=== PATIENT | female | born 1965 | race Hispanic/Latino ===

== ENCOUNTER 2019-12-26 19:57 | Emergency (ER) | payer OTHER ==
--- OUTSIDE RECORDS SUMMARY | 2019-12-26 20:12 | XMS REPORT | Continuity of Care Document ---
:[address] [facility] t Address [address] [place] [address] Care Team Providers Name Role Phone Unavailable Unavailable Unavailable Payers Payer Name Policy Type Policy Number Effective Date Expiration Date S ource Problems This patient has no known problems. Allergies, Adverse Reactions, Alerts Allergy Allergy Status Severity Reaction(s) Onset Inactive Treating Comm ents Source Name Type Date Date Clinician glipizid DA Active [place] 2019-[facility]: [address] metformi DA Active [place] 2019-[facility] 00:00: [address] glipizid DA Active [place] 2018-0 [facility] 00:00: [address] metformi DA Active SV 2018-0 [facility] 00:00: [address] glipizid DA Active [place] 2018-0 [facility] 00:00: [address] metformi DA Active SV 2018-0 [facility] 08[facility]07 Corpus 00:00: [address] glipizid DA Active [place] 2019-0 [facility] 05[facility]16 Corp[facility] 00:00: [address] metformi DA Active SV 2018-0 [facility]16 Corp[facility] 00:00: [address] metformi DA Active SV 2017-0 [facility] 03-22 Corpus 00:00: [address] Medications This patient has no known medications. Procedures This patient has no known procedures. Results Test Description Test Time Test Comments Results Result [facility] e Comments - CT ABD PELVIS 2019-10-28 Patient Name: W/O CONT 13:37:00 ABHIJIT PEDROZA Unit No: [id number] EXAMS: CPT CODE: [id number] CT ABD PELVIS W/O CONT 12780 Reason: abdl pain ruq, hematuria Indication: Abdominal pain, hematuria Technique: 5 mm images through the abdomen and pelvis without the use of contrast FINDINGS: On the cephalad most images there is a 1 cm nodule in the periphery of the left lower lobe The liver is nodular and cirrhotic in appearance. The spleen is enlarged measuring over 20 cm craniocaudad dimension. There are scattered varices in the upper abdomen. The gallbladder is been removed. Contour of the pancreas, adrenals and kidneys are unremarkable. Abdominal aorta is normal in caliber. There is no free intraperitoneal air or free fluid. No abnormally dilated or thickened loops of bowel are identified graph pelvic contents are unremarkable. Bone windows show degenerative changes in the lower lumbar spine. IMPRESSION: 1. Cirrhosis, variceal formation and splenomegaly similar to prior studies 2. 1 cm noncalcified nodule in the right lung base which is new from prior chest CT of May 21, 2018, inflammatory versus neoplastic at 1337 Reported and signed by: Samm Ortez MD CC: Dru Milton MD Technologist: Mckenzie Bliss CT Trscrpt Dt/ ([id number])[email or web address] Orig Print D/T: S: 10/28/2019 (1340) CTDI: DLP: [facility] NAME: ABHIJIT PEDROZA [address] [facility] PHYS: [place]. [place] [address] : 1965 AGE: 53 SEX: F LOC: KATHRIN PHONE #: [phone] EXAM DATE: 10/28/2019 STATUS: REG ER FAX #: RAD NO: DC Dt: PAGE 1 Signed Report GLUBED 2019-10-28 11:31:00 Test Item Value Reference Range Interpretation Comme nts GLUBED (test code = GLUBED) 380 MG/DL 65-99 H Performed by certified potable water treatment operator at [facility] CBC W/AUTO [id number] 10:25:00 Test Item Value Reference Range Interpretation Comments WHITE BLOOD CELL (test code = 5.63 x10 3/uL 4.80-10.80 N WBC) RED BLOOD CELL (test code = 4.72 x10 6/uL 4.2-5.4 N RBC) HEMOGLOBIN (test code = HGB) 13.0 G/DL 12.0-16.0 N HEMATOCRIT (test code = HCT) 38.2 % 37-47 N MEAN CELL VOLUME (test code = 80.9 FL 81-99 L MCV) MEAN CELL HGB (test code = MCH) 27.5 PG 27-31 N MEAN CELL HGB CONCENTRATION 34.0 G/DL 33-37 N (test code = MCHC) RED CELL DISTRIBUTION WIDTH 18.5 % 11.5-14.5 H (test code = RDW) PLATELET COUNT (test code = 58 x10 3/uL 150-450 L PLT) MEAN PLATELET VOLUME (test code 9.5 FL 7.4-10.4 N = MPV) NEUTROPHIL % (test code = NT%) 73.7 % 42-86 N LYMPHOCYTE % (test code = LY%) 12.4 % 24-44 L MONOCYTE % (test code = MO%) 8.3 % 0.0-4.0 H EOSINOPHIL % (test code = EO%) 5.2 % 0.0-2.7 H BASOPHIL % (test code = BA%) 0.4 % 0.0-0.5 N NEUTROPHIL # (test code = NT#) 4.15 x10 3/uL 1.8-7.7 N LYMPHOCYTE # (test code = LY#) 0.70 x10 3/uL 1.0-4.8 L MONOCYTE # (test code = MO#) 0.47 x10 3/uL 0.0-0.8 N EOSINOPHIL # (test code = EO#) 0.29 x10 3/uL 0.0-0.5 N BASOPHIL # (test code = BA#) 0.02 x10 3/uL 0.0-0.2 N MANUAL DIFF REQUIRED (test code SCAN PLT_RBC TECH REVIEW = MDIFF) RBC [id number] 10:25:00 Test Item Value Reference Range Interpretation Comments RBC MORPHOLOGY COMMENT (test code = Normal RBCM) PLATELET [id number] 10:25:00 Test Item Value Reference Range Interpretation Comments PLATELET ESTIMATE (test code Dec ADEQ A OIL IMMERSION 51656 = PLTEST) PLATELET [id number] 10:25:00 Test Item Value Reference Range Interpretation Comments PLATELET MORPHOLOGY (test code = Normal Normal PLTMORPH) CBC W/AUTO [id number] 10:24:00 Test Item Value Reference Range Interpretation Comments WHITE BLOOD CELL (test code = 5.63 x10 3/uL 4.80-10.80 N WBC) RED BLOOD CELL (test code = 4.72 x10 6/uL 4.2-5.4 N RBC) HEMOGLOBIN (test code = HGB) 13.0 G/DL 12.0-16.0 N HEMATOCRIT (test code = HCT) 38.2 % 37-47 N MEAN CELL VOLUME (test code = 80.9 FL 81-99 L MCV) MEAN CELL HGB (test code = MCH) 27.5 PG 27-31 N MEAN CELL HGB CONCENTRATION 34.0 G/DL 33-37 N (test code = MCHC) RED CELL DISTRIBUTION WIDTH 18.5 % 11.5-14.5 H (test code = RDW) PLATELET COUNT (test code = 58 x10 3/uL 150-450 L PLT) MEAN PLATELET VOLUME (test code 9.5 FL 7.4-10.4 N = MPV) NEUTROPHIL % (test code = NT%) 73.7 % 42-86 N LYMPHOCYTE % (test code = LY%) 12.4 % 24-44 L MONOCYTE % (test code = MO%) 8.3 % 0.0-4.0 H EOSINOPHIL % (test code = EO%) 5.2 % 0.0-2.7 H BASOPHIL % (test code = BA%) 0.4 % 0.0-0.5 N NEUTROPHIL # (test code = NT#) 4.15 x10 3/uL 1.8-7.7 N LYMPHOCYTE # (test code = LY#) 0.70 x10 3/uL 1.0-4.8 L MONOCYTE # (test code = MO#) 0.47 x10 3/uL 0.0-0.8 N EOSINOPHIL # (test code = EO#) 0.29 x10 3/uL 0.0-0.5 N BASOPHIL # (test code = BA#) 0.02 x10 3/uL 0.0-0.2 N MANUAL DIFF REQUIRED (test code SCAN PLT_RBC TECH REVIEW = PETER) RBC [id number] 10:24:00 Test Item Value Reference Range Interpretation Comments RBC MORPHOLOGY COMMENT (test code = RBCM) PLATELET [id number] 10:24:00 Test Item Value Reference Range Interpretation Comments PLATELET ESTIMATE (test code = PLTEST) ADEQ CBC W/AUTO [id number] 10:24:00 Test Item Value Reference Range Interpretation Comments WHITE BLOOD CELL (test code = 5.63 x10 3/uL 4.80-10.80 N WBC) RED BLOOD CELL (test code = 4.72 x10 6/uL 4.2-5.4 N RBC) HEMOGLOBIN (test code = HGB) 13.0 G/DL 12.0-16.0 N HEMATOCRIT (test code = HCT) 38.2 % 37-47 N MEAN CELL VOLUME (test code = 80.9 FL 81-99 L MCV) MEAN CELL HGB (test code = MCH) 27.5 PG 27-31 N MEAN CELL HGB CONCENTRATION 34.0 G/DL 33-37 N (test code = MCHC) RED CELL DISTRIBUTION WIDTH 18.5 % 11.5-14.5 H (test code = RDW) PLATELET COUNT (test code = 58 x10 3/uL 150-450 L PLT) MEAN PLATELET VOLUME (test code 9.5 FL 7.4-10.4 N = MPV) NEUTROPHIL % (test code = NT%) 73.7 % 42-86 N LYMPHOCYTE % (test code = LY%) 12.4 % 24-44 L MONOCYTE % (test code = MO%) 8.3 % 0.0-4.0 H EOSINOPHIL % (test code = EO%) 5.2 % 0.0-2.7 H BASOPHIL % (test code = BA%) 0.4 % 0.0-0.5 N NEUTROPHIL # (test code = NT#) 4.15 x10 3/uL 1.8-7.7 N LYMPHOCYTE # (test code = LY#) 0.70 x10 3/uL 1.0-4.8 L MONOCYTE # (test code = MO#) 0.47 x10 3/uL 0.0-0.8 N EOSINOPHIL # (test code = EO#) 0.29 x10 3/uL 0.0-0.5 N BASOPHIL # (test code = BA#) 0.02 x10 3/uL 0.0-0.2 N MANUAL DIFF REQUIRED (test code SCAN PLT_RBC TECH REVIEW = MDIFF) RBC [id number] 10:24:00 Test Item Value Reference Range Interpretation Comments RBC MORPHOLOGY COMMENT (test code = RBCM) PLATELET [id number] 10:24:00 Test Item Value Reference Range Interpretation Comments PLATELET ESTIMATE (test code = PLTEST) ADEQ CBC W/AUTO [id number] 10:20:00 Test Item Value Reference Range Interpretation Comments WHITE BLOOD CELL (test code = 5.63 x10 3/uL 4.80-10.80 N WBC) RED BLOOD CELL (test code = 4.72 x10 6/uL 4.2-5.4 N RBC) HEMOGLOBIN (test code = HGB) 13.0 G/DL 12.0-16.0 N HEMATOCRIT (test code = HCT) 38.2 % 37-47 N MEAN CELL VOLUME (test code = 80.9 FL 81-99 L MCV) MEAN CELL HGB (test code = MCH) 27.5 PG 27-31 N MEAN CELL HGB CONCENTRATION 34.0 G/DL 33-37 N (test code = MCHC) RED CELL DISTRIBUTION WIDTH 18.5 % 11.5-14.5 H (test code = RDW) PLATELET COUNT (test code = 58 x10 3/uL 150-450 L PLT) MEAN PLATELET VOLUME (test code 9.5 FL 7.4-10.4 N = MPV) NEUTROPHIL % (test code = NT%) 73.7 % 42-86 N LYMPHOCYTE % (test code = LY%) 12.4 % 24-44 L MONOCYTE % (test code = MO%) 8.3 % 0.0-4.0 H EOSINOPHIL % (test code = EO%) 5.2 % 0.0-2.7 H BASOPHIL % (test code = BA%) 0.4 % 0.0-0.5 N NEUTROPHIL # (test code = NT#) 4.15 x10 3/uL 1.8-7.7 N LYMPHOCYTE # (test code = LY#) 0.70 x10 3/uL 1.0-4.8 L MONOCYTE # (test code = MO#) 0.47 x10 3/uL 0.0-0.8 N EOSINOPHIL # (test code = EO#) 0.29 x10 3/uL 0.0-0.5 N BASOPHIL # (test code = BA#) 0.02 x10 3/uL 0.0-0.2 N UA RFLX [id number] 10:18:00 Test Item Value Reference Range Interpretation Comments UA COLOR (test code = COLU) YELLOW YELLOW UA APPEARANCE (test code = HAZY CLEAR APPU) UA GLUCOSE DIPSTICK (test 1000 mg/dL NEGATIVE A code = DGLUU) UA BILIRUBIN DIPSTICK (test NEGATIVE NEGATIVE code = BILU) UA KETONE DIPSTICK (test code 150 mg/dL NEGATIVE A = KETU) UA SPECIFIC GRAVITY (test 1.010 1.001-1.035 N code = SGU) UA BLOOD DIPSTICK (test code 4+ NEGATIVE A = RAKESH) UA PH DIPSTICK (test code = 6.0 5.5-7.0 N YESI) UA PROTEIN DIPSTICK (test 75 mg/dL NEGATIVE A code = PROU) UA UROBILINOGEN DIPSTICK NORMAL mg/dL NORMAL (test code = URO) UA NITRITE DIPSTICK (test POSITIVE NEGATIVE A code = CAROL) UA LEUKOCYTE ESTERASE 1+ NEGATIVE A DIPSTICK (test code = LEUU) UA COMMENT (test code = COMU) VOLUME 10-12 ML URINE SPECIMEN DESCRIPTION Clean Catch (test code = UASPEC) UA [id number] 10:18:00 Test Item Value Reference Range Interpretation Comments UA WBC (test code = WBCU) 10 - 20 #/hpf <10 A UA RBC (test code = RBCU) 20-30 #/hpf NONE SEEN A UA BACTERIA (test code = FEW #/hpf NONE SEEN A BACU) UA SQUAMOUS CELLS (test code > 100 #/lpf <100 A = SQU) UA CULTURE NEEDED? (test Criteria not met code = UACULT) COMPREHENSIVE METABOLIC [id number] 10:12:00 Test Item Value Reference Range Interpretation Comments SODIUM (test code = 131 MMOL/L 133-145 L NA) POTASSIUM (test code = 3.7 MMOL/L 3.6-5.2 N K) CHLORIDE (test code = 94 MMOL/L 100-108 L CL) CARBON DIOXIDE (test 22 MMOL/L 22-32 N code = CO2) GLUCOSE (test code = 411 MG/DL 65-99 HH VERIFIE D BY REPEAT GLU) ANALYSIS ON DARINEL E SPECIMEN.Result s of this assay meth od may be falsely depressed orele vated if patient is t aking sulfasalazine. BLOOD UREA NITROGEN 7 MG/DL 6-20 N (test code = BUN) GLOMERULAR FILTRATION 92 51-120 N Report ing units: RATE (test code = GFR) mL/mi n/1.73m\S\2 (Modified MDRD Formula) CREATININE (test code 0.67 MG/DL 0.60-1.00 N = CREAT) TOTAL PROTEIN (test 7.7 G/DL 6.4-8.2 N code = PROT) ALBUMIN (test code = 3.3 G/DL 3.4-5.0 L ALB) GLOBULIN (test code = 4.4 G/DL 1.5-3.8 H GLOB) ALBUMIN/GLOBULIN RATIO 0.8 1.1-2.2 L (test code = A/G) CALCIUM (test code = 8.7 MG/DL 8.7-10.5 N CA) BILIRUBIN TOTAL (test 2.8 MG/DL 0.0-1.0 H code = BILT) SGOT/AST (test code = 33 Units/L 15-37 N Result s of this AST) assay method ma y be falsely depress ed orelevated if patient is taki ng sulfasalazine. SGPT/ALT (test code = 45 Units/L 30-65 N Result s of this ALT) assay method ma y be falsely depress ed orelevated if patient is taki ng sulfasalazine. ALKALINE PHOSPHATASE 137 Units/L 50-136 H TOTAL (test code = ALKP) [id number] 10:12:00 Test Item Value Reference Range Interpretation Comments LIPASE (test code = LIP) 111 Units/L 73-393 N CV CALL [id number] 10:12:00 Test Item Value Reference Range Interpretation Comments CV CALL CHEM (test code = CVC) COMPREHENSIVE METABOLIC [id number] 10:12:00 Test Item Value Reference Range Interpretation Comments SODIUM (test code = 131 MMOL/L 133-145 L NA) POTASSIUM (test code = 3.7 MMOL/L 3.6-5.2 N K) CHLORIDE (test code = 94 MMOL/L 100-108 L CL) CARBON DIOXIDE (test 22 MMOL/L 22-32 N code = CO2) GLUCOSE (test code = 411 MG/DL 65-99 HH VERIFIE D BY REPEAT GLU) ANALYSIS ON DARINEL E SPECIMEN.Result s of this assay meth od may be falsely depressed orele vated if patient is t aking sulfasalazine. BLOOD UREA NITROGEN 7 MG/DL 6-20 N (test code = BUN) GLOMERULAR FILTRATION 92 51-120 N Report ing units: RATE (test code = GFR) mL/mi n/1.73m\S\2 (Modified MDRD Formula) CREATININE (test code 0.67 MG/DL 0.60-1.00 N = CREAT) TOTAL PROTEIN (test 7.7 G/DL 6.4-8.2 N code = PROT) ALBUMIN (test code = 3.3 G/DL 3.4-5.0 L ALB) GLOBULIN (test code = 4.4 G/DL 1.5-3.8 H GLOB) ALBUMIN/GLOBULIN RATIO 0.8 1.1-2.2 L (test code = A/G) CALCIUM (test code = 8.7 MG/DL 8.7-10.5 N CA) BILIRUBIN TOTAL (test 2.8 MG/DL 0.0-1.0 H code = BILT) SGOT/AST (test code = 33 Units/L 15-37 N Result s of this AST) assay method ma y be falsely depress ed orelevated if patient is taki ng sulfasalazine. SGPT/ALT (test code = 45 Units/L 30-65 N Result s of this ALT) assay method ma y be falsely depress ed orelevated if patient is taki ng sulfasalazine. ALKALINE PHOSPHATASE 137 Units/L 50-136 H TOTAL (test code = ALKP) [id number] 10:12:00 Test Item Value Reference Range Interpretation Comments LIPASE (test code = LIP) 111 Units/L 73-393 N CV CALL [id number] 10:12:00 Test Item Value Reference Range Interpretation Comments CV CALL CHEM (test Called Results c alled to and code = CVC) read back by GILBERTO BRYANT RN NWED;.for darren te(s): GLU .at 1012 - 09/0 03/17; by D.[email or web address].[email or web address]. DRUG OF ABUSE SCREEN [id number] 10:11:00 Test Item Value Reference Interpretation Comments Range UR COCAINE (test NEGATIVE NEGATIVE code = COCAU) UR MDMA (test code = NEGATIVE NEGATIVE MDMAQLU) UR CANNABINOIDS POSITIVE NEGATIVE A If confirmat ory testing (test code = CANU) required, contact laboratory. UR AMPHETAMINE (test NEGATIVE NEGATIVE code = AMPHU) UR BARBITURATE QUAL NEGATIVE NEGATIVE (test code = BARBQLU) UR BENZODIAZEPINE NEGATIVE NEGATIVE (test code = BENZU) UR OPIATES QUAL NEGATIVE NEGATIVE (test code = OPIAQLU) UR PHENCYCLIDINE NEGATIVE NEGATIVE Urine Drug Abuse Screen (PCP) (test code = provides preliminary PHENCU) results thatmay be confirmed by tre quezada methods (i.e., GC/MS) at [facility]. Results of scre en may not be usedin crimi nal justice, job performance or professionalcre dential review, or infa nt custody issues. Negativ e [place] Level ng/ml ------- ----- Cocaine 300 Methamp hetamine (Ecstacy) 500 Cannabinoids (THC) 50 Amphetamine 1000 Barbiturate s 200 Benzodia zepines 200 Opiat es 300 Ph encyclidine (PCP) 25 UA RFLX [id number] 09:54:00 Test Item Value Reference Range Interpretation Comments UA COLOR (test code = COLU) YELLOW YELLOW UA APPEARANCE (test code = HAZY CLEAR APPU) UA GLUCOSE DIPSTICK (test 1000 mg/dL NEGATIVE A code = DGLUU) UA BILIRUBIN DIPSTICK (test NEGATIVE NEGATIVE code = BILU) UA KETONE DIPSTICK (test code 150 mg/dL NEGATIVE A = KETU) UA SPECIFIC GRAVITY (test 1.010 1.001-1.035 N code = SGU) UA BLOOD DIPSTICK (test code 4+ NEGATIVE A = RAKESH) UA PH DIPSTICK (test code = 6.0 5.5-7.0 N YESI) UA PROTEIN DIPSTICK (test 75 mg/dL NEGATIVE A code = PROU) UA UROBILINOGEN DIPSTICK NORMAL mg/dL NORMAL (test code = URO) UA NITRITE DIPSTICK (test POSITIVE NEGATIVE A code = CAROL) UA LEUKOCYTE ESTERASE 1+ NEGATIVE A DIPSTICK (test code = LEUU) UA COMMENT (test code = COMU) VOLUME 10-12 ML URINE SPECIMEN DESCRIPTION Clean Catch (test code = UASPEC) UA [id number] 09:54:00 Test Item Value Reference Range Interpretation Comments UA WBC (test code = WBCU) #/hpf <10 UA RBC (test code = RBCU) #/hpf NONE SEEN UA SQUAMOUS CELLS (test code = SQU) #/lpf <100 UA CULTURE NEEDED? (test code = UACULT) UA RFLX [id number] 09:54:00 Test Item Value Reference Range Interpretation Comments UA COLOR (test code = COLU) YELLOW YELLOW UA APPEARANCE (test code = HAZY CLEAR APPU) UA GLUCOSE DIPSTICK (test 1000 mg/dL NEGATIVE A code = DGLUU) UA BILIRUBIN DIPSTICK (test NEGATIVE NEGATIVE code = BILU) UA KETONE DIPSTICK (test code 150 mg/dL NEGATIVE A = KETU) UA SPECIFIC GRAVITY (test 1.010 1.001-1.035 N code = SGU) UA BLOOD DIPSTICK (test code 4+ NEGATIVE A = RAKESH) UA PH DIPSTICK (test code = 6.0 5.5-7.0 N YESI) UA PROTEIN DIPSTICK (test 75 mg/dL NEGATIVE A code = PROU) UA UROBILINOGEN DIPSTICK NORMAL mg/dL NORMAL (test code = URO) UA NITRITE DIPSTICK (test POSITIVE NEGATIVE A code = CAROL) UA LEUKOCYTE ESTERASE 1+ NEGATIVE A DIPSTICK (test code = LEUU) UA COMMENT (test code = COMU) VOLUME 10-12 ML URINE SPECIMEN DESCRIPTION Clean Catch (test code = UASPEC) UA [id number] 09:54:00 Test Item Value Reference Range Interpretation Comments UA WBC (test code = WBCU) #/hpf <10 UA RBC (test code = RBCU) #/hpf NONE SEEN UA SQUAMOUS CELLS (test code = SQU) #/lpf <100 UA CULTURE NEEDED? (test code = UACULT) [id number] 06:01:00 Test Item Value Reference Range Interpretation Comments GLUBED (test code = 287 MG/DL 65-99 H Performe d by certified GLUBED) potable water treatment operator at [facility] [id number] 03:04:00 Test Item Value Reference Range Interpretation Comments GLUBED (test code = 352 MG/DL 65-99 H Performe d by certified GLUBED) potable water treatment operator at [facility] [id number] 03:04:00 Test Item Value Reference Range Interpretation Comments GLUBED (test code = 548 MG/DL 65-99 HH Performe d by certified GLUBED) potable water treatment operator at [facility] - XR ANKLE 3+V [id number] 02:54:00 Patient Name: ABHIJIT PEDROZA Unit No: [id number] EXAMS: CPT CODE: [id number] XR ANKLE 3+V RT [id number] Reason: RIGHT ANKLE PAIN PROCEDURE INFORMATION: Exam: XR Right Ankle, 4 views. Exam date and time: 09/16/2019 2:10 AM Age: 53 years old Clinical indication: Pain; Ankle; Right; Prior surgery; Additional info: Right ankle pain TECHNIQUE: Imaging protocol: XR Right ankle. Views: 4views. COMPARISON: CR XR ANKLE 2 VIEWS RT 09/08/2019 4:11 PM FINDINGS: Bones/joints: No acute fracture or dislocation is seen involving the right ankle. The rightankle mortise appears symmetric. Mild tibiotalar degenerative joint disease with small periarticular osteophyte formation arising from the distal tibia is noted. Multiple lucent screw tracks from previous hardware removal are seen in the distal right tibia and fibula, whichappear similar compared with the prior exam. Old healed fracture of the distal right fibula is seen, and appears similar compared with the prior exam. Small bone spur/enthesophyte is seen arising from the medial malleolus, similar compared with the prior exam. Approximately 1 cm plantar calcaneal bone spur is seen, similar compared with the prior exam.Soft tissues: There is questionable nonspecific soft tissue swelling in the medial and lateral right ankle, which appears less prominent compared with the prior exam. No abnormal foci soft tissue air/gas are seen in the right ankle. IMPRESSION: 1. No acute fracture or dislocation is seen involving the right ankle. Old postsurgic al/posttraumatic changes are seen in the right ankle, which appear similar compared with the prior exam as described above. 2. There is questionable nonspecific softtissue swelling in the medial and lateral right ankle, which appears less prominent compared with the prior exam. 3. Approximately 1 cm plantar calcaneal bone spur is seen, similar compared with the prior exam. Other findings as above. Follow up as clinically warranted for persistent symptoms. [facility] NAME: ABHIJIT PEDROZA [id number] [facility] PHYS: [place] [address] : 1965 AGE: 53 SEX: F LOC: DCastroNER PHONE #: [phone] EXAM DATE: 09/16/2019 STATUS: REG ER FAX #: RAD NO: DC Dt: PAGE 1 Signed Report (CONTINUED) Patient Name: ABHIJIT PEDROZA Unit No: [id number] EXAMS: CPT CODE: [id number] XR ANKLE 3+V RT [id number] <Continued> Reason: RIGHT ANKLE PAIN at 0254 Reported and signed by: TONYA MAIN CC: Tien Bear DO Technologist: Aura PATTON Trscrpt Dt/ ([email or web address] Orig Print D/T: S: 09/16/2019 (253) [facility] NAME: ABHIJIT PEDROZA [address] [facility] PHYS: [place] [address] : 1965 AGE: 53 SEX: F LOC: Mary KayNER PHONE #: [phone] EXAM DATE: 09/16/2019 STATUS: REG ER FAX #: RAD NO: DCDt: PAGE 2 Signed ReportC REACTIVE [id number] 00:41:00 Test Item Value Reference Range Interpretation Comments C REACTIVE PROTEIN (test < 0.2 MG/DL < 0.9 RPT ED;CONFIRMED code = CRP) COMPREHENSIVE METABOLIC [id number] 00:25:00 Test Item Value Reference Range Interpretation Comments SODIUM (test code = 127 MMOL/L 133-145 L NA) POTASSIUM (test code = 3.9 MMOL/L 3.6-5.2 N K) CHLORIDE (test code = 94 MMOL/L 100-108 L CL) CARBON DIOXIDE (test 26 MMOL/L 22-32 N code = CO2) GLUCOSE (test code = 699 MG/DL 65-99 HH Results of this GLU) assay method zaria valadez be falsely depress ed orelevated if patient is taki ng sulfasalazine. BLOOD UREA NITROGEN 9 MG/DL 6-20 N (test code = BUN) GLOMERULAR FILTRATION 56 51-120 N Report ing units: RATE (test code = GFR) mL/mi n/1.73m\S\2 (Modified MDRD Formula) CREATININE (test code 1.03 MG/DL 0.60-1.00 H = CREAT) TOTAL PROTEIN (test 7.5 G/DL 6.4-8.2 N code = PROT) ALBUMIN (test code = 3.3 G/DL 3.4-5.0 L ALB) GLOBULIN (test code = 4.2 G/DL 1.5-3.8 H GLOB) ALBUMIN/GLOBULIN RATIO 0.8 1.1-2.2 L (test code = A/G) CALCIUM (test code = 8.2 MG/DL 8.7-10.5 L CA) BILIRUBIN TOTAL (test 2.3 MG/DL 0.0-1.0 H code = BILT) SGOT/AST (test code = 34 Units/L 15-37 N Result s of this AST) assay method zaria valadez be falsely depress ed orelevated if patient is taki ng sulfasalazine. SGPT/ALT (test code = 46 Units/L 30-65 N Result s of this ALT) assay method zaria valadez be falsely depress ed orelevated if patient is taki ng sulfasalazine. ALKALINE PHOSPHATASE 174 Units/L 50-136 H TOTAL (test code = ALKP) CV CALL [id number] 00:25:00 Test Item Value Reference Range Interpretation Comments CV CALL CHEM (test Called Results c alled to and code = CVC) read back by MARK ROSS RN;.for an alyte(s): [place] .[place] 00209/16/19; by [email or web address]. COMPREHENSIVE METABOLIC [id number] 00:24:00 Test Item Value Reference Range Interpretation Comments SODIUM (test code = 127 MMOL/L 133-145 L NA) POTASSIUM (test code = 3.9 MMOL/L 3.6-5.2 N K) CHLORIDE (test code = 94 MMOL/L 100-108 L CL) CARBON DIOXIDE (test 26 MMOL/L 22-32 N code = CO2) GLUCOSE (test code = 699 MG/DL 65-99 HH Results of this GLU) assay method zaria y be falsely depress ed orelevated if patient is taki ng sulfasalazine. BLOOD UREA NITROGEN 9 MG/DL 6-20 N (test code = BUN) GLOMERULAR FILTRATION 56 51-120 N Report ing units: RATE (test code = GFR) mL/mi n/1.73m\S\2 (Modified MDRD Formula) CREATININE (test code 1.03 MG/DL 0.60-1.00 H = CREAT) TOTAL PROTEIN (test 7.5 G/DL 6.4-8.2 N code = PROT) ALBUMIN (test code = 3.3 G/DL 3.4-5.0 L ALB) GLOBULIN (test code = 4.2 G/DL 1.5-3.8 H GLOB) ALBUMIN/GLOBULIN RATIO 0.8 1.1-2.2 L (test code = A/G) CALCIUM (test code = 8.2 MG/DL 8.7-10.5 L CA) BILIRUBIN TOTAL (test 2.3 MG/DL 0.0-1.0 H code = BILT) SGOT/AST (test code = 34 Units/L 15-37 N Result s of this AST) assay method zaria valadez be falsely depress ed orelevated if patient is taki ng sulfasalazine. SGPT/ALT (test code = 46 Units/L 30-65 N Result s of this ALT) assay method zaria valadez be falsely depress ed orelevated if patient is taki ng sulfasalazine. ALKALINE PHOSPHATASE 174 Units/L 50-136 H TOTAL (test code = ALKP) CV CALL [id number] 00:24:00 Test Item Value Reference Range Interpretation Comments CV CALL CHEM (test code = CVC) CBC W/AUTO [id number] 00:21:00 Test Item Value Reference Range Interpretation Comments WHITE BLOOD CELL (test 4.16 x10 3/uL 4.80-10.80 L code = WBC) RED BLOOD CELL (test 4.38 x10 6/uL 4.2-5.4 N code = RBC) HEMOGLOBIN (test code = 11.9 G/DL 12.0-16.0 L HGB) HEMATOCRIT (test code = 34.9 % 37-47 L HCT) MEAN CELL VOLUME (test 79.7 FL 81-99 L code = MCV) MEAN CELL HGB (test 27.2 PG 27-31 N code = MCH) MEAN CELL HGB 34.1 G/DL 33-37 N CONCENTRATION (test code = MCHC) RED CELL DISTRIBUTION 17.6 % 11.5-14.5 H WIDTH (test code = RDW) PLATELET COUNT (test 56 x10 3/uL 150-450 L RPTED;C ONFIRMED;N code = PLT) O CLOTS NOTED MEAN PLATELET VOLUME 9.8 FL 7.4-10.4 N (test code = MPV) NEUTROPHIL % (test code 62.7 % 42-86 N = NT%) LYMPHOCYTE % (test code 19.0 % 24-44 L = LY%) MONOCYTE % (test code = 10.1 % 0.0-4.0 H MO%) EOSINOPHIL % (test code 7.5 % 0.0-2.7 H = EO%) BASOPHIL % (test code = 0.7 % 0.0-0.5 H BA%) NEUTROPHIL # (test code 2.61 x10 3/uL 1.8-7.7 N = NT#) LYMPHOCYTE # (test code 0.79 x10 3/uL 1.0-4.8 L = LY#) MONOCYTE # (test code = 0.42 x10 3/uL 0.0-0.8 N MO#) EOSINOPHIL # (test code 0.31 x10 3/uL 0.0-0.5 N = EO#) BASOPHIL # (test code = 0.03 x10 3/uL 0.0-0.2 N BA#) MANUAL DIFF REQUIRED SCAN PLT_RBC TECH REVIEW (test code = MDIFF) RBC [id number] 00:21:00 Test Item Value Reference Range Interpretation Comments RBC MORPHOLOGY COMMENT (test code See Comment = RBCM) HYPOCHROMIA (test code = HYPO) 1+ POIKILOCYTOSIS (test code = POIK) 1+ ANISOCYTOSIS (test code = ANISO) 2+ MICROCYTOSIS (test code = MICR) 1+ MACROCYTOSIS (test code = MACR) 1+ PLATELET [id number] 00:21:00 Test Item Value Reference Range Interpretation Comments PLATELET ESTIMATE (test code = PLTEST) Dec ADEQ A PLATELET [id number] 00:21:00 Test Item Value Reference Range Interpretation Comments PLATELET MORPHOLOGY (test Variable Plt Size Normal A code = PLTMORPH) CBC W/AUTO [id number] 00:01:00 Test Item Value Reference Range Interpretation Comments WHITE BLOOD CELL (test 4.16 x10 3/uL 4.80-10.80 L code = WBC) RED BLOOD CELL (test 4.38 x10 6/uL 4.2-5.4 N code = RBC) HEMOGLOBIN (test code = 11.9 G/DL 12.0-16.0 L HGB) HEMATOCRIT (test code = 34.9 % 37-47 L HCT) MEAN CELL VOLUME (test 79.7 FL 81-99 L code = MCV) MEAN CELL HGB (test 27.2 PG 27-31 N code = MCH) MEAN CELL HGB 34.1 G/DL 33-37 N CONCENTRATION (test code = MCHC) RED CELL DISTRIBUTION 17.6 % 11.5-14.5 H WIDTH (test code = RDW) PLATELET COUNT (test 56 x10 3/uL 150-450 L RPTED;C ONFIRMED;N code = PLT) O CLOTS NOTED MEAN PLATELET VOLUME 9.8 FL 7.4-10.4 N (test code = MPV) NEUTROPHIL % (test code 62.7 % 42-86 N = NT%) LYMPHOCYTE % (test code 19.0 % 24-44 L = LY%) MONOCYTE % (test code = 10.1 % 0.0-4.0 H MO%) EOSINOPHIL % (test code 7.5 % 0.0-2.7 H = EO%) BASOPHIL % (test code = 0.7 % 0.0-0.5 H BA%) NEUTROPHIL # (test code 2.61 x10 3/uL 1.8-7.7 N = NT#) LYMPHOCYTE # (test code 0.79 x10 3/uL 1.0-4.8 L = LY#) MONOCYTE # (test code = 0.42 x10 3/uL 0.0-0.8 N MO#) EOSINOPHIL # (test code 0.31 x10 3/uL 0.0-0.5 N = EO#) BASOPHIL # (test code = 0.03 x10 3/uL 0.0-0.2 N BA#) MANUAL DIFF REQUIRED SCAN PLT_RBC TECH REVIEW (test code = MDIFF) RBC [id number] 00:01:00 Test Item Value Reference Range Interpretation Comments RBC MORPHOLOGY COMMENT (test code = RBCM) PLATELET [id number] 00:01:00 Test Item Value Reference Range Interpretation Comments PLATELET ESTIMATE (test code = PLTEST) ADEQ CBC W/AUTO [id number] 00:01:00 Test Item Value Reference Range Interpretation Comments WHITE BLOOD CELL (test 4.16 x10 3/uL 4.80-10.80 L code = WBC) RED BLOOD CELL (test 4.38 x10 6/uL 4.2-5.4 N code = RBC) HEMOGLOBIN (test code = 11.9 G/DL 12.0-16.0 L HGB) HEMATOCRIT (test code = 34.9 % 37-47 L HCT) MEAN CELL VOLUME (test 79.7 FL 81-99 L code = MCV) MEAN CELL HGB (test 27.2 PG 27-31 N code = MCH) MEAN CELL HGB 34.1 G/DL 33-37 N CONCENTRATION (test code = MCHC) RED CELL DISTRIBUTION 17.6 % 11.5-14.5 H WIDTH (test code = RDW) PLATELET COUNT (test 56 x10 3/uL 150-450 L RPTED;C ONFIRMED;N code = PLT) O CLOTS NOTED MEAN PLATELET VOLUME 9.8 FL 7.4-10.4 N (test code = MPV) NEUTROPHIL % (test code 62.7 % 42-86 N = NT%) LYMPHOCYTE % (test code 19.0 % 24-44 L = LY%) MONOCYTE % (test code = 10.1 % 0.0-4.0 H MO%) EOSINOPHIL % (test code 7.5 % 0.0-2.7 H = EO%) BASOPHIL % (test code = 0.7 % 0.0-0.5 H BA%) NEUTROPHIL # (test code 2.61 x10 3/uL 1.8-7.7 N = NT#) LYMPHOCYTE # (test code 0.79 x10 3/uL 1.0-4.8 L = LY#) MONOCYTE # (test code = 0.42 x10 3/uL 0.0-0.8 N MO#) EOSINOPHIL # (test code 0.31 x10 3/uL 0.0-0.5 N = EO#) BASOPHIL # (test code = 0.03 x10 3/uL 0.0-0.2 N BA#) MANUAL DIFF REQUIRED SCAN PLT_RBC TECH REVIEW (test code = MDIFF) RBC [id number] 00:01:00 Test Item Value Reference Range Interpretation Comments RBC MORPHOLOGY COMMENT (test code = RBCM) PLATELET [id number] 00:01:00 Test Item Value Reference Range Interpretation Comments PLATELET ESTIMATE (test code = PLTEST) ADEQ LACTIC [id number] 21:20:00 Test Item Value Reference Range Interpretation Comments LACTIC ACID (test code = LACT) 1.7 MMOL/L 0.5-2.2 N [id number] 21:05:00 Test Item Value Reference Range Interpretation Comments GLUBED (test code = 296 MG/DL 65-99 H Performe d by certified GLUBED) potable water treatment operator at [facility] Coronavirus 2019 nCoV [id number] 20:41:00 Test Item Value Reference Range Interpretation Comments Coronavirus 2019 nCoV Negative Negative ID NOW COVID-19 assay Bedside (test code = perform ed on the ID NOW [id number]) Instrument travon rapid molecular in vi tro diagnostic test utilizing aniso thermal nucleic acid amplification t echnology intendedfor the qualitative det ection of nucleic acid fr om [id number] v iral RNA in direct nasal , nasopharyngeal orthroat swabs and nasal , nasopharyngeal or throat swabseluted in viral transport media from individuals who aresuspected of COVID-19 by their health care provider. Resu lts are for the identif ication of SARS-CoV-2 R NA.For Use Under an Em ergency Use Authorizati on (EUA) Only Negative r esults do not preclude SA RS-CoV-2 infection andsh ould not be used as the sole basis for patie nt managementdecis ions. Negative result s must be combined with clinicalobserva tions, patient history , and epidemiological informati on. 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 IV contrast: 100 mL Isovue 300. PO contrast: None. Comparison: CT abdomen and CT pelvis studies dated 05/17/2018. CT a bdomen: Lung bases: 1.1 cm nodule is identified the left lower lung. There is also 1 cm nodule identified the right lower lung. Hepatobiliary system: There is evidence of a liver cirrhosis. The patient is status post cholecystectomy. Stomach: Gastroesophageal varices are present. Pancreas: No focal masses. No pancreatic ductal dilatation no significant peripancreatic inflammatory changes. Spleen: The spleen is enlarged. Adrenal glands: No focal mass. Kidneys and collecting systems: No hydronephrosis or nephrolithiasis. No discrete masses. Retrocrural para-aortic lymphadenopathy: None. Appendix and GI tract: The bowel loops are normal in caliber without wall thickening or dilatation. There is no adjacent fat stranding. There is no CT evidence of appendicitis. Vasculatures: There are vascular calcifications. The inferior vena cava, abdominal aorta, and the proximal mesentery arteries are otherwise unremarkable. Pelvis: Enlarged collateral veins are present in the lower pelvis.Visualized osseous structures: No lytic or blastic lesions. No acute fracture or subluxation. Degenerative discs changes: No significant degenerative disc changes. Anterior bridging osteophytes present in the lower thoracic spine. Abdominal wall: The abdominal wall is intact. Impression: 1. Nodules identified in both lower lung. Consider nonemergent CT [place] NAME: ABHIJIT PEDROZA [address] [place] [address] PHYS: PEPDA. Dru Milton MD [address] : 1965 AGE: 53 SEX: F [place], [place] [address] LOC: D.PER PHONE #: [phone] EXAM DATE: 09/08/2019 STATUS: REG ER FAX #: RAD NO: DC Dt: PAGE 1 Signed Report (CONTINUED) Patient Name: ABHIJIT PEDROZA Unit No: [id number] EXAMS: CPT CODE: [id number] ABD PELVIS W/CONT [id number] <Continued> Reason: abd pain chest evaluation. 2. 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 3. Splenomegaly. at 1744 Reported and signed by: Prabhjot Foley MD CC: Gauri Lanier MD.; Ju Neville; Dru Milton MD Technologist: Yue PATTON Trscrpt Dt/ (174)t.SDR.[email or web address] Orig Print D/T: S: 09/08/2019 (174) CTDI: DLP: [place] NAME: ABHIJIT PEDROZA [address] [place] [address] PHYS: PEPDA. Dru Milton MD [address] : 1965 AGE: 53 SEX: F [place], [place] [address] LOC: D.PER PHONE #: [phone] EXAM DATE: 09/08/2019 STATUS: REG ER FAX #: RAD NO: DC Dt: PAGE 2 Signed ReportBETA [id number] 17:41:00 Test Item Value Reference Range Interpretation Comments BETA HYDROXYBUTYRATE (test code = 0.89 mmol/L 0.02-0.27 H BETHYD) UA RFLX [id number] 17:11:00 Test Item Value Reference Range Interpretation Comments UA COLOR (test code = COLU) YELLOW YELLOW UA APPEARANCE (test code = CLEAR CLEAR APPU) UA GLUCOSE DIPSTICK (test 1000 mg/dL NEGATIVE A code = DGLUU) UA BILIRUBIN DIPSTICK (test NEGATIVE NEGATIVE code = BILU) UA KETONE DIPSTICK (test code NEGATIVE mg/dL NEGATIVE = KETU) UA SPECIFIC GRAVITY (test 1.005 1.001-1.035 N code = SGU) UA BLOOD DIPSTICK (test code 1+ NEGATIVE A = RAKESH) UA PH DIPSTICK (test code = 7.0 5.5-7.0 N YESI) UA PROTEIN DIPSTICK (test NEGATIVE mg/dL NEGATIVE code = PROU) UA UROBILINOGEN DIPSTICK 1.0 mg/dL NORMAL (test code = URO) UA NITRITE DIPSTICK (test NEGATIVE NEGATIVE code = CAROL) UA LEUKOCYTE ESTERASE NEGATIVE NEGATIVE DIPSTICK (test code = LEUU) UA COMMENT (test code = COMU) VOLUME 10-12 ML URINE SPECIMEN DESCRIPTION Clean Catch (test code = UASPEC) UA [id number] 17:11:00 Test Item Value Reference Range Interpretation Comments UA WBC (test code = WBCU) < 10 #/hpf <10 UA RBC (test code = RBCU) 5-10 #/hpf NONE SEEN A UA BACTERIA (test code = 1+ #/hpf NONE SEEN BACU) UA SQUAMOUS CELLS (test code 20 - 40 #/lpf <100 = SQU) UA CULTURE NEEDED? (test Criteria not met code = UACULT) UA RFLX [id number] 17:09:00 Test Item Value Reference Range Interpretation Comments UA COLOR (test code = COLU) YELLOW YELLOW UA APPEARANCE (test code = CLEAR CLEAR APPU) UA GLUCOSE DIPSTICK (test 1000 mg/dL NEGATIVE A code = DGLUU) UA BILIRUBIN DIPSTICK (test NEGATIVE NEGATIVE code = BILU) UA KETONE DIPSTICK (test code NEGATIVE mg/dL NEGATIVE = KETU) UA SPECIFIC GRAVITY (test 1.005 1.001-1.035 N code = SGU) UA BLOOD DIPSTICK (test code 1+ NEGATIVE A = RAKESH) UA PH DIPSTICK (test code = 7.0 5.5-7.0 N YESI) UA PROTEIN DIPSTICK (test NEGATIVE mg/dL NEGATIVE code = PROU) UA UROBILINOGEN DIPSTICK 1.0 mg/dL NORMAL (test code = URO) UA NITRITE DIPSTICK (test NEGATIVE NEGATIVE code = CAROL) UA LEUKOCYTE ESTERASE NEGATIVE NEGATIVE DIPSTICK (test code = LEUU) UA COMMENT (test code = COMU) VOLUME 10-12 ML URINE SPECIMEN DESCRIPTION Clean Catch (test code = UASPEC) UA [id number] 17:09:00 Test Item Value Reference Range Interpretation Comments UA WBC (test code = WBCU) #/hpf <10 UA RBC (test code = RBCU) #/hpf NONE SEEN UA SQUAMOUS CELLS (test code = SQU) #/lpf <100 UA CULTURE NEEDED? (test code = UACULT) UA RFLX [id number] 17:09:00 Test Item Value Reference Range Interpretation Comments UA COLOR (test code = COLU) YELLOW YELLOW UA APPEARANCE (test code = CLEAR CLEAR APPU) UA GLUCOSE DIPSTICK (test 1000 mg/dL NEGATIVE A code = DGLUU) UA BILIRUBIN DIPSTICK (test NEGATIVE NEGATIVE code = BILU) UA KETONE DIPSTICK (test code NEGATIVE mg/dL NEGATIVE = KETU) UA SPECIFIC GRAVITY (test 1.005 1.001-1.035 N code = SGU) UA BLOOD DIPSTICK (test code 1+ NEGATIVE A = RAKESH) UA PH DIPSTICK (test code = 7.0 5.5-7.0 N YESI) UA PROTEIN DIPSTICK (test NEGATIVE mg/dL NEGATIVE code = PROU) UA UROBILINOGEN DIPSTICK 1.0 mg/dL NORMAL (test code = URO) UA NITRITE DIPSTICK (test NEGATIVE NEGATIVE code = CAROL) UA LEUKOCYTE ESTERASE NEGATIVE NEGATIVE DIPSTICK (test code = LEUU) UA COMMENT (test code = COMU) VOLUME 10-12 ML URINE SPECIMEN DESCRIPTION Clean Catch (test code = UASPEC) UA [id number] 17:09:00 Test Item Value Reference Range Interpretation Comments UA WBC (test code = WBCU) #/hpf <10 UA RBC (test code = RBCU) #/hpf NONE SEEN UA SQUAMOUS CELLS (test code = SQU) #/lpf <100 UA CULTURE NEEDED? (test code = UACULT) COMPREHENSIVE METABOLIC [id number] 16:55:00 Test Item Value Reference Range Interpretation Comments SODIUM (test code = 131 MMOL/L 133-145 L NA) POTASSIUM (test code = 4.1 MMOL/L 3.6-5.2 N K) CHLORIDE (test code = 98 MMOL/L 100-108 L CL) CARBON DIOXIDE (test 28 MMOL/L 22-32 N code = CO2) GLUCOSE (test code = 578 MG/DL 65-99 HH Results of this GLU) assay method zaria valadez be falsely depress ed orelevated if patient is taki ng sulfasalazine. BLOOD UREA NITROGEN 6 MG/DL 6-20 N (test code = BUN) GLOMERULAR FILTRATION 61 51-120 N Report ing units: RATE (test code = GFR) mL/mi n/1.73m\S\2 (Modified MDRD Formula) CREATININE (test code 0.95 MG/DL 0.60-1.00 N = CREAT) TOTAL PROTEIN (test 6.6 G/DL 6.4-8.2 N code = PROT) ALBUMIN (test code = 3.0 G/DL 3.4-5.0 L ALB) GLOBULIN (test code = 3.6 G/DL 1.5-3.8 N GLOB) ALBUMIN/GLOBULIN RATIO 0.8 1.1-2.2 L (test code = A/G) CALCIUM (test code = 8.0 MG/DL 8.7-10.5 L CA) BILIRUBIN TOTAL (test 2.1 MG/DL 0.0-1.0 H code = BILT) SGOT/AST (test code = 43 Units/L 15-37 H Result s of this AST) assay method zaria valadez be falsely depress ed orelevated if patient is taki ng sulfasalazine. SGPT/ALT (test code = 55 Units/L 30-65 N Result s of this ALT) assay method zaria valadez be falsely depress ed orelevated if patient is taki ng sulfasalazine. ALKALINE PHOSPHATASE 159 Units/L 50-136 H TOTAL (test code = ALKP) [id number] 16:55:00 Test Item Value Reference Range Interpretation Comments LIPASE (test code = LIP) 185 Units/L 73-393 N [id number] 16:55:00 Test Item Value Reference Range Interpretation Comments TROPONIN-I (test < 0.04 NG/ML 0.00-0.06 N - The use of serial code = TROPI) sampling and t esting protocol is a recommended pra ctice.- An elevated tro ponin level alone is often not sufficient fo r diagnosis of my ocardial infarction.Resu lts of this assay meth od may be falsely depress ed orelevated if p atient is taking high dos es of Biotin. CV CALL [id number] 16:55:00 Test Item Value Reference Range Interpretation Comments CV CALL CHEM (test Called Results c alled to and code = CVC) read back by MCKENZIE PATRICK RN;.for analyte (s): GLU .at 1655 - 08/26 05/15; by D.LAB.MCM. COMPREHENSIVE METABOLIC [id number] 16:54:00 Test Item Value Reference Range Interpretation Comments SODIUM (test code = 131 MMOL/L 133-145 L NA) POTASSIUM (test code = 4.1 MMOL/L 3.6-5.2 N K) CHLORIDE (test code = 98 MMOL/L 100-108 L CL) CARBON DIOXIDE (test 28 MMOL/L 22-32 N code = CO2) GLUCOSE (test code = 578 MG/DL 65-99 HH Results of this GLU) assay method zaria y be falsely depress ed orelevated if patient is taki ng sulfasalazine. BLOOD UREA NITROGEN 6 MG/DL 6-20 N (test code = BUN) GLOMERULAR FILTRATION 61 51-120 N Report ing units: RATE (test code = GFR) mL/mi n/1.73m\S\2 (Modified MDRD Formula) CREATININE (test code 0.95 MG/DL 0.60-1.00 N = CREAT) TOTAL PROTEIN (test 6.6 G/DL 6.4-8.2 N code = PROT) ALBUMIN (test code = 3.0 G/DL 3.4-5.0 L ALB) GLOBULIN (test code = 3.6 G/DL 1.5-3.8 N GLOB) ALBUMIN/GLOBULIN RATIO 0.8 1.1-2.2 L (test code = A/G) CALCIUM (test code = 8.0 MG/DL 8.7-10.5 L CA) BILIRUBIN TOTAL (test 2.1 MG/DL 0.0-1.0 H code = BILT) SGOT/AST (test code = 43 Units/L 15-37 H Result s of this AST) assay method ma y be falsely depress ed orelevated if patient is taki ng sulfasalazine. SGPT/ALT (test code = 55 Units/L 30-65 N Result s of this ALT) assay method ma y be falsely depress ed orelevated if patient is taki ng sulfasalazine. ALKALINE PHOSPHATASE 159 Units/L 50-136 H TOTAL (test code = ALKP) [id number] 16:54:00 Test Item Value Reference Range Interpretation Comments LIPASE (test code = LIP) 185 Units/L 73-393 N [id number] 16:54:00 Test Item Value Reference Range Interpretation Comments TROPONIN-I (test < 0.04 NG/ML 0.00-0.06 N - The use of serial code = TROPI) sampling and t esting protocol is a recommended pra ctice.- An elevated tro ponin level alone is often not sufficient fo r diagnosis of my ocardial infarction.Resu lts of this assay meth od may be falsely depress ed orelevated if p atient is taking high dos es of Biotin. CV CALL [id number] 16:54:00 Test Item Value Reference Range Interpretation Comments CV CALL CHEM (test code = CVC) - XR ANKLE 2 VIEWS [id number] 16:53:00 Patient Name: ABHIJIT PEDROZA Unit No: [id number] EXAMS: CPT CODE: [id number] X[place] ANKLE [address] [place] [id number] Reason: ankle pain, swelling History: ankle pain, swel ling. Technique: 2 views right ankle. Comparison: None. Findings: There is evidence soft tissue swelling. Metallic screw tracks are present in the distal fibula. There is a small calcaneal bony spur. Impression: 1. Soft tissue swelling. 2. Small calcaneal bony spur. at 1653 Reported and signed by: Prabhjot Foley MD CC: Gauri Lanier MD.; Ju Neville; Dru Milton MD Technologist: Yue PATTON Trscrpt Dt/ (1652)Brooke.[email or web address] Orig Print D/T: S: 09/08/2019 (1656) [place] NAME: ABHIJIT PEDROZA [facility] [address] PHYS: PEPDA. - Dru Milton MD [address] : 1965 AGE: 53 SEX: F [place], [place] [address] LOC: D.PER PHONE #: [phone] EXAM DATE: 09/08/2019 STATUS: REG ER FAX #: RAD NO: DC Dt: PAGE 1 Signed ReportCBC W/AUTO [id number] 16:15:00 Test Item Value Reference Range Interpretation Comments WHITE BLOOD CELL (test code = 2.99 x10 3/uL 4.80-10.80 L WBC) RED BLOOD CELL (test code = 4.15 x10 6/uL 4.2-5.4 L RBC) HEMOGLOBIN (test code = HGB) 11.4 G/DL 12.0-16.0 L HEMATOCRIT (test code = HCT) 33.3 % 37-47 L MEAN CELL VOLUME (test code = 80.2 FL 81-99 L MCV) MEAN CELL HGB (test code = MCH) 27.5 PG 27-31 N MEAN CELL HGB CONCENTRATION 34.2 G/DL 33-37 N (test code = MCHC) RED CELL DISTRIBUTION WIDTH 17.3 % 11.5-14.5 H (test code = RDW) PLATELET COUNT (test code = 52 x10 3/uL 150-450 L PLT) MEAN PLATELET VOLUME (test code 10.4 FL 7.4-10.4 N = MPV) NEUTROPHIL % (test code = NT%) 64.8 % 42-86 N LYMPHOCYTE % (test code = LY%) 21.4 % 24-44 L MONOCYTE % (test code = MO%) 7.7 % 0.0-4.0 H EOSINOPHIL % (test code = EO%) 5.4 % 0.0-2.7 H BASOPHIL % (test code = BA%) 0.7 % 0.0-0.5 H NEUTROPHIL # (test code = NT#) 1.94 x10 3/uL 1.8-7.7 N LYMPHOCYTE # (test code = LY#) 0.64 x10 3/uL 1.0-4.8 L MONOCYTE # (test code = MO#) 0.23 x10 3/uL 0.0-0.8 N EOSINOPHIL # (test code = EO#) 0.16 x10 3/uL 0.0-0.5 N BASOPHIL # (test code = BA#) 0.02 x10 3/uL 0.0-0.2 N COMPREHENSIVE METABOLIC [id number] 20:46:00 Test Item Value Reference Range Interpretation Comments SODIUM (test code = 137 MMOL/L 133-145 N NA) POTASSIUM (test code = 4.0 MMOL/L 3.6-5.2 N K) CHLORIDE (test code = 103 MMOL/L 100-108 N CL) CARBON DIOXIDE (test 24 MMOL/L 22-32 N code = CO2) GLUCOSE (test code = 129 MG/DL 65-99 H Results of this GLU) assay method zaria y be falsely depress ed orelevated if patient is taki ng sulfasalazine. BLOOD UREA NITROGEN 11 MG/DL 6-20 N (test code = BUN) GLOMERULAR FILTRATION 109 51-120 N Report ing units: RATE (test code = GFR) mL/mi n/1.73m\S\2 (Modified MDRD Formula) CREATININE (test code 0.58 MG/DL 0.60-1.00 L = CREAT) TOTAL PROTEIN (test 7.9 G/DL 6.4-8.2 N code = PROT) ALBUMIN (test code = 3.4 G/DL 3.4-5.0 N ALB) GLOBULIN (test code = 4.5 G/DL 1.5-3.8 H GLOB) ALBUMIN/GLOBULIN RATIO 0.8 1.1-2.2 L (test code = A/G) CALCIUM (test code = 8.6 MG/DL 8.7-10.5 L CA) BILIRUBIN TOTAL (test 2.4 MG/DL 0.0-1.0 H code = BILT) SGOT/AST (test code = 60 Units/L 15-37 H Result s of this AST) assay method zaria y be falsely depress ed orelevated if patient is taki ng sulfasalazine. SGPT/ALT (test code = 55 Units/L 30-65 N Result s of this ALT) assay method zaria y be falsely depress ed orelevated if patient is taki ng sulfasalazine. ALKALINE PHOSPHATASE 106 Units/L 50-136 N TOTAL (test code = ALKP) [id number] 20:46:00 Test Item Value Reference Range Interpretation Comments LIPASE (test code = LIP) 83 Units/L 73-393 N PROTHROMBIN [id number] 20:45:00 Test Item Value Reference Range Interpretation Comments PROTHROMBIN TIME 11.8 SECONDS 9.3-12.4 N Referen ce Range PATIENT (test code = revised from 9.3-12.4 PTP) as of 01/30/18. INTERNATIONAL NORMAL 1.17 Recomme nded INR range RATIO (test code = (warfarin therapy): INR) 2.0 - 3.0I NR (International Normalized Rati o) should beused w hen interpreting or al anticoaglulant therapy. For at rial fibrillation an d treatment orprevention of deep vein thrombosis . Patients with Palmaz-Juan José s tent *: 2 .0 - 3.0 Patients wi th mechanical hear t valve *: 2.5 - 3.5 Patients with flex-stent *: 3.0 - 4.0(*) = engineer of system development's suggested range Is patient on anticoagulants? No AnticoagulantsTHROMBOPLASTIN TIME PARTIAL 2018-11-13 20:45:00 Test Item Value Reference Range Interpretation Comments THROMBOPLASTIN TIME 25.9 SECONDS 21.8-35.9 N *Therap eutic level PARTIAL (test code = for hep natalia: 1.5 - PTT) 2.5 times the average patient value of 30.0 seconds. The a PTT should not be u sed to evaluate LMW heparin anticoagulant therapy. Reference Range revised from 21.8-35.9 as of 01/30/2018 Is patient on anticoagulants? No AnticoagulantsCBC W/AUTO [id number] 20:44:00 Test Item Value Reference Range Interpretation Comments WHITE BLOOD CELL (test code = 7.83 x10 3/uL 4.80-10.80 N WBC) RED BLOOD CELL (test code = 4.36 x10 6/uL 4.2-5.4 N RBC) HEMOGLOBIN (test code = HGB) 13.8 G/DL 12.0-16.0 N HEMATOCRIT (test code = HCT) 39.0 % 37-47 N MEAN CELL VOLUME (test code = 89.4 FL 81-99 N MCV) MEAN CELL HGB (test code = MCH) 31.7 PG 27-31 H MEAN CELL HGB CONCENTRATION 35.4 G/DL 33-37 N (test code = MCHC) RED CELL DISTRIBUTION WIDTH 16.6 % 11.5-14.5 H (test code = RDW) PLATELET COUNT (test code = 53 x10 3/uL 150-450 L PLT) MEAN PLATELET VOLUME (test code 9.7 FL 7.4-10.4 N = MPV) NEUTROPHIL % (test code = NT%) 77.9 % 42-86 N LYMPHOCYTE % (test code = LY%) 11.2 % 24-44 L MONOCYTE % (test code = MO%) 8.8 % 0.0-4.0 H EOSINOPHIL % (test code = EO%) 1.8 % 0.0-2.7 N BASOPHIL % (test code = BA%) 0.3 % 0.0-0.5 N NEUTROPHIL # (test code = NT#) 6.10 x10 3/uL 1.8-7.7 N LYMPHOCYTE # (test code = LY#) 0.88 x10 3/uL 1.0-4.8 L MONOCYTE # (test code = MO#) 0.69 x10 3/uL 0.0-0.8 N EOSINOPHIL # (test code = EO#) 0.14 x10 3/uL 0.0-0.5 N BASOPHIL # (test code = BA#) 0.02 x10 3/uL 0.0-0.2 N MANUAL DIFF REQUIRED (test code SCAN PLT_RBC TECH REVIEW = MDIFF) RBC [id number] 20:44:00 Test Item Value Reference Range Interpretation Comments RBC MORPHOLOGY COMMENT (test code = Normal RBCM) PLATELET [id number] 20:44:00 Test Item Value Reference Range Interpretation Comments PLATELET ESTIMATE (test Dec ADEQ A PLAT ELET ESTIMATE: code = PLTEST) 75,000/ MM Cu bed. CBC W/AUTO [id number] 20:44:00 Test Item Value Reference Range Interpretation Comments WHITE BLOOD CELL (test code = 7.83 x10 3/uL 4.80-10.80 N WBC) RED BLOOD CELL (test code = 4.36 x10 6/uL 4.2-5.4 N RBC) HEMOGLOBIN (test code = HGB) 13.8 G/DL 12.0-16.0 N HEMATOCRIT (test code = HCT) 39.0 % 37-47 N MEAN CELL VOLUME (test code = 89.4 FL 81-99 N MCV) MEAN CELL HGB (test code = MCH) 31.7 PG 27-31 H MEAN CELL HGB CONCENTRATION 35.4 G/DL 33-37 N (test code = MCHC) RED CELL DISTRIBUTION WIDTH 16.6 % 11.5-14.5 H (test code = RDW) PLATELET COUNT (test code = 53 x10 3/uL 150-450 L PLT) MEAN PLATELET VOLUME (test code 9.7 FL 7.4-10.4 N = MPV) NEUTROPHIL % (test code = NT%) 77.9 % 42-86 N LYMPHOCYTE % (test code = LY%) 11.2 % 24-44 L MONOCYTE % (test code = MO%) 8.8 % 0.0-4.0 H EOSINOPHIL % (test code = EO%) 1.8 % 0.0-2.7 N BASOPHIL % (test code = BA%) 0.3 % 0.0-0.5 N NEUTROPHIL # (test code = NT#) 6.10 x10 3/uL 1.8-7.7 N LYMPHOCYTE # (test code = LY#) 0.88 x10 3/uL 1.0-4.8 L MONOCYTE # (test code = MO#) 0.69 x10 3/uL 0.0-0.8 N EOSINOPHIL # (test code = EO#) 0.14 x10 3/uL 0.0-0.5 N BASOPHIL # (test code = BA#) 0.02 x10 3/uL 0.0-0.2 N MANUAL DIFF REQUIRED (test code SCAN PLT_RBC TECH REVIEW = MDIFF) RBC [id number] 20:44:00 Test Item Value Reference Range Interpretation Comments RBC MORPHOLOGY COMMENT (test code = Normal RBCM) PLATELET [id number] 20:44:00 Test Item Value Reference Range Interpretation Comments PLATELET ESTIMATE (test Dec ADEQ A PLAT ELET ESTIMATE: code = PLTEST) 75,000/ MM Cu bed. PLATELET [id number] 20:44:00 Test Item Value Reference Range Interpretation Comments PLATELET MORPHOLOGY (test code = Normal Normal PLTMORPH) COMPREHENSIVE METABOLIC [id number] 20:44:00 Test Item Value Reference Range Interpretation Comments SODIUM (test code = 137 MMOL/L 133-145 N NA) POTASSIUM (test code = 4.0 MMOL/L 3.6-5.2 N K) CHLORIDE (test code = 103 MMOL/L 100-108 N CL) CARBON DIOXIDE (test 24 MMOL/L 22-32 N code = CO2) GLUCOSE (test code = 129 MG/DL 65-99 H Results of this assay GLU) method may be f alsely depressed orele vated if patient is t aking sulfasalazine. BLOOD UREA NITROGEN 11 MG/DL 6-20 N (test code = BUN) GLOMERULAR FILTRATION 109 51-120 N Report ing units: RATE (test code = GFR) mL/mi n/1.73m\S\2 (Modified MDRD Formula) CREATININE (test code 0.58 MG/DL 0.60-1.00 L = CREAT) TOTAL PROTEIN (test G/DL 6.4-8.2 code = PROT) ALBUMIN (test code = G/DL 3.4-5.0 ALB) GLOBULIN (test code = G/DL 1.5-3.8 GLOB) ALBUMIN/GLOBULIN RATIO 1.1-2.2 (test code = A/G) CALCIUM (test code = 8.6 MG/DL 8.7-10.5 L CA) BILIRUBIN TOTAL (test MG/DL 0.0-1.0 code = BILT) SGOT/AST (test code = Units/L 15-37 AST) SGPT/ALT (test code = Units/L 30-65 ALT) ALKALINE PHOSPHATASE Units/L 50-136 TOTAL (test code = ALKP) [id number] 20:44:00 Test Item Value Reference Range Interpretation Comments LIPASE (test code = LIP) Units/L 73-393 CBC W/AUTO [id number] 20:43:00 Test Item Value Reference Range Interpretation Comments WHITE BLOOD CELL (test code = 7.83 x10 3/uL 4.80-10.80 N WBC) RED BLOOD CELL (test code = 4.36 x10 6/uL 4.2-5.4 N RBC) HEMOGLOBIN (test code = HGB) 13.8 G/DL 12.0-16.0 N HEMATOCRIT (test code = HCT) 39.0 % 37-47 N MEAN CELL VOLUME (test code = 89.4 FL 81-99 N MCV) MEAN CELL HGB (test code = MCH) 31.7 PG 27-31 H MEAN CELL HGB CONCENTRATION 35.4 G/DL 33-37 N (test code = MCHC) RED CELL DISTRIBUTION WIDTH 16.6 % 11.5-14.5 H (test code = RDW) PLATELET COUNT (test code = 53 x10 3/uL 150-450 L PLT) MEAN PLATELET VOLUME (test code 9.7 FL 7.4-10.4 N = MPV) NEUTROPHIL % (test code = NT%) 77.9 % 42-86 N LYMPHOCYTE % (test code = LY%) 11.2 % 24-44 L MONOCYTE % (test code = MO%) 8.8 % 0.0-4.0 H EOSINOPHIL % (test code = EO%) 1.8 % 0.0-2.7 N BASOPHIL % (test code = BA%) 0.3 % 0.0-0.5 N NEUTROPHIL # (test code = NT#) 6.10 x10 3/uL 1.8-7.7 N LYMPHOCYTE # (test code = LY#) 0.88 x10 3/uL 1.0-4.8 L MONOCYTE # (test code = MO#) 0.69 x10 3/uL 0.0-0.8 N EOSINOPHIL # (test code = EO#) 0.14 x10 3/uL 0.0-0.5 N BASOPHIL # (test code = BA#) 0.02 x10 3/uL 0.0-0.2 N MANUAL DIFF REQUIRED (test code SCAN PLT_RBC TECH REVIEW = MDIFF) RBC [id number] 20:43:00 Test Item Value Reference Range Interpretation Comments RBC MORPHOLOGY COMMENT (test code = RBCM) PLATELET [id number] 20:43:00 Test Item Value Reference Range Interpretation Comments PLATELET ESTIMATE (test code = PLTEST) ADEQ CBC W/AUTO [id number] 20:43:00 Test Item Value Reference Range Interpretation Comments WHITE BLOOD CELL (test code = 7.83 x10 3/uL 4.80-10.80 N WBC) RED BLOOD CELL (test code = 4.36 x10 6/uL 4.2-5.4 N RBC) HEMOGLOBIN (test code = HGB) 13.8 G/DL 12.0-16.0 N HEMATOCRIT (test code = HCT) 39.0 % 37-47 N MEAN CELL VOLUME (test code = 89.4 FL 81-99 N MCV) MEAN CELL HGB (test code = MCH) 31.7 PG 27-31 H MEAN CELL HGB CONCENTRATION 35.4 G/DL 33-37 N (test code = MCHC) RED CELL DISTRIBUTION WIDTH 16.6 % 11.5-14.5 H (test code = RDW) PLATELET COUNT (test code = 53 x10 3/uL 150-450 L PLT) MEAN PLATELET VOLUME (test code 9.7 FL 7.4-10.4 N = MPV) NEUTROPHIL % (test code = NT%) 77.9 % 42-86 N LYMPHOCYTE % (test code = LY%) 11.2 % 24-44 L MONOCYTE % (test code = MO%) 8.8 % 0.0-4.0 H EOSINOPHIL % (test code = EO%) 1.8 % 0.0-2.7 N BASOPHIL % (test code = BA%) 0.3 % 0.0-0.5 N NEUTROPHIL # (test code = NT#) 6.10 x10 3/uL 1.8-7.7 N LYMPHOCYTE # (test code = LY#) 0.88 x10 3/uL 1.0-4.8 L MONOCYTE # (test code = MO#) 0.69 x10 3/uL 0.0-0.8 N EOSINOPHIL # (test code = EO#) 0.14 x10 3/uL 0.0-0.5 N BASOPHIL # (test code = BA#) 0.02 x10 3/uL 0.0-0.2 N MANUAL DIFF REQUIRED (test code SCAN PLT_RBC TECH REVIEW = MDIFF) RBC [id number] 20:43:00 Test Item Value Reference Range Interpretation Comments RBC MORPHOLOGY COMMENT (test code = RBCM) PLATELET [id number] 20:43:00 Test Item Value Reference Range Interpretation Comments PLATELET ESTIMATE (test code = PLTEST) ADEQ CBC W/AUTO [id number] 20:35:00 Test Item Value Reference Range Interpretation Comments WHITE BLOOD CELL (test code = 7.83 x10 3/uL 4.80-10.80 N WBC) RED BLOOD CELL (test code = 4.36 x10 6/uL 4.2-5.4 N RBC) HEMOGLOBIN (test code = HGB) 13.8 G/DL 12.0-16.0 N HEMATOCRIT (test code = HCT) 39.0 % 37-47 N MEAN CELL VOLUME (test code = 89.4 FL 81-99 N MCV) MEAN CELL HGB (test code = MCH) 31.7 PG 27-31 H MEAN CELL HGB CONCENTRATION 35.4 G/DL 33-37 N (test code = MCHC) RED CELL DISTRIBUTION WIDTH 16.6 % 11.5-14.5 H (test code = RDW) PLATELET COUNT (test code = 53 x10 3/uL 150-450 L PLT) MEAN PLATELET VOLUME (test code 9.7 FL 7.4-10.4 N = MPV) NEUTROPHIL % (test code = NT%) 77.9 % 42-86 N LYMPHOCYTE % (test code = LY%) 11.2 % 24-44 L MONOCYTE % (test code = MO%) 8.8 % 0.0-4.0 H EOSINOPHIL % (test code = EO%) 1.8 % 0.0-2.7 N BASOPHIL % (test code = BA%) 0.3 % 0.0-0.5 N NEUTROPHIL # (test code = NT#) 6.10 x10 3/uL 1.8-7.7 N LYMPHOCYTE # (test code = LY#) 0.88 x10 3/uL 1.0-4.8 L MONOCYTE # (test code = MO#) 0.69 x10 3/uL 0.0-0.8 N EOSINOPHIL # (test code = EO#) 0.14 x10 3/uL 0.0-0.5 N BASOPHIL # (test code = BA#) 0.02 x10 3/uL 0.0-0.2 N CBC W/AUTO [id number] 19:18:00 Test Item Value Reference Range Interpretation Comments WHITE BLOOD CELL (test code = 3.70 x10 3/uL 4.80-10.80 L WBC) RED BLOOD CELL (test code = 4.08 x10 6/uL 4.2-5.4 L RBC) HEMOGLOBIN (test code = HGB) 12.1 G/DL 12.0-16.0 N HEMATOCRIT (test code = HCT) 35.8 % 37-47 L MEAN CELL VOLUME (test code = 87.7 FL 81-99 N MCV) MEAN CELL HGB (test code = MCH) 29.7 PG 27-31 N MEAN CELL HGB CONCENTRATION 33.8 G/DL 33-37 N (test code = MCHC) RED CELL DISTRIBUTION WIDTH 16.4 % 11.5-14.5 H (test code = RDW) PLATELET COUNT (test code = 48 x10 3/uL 150-450 LL PLT) MEAN PLATELET VOLUME (test code 9.7 FL 7.4-10.4 N = MPV) NEUTROPHIL % (test code = NT%) 66.4 % 42-86 N LYMPHOCYTE % (test code = LY%) 18.4 % 24-44 L MONOCYTE % (test code = MO%) 10.3 % 0.0-4.0 H EOSINOPHIL % (test code = EO%) 4.6 % 0.0-2.7 H BASOPHIL % (test code = BA%) 0.3 % 0.0-0.5 N NEUTROPHIL # (test code = NT#) 2.46 x10 3/uL 1.8-7.7 N LYMPHOCYTE # (test code = LY#) 0.68 x10 3/uL 1.0-4.8 L MONOCYTE # (test code = MO#) 0.38 x10 3/uL 0.0-0.8 N EOSINOPHIL # (test code = EO#) 0.17 x10 3/uL 0.0-0.5 N BASOPHIL # (test code = BA#) 0.01 x10 3/uL 0.0-0.2 N MANUAL DIFF REQUIRED (test code SCAN PLT_RBC TECH REVIEW = MDIFF) RBC [id number] 19:18:00 Test Item Value Reference Range Interpretation Comments RBC MORPHOLOGY COMMENT (test code = Normal RBCM) PLATELET [id number] 19:18:00 Test Item Value Reference Range Interpretation Comments PLATELET ESTIMATE (test Dec ADEQ A PLAT ELET ESTIMATE: code = PLTEST) 60,000 PLATELET [id number] 19:18:00 Test Item Value Reference Range Interpretation Comments PLATELET MORPHOLOGY (test code = Normal Normal PLTMORPH) CV CALL [id number] 19:18:00 Test Item Value Reference Range Interpretation Comments CV CALL HEM (test code Called Resul ts called to and = CVCH) read back by SANTHOSH MOSQUEDA RN;.for analyte(s): PLT .at 1906 - 08/21/18; by [facility].MCM. CBC W/AUTO [id number] 19:07:00 Test Item Value Reference Range Interpretation Comments WHITE BLOOD CELL (test code = 3.70 x10 3/uL 4.80-10.80 L WBC) RED BLOOD CELL (test code = 4.08 x10 6/uL 4.2-5.4 L RBC) HEMOGLOBIN (test code = HGB) 12.1 G/DL 12.0-16.0 N HEMATOCRIT (test code = HCT) 35.8 % 37-47 L MEAN CELL VOLUME (test code = 87.7 FL 81-99 N MCV) MEAN CELL HGB (test code = MCH) 29.7 PG 27-31 N MEAN CELL HGB CONCENTRATION 33.8 G/DL 33-37 N (test code = MCHC) RED CELL DISTRIBUTION WIDTH 16.4 % 11.5-14.5 H (test code = RDW) PLATELET COUNT (test code = 48 x10 3/uL 150-450 LL PLT) MEAN PLATELET VOLUME (test code 9.7 FL 7.4-10.4 N = MPV) NEUTROPHIL % (test code = NT%) 66.4 % 42-86 N LYMPHOCYTE % (test code = LY%) 18.4 % 24-44 L MONOCYTE % (test code = MO%) 10.3 % 0.0-4.0 H EOSINOPHIL % (test code = EO%) 4.6 % 0.0-2.7 H BASOPHIL % (test code = BA%) 0.3 % 0.0-0.5 N NEUTROPHIL # (test code = NT#) 2.46 x10 3/uL 1.8-7.7 N LYMPHOCYTE # (test code = LY#) 0.68 x10 3/uL 1.0-4.8 L MONOCYTE # (test code = MO#) 0.38 x10 3/uL 0.0-0.8 N EOSINOPHIL # (test code = EO#) 0.17 x10 3/uL 0.0-0.5 N BASOPHIL # (test code = BA#) 0.01 x10 3/uL 0.0-0.2 N MANUAL DIFF REQUIRED (test code SCAN PLT_RBC TECH REVIEW = MDIFF) RBC [id number] 19:07:00 Test Item Value Reference Range Interpretation Comments RBC MORPHOLOGY COMMENT (test code = RBCM) PLATELET [id number] 19:07:00 Test Item Value Reference Range Interpretation Comments PLATELET ESTIMATE (test code = PLTEST) ADEQ CV CALL [id number] 19:07:00 Test Item Value Reference Range Interpretation Comments CV CALL HEM (test code Called Resul ts called to and = CVCH) read back by SANTHOSH MOSQUEDA RN;.for analyte(s): PLT .at 1906 - 08/21/18; by D. LAB.MCM. BASIC METABOLIC [id number] 19:07:00 Test Item Value Reference Range Interpretation Comments SODIUM (test code = 142 MMOL/L 133-145 N NA) POTASSIUM (test code = 3.3 MMOL/L 3.6-5.2 L K) CHLORIDE (test code = 108 MMOL/L 100-108 N CL) CARBON DIOXIDE (test 26 MMOL/L 22-32 N code = CO2) GLUCOSE (test code = 126 MG/DL 65-99 H Results of this assay GLU) method may be f alsely depressed orele vated if patient is t aking sulfasalazine. BLOOD UREA NITROGEN 9 MG/DL 6-20 N (test code = BUN) GLOMERULAR FILTRATION 89 51-120 N Report ing units: RATE (test code = GFR) mL/mi n/1.73m\S\2 (Modified MDRD Formula) CREATININE (test code 0.69 MG/DL 0.60-1.00 N = CREAT) CALCIUM (test code = 8.1 MG/DL 8.7-10.5 L CA) [id number] 19:07:00 Test Item Value Reference Range Interpretation Comments MAGNESIUM (test code = MAG) 1.6 MG/DL 1.8-2.4 L CBC W/AUTO [id number] 19:05:00 Test Item Value Reference Range Interpretation Comments WHITE BLOOD CELL (test code = 3.70 x10 3/uL 4.80-10.80 L WBC) RED BLOOD CELL (test code = 4.08 x10 6/uL 4.2-5.4 L RBC) HEMOGLOBIN (test code = HGB) 12.1 G/DL 12.0-16.0 N HEMATOCRIT (test code = HCT) 35.8 % 37-47 L MEAN CELL VOLUME (test code = 87.7 FL 81-99 N MCV) MEAN CELL HGB (test code = MCH) 29.7 PG 27-31 N MEAN CELL HGB CONCENTRATION 33.8 G/DL 33-37 N (test code = MCHC) RED CELL DISTRIBUTION WIDTH 16.4 % 11.5-14.5 H (test code = RDW) PLATELET COUNT (test code = 48 x10 3/uL 150-450 LL PLT) MEAN PLATELET VOLUME (test code 9.7 FL 7.4-10.4 N = MPV) NEUTROPHIL % (test code = NT%) % 42-86 N LYMPHOCYTE % (test code = LY%) % 24-44 L MONOCYTE % (test code = MO%) % 0.0-4.0 H EOSINOPHIL % (test code = EO%) % 0.0-2.7 H BASOPHIL % (test code = BA%) % 0.0-0.5 N NEUTROPHIL # (test code = NT#) x10 3/uL 1.8-7.7 N LYMPHOCYTE # (test code = LY#) x10 3/uL 1.0-4.8 L MONOCYTE # (test code = MO#) x10 3/uL 0.0-0.8 N EOSINOPHIL # (test code = EO#) x10 3/uL 0.0-0.5 N BASOPHIL # (test code = BA#) x10 3/uL 0.0-0.2 N MANUAL DIFF REQUIRED (test code SCAN PLT_RBC TECH REVIEW = MDIFF) RBC [id number] 19:05:00 Test Item Value Reference Range Interpretation Comments RBC MORPHOLOGY COMMENT (test code = RBCM) PLATELET [id number] 19:05:00 Test Item Value Reference Range Interpretation Comments PLATELET ESTIMATE (test code = PLTEST) ADEQ CV CALL [id number] 19:05:00 Test Item Value Reference Range Interpretation Comments CV CALL HEM (test code = CVCH) CBC W/AUTO [id number] 19:05:00 Test Item Value Reference Range Interpretation Comments WHITE BLOOD CELL (test code = 3.70 x10 3/uL 4.80-10.80 L WBC) RED BLOOD CELL (test code = 4.08 x10 6/uL 4.2-5.4 L RBC) HEMOGLOBIN (test code = HGB) 12.1 G/DL 12.0-16.0 N HEMATOCRIT (test code = HCT) 35.8 % 37-47 L MEAN CELL VOLUME (test code = 87.7 FL 81-99 N MCV) MEAN CELL HGB (test code = MCH) 29.7 PG 27-31 N MEAN CELL HGB CONCENTRATION 33.8 G/DL 33-37 N (test code = MCHC) RED CELL DISTRIBUTION WIDTH 16.4 % 11.5-14.5 H (test code = RDW) PLATELET COUNT (test code = 48 x10 3/uL 150-450 LL PLT) MEAN PLATELET VOLUME (test code 9.7 FL 7.4-10.4 N = MPV) NEUTROPHIL % (test code = NT%) % 42-86 N LYMPHOCYTE % (test code = LY%) % 24-44 L MONOCYTE % (test code = MO%) % 0.0-4.0 H EOSINOPHIL % (test code = EO%) % 0.0-2.7 H BASOPHIL % (test code = BA%) % 0.0-0.5 N NEUTROPHIL # (test code = NT#) x10 3/uL 1.8-7.7 N LYMPHOCYTE # (test code = LY#) x10 3/uL 1.0-4.8 L MONOCYTE # (test code = MO#) x10 3/uL 0.0-0.8 N EOSINOPHIL # (test code = EO#) x10 3/uL 0.0-0.5 N BASOPHIL # (test code = BA#) x10 3/uL 0.0-0.2 N MANUAL DIFF REQUIRED (test code SCAN PLT_RBC TECH REVIEW = MDIFF) RBC [id number] 19:05:00 Test Item Value Reference Range Interpretation Comments RBC MORPHOLOGY COMMENT (test code = RBCM) PLATELET [id number] 19:05:00 Test Item Value Reference Range Interpretation Comments PLATELET ESTIMATE (test code = PLTEST) ADEQ CV CALL [id number] 19:05:00 Test Item Value Reference Range Interpretation Comments CV CALL HEM (test code = CVCH) CBC W/AUTO [id number] 19:19:00 Test Item Value Reference Range Interpretation Comments WHITE BLOOD CELL (test code = 4.87 x10 3/uL 4.80-10.80 N WBC) RED BLOOD CELL (test code = 4.26 x10 6/uL 4.2-5.4 N RBC) HEMOGLOBIN (test code = HGB) 12.6 G/DL 12.0-16.0 N HEMATOCRIT (test code = HCT) 35.8 % 37-47 L MEAN CELL VOLUME (test code = 84.0 FL 81-99 N MCV) MEAN CELL HGB (test code = MCH) 29.6 PG 27-31 N MEAN CELL HGB CONCENTRATION 35.2 G/DL 33-37 N (test code = MCHC) RED CELL DISTRIBUTION WIDTH 15.9 % 11.5-14.5 H (test code = RDW) PLATELET COUNT (test code = 49 x10 3/uL 150-450 LL PLT) MEAN PLATELET VOLUME (test code 9.7 FL 7.4-10.4 N = MPV) NEUTROPHIL % (test code = NT%) 74.4 % 42-86 N LYMPHOCYTE % (test code = LY%) 15.2 % 24-44 L MONOCYTE % (test code = MO%) 8.4 % 0.0-4.0 H EOSINOPHIL % (test code = EO%) 1.8 % 0.0-2.7 N BASOPHIL % (test code = BA%) 0.2 % 0.0-0.5 N NEUTROPHIL # (test code = NT#) 3.62 x10 3/uL 1.8-7.7 N LYMPHOCYTE # (test code = LY#) 0.74 x10 3/uL 1.0-4.8 L MONOCYTE # (test code = MO#) 0.41 x10 3/uL 0.0-0.8 N EOSINOPHIL # (test code = EO#) 0.09 x10 3/uL 0.0-0.5 N BASOPHIL # (test code = BA#) 0.01 x10 3/uL 0.0-0.2 N MANUAL DIFF REQUIRED (test code SCAN PLT_RBC TECH REVIEW = MDIFF) RBC [id number] 19:19:00 Test Item Value Reference Range Interpretation Comments RBC MORPHOLOGY COMMENT (test code = Normal RBCM) PLATELET [id number] 19:19:00 Test Item Value Reference Range Interpretation Comments PLATELET ESTIMATE (test Dec ADEQ A PLAT ELET ESTIMATE: code = PLTEST) 75,000/ mm CU BED. PLATELET [id number] 19:19:00 Test Item Value Reference Range Interpretation Comments PLATELET MORPHOLOGY (test code = Normal Normal PLTMORPH) CV CALL [id number] 19:19:00 Test Item Value Reference Range Interpretation Comments CV CALL HEM (test code Called Resul ts called to and = CVCH) read back by DR Castro ROBERTSON;.for a nalyte(s): PLT.at 1918 - 0 08/07/18; by TERRELL. UA RFLX MICROSCOPIC [id number] 19:01:00 Test Item Value Reference Range Interpretation Comments UA COLOR (test code = COLU) YELLOW YELLOW UA APPEARANCE (test code = HAZY CLEAR APPU) UA GLUCOSE DIPSTICK (test 250 mg/dL NEGATIVE code = DGLUU) UA BILIRUBIN DIPSTICK (test NEGATIVE NEGATIVE code = BILU) UA KETONE DIPSTICK (test NEGATIVE mg/dL NEGATIVE code = KETU) UA SPECIFIC GRAVITY (test 1.015 1.001-1.035 N code = SGU) UA BLOOD DIPSTICK (test code NEGATIVE NEGATIVE = RAKESH) UA PH DIPSTICK (test code = 5.0 5.5-7.0 L YESI) UA PROTEIN DIPSTICK (test NEGATIVE mg/dL NEGATIVE code = PROU) UA UROBILINOGEN DIPSTICK NORMAL mg/dL NORMAL (test code = URO) UA NITRITE DIPSTICK (test NEGATIVE NEGATIVE code = CAROL) UA LEUKOCYTE ESTERASE NEGATIVE NEGATIVE DIPSTICK (test code = LEUU) UA COMMENT (test code = VOLUME 10-12 ML COMU) URINE SPECIMEN DESCRIPTION Clean Catch (test code = UASPEC) UA WBC (test code = WBCU) < 10 #/hpf <10 UA SQUAMOUS CELLS (test code 20 - 40 #/lpf <100 = SQU) UA CULTURE NEEDED? (test Criteria not met code = UACULT) UA [id number] 19:01:00 Test Item Value Reference Range Interpretation Comments UA RBC (test code = RBCU) 0-2 #/hpf NONE SEEN A UA BACTERIA (test code = BACU) RARE #/hpf NONE SEEN BASIC METABOLIC [id number] 18:54:00 Test Item Value Reference Range Interpretation Comments SODIUM (test code = 141 MMOL/L 133-145 N NA) POTASSIUM (test code = 3.2 MMOL/L 3.6-5.2 L K) CHLORIDE (test code = 106 MMOL/L 100-108 N CL) CARBON DIOXIDE (test 24 MMOL/L 22-32 N code = CO2) GLUCOSE (test code = 195 MG/DL 65-99 H Results of this assay GLU) method may be f alsely depressed orele vated if patient is t aking sulfasalazine. BLOOD UREA NITROGEN 10 MG/DL 6-20 N (test code = BUN) GLOMERULAR FILTRATION 80 51-120 N Report ing units: RATE (test code = GFR) mL/mi n/1.73m\S\2 (Modified MDRD Formula) CREATININE (test code 0.76 MG/DL 0.60-1.00 N = CREAT) CALCIUM (test code = 8.2 MG/DL 8.7-10.5 L CA) HEPATIC FUNCTION [id number] 18:54:00 Test Item Value Reference Range Interpretation Comments TOTAL PROTEIN (test 7.4 G/DL 6.4-8.2 N code = PROT) ALBUMIN (test code = 3.0 G/DL 3.4-5.0 L ALB) GLOBULIN (test code = 4.4 G/DL 1.5-3.8 H GLOB) ALBUMIN/GLOBULIN RATIO 0.7 1.1-2.2 L (test code = A/G) BILIRUBIN TOTAL (test 1.8 MG/DL 0.0-1.0 H code = BILT) BILIRUBIN DIRECT (test 0.5 MG/DL 0.0-0.3 H code = BILD) BILIRUBIN INDIRECT 1.3 MG/DL 0.0-0.7 H (test code = BILIND) SGOT/AST (test code = 129 Units/L 15-37 H Result s of this AST) assay method ma y be falsely depress ed orelevated if patient is taki ng sulfasalazine. SGPT/ALT (test code = 148 Units/L 30-65 H Result s of this ALT) assay method ma y be falsely depress ed orelevated if patient is taki ng sulfasalazine. ALKALINE PHOSPHATASE 132 Units/L 50-136 N TOTAL (test code = ALKP) [id number] 18:54:00 Test Item Value Reference Range Interpretation Comments LIPASE (test code = LIP) 216 Units/L 73-393 N [id number] 18:54:00 Test Item Value Reference Range Interpretation Comments MAGNESIUM (test code = MAG) 1.5 MG/DL 1.8-2.4 L NT PRO-BRAIN NATRIURETIC [id number] 18:54:00 Test Item Value Reference Range Interpretation Comments NT PRO-BRAIN 24 PG/ML 0-125 N Results of this assay NATRIURETIC PEPTI (test meth od may be falsely code = PROBNP) depressed ore levated if patient is t aking high doses of B iotin. CPK-MB [id number] 18:54:00 Test Item Value Reference Range Interpretation Comments CK (test code = 65 Units/L 26-192 N CKT) CKMB (test code = 0.6 NG/ML 0.0-3.6 N CKMB sugge stive of CKMBT) non-AMI; MB Ind ex is not reported. CBC W/AUTO [id number] 18:50:00 Test Item Value Reference Range Interpretation Comments WHITE BLOOD CELL (test code = 4.87 x10 3/uL 4.80-10.80 N WBC) RED BLOOD CELL (test code = 4.26 x10 6/uL 4.2-5.4 N RBC) HEMOGLOBIN (test code = HGB) 12.6 G/DL 12.0-16.0 N HEMATOCRIT (test code = HCT) 35.8 % 37-47 L MEAN CELL VOLUME (test code = 84.0 FL 81-99 N MCV) MEAN CELL HGB (test code = MCH) 29.6 PG 27-31 N MEAN CELL HGB CONCENTRATION 35.2 G/DL 33-37 N (test code = MCHC) RED CELL DISTRIBUTION WIDTH 15.9 % 11.5-14.5 H (test code = RDW) PLATELET COUNT (test code = 49 x10 3/uL 150-450 LL PLT) MEAN PLATELET VOLUME (test code 9.7 FL 7.4-10.4 N = MPV) NEUTROPHIL % (test code = NT%) % 42-86 N LYMPHOCYTE % (test code = LY%) % 24-44 L MONOCYTE % (test code = MO%) % 0.0-4.0 H EOSINOPHIL % (test code = EO%) % 0.0-2.7 N BASOPHIL % (test code = BA%) % 0.0-0.5 N NEUTROPHIL # (test code = NT#) x10 3/uL 1.8-7.7 N LYMPHOCYTE # (test code = LY#) x10 3/uL 1.0-4.8 L MONOCYTE # (test code = MO#) x10 3/uL 0.0-0.8 N EOSINOPHIL # (test code = EO#) x10 3/uL 0.0-0.5 N BASOPHIL # (test code = BA#) x10 3/uL 0.0-0.2 N MANUAL DIFF REQUIRED (test code SCAN PLT_RBC TECH REVIEW = MDIFF) RBC [id number] 18:50:00 Test Item Value Reference Range Interpretation Comments RBC MORPHOLOGY COMMENT (test code = Normal RBCM) PLATELET [id number] 18:50:00 Test Item Value Reference Range Interpretation Comments PLATELET ESTIMATE (test Dec ADEQ A PLAT ELET ESTIMATE: code = PLTEST) 75,000/ mm CU BED. CV CALL [id number] 18:50:00 Test Item Value Reference Range Interpretation Comments CV CALL HEM (test code = CVCH) CBC W/AUTO [id number] 18:50:00 Test Item Value Reference Range Interpretation Comments WHITE BLOOD CELL (test code = 4.87 x10 3/uL 4.80-10.80 N WBC) RED BLOOD CELL (test code = 4.26 x10 6/uL 4.2-5.4 N RBC) HEMOGLOBIN (test code = HGB) 12.6 G/DL 12.0-16.0 N HEMATOCRIT (test code = HCT) 35.8 % 37-47 L MEAN CELL VOLUME (test code = 84.0 FL 81-99 N MCV) MEAN CELL HGB (test code = MCH) 29.6 PG 27-31 N MEAN CELL HGB CONCENTRATION 35.2 G/DL 33-37 N (test code = MCHC) RED CELL DISTRIBUTION WIDTH 15.9 % 11.5-14.5 H (test code = RDW) PLATELET COUNT (test code = 49 x10 3/uL 150-450 LL PLT) MEAN PLATELET VOLUME (test code 9.7 FL 7.4-10.4 N = MPV) NEUTROPHIL % (test code = NT%) % 42-86 N LYMPHOCYTE % (test code = LY%) % 24-44 L MONOCYTE % (test code = MO%) % 0.0-4.0 H EOSINOPHIL % (test code = EO%) % 0.0-2.7 N BASOPHIL % (test code = BA%) % 0.0-0.5 N NEUTROPHIL # (test code = NT#) x10 3/uL 1.8-7.7 N LYMPHOCYTE # (test code = LY#) x10 3/uL 1.0-4.8 L MONOCYTE # (test code = MO#) x10 3/uL 0.0-0.8 N EOSINOPHIL # (test code = EO#) x10 3/uL 0.0-0.5 N BASOPHIL # (test code = BA#) x10 3/uL 0.0-0.2 N MANUAL DIFF REQUIRED (test code SCAN PLT_RBC TECH REVIEW = MDIFF) RBC [id number] 18:50:00 Test Item Value Reference Range Interpretation Comments RBC MORPHOLOGY COMMENT (test code = Normal RBCM) PLATELET [id number] 18:50:00 Test Item Value Reference Range Interpretation Comments PLATELET ESTIMATE (test Dec ADEQ A PLAT ELET ESTIMATE: code = PLTEST) 75,000/ mm CU BED. PLATELET [id number] 18:50:00 Test Item Value Reference Range Interpretation Comments PLATELET MORPHOLOGY (test code = Normal Normal PLTMORPH) CV CALL [id number] 18:50:00 Test Item Value Reference Range Interpretation Comments CV CALL HEM (test code = CVCH) PROTHROMBIN [id number] 18:48:00 Test Item Value Reference Range Interpretation Comments PROTHROMBIN TIME 12.4 SECONDS 9.3-12.4 N Referen ce Range PATIENT (test code = revised from 9.3-12.4 PTP) as of 01/30/18. INTERNATIONAL NORMAL 1.23 Recomme nded INR range RATIO (test code = (warfarin therapy): INR) 2.0 - 3.0I NR (International Normalized Rati o) should beused w hen interpreting or al anticoaglulant therapy. For at rial fibrillation an d treatment orprevention of deep vein thrombosis . Patients with Palmaz-Juan José s tent *: 2 .0 - 3.0 Patients wi th mechanical hear t valve *: 2.5 - 3.5 Patients with flex-stent *: 3.0 - 4.0(*) = engineer of system development's suggested range Is patient on anticoagulants? UnknownTHROMBOPLASTIN TIME [id number] 18:48:00 Test Item Value Reference Range Interpretation Comments THROMBOPLASTIN TIME 25.5 SECONDS 21.8-35.9 N *Therap eutic level PARTIAL (test code = for hep nat[place]: 1.5 - PTT) 2.5 times the average patient value of 30.0 seconds. The a PTT should not be u sed to evaluate LMW heparin anticoagulant therapy. Reference Range revised from 21.8-35.9 as of 01/30/2018 Is patient on anticoagulants? UnknownUA RFLX MICROSCOPIC [id number] 18:46:00 Test Item Value Reference Range Interpretation Comments UA COLOR (test code = COLU) YELLOW YELLOW UA APPEARANCE (test code = HAZY CLEAR APPU) UA GLUCOSE DIPSTICK (test 250 mg/dL NEGATIVE code = DGLUU) UA BILIRUBIN DIPSTICK (test NEGATIVE NEGATIVE code = BILU) UA KETONE DIPSTICK (test code NEGATIVE mg/dL NEGATIVE = KETU) UA SPECIFIC GRAVITY (test 1.015 1.001-1.035 N code = SGU) UA BLOOD DIPSTICK (test code NEGATIVE NEGATIVE = RAKESH) UA PH DIPSTICK (test code = 5.0 5.5-7.0 L YESI) UA PROTEIN DIPSTICK (test NEGATIVE mg/dL NEGATIVE code = PROU) UA UROBILINOGEN DIPSTICK NORMAL mg/dL NORMAL (test code = URO) UA NITRITE DIPSTICK (test NEGATIVE NEGATIVE code = CAROL) UA LEUKOCYTE ESTERASE NEGATIVE NEGATIVE DIPSTICK (test code = LEUU) UA COMMENT (test code = COMU) VOLUME 10-12 ML URINE SPECIMEN DESCRIPTION Clean Catch (test code = UASPEC) UA WBC (test code = WBCU) #/hpf <10 UA SQUAMOUS CELLS (test code #/lpf <100 = SQU) UA CULTURE NEEDED? (test code = UACULT) UA [id number] 18:46:00 Test Item Value Reference Range Interpretation Comments UA RBC (test code = RBCU) #/hpf NONE SEEN UA RFLX MICROSCOPIC [id number] 18:46:00 Test Item Value Reference Range Interpretation Comments UA COLOR (test code = COLU) YELLOW YELLOW UA APPEARANCE (test code = HAZY CLEAR APPU) UA GLUCOSE DIPSTICK (test 250 mg/dL NEGATIVE code = DGLUU) UA BILIRUBIN DIPSTICK (test NEGATIVE NEGATIVE code = BILU) UA KETONE DIPSTICK (test code NEGATIVE mg/dL NEGATIVE = KETU) UA SPECIFIC GRAVITY (test 1.015 1.001-1.035 N code = SGU) UA BLOOD DIPSTICK (test code NEGATIVE NEGATIVE = RAKESH) UA PH DIPSTICK (test code = 5.0 5.5-7.0 L YESI) UA PROTEIN DIPSTICK (test NEGATIVE mg/dL NEGATIVE code = PROU) UA UROBILINOGEN DIPSTICK NORMAL mg/dL NORMAL (test code = URO) UA NITRITE DIPSTICK (test NEGATIVE NEGATIVE code = CAROL) UA LEUKOCYTE ESTERASE NEGATIVE NEGATIVE DIPSTICK (test code = LEUU) UA COMMENT (test code = COMU) VOLUME 10-12 ML URINE SPECIMEN DESCRIPTION Clean Catch (test code = UASPEC) UA WBC (test code = WBCU) #/hpf <10 UA SQUAMOUS CELLS (test code #/lpf <100 = SQU) UA CULTURE NEEDED? (test code = UACULT) UA [id number] 18:46:00 Test Item Value Reference Range Interpretation Comments UA RBC (test code = RBCU) #/hpf NONE SEEN CBC W/AUTO [id number] 18:20:00 Test Item Value Reference Range Interpretation Comments WHITE BLOOD CELL (test code = 4.87 x10 3/uL 4.80-10.80 N WBC) RED BLOOD CELL (test code = 4.26 x10 6/uL 4.2-5.4 N RBC) HEMOGLOBIN (test code = HGB) 12.6 G/DL 12.0-16.0 N HEMATOCRIT (test code = HCT) 35.8 % 37-47 L MEAN CELL VOLUME (test code = 84.0 FL 81-99 N MCV) MEAN CELL HGB (test code = MCH) 29.6 PG 27-31 N MEAN CELL HGB CONCENTRATION 35.2 G/DL 33-37 N (test code = MCHC) RED CELL DISTRIBUTION WIDTH 15.9 % 11.5-14.5 H (test code = RDW) PLATELET COUNT (test code = 49 x10 3/uL 150-450 LL PLT) MEAN PLATELET VOLUME (test code 9.7 FL 7.4-10.4 N = MPV) NEUTROPHIL % (test code = NT%) % 42-86 N LYMPHOCYTE % (test code = LY%) % 24-44 L MONOCYTE % (test code = MO%) % 0.0-4.0 H EOSINOPHIL % (test code = EO%) % 0.0-2.7 N BASOPHIL % (test code = BA%) % 0.0-0.5 N NEUTROPHIL # (test code = NT#) x10 3/uL 1.8-7.7 N LYMPHOCYTE # (test code = LY#) x10 3/uL 1.0-4.8 L MONOCYTE # (test code = MO#) x10 3/uL 0.0-0.8 N EOSINOPHIL # (test code = EO#) x10 3/uL 0.0-0.5 N BASOPHIL # (test code = BA#) x10 3/uL 0.0-0.2 N MANUAL DIFF REQUIRED (test code SCAN PLT_RBC TECH REVIEW = MDIFF) RBC [id number] 18:20:00 Test Item Value Reference Range Interpretation Comments RBC MORPHOLOGY COMMENT (test code = RBCM) PLATELET [id number] 18:20:00 Test Item Value Reference Range Interpretation Comments PLATELET ESTIMATE (test code = PLTEST) ADEQ CV CALL [id number] 18:20:00 Test Item Value Reference Range Interpretation Comments CV CALL HEM (test code = CVCH) CBC W/AUTO [id number] 18:19:00 Test Item Value Reference Range Interpretation Comments WHITE BLOOD CELL (test code = 4.87 x10 3/uL 4.80-10.80 N WBC) RED BLOOD CELL (test code = 4.26 x10 6/uL 4.2-5.4 N RBC) HEMOGLOBIN (test code = HGB) 12.6 G/DL 12.0-16.0 N HEMATOCRIT (test code = HCT) 35.8 % 37-47 L MEAN CELL VOLUME (test code = 84.0 FL 81-99 N MCV) MEAN CELL HGB (test code = MCH) 29.6 PG 27-31 N MEAN CELL HGB CONCENTRATION 35.2 G/DL 33-37 N (test code = MCHC) RED CELL DISTRIBUTION WIDTH 15.9 % 11.5-14.5 H (test code = RDW) PLATELET COUNT (test code = 49 x10 3/uL 150-450 LL PLT) MEAN PLATELET VOLUME (test code 9.7 FL 7.4-10.4 N = MPV) NEUTROPHIL % (test code = NT%) % 42-86 N LYMPHOCYTE % (test code = LY%) % 24-44 L MONOCYTE % (test code = MO%) % 0.0-4.0 H EOSINOPHIL % (test code = EO%) % 0.0-2.7 N BASOPHIL % (test code = BA%) % 0.0-0.5 N NEUTROPHIL # (test code = NT#) x10 3/uL 1.8-7.7 N LYMPHOCYTE # (test code = LY#) x10 3/uL 1.0-4.8 L MONOCYTE # (test code = MO#) x10 3/uL 0.0-0.8 N EOSINOPHIL # (test code = EO#) x10 3/uL 0.0-0.5 N BASOPHIL # (test code = BA#) x10 3/uL 0.0-0.2 N MANUAL DIFF REQUIRED (test code SCAN PLT_RBC TECH REVIEW = MDIFF) RBC [id number] 18:19:00 Test Item Value Reference Range Interpretation Comments RBC MORPHOLOGY COMMENT (test code = RBCM) PLATELET [id number] 18:19:00 Test Item Value Reference Range Interpretation Comments PLATELET ESTIMATE (test code = PLTEST) ADEQ CV CALL [id number] 18:19:00 Test Item Value Reference Range Interpretation Comments CV CALL HEM (test code = CVCH) - XR CHEST 1 [id number] 18:06:00 Patient Name: ABHIJIT PEDROZA Unit No: [id number] EXAMS: CPT CODE: [id number] XR CHEST 1 V [id number] Reason: Abdominal pain - XR CHEST 1 V 08/07/2018 5:29 PM Exam: - XR CHEST 1 V Comparison: 06/12/2018 Reason for exam: Abdominal pain FINDINGS: The heart size is normal. Vascularity is normal. The lungs are clear. There is no fluid or adenopathy. IMPRESSION: Negative chest at 1806 Reported and signed by: Renato Sutherland MD CC: Latoya Robertson DO; Gauri Lanier MD.; Samm Alcantara NP Technologist: Yue PATTON Trscrpt Dt/ (180)[id number] Orig Print D/T: S: 08/07/2018 (255) [place] NAME: ABHIJIT PEDROZA [address] [place] [address] PHYS: Latoya Puri DO [address] : 1965 AGE: 52 SEX: F [place], [place] [address] : D.PER PHONE #: [phone] EXAM DATE: 08/07/2018 STATUS: REG ER FAX #: RAD NO: DC Dt: PAGE 1 Signed ReportTROPONIN I [id number] 18:00:00 Test Item Value Reference Range Interpretation Comments TROPONIN I RAPID 0.00 NG/ML 0.00-0.08 N Performed b y 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 [id number] 16:21:00 Test Item Value Reference Range Interpretation Comments GLUBED (test code = 83 MG/DL 65-99 N Performe d by certified GLUBED) potable water treatment operator at [facility] UA RFLX MICROSCOPIC [id number] 15:25:00 Test Item Value Reference Range Interpretation Comments UA COLOR (test code = COLU) YELLOW YELLOW UA APPEARANCE (test code = HAZY CLEAR APPU) UA GLUCOSE DIPSTICK (test 250 mg/dL NEGATIVE code = DGLUU) UA BILIRUBIN DIPSTICK (test NEGATIVE NEGATIVE code = BILU) UA KETONE DIPSTICK (test NEGATIVE mg/dL NEGATIVE code = KETU) UA SPECIFIC GRAVITY (test 1.005 1.001-1.035 N code = SGU) UA BLOOD DIPSTICK (test code NEGATIVE NEGATIVE = RAKESH) UA PH DIPSTICK (test code = 6.0 5.5-7.0 N YESI) UA PROTEIN DIPSTICK (test NEGATIVE mg/dL NEGATIVE code = PROU) UA UROBILINOGEN DIPSTICK NORMAL mg/dL NORMAL (test code = URO) UA NITRITE DIPSTICK (test NEGATIVE NEGATIVE code = CAROL) UA LEUKOCYTE ESTERASE NEGATIVE NEGATIVE DIPSTICK (test code = LEUU) UA COMMENT (test code = VOLUME 10-12 ML COMU) URINE SPECIMEN DESCRIPTION Clean Catch (test code = UASPEC) UA WBC (test code = WBCU) < 10 #/hpf <10 UA SQUAMOUS CELLS (test code 0 - 20 #/lpf <100 = SQU) UA CULTURE NEEDED? (test Criteria not met code = UACULT) UA [id number] 15:25:00 Test Item Value Reference Range Interpretation Comments UA RBC (test code = RBCU) 0-2 #/hpf NONE SEEN A UA BACTERIA (test code = BACU) FEW #/hpf NONE SEEN A UA RFLX MICROSCOPIC [id number] 15:19:00 Test Item Value Reference Range Interpretation Comments UA COLOR (test code = COLU) YELLOW YELLOW UA APPEARANCE (test code = HAZY CLEAR APPU) UA GLUCOSE DIPSTICK (test 250 mg/dL NEGATIVE code = DGLUU) UA BILIRUBIN DIPSTICK (test NEGATIVE NEGATIVE code = BILU) UA KETONE DIPSTICK (test code NEGATIVE mg/dL NEGATIVE = KETU) UA SPECIFIC GRAVITY (test 1.005 1.001-1.035 N code = SGU) UA BLOOD DIPSTICK (test code NEGATIVE NEGATIVE = RAKESH) UA PH DIPSTICK (test code = 6.0 5.5-7.0 N YESI) UA PROTEIN DIPSTICK (test NEGATIVE mg/dL NEGATIVE code = PROU) UA UROBILINOGEN DIPSTICK NORMAL mg/dL NORMAL (test code = URO) UA NITRITE DIPSTICK (test NEGATIVE NEGATIVE code = CAROL) UA LEUKOCYTE ESTERASE NEGATIVE NEGATIVE DIPSTICK (test code = LEUU) UA COMMENT (test code = COMU) VOLUME 10-12 ML URINE SPECIMEN DESCRIPTION Clean Catch (test code = UASPEC) UA WBC (test code = WBCU) #/hpf <10 UA SQUAMOUS CELLS (test code #/lpf <100 = SQU) UA CULTURE NEEDED? (test code = UACULT) UA [id number] 15:19:00 Test Item Value Reference Range Interpretation Comments UA RBC (test code = RBCU) #/hpf NONE SEEN UA RFLX MICROSCOPIC [id number] 15:19:00 Test Item Value Reference Range Interpretation Comments UA COLOR (test code = COLU) YELLOW YELLOW UA APPEARANCE (test code = HAZY CLEAR APPU) UA GLUCOSE DIPSTICK (test 250 mg/dL NEGATIVE code = DGLUU) UA BILIRUBIN DIPSTICK (test NEGATIVE NEGATIVE code = BILU) UA KETONE DIPSTICK (test code NEGATIVE mg/dL NEGATIVE = KETU) UA SPECIFIC GRAVITY (test 1.005 1.001-1.035 N code = SGU) UA BLOOD DIPSTICK (test code NEGATIVE NEGATIVE = RAKESH) UA PH DIPSTICK (test code = 6.0 5.5-7.0 N YESI) UA PROTEIN DIPSTICK (test NEGATIVE mg/dL NEGATIVE code = PROU) UA UROBILINOGEN DIPSTICK NORMAL mg/dL NORMAL (test code = URO) UA NITRITE DIPSTICK (test NEGATIVE NEGATIVE code = CAROL) UA LEUKOCYTE ESTERASE NEGATIVE NEGATIVE DIPSTICK (test code = LEUU) UA COMMENT (test code = COMU) VOLUME 10-12 ML URINE SPECIMEN DESCRIPTION Clean Catch (test code = UASPEC) UA WBC (test code = WBCU) #/hpf <10 UA SQUAMOUS CELLS (test code #/lpf <100 = SQU) UA CULTURE NEEDED? (test code = UACULT) UA [id number] 15:19:00 Test Item Value Reference Range Interpretation Comments UA RBC (test code = RBCU) #/hpf NONE SEEN [id number] 15:17:00 Test Item Value Reference Range Interpretation Comments GLUBED (test code = 232 MG/DL 65-99 H Performe d by certified GLUBED) potable water treatment operator at [facility] CBC W/AUTO [id number] 15:16:00 Test Item Value Reference Range Interpretation Comments WHITE BLOOD CELL (test code = 7.36 x10 3/uL 4.80-10.80 N WBC) RED BLOOD CELL (test code = 4.20 x10 6/uL 4.2-5.4 N RBC) HEMOGLOBIN (test code = HGB) 12.5 G/DL 12.0-16.0 N HEMATOCRIT (test code = HCT) 35.8 % 37-47 L MEAN CELL VOLUME (test code = 85.2 FL 81-99 N MCV) MEAN CELL HGB (test code = MCH) 29.8 PG 27-31 N MEAN CELL HGB CONCENTRATION 34.9 G/DL 33-37 N (test code = MCHC) RED CELL DISTRIBUTION WIDTH 16.4 % 11.5-14.5 H (test code = RDW) PLATELET COUNT (test code = 45 x10 3/uL 150-450 LL PLT) MEAN PLATELET VOLUME (test code 9.9 FL 7.4-10.4 N = MPV) NEUTROPHIL % (test code = NT%) 71.8 % 42-86 N IMMATURE GRANULOCYTE % (test 1.5 % 0.0-2.0 N code = IG%) LYMPHOCYTE % (test code = LY%) 14.7 % 24-44 L MONOCYTE % (test code = MO%) 9.9 % 0.0-4.0 H EOSINOPHIL % (test code = EO%) 1.8 % 0.0-2.7 N BASOPHIL % (test code = BA%) 0.3 % 0.0-0.5 N NUCLEATED RBC % (test code = 0.0 % 0.0-0.0 N NRBC%) NEUTROPHIL # (test code = NT#) 5.29 x10 3/uL 1.8-7.7 N IMMATURE GRANULOCYTE # (test 0.11 x10 3/uL 0.00-0.03 H code = IG#) LYMPHOCYTE # (test code = LY#) 1.08 x10 3/uL 1.0-4.8 N MONOCYTE # (test code = MO#) 0.73 x10 3/uL 0.0-0.8 N EOSINOPHIL # (test code = EO#) 0.13 x10 3/uL 0.0-0.5 N BASOPHIL # (test code = BA#) 0.02 x10 3/uL 0.0-0.2 N NUCLEATED RBC # (test code = 0.0 X10 3/uL 0.0-0.2 N NRBC#) MANUAL DIFF REQUIRED (test code SCAN PLT_RBC TECH REVIEW = MDIFF) RBC [id number] 15:16:00 Test Item Value Reference Range Interpretation Comments RBC MORPHOLOGY COMMENT (test code = RBCM) ANISOCYTOSIS (test code = ANISO) 1+ PLATELET [id number] 15:16:00 Test Item Value Reference Range Interpretation Comments PLATELET ESTIMATE (test Dec ADEQ A MANU AL PLT ESTIMATE code = PLTEST) [id number] CV CALL [id number] 15:16:00 Test Item Value Reference Range Interpretation Comments CV CALL HEM (test Called Results ca lled to and read code = CVCH) back by JEANETTE SANCHEZ RN;.for analyte (s): PLT.at 1430 - 06/12/18 ; by D.LAB.RAPHAEL. CBC W/AUTO [id number] 15:16:00 Test Item Value Reference Range Interpretation Comments WHITE BLOOD CELL (test code = 7.36 x10 3/uL 4.80-10.80 N WBC) RED BLOOD CELL (test code = 4.20 x10 6/uL 4.2-5.4 N RBC) HEMOGLOBIN (test code = HGB) 12.5 G/DL 12.0-16.0 N HEMATOCRIT (test code = HCT) 35.8 % 37-47 L MEAN CELL VOLUME (test code = 85.2 FL 81-99 N MCV) MEAN CELL HGB (test code = MCH) 29.8 PG 27-31 N MEAN CELL HGB CONCENTRATION 34.9 G/DL 33-37 N (test code = MCHC) RED CELL DISTRIBUTION WIDTH 16.4 % 11.5-14.5 H (test code = RDW) PLATELET COUNT (test code = 45 x10 3/uL 150-450 LL PLT) MEAN PLATELET VOLUME (test code 9.9 FL 7.4-10.4 N = MPV) NEUTROPHIL % (test code = NT%) 71.8 % 42-86 N IMMATURE GRANULOCYTE % (test 1.5 % 0.0-2.0 N code = IG%) LYMPHOCYTE % (test code = LY%) 14.7 % 24-44 L MONOCYTE % (test code = MO%) 9.9 % 0.0-4.0 H EOSINOPHIL % (test code = EO%) 1.8 % 0.0-2.7 N BASOPHIL % (test code = BA%) 0.3 % 0.0-0.5 N NUCLEATED RBC % (test code = 0.0 % 0.0-0.0 N NRBC%) NEUTROPHIL # (test code = NT#) 5.29 x10 3/uL 1.8-7.7 N IMMATURE GRANULOCYTE # (test 0.11 x10 3/uL 0.00-0.03 H code = IG#) LYMPHOCYTE # (test code = LY#) 1.08 x10 3/uL 1.0-4.8 N MONOCYTE # (test code = MO#) 0.73 x10 3/uL 0.0-0.8 N EOSINOPHIL # (test code = EO#) 0.13 x10 3/uL 0.0-0.5 N BASOPHIL # (test code = BA#) 0.02 x10 3/uL 0.0-0.2 N NUCLEATED RBC # (test code = 0.0 X10 3/uL 0.0-0.2 N NRBC#) MANUAL DIFF REQUIRED (test code SCAN PLT_RBC TECH REVIEW = MDIFF) RBC [id number] 15:16:00 Test Item Value Reference Range Interpretation Comments ANISOCYTOSIS (test code = ANISO) 1+ PLATELET [id number] 15:16:00 Test Item Value Reference Range Interpretation Comments PLATELET ESTIMATE (test Dec ADEQ A MANU AL PLT ESTIMATE code = PLTEST) [id number] CV CALL [id number] 15:16:00 Test Item Value Reference Range Interpretation Comments CV CALL HEM (test Called Results ca lled to and read code = CVCH) back by JEANETTE SANCHEZ RN;.for analyte (s): PLT.at 1430 - 06/12/18 ; by D.LAB.RAPHAEL. BASIC METABOLIC [id number] 15:06:00 Test Item Value Reference Range Interpretation Comments SODIUM (test code = 130 MMOL/L 133-145 L NA) POTASSIUM (test code = 4.0 MMOL/L 3.6-5.2 N K) CHLORIDE (test code = 96 MMOL/L 100-108 L CL) CARBON DIOXIDE (test 29 MMOL/L 22-32 N code = CO2) GLUCOSE (test code = 510 MG/DL 65-99 HH Results of this assay GLU) method may be f alsely depressed orele vated if patient is t aking sulfasalazine. BLOOD UREA NITROGEN 14 MG/DL 6-20 N (test code = BUN) GLOMERULAR FILTRATION 71 51-120 N Report ing units: RATE (test code = GFR) mL/mi n/1.73m\S\2 (Modified MDRD Formula) CREATININE (test code 0.84 MG/DL 0.60-1.00 N = CREAT) CALCIUM (test code = 9.4 MG/DL 8.7-10.5 N CA) HEPATIC FUNCTION [id number] 15:06:00 Test Item Value Reference Range Interpretation Comments TOTAL PROTEIN (test 6.9 G/DL 6.4-8.2 N code = PROT) ALBUMIN (test code = 3.1 G/DL 3.4-5.0 L ALB) GLOBULIN (test code = 3.8 G/DL 1.5-3.8 N GLOB) ALBUMIN/GLOBULIN RATIO 0.8 1.1-2.2 L (test code = A/G) BILIRUBIN TOTAL (test 1.7 MG/DL 0.0-1.0 H code = BILT) BILIRUBIN DIRECT (test 0.5 MG/DL 0.0-0.3 H code = BILD) BILIRUBIN INDIRECT 1.2 MG/DL 0.0-0.7 H (test code = BILIND) SGOT/AST (test code = 14 Units/L 15-37 L Result s of this AST) assay method ma y be falsely depress ed orelevated if patient is taki ng sulfasalazine. SGPT/ALT (test code = 31 Units/L 30-65 N Result s of this ALT) assay method ma y be falsely depress ed orelevated if patient is taki ng sulfasalazine. ALKALINE PHOSPHATASE 175 Units/L 50-136 H TOTAL (test code = ALKP) [id number] 15:06:00 Test Item Value Reference Range Interpretation Comments LIPASE (test code = LIP) 208 Units/L 73-393 N BETA [id number] 15:06:00 Test Item Value Reference Range Interpretation Comments BETA HYDROXYBUTYRATE (test code = 0.17 0.02-0.27 N BETHYD) CV CALL [id number] 15:06:00 Test Item Value Reference Range Interpretation Comments CV CALL CHEM (test Called Results c alled to and code = CVC) read back by PHILLIP POOLE RN;.fo r analyte(s): GLU COSE .at 1456 - 06/12/18 ; by D.LAB.BM1. BASIC METABOLIC [id number] 14:56:00 Test Item Value Reference Range Interpretation Comments SODIUM (test code = 130 MMOL/L 133-145 L NA) POTASSIUM (test code = 4.0 MMOL/L 3.6-5.2 N K) CHLORIDE (test code = 96 MMOL/L 100-108 L CL) CARBON DIOXIDE (test 29 MMOL/L 22-32 N code = CO2) GLUCOSE (test code = 510 MG/DL 65-99 HH Results of this assay GLU) method may be f alsely depressed orele vated if patient is t aking sulfasalazine. BLOOD UREA NITROGEN 14 MG/DL 6-20 N (test code = BUN) GLOMERULAR FILTRATION 71 51-120 N Report ing units: RATE (test code = GFR) mL/mi n/1.73m\S\2 (Modified MDRD Formula) CREATININE (test code 0.84 MG/DL 0.60-1.00 N = CREAT) CALCIUM (test code = 9.4 MG/DL 8.7-10.5 N CA) HEPATIC FUNCTION [id number] 14:56:00 Test Item Value Reference Range Interpretation Comments TOTAL PROTEIN (test 6.9 G/DL 6.4-8.2 N code = PROT) ALBUMIN (test code = 3.1 G/DL 3.4-5.0 L ALB) GLOBULIN (test code = 3.8 G/DL 1.5-3.8 N GLOB) ALBUMIN/GLOBULIN RATIO 0.8 1.1-2.2 L (test code = A/G) BILIRUBIN TOTAL (test 1.7 MG/DL 0.0-1.0 H code = BILT) BILIRUBIN DIRECT (test 0.5 MG/DL 0.0-0.3 H code = BILD) BILIRUBIN INDIRECT 1.2 MG/DL 0.0-0.7 H (test code = BILIND) SGOT/AST (test code = 14 Units/L 15-37 L Result s of this AST) assay method zaria y be falsely depress ed orelevated if patient is taki ng sulfasalazine. SGPT/ALT (test code = 31 Units/L 30-65 N Result s of this ALT) assay method zaria y be falsely depress ed orelevated if patient is taki ng sulfasalazine. ALKALINE PHOSPHATASE 175 Units/L 50-136 H TOTAL (test code = ALKP) [id number] 14:56:00 Test Item Value Reference Range Interpretation Comments LIPASE (test code = LIP) 208 Units/L 73-393 N BETA [id number] 14:56:00 Test Item Value Reference Range Interpretation Comments BETA HYDROXYBUTYRATE (test code = 0.02-0.27 BETHYD) CV CALL [id number] 14:56:00 Test Item Value Reference Range Interpretation Comments CV CALL CHEM (test Called Results c alled to and code = CVC) read back by PHILLIP POOLE RN;.fo r analyte(s): GLU COSE .at 1456 - 06/12/18 ; by [email or web address]. BASIC METABOLIC [id number] 14:54:00 Test Item Value Reference Range Interpretation Comments SODIUM (test code = 130 MMOL/L 133-145 L NA) POTASSIUM (test code = 4.0 MMOL/L 3.6-5.2 N K) CHLORIDE (test code = 96 MMOL/L 100-108 L CL) CARBON DIOXIDE (test 29 MMOL/L 22-32 N code = CO2) GLUCOSE (test code = 510 MG/DL 65-99 HH Results of this assay GLU) method may be f alsely depressed orele vated if patient is t aking sulfasalazine. BLOOD UREA NITROGEN 14 MG/DL 6-20 N (test code = BUN) GLOMERULAR FILTRATION 71 51-120 N Report ing units: RATE (test code = GFR) mL/mi n/1.73m\S\2 (Modified MDRD Formula) CREATININE (test code 0.84 MG/DL 0.60-1.00 N = CREAT) CALCIUM (test code = 9.4 MG/DL 8.7-10.5 N CA) HEPATIC FUNCTION [id number] 14:54:00 Test Item Value Reference Range Interpretation Comments TOTAL PROTEIN (test 6.9 G/DL 6.4-8.2 N code = PROT) ALBUMIN (test code = 3.1 G/DL 3.4-5.0 L ALB) GLOBULIN (test code = 3.8 G/DL 1.5-3.8 N GLOB) ALBUMIN/GLOBULIN RATIO 0.8 1.1-2.2 L (test code = A/G) BILIRUBIN TOTAL (test 1.7 MG/DL 0.0-1.0 H code = BILT) BILIRUBIN DIRECT (test 0.5 MG/DL 0.0-0.3 H code = BILD) BILIRUBIN INDIRECT 1.2 MG/DL 0.0-0.7 H (test code = BILIND) SGOT/AST (test code = 14 Units/L 15-37 L Result s of this AST) assay method ma y be falsely depress ed orelevated if patient is taki ng sulfasalazine. SGPT/ALT (test code = 31 Units/L 30-65 N Result s of this ALT) assay method ma y be falsely depress ed orelevated if patient is taki ng sulfasalazine. ALKALINE PHOSPHATASE 175 Units/L 50-136 H TOTAL (test code = ALKP) [id number] 14:54:00 Test Item Value Reference Range Interpretation Comments LIPASE (test code = LIP) 208 Units/L 73-393 N BETA [id number] 14:54:00 Test Item Value Reference Range Interpretation Comments BETA HYDROXYBUTYRATE (test code = 0.02-0.27 BETHYD) CV CALL [id number] 14:54:00 Test Item Value Reference Range Interpretation Comments CV CALL CHEM (test code = CVC) - XR CHEST 1 [id number] 14:50:00 Patient Name: ABHIJIT PEDROZA Unit No: [id number] EXAMS: CPT CODE: [id number] XR CHEST 1 V [id number] Reason: altered mental status - XR CHEST 1 V 06/12/2018 2:23 PM Indication: Altered mental status FINDINGS: Comparison is made to the films of 05/17/2018. There has been no significant radiographicchange. The heart, lung cuellar and pleura show no change since the prior examination. IMPRESSION: Stable chest. at 1450 Reported and signed by: Michael Marroquin MD CC: Gauri Lanier MD.; Ashley Osborn; Brice Linn MD Technologist: Joey Fish RT; Jimmy Tran Students; Mary Lloyd RT Trscrpt Dt/ ([id number])[id number] Orig Print D/T: S: 06/12/2018 (2452) [facility] NAME: ABHIJIT PEDROZA [address] [facility] PHYS: ELEAZARCH. - Brice Linn MD [facility] [place] [address] : 1965 AGE: 52 SEX: F LOC: GauriCastroMIC PHONE #: [phone] EXAM DATE: 06/12/2018 STATUS: REG ER FAX #: RAD NO: DC Dt: PAGE 1 Signed Report [id number] 14:31:00 Test Item Value Reference Range Interpretation Comments GLUBED (test code = 437 MG/DL 65-99 HH Performe d by certified GLUBED) potable water treatment operator at [facility] CBC W/AUTO [id number] 14:30:00 Test Item Value Reference Range Interpretation Comments WHITE BLOOD CELL (test code = 7.36 x10 3/uL 4.80-10.80 N WBC) RED BLOOD CELL (test code = 4.20 x10 6/uL 4.2-5.4 N RBC) HEMOGLOBIN (test code = HGB) 12.5 G/DL 12.0-16.0 N HEMATOCRIT (test code = HCT) 35.8 % 37-47 L MEAN CELL VOLUME (test code = 85.2 FL 81-99 N MCV) MEAN CELL HGB (test code = MCH) 29.8 PG 27-31 N MEAN CELL HGB CONCENTRATION 34.9 G/DL 33-37 N (test code = MCHC) RED CELL DISTRIBUTION WIDTH 16.4 % 11.5-14.5 H (test code = RDW) PLATELET COUNT (test code = 45 x10 3/uL 150-450 LL PLT) MEAN PLATELET VOLUME (test code 9.9 FL 7.4-10.4 N = MPV) NEUTROPHIL % (test code = NT%) 71.8 % 42-86 N IMMATURE GRANULOCYTE % (test 1.5 % 0.0-2.0 N code = IG%) LYMPHOCYTE % (test code = LY%) 14.7 % 24-44 L MONOCYTE % (test code = MO%) 9.9 % 0.0-4.0 H EOSINOPHIL % (test code = EO%) 1.8 % 0.0-2.7 N BASOPHIL % (test code = BA%) 0.3 % 0.0-0.5 N NUCLEATED RBC % (test code = 0.0 % 0.0-0.0 N NRBC%) NEUTROPHIL # (test code = NT#) 5.29 x10 3/uL 1.8-7.7 N IMMATURE GRANULOCYTE # (test 0.11 x10 3/uL 0.00-0.03 H code = IG#) LYMPHOCYTE # (test code = LY#) 1.08 x10 3/uL 1.0-4.8 N MONOCYTE # (test code = MO#) 0.73 x10 3/uL 0.0-0.8 N EOSINOPHIL # (test code = EO#) 0.13 x10 3/uL 0.0-0.5 N BASOPHIL # (test code = BA#) 0.02 x10 3/uL 0.0-0.2 N NUCLEATED RBC # (test code = 0.0 X10 3/uL 0.0-0.2 N NRBC#) MANUAL DIFF REQUIRED (test code SCAN PLT_RBC TECH REVIEW = MDIFF) RBC [id number] 14:30:00 Test Item Value Reference Range Interpretation Comments RBC MORPHOLOGY COMMENT (test code = RBCM) PLATELET [id number] 14:30:00 Test Item Value Reference Range Interpretation Comments PLATELET ESTIMATE (test code = PLTEST) ADEQ CV CALL [id number] 14:30:00 Test Item Value Reference Range Interpretation Comments CV CALL HEM (test code = CVCH) CBC W/AUTO [id number] 14:30:00 Test Item Value Reference Range Interpretation Comments WHITE BLOOD CELL (test code = 7.36 x10 3/uL 4.80-10.80 N WBC) RED BLOOD CELL (test code = 4.20 x10 6/uL 4.2-5.4 N RBC) HEMOGLOBIN (test code = HGB) 12.5 G/DL 12.0-16.0 N HEMATOCRIT (test code = HCT) 35.8 % 37-47 L MEAN CELL VOLUME (test code = 85.2 FL 81-99 N MCV) MEAN CELL HGB (test code = MCH) 29.8 PG 27-31 N MEAN CELL HGB CONCENTRATION 34.9 G/DL 33-37 N (test code = MCHC) RED CELL DISTRIBUTION WIDTH 16.4 % 11.5-14.5 H (test code = RDW) PLATELET COUNT (test code = 45 x10 3/uL 150-450 LL PLT) MEAN PLATELET VOLUME (test code 9.9 FL 7.4-10.4 N = MPV) NEUTROPHIL % (test code = NT%) 71.8 % 42-86 N IMMATURE GRANULOCYTE % (test 1.5 % 0.0-2.0 N code = IG%) LYMPHOCYTE % (test code = LY%) 14.7 % 24-44 L MONOCYTE % (test code = MO%) 9.9 % 0.0-4.0 H EOSINOPHIL % (test code = EO%) 1.8 % 0.0-2.7 N BASOPHIL % (test code = BA%) 0.3 % 0.0-0.5 N NUCLEATED RBC % (test code = 0.0 % 0.0-0.0 N NRBC%) NEUTROPHIL # (test code = NT#) 5.29 x10 3/uL 1.8-7.7 N IMMATURE GRANULOCYTE # (test 0.11 x10 3/uL 0.00-0.03 H code = IG#) LYMPHOCYTE # (test code = LY#) 1.08 x10 3/uL 1.0-4.8 N MONOCYTE # (test code = MO#) 0.73 x10 3/uL 0.0-0.8 N EOSINOPHIL # (test code = EO#) 0.13 x10 3/uL 0.0-0.5 N BASOPHIL # (test code = BA#) 0.02 x10 3/uL 0.0-0.2 N NUCLEATED RBC # (test code = 0.0 X10 3/uL 0.0-0.2 N NRBC#) MANUAL DIFF REQUIRED (test code SCAN PLT_RBC TECH REVIEW = MDIFF) RBC [id number] 14:30:00 Test Item Value Reference Range Interpretation Comments RBC MORPHOLOGY COMMENT (test code = RBCM) PLATELET [id number] 14:30:00 Test Item Value Reference Range Interpretation Comments PLATELET ESTIMATE (test code = PLTEST) ADEQ CV CALL [id number] 14:30:00 Test Item Value Reference Range Interpretation Comments CV CALL HEM (test Called Results ca lled to and read code = CVCH) back by JEANETTE SANCHEZ RN;.for analyte (s): PLT.at 1430 - 06/12/18 ; by D.LAB.RAPHAEL. CBC W/AUTO [id number] 14:30:00 Test Item Value Reference Range Interpretation Comments WHITE BLOOD CELL (test code = 7.36 x10 3/uL 4.80-10.80 N WBC) RED BLOOD CELL (test code = 4.20 x10 6/uL 4.2-5.4 N RBC) HEMOGLOBIN (test code = HGB) 12.5 G/DL 12.0-16.0 N HEMATOCRIT (test code = HCT) 35.8 % 37-47 L MEAN CELL VOLUME (test code = 85.2 FL 81-99 N MCV) MEAN CELL HGB (test code = MCH) 29.8 PG 27-31 N MEAN CELL HGB CONCENTRATION 34.9 G/DL 33-37 N (test code = MCHC) RED CELL DISTRIBUTION WIDTH 16.4 % 11.5-14.5 H (test code = RDW) PLATELET COUNT (test code = 45 x10 3/uL 150-450 LL PLT) MEAN PLATELET VOLUME (test code 9.9 FL 7.4-10.4 N = MPV) NEUTROPHIL % (test code = NT%) 71.8 % 42-86 N IMMATURE GRANULOCYTE % (test 1.5 % 0.0-2.0 N code = IG%) LYMPHOCYTE % (test code = LY%) 14.7 % 24-44 L MONOCYTE % (test code = MO%) 9.9 % 0.0-4.0 H EOSINOPHIL % (test code = EO%) 1.8 % 0.0-2.7 N BASOPHIL % (test code = BA%) 0.3 % 0.0-0.5 N NUCLEATED RBC % (test code = 0.0 % 0.0-0.0 N NRBC%) NEUTROPHIL # (test code = NT#) 5.29 x10 3/uL 1.8-7.7 N IMMATURE GRANULOCYTE # (test 0.11 x10 3/uL 0.00-0.03 H code = IG#) LYMPHOCYTE # (test code = LY#) 1.08 x10 3/uL 1.0-4.8 N MONOCYTE # (test code = MO#) 0.73 x10 3/uL 0.0-0.8 N EOSINOPHIL # (test code = EO#) 0.13 x10 3/uL 0.0-0.5 N BASOPHIL # (test code = BA#) 0.02 x10 3/uL 0.0-0.2 N NUCLEATED RBC # (test code = 0.0 X10 3/uL 0.0-0.2 N NRBC#) MANUAL DIFF REQUIRED (test code SCAN PLT_RBC TECH REVIEW = MDIFF) RBC [id number] 14:30:00 Test Item Value Reference Range Interpretation Comments RBC MORPHOLOGY COMMENT (test code = RBCM) PLATELET [id number] 14:30:00 Test Item Value Reference Range Interpretation Comments PLATELET ESTIMATE (test code = PLTEST) ADEQ CV CALL [id number] 14:30:00 Test Item Value Reference Range Interpretation Comments CV CALL HEM (test code = CVCH) IMMUNOGLOBULIN [id number] 12:07:00 Test Item Value Reference Range Interpretation Comments IMMUNOGLOBULIN E (test 20 IU/mL 6-495 code = IGE) Please note reference inter uma changePerform ed At: [facility], [place] [id number] ra Abad MENDOZA Ph:[phone] [id number] 11:19:00 Test Item Value Reference Range Interpretation Comments GLUBED (test code = 199 MG/DL 65-99 H Performe d by certified GLUBED) potable water treatment operator at [facility] CBC W/AUTO [id number] 08:31:00 Test Item Value Reference Range Interpretation Comments WHITE BLOOD CELL (test code = 6.29 x10 3/uL 4.80-10.80 N WBC) RED BLOOD CELL (test code = 4.21 x10 6/uL 4.2-5.4 N RBC) HEMOGLOBIN (test code = HGB) 12.3 G/DL 12.0-16.0 N HEMATOCRIT (test code = HCT) 37.3 % 37-47 N MEAN CELL VOLUME (test code = 88.6 FL 81-99 N MCV) MEAN CELL HGB (test code = MCH) 29.2 PG 27-31 N MEAN CELL HGB CONCENTRATION 33.0 G/DL 33-37 N (test code = MCHC) RED CELL DISTRIBUTION WIDTH 17.2 % 11.5-14.5 H (test code = RDW) PLATELET COUNT (test code = 45 x10 3/uL 150-450 LL PLT) MEAN PLATELET VOLUME (test code 9.1 FL 7.4-10.4 N = MPV) NEUTROPHIL % (test code = NT%) 67.5 % 42-86 N IMMATURE GRANULOCYTE % (test 0.5 % 0.0-2.0 N code = IG%) LYMPHOCYTE % (test code = LY%) 18.6 % 24-44 L MONOCYTE % (test code = MO%) 8.6 % 0.0-4.0 H EOSINOPHIL % (test code = EO%) 4.6 % 0.0-2.7 H BASOPHIL % (test code = BA%) 0.2 % 0.0-0.5 N NUCLEATED RBC % (test code = 0.0 % 0.0-0.0 N NRBC%) NEUTROPHIL # (test code = NT#) 4.25 x10 3/uL 1.8-7.7 N IMMATURE GRANULOCYTE # (test 0.03 x10 3/uL 0.00-0.03 N code = IG#) LYMPHOCYTE # (test code = LY#) 1.17 x10 3/uL 1.0-4.8 N MONOCYTE # (test code = MO#) 0.54 x10 3/uL 0.0-0.8 N EOSINOPHIL # (test code = EO#) 0.29 x10 3/uL 0.0-0.5 N BASOPHIL # (test code = BA#) 0.01 x10 3/uL 0.0-0.2 N NUCLEATED RBC # (test code = 0.0 X10 3/uL 0.0-0.2 N NRBC#) MANUAL DIFF REQUIRED (test code SCAN PLT_RBC TECH REVIEW = MDIFF) PLATELET [id number] 08:31:00 Test Item Value Reference Range Interpretation Comments PLATELET ESTIMATE (test Dec ADEQ A MANU AL PLATELET code = PLTEST) ESTIMATE: 45, 000 CV CALL [id number] 08:31:00 Test Item Value Reference Range Interpretation Comments CV CALL HEM Not Called This is not the first (test code = occurrence of t his result CVCH) flaggedcritical for this analyte. Crite daily to call not met.79905/23/18; by Mary KayLAB.DAY. CBC W/AUTO [id number] 08:30:00 Test Item Value Reference Range Interpretation Comments WHITE BLOOD CELL (test code = 6.29 x10 3/uL 4.80-10.80 N WBC) RED BLOOD CELL (test code = 4.21 x10 6/uL 4.2-5.4 N RBC) HEMOGLOBIN (test code = HGB) 12.3 G/DL 12.0-16.0 N HEMATOCRIT (test code = HCT) 37.3 % 37-47 N MEAN CELL VOLUME (test code = 88.6 FL 81-99 N MCV) MEAN CELL HGB (test code = MCH) 29.2 PG 27-31 N MEAN CELL HGB CONCENTRATION 33.0 G/DL 33-37 N (test code = MCHC) RED CELL DISTRIBUTION WIDTH 17.2 % 11.5-14.5 H (test code = RDW) PLATELET COUNT (test code = 45 x10 3/uL 150-450 LL PLT) MEAN PLATELET VOLUME (test code 9.1 FL 7.4-10.4 N = MPV) NEUTROPHIL % (test code = NT%) % 42-86 N IMMATURE GRANULOCYTE % (test % 0.0-2.0 N code = IG%) LYMPHOCYTE % (test code = LY%) % 24-44 L MONOCYTE % (test code = MO%) % 0.0-4.0 H EOSINOPHIL % (test code = EO%) % 0.0-2.7 H BASOPHIL % (test code = BA%) % 0.0-0.5 N NUCLEATED RBC % (test code = % 0.0-0.0 N NRBC%) NEUTROPHIL # (test code = NT#) x10 3/uL 1.8-7.7 N IMMATURE GRANULOCYTE # (test x10 3/uL 0.00-0.03 N code = IG#) LYMPHOCYTE # (test code = LY#) x10 3/uL 1.0-4.8 N MONOCYTE # (test code = MO#) x10 3/uL 0.0-0.8 N EOSINOPHIL # (test code = EO#) x10 3/uL 0.0-0.5 N BASOPHIL # (test code = BA#) x10 3/uL 0.0-0.2 N NUCLEATED RBC # (test code = X10 3/uL 0.0-0.2 N NRBC#) MANUAL DIFF REQUIRED (test code SCAN PLT_RBC TECH REVIEW = MDIFF) RBC [id number] 08:30:00 Test Item Value Reference Range Interpretation Comments RBC MORPHOLOGY COMMENT (test code = RBCM) PLATELET [id number] 08:30:00 Test Item Value Reference Range Interpretation Comments PLATELET ESTIMATE (test code = PLTEST) ADEQ CV CALL [id number] 08:30:00 Test Item Value Reference Range Interpretation Comments CV CALL HEM Not Called This is not the first (test code = occurrence of t his result CVCH) flaggedcritical for this analyte. Crite daily to call not met.799 - 05/23/18; by ELENIDAY. CBC W/AUTO [id number] 08:30:00 Test Item Value Reference Range Interpretation Comments WHITE BLOOD CELL (test code = 6.29 x10 3/uL 4.80-10.80 N WBC) RED BLOOD CELL (test code = 4.21 x10 6/uL 4.2-5.4 N RBC) HEMOGLOBIN (test code = HGB) 12.3 G/DL 12.0-16.0 N HEMATOCRIT (test code = HCT) 37.3 % 37-47 N MEAN CELL VOLUME (test code = 88.6 FL 81-99 N MCV) MEAN CELL HGB (test code = MCH) 29.2 PG 27-31 N MEAN CELL HGB CONCENTRATION 33.0 G/DL 33-37 N (test code = MCHC) RED CELL DISTRIBUTION WIDTH 17.2 % 11.5-14.5 H (test code = RDW) PLATELET COUNT (test code = 45 x10 3/uL 150-450 LL PLT) MEAN PLATELET VOLUME (test code 9.1 FL 7.4-10.4 N = MPV) NEUTROPHIL % (test code = NT%) % 42-86 N IMMATURE GRANULOCYTE % (test % 0.0-2.0 N code = IG%) LYMPHOCYTE % (test code = LY%) % 24-44 L MONOCYTE % (test code = MO%) % 0.0-4.0 H EOSINOPHIL % (test code = EO%) % 0.0-2.7 H BASOPHIL % (test code = BA%) % 0.0-0.5 N NUCLEATED RBC % (test code = % 0.0-0.0 N NRBC%) NEUTROPHIL # (test code = NT#) x10 3/uL 1.8-7.7 N IMMATURE GRANULOCYTE # (test x10 3/uL 0.00-0.03 N code = IG#) LYMPHOCYTE # (test code = LY#) x10 3/uL 1.0-4.8 N MONOCYTE # (test code = MO#) x10 3/uL 0.0-0.8 N EOSINOPHIL # (test code = EO#) x10 3/uL 0.0-0.5 N BASOPHIL # (test code = BA#) x10 3/uL 0.0-0.2 N NUCLEATED RBC # (test code = X10 3/uL 0.0-0.2 N NRBC#) MANUAL DIFF REQUIRED (test code SCAN PLT_RBC TECH REVIEW = MDIFF) RBC [id number] 08:30:00 Test Item Value Reference Range Interpretation Comments RBC MORPHOLOGY COMMENT (test code = RBCM) PLATELET [id number] 08:30:00 Test Item Value Reference Range Interpretation Comments PLATELET ESTIMATE (test code = PLTEST) ADEQ CV CALL [id number] 08:30:00 Test Item Value Reference Range Interpretation Comments CV CALL HEM Not Called This is not the first (test code = occurrence of t his result CVCH) flaggedcritical for this analyte. Crite daily to call not met.79905/23/18; by ELENIDAY. COMPREHENSIVE METABOLIC [id number] 08:18:00 Test Item Value Reference Range Interpretation Comments SODIUM (test code = 138 MMOL/L 133-145 N NA) POTASSIUM (test code = 3.9 MMOL/L 3.6-5.2 N K) CHLORIDE (test code = 107 MMOL/L 100-108 N CL) CARBON DIOXIDE (test 28 MMOL/L 22-32 N code = CO2) GLUCOSE (test code = 126 MG/DL 65-99 H Results of this GLU) assay method ma y be falsely depress ed orelevated if patient is taki ng sulfasalazine. BLOOD UREA NITROGEN 27 MG/DL 6-20 H (test code = BUN) GLOMERULAR FILTRATION 83 51-120 N Report ing units: RATE (test code = GFR) mL/mi n/1.73m\S\2 (Modified MDRD Formula) CREATININE (test code 0.73 MG/DL 0.60-1.00 N = CREAT) TOTAL PROTEIN (test 6.5 G/DL 6.4-8.2 N code = PROT) ALBUMIN (test code = 2.8 G/DL 3.4-5.0 L ALB) GLOBULIN (test code = 3.7 G/DL 1.5-3.8 N GLOB) ALBUMIN/GLOBULIN RATIO 0.8 1.1-2.2 L (test code = A/G) CALCIUM (test code = 8.7 MG/DL 8.7-10.5 N CA) BILIRUBIN TOTAL (test 1.3 MG/DL 0.0-1.0 H code = BILT) SGOT/AST (test code = 22 Units/L 15-37 N Result s of this AST) assay method ma y be falsely depress ed orelevated if patient is taki ng sulfasalazine. SGPT/ALT (test code = 39 Units/L 30-65 N Result s of this ALT) assay method ma y be falsely depress ed orelevated if patient is taki ng sulfasalazine. ALKALINE PHOSPHATASE 100 Units/L 50-136 N TOTAL (test code = ALKP) [id number] 08:18:00 Test Item Value Reference Range Interpretation Comments MAGNESIUM (test code = MAG) 2.0 MG/DL 1.8-2.4 N CBC W/AUTO [id number] 08:00:00 Test Item Value Reference Range Interpretation Comments WHITE BLOOD CELL (test code = 6.29 x10 3/uL 4.80-10.80 N WBC) RED BLOOD CELL (test code = 4.21 x10 6/uL 4.2-5.4 N RBC) HEMOGLOBIN (test code = HGB) 12.3 G/DL 12.0-16.0 N HEMATOCRIT (test code = HCT) 37.3 % 37-47 N MEAN CELL VOLUME (test code = 88.6 FL 81-99 N MCV) MEAN CELL HGB (test code = MCH) 29.2 PG 27-31 N MEAN CELL HGB CONCENTRATION 33.0 G/DL 33-37 N (test code = MCHC) RED CELL DISTRIBUTION WIDTH 17.2 % 11.5-14.5 H (test code = RDW) PLATELET COUNT (test code = 45 x10 3/uL 150-450 LL PLT) MEAN PLATELET VOLUME (test code 9.1 FL 7.4-10.4 N = MPV) NEUTROPHIL % (test code = NT%) % 42-86 N IMMATURE GRANULOCYTE % (test % 0.0-2.0 N code = IG%) LYMPHOCYTE % (test code = LY%) % 24-44 L MONOCYTE % (test code = MO%) % 0.0-4.0 H EOSINOPHIL % (test code = EO%) % 0.0-2.7 H BASOPHIL % (test code = BA%) % 0.0-0.5 N NUCLEATED RBC % (test code = % 0.0-0.0 N NRBC%) NEUTROPHIL # (test code = NT#) x10 3/uL 1.8-7.7 N IMMATURE GRANULOCYTE # (test x10 3/uL 0.00-0.03 N code = IG#) LYMPHOCYTE # (test code = LY#) x10 3/uL 1.0-4.8 N MONOCYTE # (test code = MO#) x10 3/uL 0.0-0.8 N EOSINOPHIL # (test code = EO#) x10 3/uL 0.0-0.5 N BASOPHIL # (test code = BA#) x10 3/uL 0.0-0.2 N NUCLEATED RBC # (test code = X10 3/uL 0.0-0.2 N NRBC#) CV CALL [id number] 08:00:00 Test Item Value Reference Range Interpretation Comments CV CALL HEM (test code = CVCH) CBC W/AUTO [id number] 08:00:00 Test Item Value Reference Range Interpretation Comments WHITE BLOOD CELL (test code = 6.29 x10 3/uL 4.80-10.80 N WBC) RED BLOOD CELL (test code = 4.21 x10 6/uL 4.2-5.4 N RBC) HEMOGLOBIN (test code = HGB) 12.3 G/DL 12.0-16.0 N HEMATOCRIT (test code = HCT) 37.3 % 37-47 N MEAN CELL VOLUME (test code = 88.6 FL 81-99 N MCV) MEAN CELL HGB (test code = MCH) 29.2 PG 27-31 N MEAN CELL HGB CONCENTRATION 33.0 G/DL 33-37 N (test code = MCHC) RED CELL DISTRIBUTION WIDTH 17.2 % 11.5-14.5 H (test code = RDW) PLATELET COUNT (test code = 45 x10 3/uL 150-450 LL PLT) MEAN PLATELET VOLUME (test code 9.1 FL 7.4-10.4 N = MPV) NEUTROPHIL % (test code = NT%) % 42-86 N IMMATURE GRANULOCYTE % (test % 0.0-2.0 N code = IG%) LYMPHOCYTE % (test code = LY%) % 24-44 L MONOCYTE % (test code = MO%) % 0.0-4.0 H EOSINOPHIL % (test code = EO%) % 0.0-2.7 H BASOPHIL % (test code = BA%) % 0.0-0.5 N NUCLEATED RBC % (test code = % 0.0-0.0 N NRBC%) NEUTROPHIL # (test code = NT#) x10 3/uL 1.8-7.7 N IMMATURE GRANULOCYTE # (test x10 3/uL 0.00-0.03 N code = IG#) LYMPHOCYTE # (test code = LY#) x10 3/uL 1.0-4.8 N MONOCYTE # (test code = MO#) x10 3/uL 0.0-0.8 N EOSINOPHIL # (test code = EO#) x10 3/uL 0.0-0.5 N BASOPHIL # (test code = BA#) x10 3/uL 0.0-0.2 N NUCLEATED RBC # (test code = X10 3/uL 0.0-0.2 N NRBC#) CV CALL [id number] 08:00:00 Test Item Value Reference Range Interpretation Comments CV CALL HEM Not Called This is not the first (test code = occurrence of t his result CVCH) flaggedcritical for this analyte. Crite daily to call not met.79905/23/18; by Mary KayLABCastroDAY. [id number] 06:35:00 Test Item Value Reference Range Interpretation Comments GLUBED (test code = 128 MG/DL 65-99 H Performe d by certified GLUBED) potable water treatment operator at [facility] [id number] 20:50:00 Test Item Value Reference Range Interpretation Comments GLUBED (test code = 130 MG/DL 65-99 H Performe d by certified GLUBED) potable water treatment operator at [facility] [id number] 16:48:00 Test Item Value Reference Range Interpretation Comments GLUBED (test code = 205 MG/DL 65-99 H Performe d by certified GLUBED) potable water treatment operator at [facility] [id number] 11:33:00 Test Item Value Reference Range Interpretation Comments GLUBED (test code = 218 MG/DL 65-99 H Performe d by certified GLUBED) potable water treatment operator at [facility] [id number] 06:34:00 Test Item Value Reference Range Interpretation Comments GLUBED (test code = 106 MG/DL 65-99 H Performe d by certified GLUBED) potable water treatment operator at [facility] CBC W/AUTO [id number] 05:39:00 Test Item Value Reference Range Interpretation Comments WHITE BLOOD CELL (test code = 5.11 x10 3/uL 4.80-10.80 N WBC) RED BLOOD CELL (test code = 4.17 x10 6/uL 4.2-5.4 L RBC) HEMOGLOBIN (test code = HGB) 12.3 G/DL 12.0-16.0 N HEMATOCRIT (test code = HCT) 36.7 % 37-47 L MEAN CELL VOLUME (test code = 88.0 FL 81-99 N MCV) MEAN CELL HGB (test code = MCH) 29.5 PG 27-31 N MEAN CELL HGB CONCENTRATION 33.5 G/DL 33-37 N (test code = MCHC) RED CELL DISTRIBUTION WIDTH 17.1 % 11.5-14.5 H (test code = RDW) PLATELET COUNT (test code = 46 x10 3/uL 150-450 LL PLT) MEAN PLATELET VOLUME (test code 9.1 FL 7.4-10.4 N = MPV) NEUTROPHIL % (test code = NT%) 64.6 % 42-86 N IMMATURE GRANULOCYTE % (test 0.6 % 0.0-2.0 N code = IG%) LYMPHOCYTE % (test code = LY%) 21.5 % 24-44 L MONOCYTE % (test code = MO%) 9.2 % 0.0-4.0 H EOSINOPHIL % (test code = EO%) 3.7 % 0.0-2.7 H BASOPHIL % (test code = BA%) 0.4 % 0.0-0.5 N NUCLEATED RBC % (test code = 0.0 % 0.0-0.0 N NRBC%) NEUTROPHIL # (test code = NT#) 3.30 x10 3/uL 1.8-7.7 N IMMATURE GRANULOCYTE # (test 0.03 x10 3/uL 0.00-0.03 N code = IG#) LYMPHOCYTE # (test code = LY#) 1.10 x10 3/uL 1.0-4.8 N MONOCYTE # (test code = MO#) 0.47 x10 3/uL 0.0-0.8 N EOSINOPHIL # (test code = EO#) 0.19 x10 3/uL 0.0-0.5 N BASOPHIL # (test code = BA#) 0.02 x10 3/uL 0.0-0.2 N NUCLEATED RBC # (test code = 0.0 X10 3/uL 0.0-0.2 N NRBC#) MANUAL DIFF REQUIRED (test code SCAN PLT_RBC TECH REVIEW = MDIFF) RBC [id number] 05:39:00 Test Item Value Reference Range Interpretation Comments RBC MORPHOLOGY COMMENT (test code = Normal RBCM) PLATELET [id number] 05:39:00 Test Item Value Reference Range Interpretation Comments PLATELET ESTIMATE (test Dec ADEQ A MANU AL PLATELET code = PLTEST) ESTIMATE: 45 PLATELET [id number] 05:39:00 Test Item Value Reference Range Interpretation Comments PLATELET MORPHOLOGY (test code = Normal Normal PLTMORPH) CV CALL [id number] 05:39:00 Test Item Value Reference Range Interpretation Comments CV CALL HEM Not Called This is not the first (test code = occurrence of t his result CVCH) flaggedcritical for this analyte. Crite daily to call not met.0504 - 05/22/18; by [email or web address]. CBC W/AUTO [id number] 05:04:00 Test Item Value Reference Range Interpretation Comments WHITE BLOOD CELL (test code = 5.11 x10 3/uL 4.80-10.80 N WBC) RED BLOOD CELL (test code = 4.17 x10 6/uL 4.2-5.4 L RBC) HEMOGLOBIN (test code = HGB) 12.3 G/DL 12.0-16.0 N HEMATOCRIT (test code = HCT) 36.7 % 37-47 L MEAN CELL VOLUME (test code = 88.0 FL 81-99 N MCV) MEAN CELL HGB (test code = MCH) 29.5 PG 27-31 N MEAN CELL HGB CONCENTRATION 33.5 G/DL 33-37 N (test code = MCHC) RED CELL DISTRIBUTION WIDTH 17.1 % 11.5-14.5 H (test code = RDW) PLATELET COUNT (test code = 46 x10 3/uL 150-450 LL PLT) MEAN PLATELET VOLUME (test code 9.1 FL 7.4-10.4 N = MPV) NEUTROPHIL % (test code = NT%) 64.6 % 42-86 N IMMATURE GRANULOCYTE % (test 0.6 % 0.0-2.0 N code = IG%) LYMPHOCYTE % (test code = LY%) 21.5 % 24-44 L MONOCYTE % (test code = MO%) 9.2 % 0.0-4.0 H EOSINOPHIL % (test code = EO%) 3.7 % 0.0-2.7 H BASOPHIL % (test code = BA%) 0.4 % 0.0-0.5 N NUCLEATED RBC % (test code = 0.0 % 0.0-0.0 N NRBC%) NEUTROPHIL # (test code = NT#) 3.30 x10 3/uL 1.8-7.7 N IMMATURE GRANULOCYTE # (test 0.03 x10 3/uL 0.00-0.03 N code = IG#) LYMPHOCYTE # (test code = LY#) 1.10 x10 3/uL 1.0-4.8 N MONOCYTE # (test code = MO#) 0.47 x10 3/uL 0.0-0.8 N EOSINOPHIL # (test code = EO#) 0.19 x10 3/uL 0.0-0.5 N BASOPHIL # (test code = BA#) 0.02 x10 3/uL 0.0-0.2 N NUCLEATED RBC # (test code = 0.0 X10 3/uL 0.0-0.2 N NRBC#) MANUAL DIFF REQUIRED (test code SCAN PLT_RBC TECH REVIEW = MDIFF) RBC [id number] 05:04:00 Test Item Value Reference Range Interpretation Comments RBC MORPHOLOGY COMMENT (test code = RBCM) PLATELET [id number] 05:04:00 Test Item Value Reference Range Interpretation Comments PLATELET ESTIMATE (test code = PLTEST) ADEQ CV CALL [id number] 05:04:00 Test Item Value Reference Range Interpretation Comments CV CALL HEM (test code = CVCH) CBC W/AUTO [id number] 05:04:00 Test Item Value Reference Range Interpretation Comments WHITE BLOOD CELL (test code = 5.11 x10 3/uL 4.80-10.80 N WBC) RED BLOOD CELL (test code = 4.17 x10 6/uL 4.2-5.4 L RBC) HEMOGLOBIN (test code = HGB) 12.3 G/DL 12.0-16.0 N HEMATOCRIT (test code = HCT) 36.7 % 37-47 L MEAN CELL VOLUME (test code = 88.0 FL 81-99 N MCV) MEAN CELL HGB (test code = MCH) 29.5 PG 27-31 N MEAN CELL HGB CONCENTRATION 33.5 G/DL 33-37 N (test code = MCHC) RED CELL DISTRIBUTION WIDTH 17.1 % 11.5-14.5 H (test code = RDW) PLATELET COUNT (test code = 46 x10 3/uL 150-450 LL PLT) MEAN PLATELET VOLUME (test code 9.1 FL 7.4-10.4 N = MPV) NEUTROPHIL % (test code = NT%) 64.6 % 42-86 N IMMATURE GRANULOCYTE % (test 0.6 % 0.0-2.0 N code = IG%) LYMPHOCYTE % (test code = LY%) 21.5 % 24-44 L MONOCYTE % (test code = MO%) 9.2 % 0.0-4.0 H EOSINOPHIL % (test code = EO%) 3.7 % 0.0-2.7 H BASOPHIL % (test code = BA%) 0.4 % 0.0-0.5 N NUCLEATED RBC % (test code = 0.0 % 0.0-0.0 N NRBC%) NEUTROPHIL # (test code = NT#) 3.30 x10 3/uL 1.8-7.7 N IMMATURE GRANULOCYTE # (test 0.03 x10 3/uL 0.00-0.03 N code = IG#) LYMPHOCYTE # (test code = LY#) 1.10 x10 3/uL 1.0-4.8 N MONOCYTE # (test code = MO#) 0.47 x10 3/uL 0.0-0.8 N EOSINOPHIL # (test code = EO#) 0.19 x10 3/uL 0.0-0.5 N BASOPHIL # (test code = BA#) 0.02 x10 3/uL 0.0-0.2 N NUCLEATED RBC # (test code = 0.0 X10 3/uL 0.0-0.2 N NRBC#) MANUAL DIFF REQUIRED (test code SCAN PLT_RBC TECH REVIEW = MDIFF) RBC [id number] 05:04:00 Test Item Value Reference Range Interpretation Comments RBC MORPHOLOGY COMMENT (test code = RBCM) PLATELET [id number] 05:04:00 Test Item Value Reference Range Interpretation Comments PLATELET ESTIMATE (test code = PLTEST) ADEQ CV CALL [id number] 05:04:00 Test Item Value Reference Range Interpretation Comments CV CALL HEM Not Called This is not the first (test code = occurrence of t his result CVCH) flaggedcritical for this analyte. Crite daily to call not met.[id number]/18; by [email or web address]. CBC W/AUTO [id number] 05:04:00 Test Item Value Reference Range Interpretation Comments WHITE BLOOD CELL (test code = 5.11 x10 3/uL 4.80-10.80 N WBC) RED BLOOD CELL (test code = 4.17 x10 6/uL 4.2-5.4 L RBC) HEMOGLOBIN (test code = HGB) 12.3 G/DL 12.0-16.0 N HEMATOCRIT (test code = HCT) 36.7 % 37-47 L MEAN CELL VOLUME (test code = 88.0 FL 81-99 N MCV) MEAN CELL HGB (test code = MCH) 29.5 PG 27-31 N MEAN CELL HGB CONCENTRATION 33.5 G/DL 33-37 N (test code = MCHC) RED CELL DISTRIBUTION WIDTH 17.1 % 11.5-14.5 H (test code = RDW) PLATELET COUNT (test code = 46 x10 3/uL 150-450 LL PLT) MEAN PLATELET VOLUME (test code 9.1 FL 7.4-10.4 N = MPV) NEUTROPHIL % (test code = NT%) 64.6 % 42-86 N IMMATURE GRANULOCYTE % (test 0.6 % 0.0-2.0 N code = IG%) LYMPHOCYTE % (test code = LY%) 21.5 % 24-44 L MONOCYTE % (test code = MO%) 9.2 % 0.0-4.0 H EOSINOPHIL % (test code = EO%) 3.7 % 0.0-2.7 H BASOPHIL % (test code = BA%) 0.4 % 0.0-0.5 N NUCLEATED RBC % (test code = 0.0 % 0.0-0.0 N NRBC%) NEUTROPHIL # (test code = NT#) 3.30 x10 3/uL 1.8-7.7 N IMMATURE GRANULOCYTE # (test 0.03 x10 3/uL 0.00-0.03 N code = IG#) LYMPHOCYTE # (test code = LY#) 1.10 x10 3/uL 1.0-4.8 N MONOCYTE # (test code = MO#) 0.47 x10 3/uL 0.0-0.8 N EOSINOPHIL # (test code = EO#) 0.19 x10 3/uL 0.0-0.5 N BASOPHIL # (test code = BA#) 0.02 x10 3/uL 0.0-0.2 N NUCLEATED RBC # (test code = 0.0 X10 3/uL 0.0-0.2 N NRBC#) MANUAL DIFF REQUIRED (test code SCAN PLT_RBC TECH REVIEW = MDIFF) RBC [id number] 05:04:00 Test Item Value Reference Range Interpretation Comments RBC MORPHOLOGY COMMENT (test code = RBCM) PLATELET [id number] 05:04:00 Test Item Value Reference Range Interpretation Comments PLATELET ESTIMATE (test code = PLTEST) ADEQ CV CALL [id number] 05:04:00 Test Item Value Reference Range Interpretation Comments CV CALL HEM (test code = CVCH) BASIC METABOLIC [id number] 04:48:00 Test Item Value Reference Range Interpretation Comments SODIUM (test code = 139 MMOL/L 133-145 N NA) POTASSIUM (test code = 3.7 MMOL/L 3.6-5.2 N K) CHLORIDE (test code = 105 MMOL/L 100-108 N CL) CARBON DIOXIDE (test 28 MMOL/L 22-32 N code = CO2) GLUCOSE (test code = 98 MG/DL 65-99 N Results of this assay GLU) method may be f alsely depressed orele vated if patient is t aking sulfasalazine. BLOOD UREA NITROGEN 24 MG/DL 6-20 H (test code = BUN) GLOMERULAR FILTRATION 75 51-120 N Report ing units: RATE (test code = GFR) mL/mi n/1.73m\S\2 (Modified MDRD Formula) CREATININE (test code 0.80 MG/DL 0.60-1.00 N = CREAT) CALCIUM (test code = 8.7 MG/DL 8.7-10.5 N CA) [id number] 04:48:00 Test Item Value Reference Range Interpretation Comments MAGNESIUM (test code = MAG) 2.0 MG/DL 1.8-2.4 N [id number] 20:17:00 Test Item Value Reference Range Interpretation Comments GLUBED (test code = 135 MG/DL 65-99 H Performe d by certified GLUBED) potable water treatment operator at [facility] [id number] 17:32:00 Test Item Value Reference Range Interpretation Comments GLUBED (test code = 176 MG/DL 65-99 H Performe d by certified GLUBED) potable water treatment operator at [facility] - CT CHEST W/O [id number] 16:04:00 Patient Name: ABHIJIT PEDROZA Unit No: [id number] EXAMS: CPT CODE: [id number] CT CHEST W/O CONTRAST 54552 Reason: SOB, wheezing - CT CHEST W/O CONTRAST 05/21/2018 10:27 AM Indication: SOB wheezing epistaxis or graft comparison: No prior chest CT. CT abdomen done only 4 days ago. TECHNIQUE: Noncontrast scanning of chest FINDINGS: Small fibrotic strand inferior lingular segment. Trace right apical completely nonspecific groundglass opacities which could be anything from microatelectasis to fibrotic to reactive airwaydisease to acute pneumonitis. No effusions. Bone windows unremarkable. Cirrhotic liver withsplenomegaly. Cholecystectomy. Impression: Tiny right apical groundglass opacity otherwise no acute disease. Cirrhosis and portal hypertension. at 1604 Reported and signed by: Michael Marroquin MD CC: Susan Perera DO; Gauri Lanier MD.; Daryl Juan Technologist: Liliam Arenas CT Trscrpt Dt/ ([id number])Charu Orig Print D/T: S: 05/21/2018 (3307) CTDI: DLP: [facility] NAME: ABHIJIT PEDROZA [address] [facility] PHYS: [id number] - [place] [id number] : 1965 AGE: 52 SEX: F LOC: [id number] 1 PHONE #: [phone] EXAM DATE: 05/21/2018 STATUS: ADM IN FAX #: RAD NO: DC Dt: PAGE 1 Signed [id number] 11:50:00 Test Item Value Reference Range Interpretation Comments GLUBED (test code = 141 MG/DL 65-99 H Performe d by certified GLUBED) potable water treatment operator at [facility] [id number] 06:52:00 Test Item Value Reference Range Interpretation Comments GLUBED (test code = 147 MG/DL 65-99 H Performe d by certified GLUBED) potable water treatment operator at [facility] BASIC METABOLIC [id number] 06:27:00 Test Item Value Reference Range Interpretation Comments SODIUM (test code = 137 MMOL/L 133-145 N NA) POTASSIUM (test code = 4.3 MMOL/L 3.6-5.2 N K) CHLORIDE (test code = 104 MMOL/L 100-108 N CL) CARBON DIOXIDE (test 26 MMOL/L 22-32 N code = CO2) GLUCOSE (test code = 166 MG/DL 65-99 H Results of this assay GLU) method may be f alsely depressed orele vated if patient is t aking sulfasalazine. BLOOD UREA NITROGEN 24 MG/DL 6-20 H (test code = BUN) GLOMERULAR FILTRATION 92 51-120 N Report ing units: RATE (test code = GFR) mL/mi n/1.73m\S\2 (Modified MDRD Formula) CREATININE (test code 0.67 MG/DL 0.60-1.00 N = CREAT) CALCIUM (test code = 9.1 MG/DL 8.7-10.5 N CA) [id number] 06:27:00 Test Item Value Reference Range Interpretation Comments MAGNESIUM (test code = MAG) 2.2 MG/DL 1.8-2.4 N CBC W/AUTO [id number] 06:27:00 Test Item Value Reference Range Interpretation Comments WHITE BLOOD CELL (test code = 5.01 x10 3/uL 4.80-10.80 N WBC) RED BLOOD CELL (test code = 4.21 x10 6/uL 4.2-5.4 N RBC) HEMOGLOBIN (test code = HGB) 12.5 G/DL 12.0-16.0 N HEMATOCRIT (test code = HCT) 36.5 % 37-47 L MEAN CELL VOLUME (test code = 86.7 FL 81-99 N MCV) MEAN CELL HGB (test code = MCH) 29.7 PG 27-31 N MEAN CELL HGB CONCENTRATION 34.2 G/DL 33-37 N (test code = MCHC) RED CELL DISTRIBUTION WIDTH 17.2 % 11.5-14.5 H (test code = RDW) PLATELET COUNT (test code = 44 x10 3/uL 150-450 LL PLT) MEAN PLATELET VOLUME (test code 9.4 FL 7.4-10.4 N = MPV) NEUTROPHIL % (test code = NT%) 79.8 % 42-86 N IMMATURE GRANULOCYTE % (test 0.4 % 0.0-2.0 N code = IG%) LYMPHOCYTE % (test code = LY%) 13.2 % 24-44 L MONOCYTE % (test code = MO%) 5.6 % 0.0-4.0 H EOSINOPHIL % (test code = EO%) 0.8 % 0.0-2.7 N BASOPHIL % (test code = BA%) 0.2 % 0.0-0.5 N NUCLEATED RBC % (test code = 0.0 % 0.0-0.0 N NRBC%) NEUTROPHIL # (test code = NT#) 4.00 x10 3/uL 1.8-7.7 N IMMATURE GRANULOCYTE # (test 0.02 x10 3/uL 0.00-0.03 N code = IG#) LYMPHOCYTE # (test code = LY#) 0.66 x10 3/uL 1.0-4.8 L MONOCYTE # (test code = MO#) 0.28 x10 3/uL 0.0-0.8 N EOSINOPHIL # (test code = EO#) 0.04 x10 3/uL 0.0-0.5 N BASOPHIL # (test code = BA#) 0.01 x10 3/uL 0.0-0.2 N NUCLEATED RBC # (test code = 0.0 X10 3/uL 0.0-0.2 N NRBC#) MANUAL DIFF REQUIRED (test code SCAN PLT_RBC TECH REVIEW = MDIFF) RBC [id number] 06:27:00 Test Item Value Reference Range Interpretation Comments RBC MORPHOLOGY COMMENT (test code = Normal RBCM) PLATELET [id number] 06:27:00 Test Item Value Reference Range Interpretation Comments PLATELET ESTIMATE (test Dec TAL HUFFMAN AL PLATELET code = PLTEST) ESTIMATE: 45 PLATELET [id number] 06:27:00 Test Item Value Reference Range Interpretation Comments PLATELET MORPHOLOGY (test code = Normal Normal PLTMORPH) CV CALL [id number] 06:27:00 Test Item Value Reference Range Interpretation Comments CV CALL HEM (test code Called Resul ts called to and = CVCH) read back by MCKENZIE BOWLES;.for analyte(s): PLT .at 600 - 05/21/18; by DCastro LAB.JP1. CBC W/AUTO [id number] 06:01:00 Test Item Value Reference Range Interpretation Comments WHITE BLOOD CELL (test code = 5.01 x10 3/uL 4.80-10.80 N WBC) RED BLOOD CELL (test code = 4.21 x10 6/uL 4.2-5.4 N RBC) HEMOGLOBIN (test code = HGB) 12.5 G/DL 12.0-16.0 N HEMATOCRIT (test code = HCT) 36.5 % 37-47 L MEAN CELL VOLUME (test code = 86.7 FL 81-99 N MCV) MEAN CELL HGB (test code = MCH) 29.7 PG 27-31 N MEAN CELL HGB CONCENTRATION 34.2 G/DL 33-37 N (test code = MCHC) RED CELL DISTRIBUTION WIDTH 17.2 % 11.5-14.5 H (test code = RDW) PLATELET COUNT (test code = 44 x10 3/uL 150-450 LL PLT) MEAN PLATELET VOLUME (test code 9.4 FL 7.4-10.4 N = MPV) NEUTROPHIL % (test code = NT%) 79.8 % 42-86 N IMMATURE GRANULOCYTE % (test 0.4 % 0.0-2.0 N code = IG%) LYMPHOCYTE % (test code = LY%) 13.2 % 24-44 L MONOCYTE % (test code = MO%) 5.6 % 0.0-4.0 H EOSINOPHIL % (test code = EO%) 0.8 % 0.0-2.7 N BASOPHIL % (test code = BA%) 0.2 % 0.0-0.5 N NUCLEATED RBC % (test code = 0.0 % 0.0-0.0 N NRBC%) NEUTROPHIL # (test code = NT#) 4.00 x10 3/uL 1.8-7.7 N IMMATURE GRANULOCYTE # (test 0.02 x10 3/uL 0.00-0.03 N code = IG#) LYMPHOCYTE # (test code = LY#) 0.66 x10 3/uL 1.0-4.8 L MONOCYTE # (test code = MO#) 0.28 x10 3/uL 0.0-0.8 N EOSINOPHIL # (test code = EO#) 0.04 x10 3/uL 0.0-0.5 N BASOPHIL # (test code = BA#) 0.01 x10 3/uL 0.0-0.2 N NUCLEATED RBC # (test code = 0.0 X10 3/uL 0.0-0.2 N NRBC#) CV CALL [id number] 06:01:00 Test Item Value Reference Range Interpretation Comments CV CALL HEM (test code = CVCH) CBC W/AUTO [id number] 06:01:00 Test Item Value Reference Range Interpretation Comments WHITE BLOOD CELL (test code = 5.01 x10 3/uL 4.80-10.80 N WBC) RED BLOOD CELL (test code = 4.21 x10 6/uL 4.2-5.4 N RBC) HEMOGLOBIN (test code = HGB) 12.5 G/DL 12.0-16.0 N HEMATOCRIT (test code = HCT) 36.5 % 37-47 L MEAN CELL VOLUME (test code = 86.7 FL 81-99 N MCV) MEAN CELL HGB (test code = MCH) 29.7 PG 27-31 N MEAN CELL HGB CONCENTRATION 34.2 G/DL 33-37 N (test code = MCHC) RED CELL DISTRIBUTION WIDTH 17.2 % 11.5-14.5 H (test code = RDW) PLATELET COUNT (test code = 44 x10 3/uL 150-450 LL PLT) MEAN PLATELET VOLUME (test code 9.4 FL 7.4-10.4 N = MPV) NEUTROPHIL % (test code = NT%) 79.8 % 42-86 N IMMATURE GRANULOCYTE % (test 0.4 % 0.0-2.0 N code = IG%) LYMPHOCYTE % (test code = LY%) 13.2 % 24-44 L MONOCYTE % (test code = MO%) 5.6 % 0.0-4.0 H EOSINOPHIL % (test code = EO%) 0.8 % 0.0-2.7 N BASOPHIL % (test code = BA%) 0.2 % 0.0-0.5 N NUCLEATED RBC % (test code = 0.0 % 0.0-0.0 N NRBC%) NEUTROPHIL # (test code = NT#) 4.00 x10 3/uL 1.8-7.7 N IMMATURE GRANULOCYTE # (test 0.02 x10 3/uL 0.00-0.03 N code = IG#) LYMPHOCYTE # (test code = LY#) 0.66 x10 3/uL 1.0-4.8 L MONOCYTE # (test code = MO#) 0.28 x10 3/uL 0.0-0.8 N EOSINOPHIL # (test code = EO#) 0.04 x10 3/uL 0.0-0.5 N BASOPHIL # (test code = BA#) 0.01 x10 3/uL 0.0-0.2 N NUCLEATED RBC # (test code = 0.0 X10 3/uL 0.0-0.2 N NRBC#) MANUAL DIFF REQUIRED (test code SCAN PLT_RBC TECH REVIEW = MDIFF) RBC [id number] 06:01:00 Test Item Value Reference Range Interpretation Comments RBC MORPHOLOGY COMMENT (test code = RBCM) PLATELET [id number] 06:01:00 Test Item Value Reference Range Interpretation Comments PLATELET ESTIMATE (test code = PLTEST) ADEQ CV CALL [id number] 06:01:00 Test Item Value Reference Range Interpretation Comments CV CALL HEM (test code = CVCH) CBC W/AUTO [id number] 06:01:00 Test Item Value Reference Range Interpretation Comments WHITE BLOOD CELL (test code = 5.01 x10 3/uL 4.80-10.80 N WBC) RED BLOOD CELL (test code = 4.21 x10 6/uL 4.2-5.4 N RBC) HEMOGLOBIN (test code = HGB) 12.5 G/DL 12.0-16.0 N HEMATOCRIT (test code = HCT) 36.5 % 37-47 L MEAN CELL VOLUME (test code = 86.7 FL 81-99 N MCV) MEAN CELL HGB (test code = MCH) 29.7 PG 27-31 N MEAN CELL HGB CONCENTRATION 34.2 G/DL 33-37 N (test code = MCHC) RED CELL DISTRIBUTION WIDTH 17.2 % 11.5-14.5 H (test code = RDW) PLATELET COUNT (test code = 44 x10 3/uL 150-450 LL PLT) MEAN PLATELET VOLUME (test code 9.4 FL 7.4-10.4 N = MPV) NEUTROPHIL % (test code = NT%) 79.8 % 42-86 N IMMATURE GRANULOCYTE % (test 0.4 % 0.0-2.0 N code = IG%) LYMPHOCYTE % (test code = LY%) 13.2 % 24-44 L MONOCYTE % (test code = MO%) 5.6 % 0.0-4.0 H EOSINOPHIL % (test code = EO%) 0.8 % 0.0-2.7 N BASOPHIL % (test code = BA%) 0.2 % 0.0-0.5 N NUCLEATED RBC % (test code = 0.0 % 0.0-0.0 N NRBC%) NEUTROPHIL # (test code = NT#) 4.00 x10 3/uL 1.8-7.7 N IMMATURE GRANULOCYTE # (test 0.02 x10 3/uL 0.00-0.03 N code = IG#) LYMPHOCYTE # (test code = LY#) 0.66 x10 3/uL 1.0-4.8 L MONOCYTE # (test code = MO#) 0.28 x10 3/uL 0.0-0.8 N EOSINOPHIL # (test code = EO#) 0.04 x10 3/uL 0.0-0.5 N BASOPHIL # (test code = BA#) 0.01 x10 3/uL 0.0-0.2 N NUCLEATED RBC # (test code = 0.0 X10 3/uL 0.0-0.2 N NRBC#) MANUAL DIFF REQUIRED (test code SCAN PLT_RBC TECH REVIEW = MDIFF) RBC [id number] 06:01:00 Test Item Value Reference Range Interpretation Comments RBC MORPHOLOGY COMMENT (test code = RBCM) PLATELET [id number] 06:01:00 Test Item Value Reference Range Interpretation Comments PLATELET ESTIMATE (test code = PLTEST) ADEQ CV CALL [id number] 06:01:00 Test Item Value Reference Range Interpretation Comments CV CALL HEM (test code Called Resul ts called to and = CVCH) read back by MCKENZIE BOWLES;.for analyte(s): PLT .at 600 - 05/21/18; by Mary Kay DOWNING1. CBC W/AUTO [id number] 06:01:00 Test Item Value Reference Range Interpretation Comments WHITE BLOOD CELL (test code = 5.01 x10 3/uL 4.80-10.80 N WBC) RED BLOOD CELL (test code = 4.21 x10 6/uL 4.2-5.4 N RBC) HEMOGLOBIN (test code = HGB) 12.5 G/DL 12.0-16.0 N HEMATOCRIT (test code = HCT) 36.5 % 37-47 L MEAN CELL VOLUME (test code = 86.7 FL 81-99 N MCV) MEAN CELL HGB (test code = MCH) 29.7 PG 27-31 N MEAN CELL HGB CONCENTRATION 34.2 G/DL 33-37 N (test code = MCHC) RED CELL DISTRIBUTION WIDTH 17.2 % 11.5-14.5 H (test code = RDW) PLATELET COUNT (test code = 44 x10 3/uL 150-450 LL PLT) MEAN PLATELET VOLUME (test code 9.4 FL 7.4-10.4 N = MPV) NEUTROPHIL % (test code = NT%) 79.8 % 42-86 N IMMATURE GRANULOCYTE % (test 0.4 % 0.0-2.0 N code = IG%) LYMPHOCYTE % (test code = LY%) 13.2 % 24-44 L MONOCYTE % (test code = MO%) 5.6 % 0.0-4.0 H EOSINOPHIL % (test code = EO%) 0.8 % 0.0-2.7 N BASOPHIL % (test code = BA%) 0.2 % 0.0-0.5 N NUCLEATED RBC % (test code = 0.0 % 0.0-0.0 N NRBC%) NEUTROPHIL # (test code = NT#) 4.00 x10 3/uL 1.8-7.7 N IMMATURE GRANULOCYTE # (test 0.02 x10 3/uL 0.00-0.03 N code = IG#) LYMPHOCYTE # (test code = LY#) 0.66 x10 3/uL 1.0-4.8 L MONOCYTE # (test code = MO#) 0.28 x10 3/uL 0.0-0.8 N EOSINOPHIL # (test code = EO#) 0.04 x10 3/uL 0.0-0.5 N BASOPHIL # (test code = BA#) 0.01 x10 3/uL 0.0-0.2 N NUCLEATED RBC # (test code = 0.0 X10 3/uL 0.0-0.2 N NRBC#) MANUAL DIFF REQUIRED (test code SCAN PLT_RBC TECH REVIEW = IFF) RBC [id number] 06:01:00 Test Item Value Reference Range Interpretation Comments RBC MORPHOLOGY COMMENT (test code = RBCM) PLATELET [id number] 06:01:00 Test Item Value Reference Range Interpretation Comments PLATELET ESTIMATE (test code = PLTEST) ADEQ CV CALL [id number] 06:01:00 Test Item Value Reference Range Interpretation Comments CV CALL HEM (test code = CVCH) [id number] 20:43:00 Test Item Value Reference Range Interpretation Comments GLUBED (test code = 77 MG/DL 65-99 N Performe d by certified GLUBED) potable water treatment operator at [facility] [id number] 16:57:00 Test Item Value Reference Range Interpretation Comments GLUBED (test code = 169 MG/DL 65-99 H Performe d by certified GLUBED) potable water treatment operator at [facility] [id number] 12:44:00 Test Item Value Reference Range Interpretation Comments GLUBED (test code = 145 MG/DL 65-99 H Performe d by certified GLUBED) potable water treatment operator at [facility] [id number] 06:56:00 Test Item Value Reference Range Interpretation Comments GLUBED (test code = 93 MG/DL 65-99 N Performe d by certified GLUBED) potable water treatment operator at [facility] CBC W/AUTO [id number] 06:47:00 Test Item Value Reference Range Interpretation Comments WHITE BLOOD CELL (test code = 4.73 x10 3/uL 4.80-10.80 L WBC) RED BLOOD CELL (test code = 4.22 x10 6/uL 4.2-5.4 N RBC) HEMOGLOBIN (test code = HGB) 12.3 G/DL 12.0-16.0 N HEMATOCRIT (test code = HCT) 36.6 % 37-47 L MEAN CELL VOLUME (test code = 86.7 FL 81-99 N MCV) MEAN CELL HGB (test code = MCH) 29.1 PG 27-31 N MEAN CELL HGB CONCENTRATION 33.6 G/DL 33-37 N (test code = MCHC) RED CELL DISTRIBUTION WIDTH 17.7 % 11.5-14.5 H (test code = RDW) PLATELET COUNT (test code = 50 x10 3/uL 150-450 L PLT) MEAN PLATELET VOLUME (test code 9.0 FL 7.4-10.4 N = MPV) NEUTROPHIL % (test code = NT%) 67.8 % 42-86 N IMMATURE GRANULOCYTE % (test 0.4 % 0.0-2.0 N code = IG%) LYMPHOCYTE % (test code = LY%) 21.4 % 24-44 L MONOCYTE % (test code = MO%) 8.5 % 0.0-4.0 H EOSINOPHIL % (test code = EO%) 1.7 % 0.0-2.7 N BASOPHIL % (test code = BA%) 0.2 % 0.0-0.5 N NUCLEATED RBC % (test code = 0.0 % 0.0-0.0 N NRBC%) NEUTROPHIL # (test code = NT#) 3.21 x10 3/uL 1.8-7.7 N IMMATURE GRANULOCYTE # (test 0.02 x10 3/uL 0.00-0.03 N code = IG#) LYMPHOCYTE # (test code = LY#) 1.01 x10 3/uL 1.0-4.8 N MONOCYTE # (test code = MO#) 0.40 x10 3/uL 0.0-0.8 N EOSINOPHIL # (test code = EO#) 0.08 x10 3/uL 0.0-0.5 N BASOPHIL # (test code = BA#) 0.01 x10 3/uL 0.0-0.2 N NUCLEATED RBC # (test code = 0.0 X10 3/uL 0.0-0.2 N NRBC#) MANUAL DIFF REQUIRED (test code SCAN PLT_RBC TECH REVIEW = MDIFF) RBC [id number] 06:47:00 Test Item Value Reference Range Interpretation Comments RBC MORPHOLOGY COMMENT (test code = Normal RBCM) PLATELET [id number] 06:47:00 Test Item Value Reference Range Interpretation Comments PLATELET ESTIMATE (test Dec ADEQ A MANU AL PLATELET code = PLTEST) ESTIMATE: 50, 000 BASIC METABOLIC [id number] 05:42:00 Test Item Value Reference Range Interpretation Comments SODIUM (test code = 137 MMOL/L 133-145 N NA) POTASSIUM (test code = 3.7 MMOL/L 3.6-5.2 N K) CHLORIDE (test code = 104 MMOL/L 100-108 N CL) CARBON DIOXIDE (test 29 MMOL/L 22-32 N code = CO2) GLUCOSE (test code = 116 MG/DL 65-99 H Results of this assay GLU) method may be f alsely depressed orele vated if patient is t aking sulfasalazine. BLOOD UREA NITROGEN 21 MG/DL 6-20 H (test code = BUN) GLOMERULAR FILTRATION 81 51-120 N Report ing units: RATE (test code = GFR) mL/mi n/1.73m\S\2 (Modified MDRD Formula) CREATININE (test code 0.75 MG/DL 0.60-1.00 N = CREAT) CALCIUM (test code = 8.5 MG/DL 8.7-10.5 L CA) [id number] 05:42:00 Test Item Value Reference Range Interpretation Comments MAGNESIUM (test code = MAG) 2.1 MG/DL 1.8-2.4 N CBC W/AUTO [id number] 05:21:00 Test Item Value Reference Range Interpretation Comments WHITE BLOOD CELL (test code = 4.73 x10 3/uL 4.80-10.80 L WBC) RED BLOOD CELL (test code = 4.22 x10 6/uL 4.2-5.4 N RBC) HEMOGLOBIN (test code = HGB) 12.3 G/DL 12.0-16.0 N HEMATOCRIT (test code = HCT) 36.6 % 37-47 L MEAN CELL VOLUME (test code = 86.7 FL 81-99 N MCV) MEAN CELL HGB (test code = MCH) 29.1 PG 27-31 N MEAN CELL HGB CONCENTRATION 33.6 G/DL 33-37 N (test code = MCHC) RED CELL DISTRIBUTION WIDTH 17.7 % 11.5-14.5 H (test code = RDW) PLATELET COUNT (test code = 50 x10 3/uL 150-450 L PLT) MEAN PLATELET VOLUME (test code 9.0 FL 7.4-10.4 N = MPV) NEUTROPHIL % (test code = NT%) 67.8 % 42-86 N IMMATURE GRANULOCYTE % (test 0.4 % 0.0-2.0 N code = IG%) LYMPHOCYTE % (test code = LY%) 21.4 % 24-44 L MONOCYTE % (test code = MO%) 8.5 % 0.0-4.0 H EOSINOPHIL % (test code = EO%) 1.7 % 0.0-2.7 N BASOPHIL % (test code = BA%) 0.2 % 0.0-0.5 N NUCLEATED RBC % (test code = 0.0 % 0.0-0.0 N NRBC%) NEUTROPHIL # (test code = NT#) 3.21 x10 3/uL 1.8-7.7 N IMMATURE GRANULOCYTE # (test 0.02 x10 3/uL 0.00-0.03 N code = IG#) LYMPHOCYTE # (test code = LY#) 1.01 x10 3/uL 1.0-4.8 N MONOCYTE # (test code = MO#) 0.40 x10 3/uL 0.0-0.8 N EOSINOPHIL # (test code = EO#) 0.08 x10 3/uL 0.0-0.5 N BASOPHIL # (test code = BA#) 0.01 x10 3/uL 0.0-0.2 N NUCLEATED RBC # (test code = 0.0 X10 3/uL 0.0-0.2 N NRBC#) MANUAL DIFF REQUIRED (test code SCAN PLT_RBC TECH REVIEW = MDIFF) RBC [id number] 05:21:00 Test Item Value Reference Range Interpretation Comments RBC MORPHOLOGY COMMENT (test code = RBCM) PLATELET [id number] 05:21:00 Test Item Value Reference Range Interpretation Comments PLATELET ESTIMATE (test code = PLTEST) ADEQ CBC W/AUTO [id number] 05:21:00 Test Item Value Reference Range Interpretation Comments WHITE BLOOD CELL (test code = 4.73 x10 3/uL 4.80-10.80 L WBC) RED BLOOD CELL (test code = 4.22 x10 6/uL 4.2-5.4 N RBC) HEMOGLOBIN (test code = HGB) 12.3 G/DL 12.0-16.0 N HEMATOCRIT (test code = HCT) 36.6 % 37-47 L MEAN CELL VOLUME (test code = 86.7 FL 81-99 N MCV) MEAN CELL HGB (test code = MCH) 29.1 PG 27-31 N MEAN CELL HGB CONCENTRATION 33.6 G/DL 33-37 N (test code = MCHC) RED CELL DISTRIBUTION WIDTH 17.7 % 11.5-14.5 H (test code = RDW) PLATELET COUNT (test code = 50 x10 3/uL 150-450 L PLT) MEAN PLATELET VOLUME (test code 9.0 FL 7.4-10.4 N = MPV) NEUTROPHIL % (test code = NT%) 67.8 % 42-86 N IMMATURE GRANULOCYTE % (test 0.4 % 0.0-2.0 N code = IG%) LYMPHOCYTE % (test code = LY%) 21.4 % 24-44 L MONOCYTE % (test code = MO%) 8.5 % 0.0-4.0 H EOSINOPHIL % (test code = EO%) 1.7 % 0.0-2.7 N BASOPHIL % (test code = BA%) 0.2 % 0.0-0.5 N NUCLEATED RBC % (test code = 0.0 % 0.0-0.0 N NRBC%) NEUTROPHIL # (test code = NT#) 3.21 x10 3/uL 1.8-7.7 N IMMATURE GRANULOCYTE # (test 0.02 x10 3/uL 0.00-0.03 N code = IG#) LYMPHOCYTE # (test code = LY#) 1.01 x10 3/uL 1.0-4.8 N MONOCYTE # (test code = MO#) 0.40 x10 3/uL 0.0-0.8 N EOSINOPHIL # (test code = EO#) 0.08 x10 3/uL 0.0-0.5 N BASOPHIL # (test code = BA#) 0.01 x10 3/uL 0.0-0.2 N NUCLEATED RBC # (test code = 0.0 X10 3/uL 0.0-0.2 N NRBC#) MANUAL DIFF REQUIRED (test code SCAN PLT_RBC TECH REVIEW = PETER) RBC [id number] 05:21:00 Test Item Value Reference Range Interpretation Comments RBC MORPHOLOGY COMMENT (test code = RBCM) PLATELET [id number] 05:21:00 Test Item Value Reference Range Interpretation Comments PLATELET ESTIMATE (test code = PLTEST) ADEQ [id number] 20:11:00 Test Item Value Reference Range Interpretation Comments GLUBED (test code = 149 MG/DL 65-99 H Performe d by certified GLUBED) potable water treatment operator at [facility] [id number] 17:04:00 Test Item Value Reference Range Interpretation Comments GLUBED (test code = 106 MG/DL 65-99 H Performe d by certified GLUBED) potable water treatment operator at [facility] CBC W/AUTO [id number] 13:06:00 Test Item Value Reference Range Interpretation Comments WHITE BLOOD CELL (test code = 7.58 x10 3/uL 4.80-10.80 N WBC) RED BLOOD CELL (test code = 4.31 x10 6/uL 4.2-5.4 N RBC) HEMOGLOBIN (test code = HGB) 12.8 G/DL 12.0-16.0 N HEMATOCRIT (test code = HCT) 37.8 % 37-47 N MEAN CELL VOLUME (test code = 87.7 FL 81-99 N MCV) MEAN CELL HGB (test code = MCH) 29.7 PG 27-31 N MEAN CELL HGB CONCENTRATION 33.9 G/DL 33-37 N (test code = MCHC) RED CELL DISTRIBUTION WIDTH 18.3 % 11.5-14.5 H (test code = RDW) PLATELET COUNT (test code = 59 x10 3/uL 150-450 L PLT) MEAN PLATELET VOLUME (test code 9.3 FL 7.4-10.4 N = MPV) NEUTROPHIL % (test code = NT%) 69.3 % 42-86 N IMMATURE GRANULOCYTE % (test 0.4 % 0.0-2.0 N code = IG%) LYMPHOCYTE % (test code = LY%) 20.3 % 24-44 L MONOCYTE % (test code = MO%) 8.8 % 0.0-4.0 H EOSINOPHIL % (test code = EO%) 1.1 % 0.0-2.7 N BASOPHIL % (test code = BA%) 0.1 % 0.0-0.5 N NUCLEATED RBC % (test code = 0.0 % 0.0-0.0 N NRBC%) NEUTROPHIL # (test code = NT#) 5.25 x10 3/uL 1.8-7.7 N IMMATURE GRANULOCYTE # (test 0.03 x10 3/uL 0.00-0.03 N code = IG#) LYMPHOCYTE # (test code = LY#) 1.54 x10 3/uL 1.0-4.8 N MONOCYTE # (test code = MO#) 0.67 x10 3/uL 0.0-0.8 N EOSINOPHIL # (test code = EO#) 0.08 x10 3/uL 0.0-0.5 N BASOPHIL # (test code = BA#) 0.01 x10 3/uL 0.0-0.2 N NUCLEATED RBC # (test code = 0.0 X10 3/uL 0.0-0.2 N NRBC#) MANUAL DIFF REQUIRED (test code SCAN PLT_RBC TECH REVIEW = MDIFF) RBC [id number] 13:06:00 Test Item Value Reference Range Interpretation Comments RBC MORPHOLOGY COMMENT (test code = RBCM) PLATELET [id number] 13:06:00 Test Item Value Reference Range Interpretation Comments PLATELET ESTIMATE (test code = PLTEST) ADEQ CBC W/AUTO [id number] 13:06:00 Test Item Value Reference Range Interpretation Comments WHITE BLOOD CELL (test code = 7.58 x10 3/uL 4.80-10.80 N WBC) RED BLOOD CELL (test code = 4.31 x10 6/uL 4.2-5.4 N RBC) HEMOGLOBIN (test code = HGB) 12.8 G/DL 12.0-16.0 N HEMATOCRIT (test code = HCT) 37.8 % 37-47 N MEAN CELL VOLUME (test code = 87.7 FL 81-99 N MCV) MEAN CELL HGB (test code = MCH) 29.7 PG 27-31 N MEAN CELL HGB CONCENTRATION 33.9 G/DL 33-37 N (test code = MCHC) RED CELL DISTRIBUTION WIDTH 18.3 % 11.5-14.5 H (test code = RDW) PLATELET COUNT (test code = 59 x10 3/uL 150-450 L PLT) MEAN PLATELET VOLUME (test code 9.3 FL 7.4-10.4 N = MPV) NEUTROPHIL % (test code = NT%) 69.3 % 42-86 N IMMATURE GRANULOCYTE % (test 0.4 % 0.0-2.0 N code = IG%) LYMPHOCYTE % (test code = LY%) 20.3 % 24-44 L MONOCYTE % (test code = MO%) 8.8 % 0.0-4.0 H EOSINOPHIL % (test code = EO%) 1.1 % 0.0-2.7 N BASOPHIL % (test code = BA%) 0.1 % 0.0-0.5 N NUCLEATED RBC % (test code = 0.0 % 0.0-0.0 N NRBC%) NEUTROPHIL # (test code = NT#) 5.25 x10 3/uL 1.8-7.7 N IMMATURE GRANULOCYTE # (test 0.03 x10 3/uL 0.00-0.03 N code = IG#) LYMPHOCYTE # (test code = LY#) 1.54 x10 3/uL 1.0-4.8 N MONOCYTE # (test code = MO#) 0.67 x10 3/uL 0.0-0.8 N EOSINOPHIL # (test code = EO#) 0.08 x10 3/uL 0.0-0.5 N BASOPHIL # (test code = BA#) 0.01 x10 3/uL 0.0-0.2 N NUCLEATED RBC # (test code = 0.0 X10 3/uL 0.0-0.2 N NRBC#) MANUAL DIFF REQUIRED (test code SCAN PLT_RBC TECH REVIEW = MDIFF) RBC [id number] 13:06:00 Test Item Value Reference Range Interpretation Comments RBC MORPHOLOGY COMMENT (test code = Normal RBCM) PLATELET [id number] 13:06:00 Test Item Value Reference Range Interpretation Comments PLATELET ESTIMATE (test Dec ADEQ A MANU AL PLATELET code = PLTEST) ESTIMATE: 60, 000 PLATELET [id number] 13:06:00 Test Item Value Reference Range Interpretation Comments PLATELET MORPHOLOGY (test code = Normal Normal PLTMORPH) CBC W/AUTO [id number] 13:06:00 Test Item Value Reference Range Interpretation Comments WHITE BLOOD CELL (test code = 7.58 x10 3/uL 4.80-10.80 N WBC) RED BLOOD CELL (test code = 4.31 x10 6/uL 4.2-5.4 N RBC) HEMOGLOBIN (test code = HGB) 12.8 G/DL 12.0-16.0 N HEMATOCRIT (test code = HCT) 37.8 % 37-47 N MEAN CELL VOLUME (test code = 87.7 FL 81-99 N MCV) MEAN CELL HGB (test code = MCH) 29.7 PG 27-31 N MEAN CELL HGB CONCENTRATION 33.9 G/DL 33-37 N (test code = MCHC) RED CELL DISTRIBUTION WIDTH 18.3 % 11.5-14.5 H (test code = RDW) PLATELET COUNT (test code = 59 x10 3/uL 150-450 L PLT) MEAN PLATELET VOLUME (test code 9.3 FL 7.4-10.4 N = MPV) NEUTROPHIL % (test code = NT%) 69.3 % 42-86 N IMMATURE GRANULOCYTE % (test 0.4 % 0.0-2.0 N code = IG%) LYMPHOCYTE % (test code = LY%) 20.3 % 24-44 L MONOCYTE % (test code = MO%) 8.8 % 0.0-4.0 H EOSINOPHIL % (test code = EO%) 1.1 % 0.0-2.7 N BASOPHIL % (test code = BA%) 0.1 % 0.0-0.5 N NUCLEATED RBC % (test code = 0.0 % 0.0-0.0 N NRBC%) NEUTROPHIL # (test code = NT#) 5.25 x10 3/uL 1.8-7.7 N IMMATURE GRANULOCYTE # (test 0.03 x10 3/uL 0.00-0.03 N code = IG#) LYMPHOCYTE # (test code = LY#) 1.54 x10 3/uL 1.0-4.8 N MONOCYTE # (test code = MO#) 0.67 x10 3/uL 0.0-0.8 N EOSINOPHIL # (test code = EO#) 0.08 x10 3/uL 0.0-0.5 N BASOPHIL # (test code = BA#) 0.01 x10 3/uL 0.0-0.2 N NUCLEATED RBC # (test code = 0.0 X10 3/uL 0.0-0.2 N NRBC#) MANUAL DIFF REQUIRED (test code SCAN PLT_RBC TECH REVIEW = MDIFF) RBC [id number] 13:06:00 Test Item Value Reference Range Interpretation Comments RBC MORPHOLOGY COMMENT (test code = RBCM) PLATELET [id number] 13:06:00 Test Item Value Reference Range Interpretation Comments PLATELET ESTIMATE (test code = PLTEST) ADEQ [id number] 11:47:00 Test Item Value Reference Range Interpretation Comments GLUBED (test code = 168 MG/DL 65-99 H Performe d by certified GLUBED) potable water treatment operator at [facility] COMPREHENSIVE METABOLIC [id number] 08:28:00 Test Item Value Reference Range Interpretation Comments SODIUM (test code = 138 MMOL/L 133-145 N NA) POTASSIUM (test code = 3.7 MMOL/L 3.6-5.2 N K) CHLORIDE (test code = 105 MMOL/L 100-108 N CL) CARBON DIOXIDE (test 28 MMOL/L 22-32 N code = CO2) GLUCOSE (test code = 84 MG/DL 65-99 N Results of this assay GLU) method may be f alsely depressed orele vated if patient is t aking sulfasalazine. BLOOD UREA NITROGEN 17 MG/DL 6-20 N (test code = BUN) GLOMERULAR FILTRATION 109 51-120 N Report ing units: RATE (test code = GFR) mL/mi n/1.73m\S\2 (Modified MDRD Formula) CREATININE (test code 0.58 MG/DL 0.60-1.00 L = CREAT) TOTAL PROTEIN (test 7.5 G/DL 6.4-8.2 N code = PROT) ALBUMIN (test code = 3.2 G/DL 3.4-5.0 L ALB) GLOBULIN (test code = 4.3 G/DL 1.5-3.8 H GLOB) ALBUMIN/GLOBULIN RATIO 0.7 1.1-2.2 L (test code = A/G) CALCIUM (test code = 8.5 MG/DL 8.7-10.5 L CA) BILIRUBIN TOTAL (test 1.2 MG/DL 0.0-1.0 H code = BILT) SGOT/AST (test code = 31 Units/L 15-37 N Result s of this assay AST) method may be f alsely depressed orele vated if patient is t aking sulfasalazine. SGPT/ALT (test code = 61 Units/L 30-65 N Result s of this assay ALT) method may be f alsely depressed orele vated if patient is t aking sulfasalazine. ALKALINE PHOSPHATASE 95 Units/L 50-136 N TOTAL (test code = ALKP) [id number] 08:28:00 Test Item Value Reference Range Interpretation Comments MAGNESIUM (test code = MAG) 1.9 MG/DL 1.8-2.4 N CBC W/AUTO [id number] 08:14:00 Test Item Value Reference Range Interpretation Comments WHITE BLOOD CELL (test code = 7.58 x10 3/uL 4.80-10.80 N WBC) RED BLOOD CELL (test code = 4.31 x10 6/uL 4.2-5.4 N RBC) HEMOGLOBIN (test code = HGB) 12.8 G/DL 12.0-16.0 N HEMATOCRIT (test code = HCT) 37.8 % 37-47 N MEAN CELL VOLUME (test code = 87.7 FL 81-99 N MCV) MEAN CELL HGB (test code = MCH) 29.7 PG 27-31 N MEAN CELL HGB CONCENTRATION 33.9 G/DL 33-37 N (test code = MCHC) RED CELL DISTRIBUTION WIDTH 18.3 % 11.5-14.5 H (test code = RDW) PLATELET COUNT (test code = 59 x10 3/uL 150-450 L PLT) MEAN PLATELET VOLUME (test code 9.3 FL 7.4-10.4 N = MPV) NEUTROPHIL % (test code = NT%) 69.3 % 42-86 N IMMATURE GRANULOCYTE % (test 0.4 % 0.0-2.0 N code = IG%) LYMPHOCYTE % (test code = LY%) 20.3 % 24-44 L MONOCYTE % (test code = MO%) 8.8 % 0.0-4.0 H EOSINOPHIL % (test code = EO%) 1.1 % 0.0-2.7 N BASOPHIL % (test code = BA%) 0.1 % 0.0-0.5 N NUCLEATED RBC % (test code = 0.0 % 0.0-0.0 N NRBC%) NEUTROPHIL # (test code = NT#) 5.25 x10 3/uL 1.8-7.7 N IMMATURE GRANULOCYTE # (test 0.03 x10 3/uL 0.00-0.03 N code = IG#) LYMPHOCYTE # (test code = LY#) 1.54 x10 3/uL 1.0-4.8 N MONOCYTE # (test code = MO#) 0.67 x10 3/uL 0.0-0.8 N EOSINOPHIL # (test code = EO#) 0.08 x10 3/uL 0.0-0.5 N BASOPHIL # (test code = BA#) 0.01 x10 3/uL 0.0-0.2 N NUCLEATED RBC # (test code = 0.0 X10 3/uL 0.0-0.2 N NRBC#) [id number] 06:39:00 Test Item Value Reference Range Interpretation Comments GLUBED (test code = 87 MG/DL 65-99 N Performe d by certified GLUBED) potable water treatment operator at [facility] [id number] 20:18:00 Test Item Value Reference Range Interpretation Comments GLUBED (test code = 116 MG/DL 65-99 H Performe d by certified GLUBED) potable water treatment operator at [facility] [id number] 16:51:00 Test Item Value Reference Range Interpretation Comments GLUBED (test code = 206 MG/DL 65-99 H Performe d by certified GLUBED) potable water treatment operator at [facility] PROCALCITONIN (PCT)2018-05-18 14:20:00 Test Item Value Reference Range Interpretation Comments PROCALCITONIN (PCT) (test code = < 0.05 ng/mL 0.00-0.50 N PROCAL) [id number] 12:30:00 Test Item Value Reference Range Interpretation Comments GLUBED (test code = 178 MG/DL 65-99 H Performe d by certified GLUBED) potable water treatment operator at [facility] CBC W/AUTO [id number] 07:57:00 Test Item Value Reference Range Interpretation Comments WHITE BLOOD CELL (test code = 5.80 x10 3/uL 4.80-10.80 N WBC) RED BLOOD CELL (test code = 3.96 x10 6/uL 4.2-5.4 L RBC) HEMOGLOBIN (test code = HGB) 11.6 G/DL 12.0-16.0 L HEMATOCRIT (test code = HCT) 35.2 % 37-47 L MEAN CELL VOLUME (test code = 88.9 FL 81-99 N MCV) MEAN CELL HGB (test code = MCH) 29.3 PG 27-31 N MEAN CELL HGB CONCENTRATION 33.0 G/DL 33-37 N (test code = MCHC) RED CELL DISTRIBUTION WIDTH 18.3 % 11.5-14.5 H (test code = RDW) PLATELET COUNT (test code = 53 x10 3/uL 150-450 L PLT) MEAN PLATELET VOLUME (test code 9.6 FL 7.4-10.4 N = MPV) NEUTROPHIL % (test code = NT%) 86.6 % 42-86 H IMMATURE GRANULOCYTE % (test 0.5 % 0.0-2.0 N code = IG%) LYMPHOCYTE % (test code = LY%) 8.4 % 24-44 L MONOCYTE % (test code = MO%) 4.5 % 0.0-4.0 H EOSINOPHIL % (test code = EO%) 0.0 % 0.0-2.7 N BASOPHIL % (test code = BA%) 0.0 % 0.0-0.5 N NUCLEATED RBC % (test code = 0.0 % 0.0-0.0 N NRBC%) NEUTROPHIL # (test code = NT#) 5.02 x10 3/uL 1.8-7.7 N IMMATURE GRANULOCYTE # (test 0.03 x10 3/uL 0.00-0.03 N code = IG#) LYMPHOCYTE # (test code = LY#) 0.49 x10 3/uL 1.0-4.8 L MONOCYTE # (test code = MO#) 0.26 x10 3/uL 0.0-0.8 N EOSINOPHIL # (test code = EO#) 0.00 x10 3/uL 0.0-0.5 N BASOPHIL # (test code = BA#) 0.00 x10 3/uL 0.0-0.2 N NUCLEATED RBC # (test code = 0.0 X10 3/uL 0.0-0.2 N NRBC#) MANUAL DIFF REQUIRED (test code SCAN PLT_RBC TECH REVIEW = MDIFF) RBC [id number] 07:57:00 Test Item Value Reference Range Interpretation Comments ANISOCYTOSIS (test code = ANISO) Slt PLATELET [id number] 07:57:00 Test Item Value Reference Range Interpretation Comments PLATELET ESTIMATE (test Dec ADEQ A MANU AL PLATELET code = PLTEST) ESTIMATE: 60, 000 PLATELET [id number] 07:57:00 Test Item Value Reference Range Interpretation Comments PLATELET MORPHOLOGY Variable Plt Size Normal A (test code = PLTMORPH) PLATELET MORPHOLOGY No PLT Clumping Seen Normal (test code = [id number]) CBC W/AUTO [id number] 07:53:00 Test Item Value Reference Range Interpretation Comments WHITE BLOOD CELL (test code = 5.80 x10 3/uL 4.80-10.80 N WBC) RED BLOOD CELL (test code = 3.96 x10 6/uL 4.2-5.4 L RBC) HEMOGLOBIN (test code = HGB) 11.6 G/DL 12.0-16.0 L HEMATOCRIT (test code = HCT) 35.2 % 37-47 L MEAN CELL VOLUME (test code = 88.9 FL 81-99 N MCV) MEAN CELL HGB (test code = MCH) 29.3 PG 27-31 N MEAN CELL HGB CONCENTRATION 33.0 G/DL 33-37 N (test code = MCHC) RED CELL DISTRIBUTION WIDTH 18.3 % 11.5-14.5 H (test code = RDW) PLATELET COUNT (test code = 53 x10 3/uL 150-450 L PLT) MEAN PLATELET VOLUME (test code 9.6 FL 7.4-10.4 N = MPV) NEUTROPHIL % (test code = NT%) % 42-86 H IMMATURE GRANULOCYTE % (test % 0.0-2.0 N code = IG%) LYMPHOCYTE % (test code = LY%) % 24-44 L MONOCYTE % (test code = MO%) % 0.0-4.0 H EOSINOPHIL % (test code = EO%) % 0.0-2.7 N BASOPHIL % (test code = BA%) % 0.0-0.5 N NUCLEATED RBC % (test code = % 0.0-0.0 N NRBC%) NEUTROPHIL # (test code = NT#) x10 3/uL 1.8-7.7 N IMMATURE GRANULOCYTE # (test x10 3/uL 0.00-0.03 N code = IG#) LYMPHOCYTE # (test code = LY#) x10 3/uL 1.0-4.8 L MONOCYTE # (test code = MO#) x10 3/uL 0.0-0.8 N EOSINOPHIL # (test code = EO#) x10 3/uL 0.0-0.5 N BASOPHIL # (test code = BA#) x10 3/uL 0.0-0.2 N NUCLEATED RBC # (test code = X10 3/uL 0.0-0.2 N NRBC#) MANUAL DIFF REQUIRED (test code SCAN PLT_RBC TECH REVIEW = MDIFF) RBC [id number] 07:53:00 Test Item Value Reference Range Interpretation Comments RBC MORPHOLOGY COMMENT (test code = RBCM) PLATELET [id number] 07:53:00 Test Item Value Reference Range Interpretation Comments PLATELET ESTIMATE (test code = PLTEST) ADEQ CBC W/AUTO [id number] 07:53:00 Test Item Value Reference Range Interpretation Comments WHITE BLOOD CELL (test code = 5.80 x10 3/uL 4.80-10.80 N WBC) RED BLOOD CELL (test code = 3.96 x10 6/uL 4.2-5.4 L RBC) HEMOGLOBIN (test code = HGB) 11.6 G/DL 12.0-16.0 L HEMATOCRIT (test code = HCT) 35.2 % 37-47 L MEAN CELL VOLUME (test code = 88.9 FL 81-99 N MCV) MEAN CELL HGB (test code = MCH) 29.3 PG 27-31 N MEAN CELL HGB CONCENTRATION 33.0 G/DL 33-37 N (test code = MCHC) RED CELL DISTRIBUTION WIDTH 18.3 % 11.5-14.5 H (test code = RDW) PLATELET COUNT (test code = 53 x10 3/uL 150-450 L PLT) MEAN PLATELET VOLUME (test code 9.6 FL 7.4-10.4 N = MPV) NEUTROPHIL % (test code = NT%) 86.6 % 42-86 H IMMATURE GRANULOCYTE % (test 0.5 % 0.0-2.0 N code = IG%) LYMPHOCYTE % (test code = LY%) 8.4 % 24-44 L MONOCYTE % (test code = MO%) 4.5 % 0.0-4.0 H EOSINOPHIL % (test code = EO%) 0.0 % 0.0-2.7 N BASOPHIL % (test code = BA%) 0.0 % 0.0-0.5 N NUCLEATED RBC % (test code = 0.0 % 0.0-0.0 N NRBC%) NEUTROPHIL # (test code = NT#) 5.02 x10 3/uL 1.8-7.7 N IMMATURE GRANULOCYTE # (test 0.03 x10 3/uL 0.00-0.03 N code = IG#) LYMPHOCYTE # (test code = LY#) 0.49 x10 3/uL 1.0-4.8 L MONOCYTE # (test code = MO#) 0.26 x10 3/uL 0.0-0.8 N EOSINOPHIL # (test code = EO#) 0.00 x10 3/uL 0.0-0.5 N BASOPHIL # (test code = BA#) 0.00 x10 3/uL 0.0-0.2 N NUCLEATED RBC # (test code = 0.0 X10 3/uL 0.0-0.2 N NRBC#) MANUAL DIFF REQUIRED (test code SCAN PLT_RBC TECH REVIEW = MDIFF) RBC [id number] 07:53:00 Test Item Value Reference Range Interpretation Comments RBC MORPHOLOGY COMMENT (test code = RBCM) PLATELET [id number] 07:53:00 Test Item Value Reference Range Interpretation Comments PLATELET ESTIMATE (test code = PLTEST) ADEQ CBC W/AUTO [id number] 07:53:00 Test Item Value Reference Range Interpretation Comments WHITE BLOOD CELL (test code = 5.80 x10 3/uL 4.80-10.80 N WBC) RED BLOOD CELL (test code = 3.96 x10 6/uL 4.2-5.4 L RBC) HEMOGLOBIN (test code = HGB) 11.6 G/DL 12.0-16.0 L HEMATOCRIT (test code = HCT) 35.2 % 37-47 L MEAN CELL VOLUME (test code = 88.9 FL 81-99 N MCV) MEAN CELL HGB (test code = MCH) 29.3 PG 27-31 N MEAN CELL HGB CONCENTRATION 33.0 G/DL 33-37 N (test code = MCHC) RED CELL DISTRIBUTION WIDTH 18.3 % 11.5-14.5 H (test code = RDW) PLATELET COUNT (test code = 53 x10 3/uL 150-450 L PLT) MEAN PLATELET VOLUME (test code 9.6 FL 7.4-10.4 N = MPV) NEUTROPHIL % (test code = NT%) % 42-86 H IMMATURE GRANULOCYTE % (test % 0.0-2.0 N code = IG%) LYMPHOCYTE % (test code = LY%) % 24-44 L MONOCYTE % (test code = MO%) % 0.0-4.0 H EOSINOPHIL % (test code = EO%) % 0.0-2.7 N BASOPHIL % (test code = BA%) % 0.0-0.5 N NUCLEATED RBC % (test code = % 0.0-0.0 N NRBC%) NEUTROPHIL # (test code = NT#) x10 3/uL 1.8-7.7 N IMMATURE GRANULOCYTE # (test x10 3/uL 0.00-0.03 N code = IG#) LYMPHOCYTE # (test code = LY#) x10 3/uL 1.0-4.8 L MONOCYTE # (test code = MO#) x10 3/uL 0.0-0.8 N EOSINOPHIL # (test code = EO#) x10 3/uL 0.0-0.5 N BASOPHIL # (test code = BA#) x10 3/uL 0.0-0.2 N NUCLEATED RBC # (test code = X10 3/uL 0.0-0.2 N NRBC#) MANUAL DIFF REQUIRED (test code SCAN PLT_RBC TECH REVIEW = MDIFF) RBC [id number] 07:53:00 Test Item Value Reference Range Interpretation Comments RBC MORPHOLOGY COMMENT (test code = RBCM) PLATELET [id number] 07:53:00 Test Item Value Reference Range Interpretation Comments PLATELET ESTIMATE (test code = PLTEST) ADEQ [id number] 06:55:00 Test Item Value Reference Range Interpretation Comments GLUBED (test code = 253 MG/DL 65-99 H Performe d by certified GLUBED) potable water treatment operator at [facility] CBC W/AUTO [id number] 06:43:00 Test Item Value Reference Range Interpretation Comments WHITE BLOOD CELL (test code = 5.80 x10 3/uL 4.80-10.80 N WBC) RED BLOOD CELL (test code = 3.96 x10 6/uL 4.2-5.4 L RBC) HEMOGLOBIN (test code = HGB) 11.6 G/DL 12.0-16.0 L HEMATOCRIT (test code = HCT) 35.2 % 37-47 L MEAN CELL VOLUME (test code = 88.9 FL 81-99 N MCV) MEAN CELL HGB (test code = MCH) 29.3 PG 27-31 N MEAN CELL HGB CONCENTRATION 33.0 G/DL 33-37 N (test code = MCHC) RED CELL DISTRIBUTION WIDTH 18.3 % 11.5-14.5 H (test code = RDW) PLATELET COUNT (test code = 53 x10 3/uL 150-450 L PLT) MEAN PLATELET VOLUME (test code 9.6 FL 7.4-10.4 N = MPV) NEUTROPHIL % (test code = NT%) % 42-86 H IMMATURE GRANULOCYTE % (test % 0.0-2.0 N code = IG%) LYMPHOCYTE % (test code = LY%) % 24-44 L MONOCYTE % (test code = MO%) % 0.0-4.0 H EOSINOPHIL % (test code = EO%) % 0.0-2.7 N BASOPHIL % (test code = BA%) % 0.0-0.5 N NUCLEATED RBC % (test code = % 0.0-0.0 N NRBC%) NEUTROPHIL # (test code = NT#) x10 3/uL 1.8-7.7 N IMMATURE GRANULOCYTE # (test x10 3/uL 0.00-0.03 N code = IG#) LYMPHOCYTE # (test code = LY#) x10 3/uL 1.0-4.8 L MONOCYTE # (test code = MO#) x10 3/uL 0.0-0.8 N EOSINOPHIL # (test code = EO#) x10 3/uL 0.0-0.5 N BASOPHIL # (test code = BA#) x10 3/uL 0.0-0.2 N NUCLEATED RBC # (test code = X10 3/uL 0.0-0.2 N NRBC#) COMPREHENSIVE METABOLIC [id number] 06:20:00 Test Item Value Reference Range Interpretation Comments SODIUM (test code = 139 MMOL/L 133-145 N NA) POTASSIUM (test code = 4.7 MMOL/L 3.6-5.2 N K) CHLORIDE (test code = 106 MMOL/L 100-108 N CL) CARBON DIOXIDE (test 25 MMOL/L 22-32 N code = CO2) GLUCOSE (test code = 270 MG/DL 65-99 H Results of this GLU) assay method ma y be falsely depress ed orelevated if patient is taki ng sulfasalazine. BLOOD UREA NITROGEN 17 MG/DL 6-20 N (test code = BUN) GLOMERULAR FILTRATION 97 51-120 N Report ing units: RATE (test code = GFR) mL/mi n/1.73m\S\2 (Modified MDRD Formula) CREATININE (test code 0.64 MG/DL 0.60-1.00 N = CREAT) TOTAL PROTEIN (test 7.2 G/DL 6.4-8.2 N code = PROT) ALBUMIN (test code = 2.9 G/DL 3.4-5.0 L ALB) GLOBULIN (test code = 4.3 G/DL 1.5-3.8 H GLOB) ALBUMIN/GLOBULIN RATIO 0.7 1.1-2.2 L (test code = A/G) CALCIUM (test code = 8.1 MG/DL 8.7-10.5 L CA) BILIRUBIN TOTAL (test 1.0 MG/DL 0.0-1.0 N code = BILT) SGOT/AST (test code = 34 Units/L 15-37 N Result s of this AST) assay method zaria y be falsely depress ed orelevated if patient is taki ng sulfasalazine. SGPT/ALT (test code = 63 Units/L 30-65 N Result s of this ALT) assay method zaria y be falsely depress ed orelevated if patient is taki ng sulfasalazine. ALKALINE PHOSPHATASE 106 Units/L 50-136 N TOTAL (test code = ALKP) [id number] 06:20:00 Test Item Value Reference Range Interpretation Comments MAGNESIUM (test code = MAG) 2.2 MG/DL 1.8-2.4 N [id number] 20:46:00 Test Item Value Reference Range Interpretation Comments GLUBED (test code = 263 MG/DL 65-99 H Performe d by certified GLUBED) potable water treatment operator at [facility] DRUG OF ABUSE SCREEN [id number] 19:59:00 Test Item Value Reference Interpretation Comments Range UR COCAINE (test NEGATIVE NEGATIVE code = COCAU) UR MDMA (test code = NEGATIVE NEGATIVE MDMAQLU) UR CANNABINOIDS POSITIVE NEGATIVE A If confirmat ory testing (test code = CANU) required, contact laboratory. UR AMPHETAMINE (test NEGATIVE NEGATIVE code = AMPHU) UR BARBITURATE QUAL NEGATIVE NEGATIVE (test code = BARBQLU) UR BENZODIAZEPINE NEGATIVE NEGATIVE (test code = BENZU) UR OPIATES QUAL POSITIVE NEGATIVE A If confirmat ory testing (test code = required, conta ct OPIAQLU) laboratory. UR PHENCYCLIDINE NEGATIVE NEGATIVE Urine Drug Abuse Screen (PCP) (test code = provides preliminary PHENCU) results thatmay be confirmed by tre quezada methods (i.e., GC/MS) at [facility]. Results of scre en may not be usedin crimi nal justice, job performance or professionalcre dential review, or infa nt custody issues. Negativ e [place] Level ng/ml ------- ----- Cocaine 300 Methamp hetamine (Ecstacy) 500 Cannabinoids (THC) 50 Amphetamine 1000 Barbiturate s 200 Benzodia zepines 200 Opiat es 300 Ph encyclidine (PCP) 25 [id number] 17:03:00 Test Item Value Reference Range Interpretation Comments GLUBED (test code = 190 MG/DL 65-99 H Performe d by certified GLUBED) potable water treatment operator at [facility] [id number] 12:41:00 Test Item Value Reference Range Interpretation Comments GLUBED (test code = 152 MG/DL 65-99 H Performe d by certified GLUBED) potable water treatment operator at [facility] - CT ABD PELVIS [id number] 11:22:00 Patient Name: ABHIJIT PEDROZA Unit No: [id number] EXAMS: CPT CODE: [id number] CT ABD PELVIS W/CONT [id number] Reason: right upper quadrant tenderness COMPARISON: Previous CT of the abdomen and pelvis dated December 12, 2016 PROCEDURE: CT of the abdomen and pelvis with contrast May 17, 2018. Axial helical 5 mm slices were performed through the abdomen and pelvis after the intravenous administration of 80 mL of Isovue-300 and oral contrast. Coronal and sagittal reformatted images were performed. FINDINGS: The visualized lower chest shows mild cardiomegaly. There is a small hiatal hernia with distal esophageal varices. Abdominal aorta is of normal caliber with no dissection. No pulmonary nodular infiltrate is seen. No pleural or pericardial effusion is seen. There is a cirrhotic appearing liver with no evidence of focal lesion with prominent portal vein, splenic vein with multiple collaterals with homogeneously enlarged spleen. These findings are in keeping with portal hypertension. Prominent left ovarian vein with collaterals seen in the pelvis in the left the lower rectum. Collateral veins are seen draining into the inferior mesenteric and left renal vein. No evidence of ascites is seen. The gallbladder is surgically absent. No evidence of bowel obstruction. No free air or fluid is seen. The distal ureters, urinary bladder and uterus are normal. No adnexal mass or free fluid is seen in the cul-de-sac. IMPRESSION: 1. Cirrhosis of the liver with portal hypertension, homogeneous splenomegaly with esophageal varices and multiple collaterals draining into the inferior mesenteric vein, left ovarian vein and left the renal vein. 2. No evidence of ascites. 3. Previous cholecystectomy. at 1122 Reported and signed by: Dwight Marley MD CC: Susan Perera DO; Gauri Lanier MD. Technologist: Vignesh Zamora CT Trscrpt Dt/ ([id number])[email or web address] Orig Print D/T: S: 05/17/2018 (1126) CTDI: DLP: [facility] NAME: ABHIJIT PEDROZA[address] PHYS: [place] [address] : 1965 AGE: 52 SEX: F LOC: D.[id number] 1 PHONE #: [phone] DATE: 05/17/2018 STATUS: ADM IN FAX #: RAD NO: DC Dt: PAGE 1 Signed Report- XR CHEST 1 [id number] 08:09:00 Patient Name: ABHIJIT PEDROZA Unit No: [id number] EXAMS: CPT CODE: [id number] XR CHEST 1 V [id number] Reason: COPD COMPARISON: Previous chest May 26, 2018 PROCEDURE: Chest one view 05/17/2018; 7:57 AM FINDINGS: The heart is enlarged. Bilateral basal airspace disease is seen. Lungs otherwise clear. No pleural effusion, pulmonary congestion, mediastinal mass or bone lesion is seen. IMPRESSION: Mild left basal airspace disease. at 0809 R eported and signed by: Dwight Marley MD CC: Susan Perera DO; Sachin Morejon MD; Gauri Lanier MD. Technologist: Annita Resendiz RT; Shannon Willett RT Trscrpt Dt/ ([email or web address] Orig Print D/T: S: 05/17/2018 (811) [facility] NAME: ABHIJIT PEDROZA [address] [facility] PHYS: [place] [address] : 1965 AGE: 52 SEX: F LOC: [id number] PHONE #: [phone] EXAM DATE: 05/17/2018 STATUS: ADM IN FAX #: RAD NO: DC Dt: PAGE 1 Signed [id number] 08:08:00 Test Item Value Reference Range Interpretation Comments GLUBED (test code = 194 MG/DL 65-99 H Performe d by certified GLUBED) potable water treatment operator at [facility] CBC W/AUTO [id number] 07:53:00 Test Item Value Reference Range Interpretation Comments WHITE BLOOD CELL (test code = 5.04 x10 3/uL 4.80-10.80 N WBC) RED BLOOD CELL (test code = 3.92 x10 6/uL 4.2-5.4 L RBC) HEMOGLOBIN (test code = HGB) 11.6 G/DL 12.0-16.0 L HEMATOCRIT (test code = HCT) 34.8 % 37-47 L MEAN CELL VOLUME (test code = 88.8 FL 81-99 N MCV) MEAN CELL HGB (test code = MCH) 29.6 PG 27-31 N MEAN CELL HGB CONCENTRATION 33.3 G/DL 33-37 N (test code = MCHC) RED CELL DISTRIBUTION WIDTH 18.4 % 11.5-14.5 H (test code = RDW) PLATELET COUNT (test code = 43 x10 3/uL 150-450 LL PLT) MEAN PLATELET VOLUME (test code 9.9 FL 7.4-10.4 N = MPV) NEUTROPHIL % (test code = NT%) 87.1 % 42-86 H IMMATURE GRANULOCYTE % (test 0.4 % 0.0-2.0 N code = IG%) LYMPHOCYTE % (test code = LY%) 7.7 % 24-44 L MONOCYTE % (test code = MO%) 4.4 % 0.0-4.0 H EOSINOPHIL % (test code = EO%) 0.2 % 0.0-2.7 N BASOPHIL % (test code = BA%) 0.2 % 0.0-0.5 N NUCLEATED RBC % (test code = 0.0 % 0.0-0.0 N NRBC%) NEUTROPHIL # (test code = NT#) 4.39 x10 3/uL 1.8-7.7 N IMMATURE GRANULOCYTE # (test 0.02 x10 3/uL 0.00-0.03 N code = IG#) LYMPHOCYTE # (test code = LY#) 0.39 x10 3/uL 1.0-4.8 L MONOCYTE # (test code = MO#) 0.22 x10 3/uL 0.0-0.8 N EOSINOPHIL # (test code = EO#) 0.01 x10 3/uL 0.0-0.5 N BASOPHIL # (test code = BA#) 0.01 x10 3/uL 0.0-0.2 N NUCLEATED RBC # (test code = 0.0 X10 3/uL 0.0-0.2 N NRBC#) MANUAL DIFF REQUIRED (test code SCAN PLT_RBC TECH REVIEW = MDIFF) RBC [id number] 07:53:00 Test Item Value Reference Range Interpretation Comments POLYCHROMASIA (test code = POLC) Slt BASOPHILIC STIPPLING (test code = STP) Occ ANISOCYTOSIS (test code = ANISO) 2+ PLATELET [id number] 07:53:00 Test Item Value Reference Range Interpretation Comments PLATELET ESTIMATE (test Dec ADEQ A NATHANAEL AL PLATELET code = PLTEST) ESTIMATE: 45, 000 CV CALL [id number] 07:53:00 Test Item Value Reference Range Interpretation Comments CV CALL HEM (test code Called Resul ts called to and = [facility]) read back by CAREY HERNANDEZ RN;.for analyte(s): PLT .at 0643 - 05/17/18; by Mary Kay OREILLY. PROCALCITONIN (PCT)[id number] 07:30:00 Test Item Value Reference Range Interpretation Comments PROCALCITONIN (PCT) (test code = < 0.05 ng/mL 0.00-0.50 N PROCAL) C REACTIVE [id number] 07:11:00 Test Item Value Reference Range Interpretation Comments C REACTIVE PROTEIN (test code = 0.6 MG/DL < 0.9 CRP) COMPREHENSIVE METABOLIC [id number] 07:07:00 Test Item Value Reference Range Interpretation Comments SODIUM (test code = 139 MMOL/L 133-145 N NA) POTASSIUM (test code = 4.4 MMOL/L 3.6-5.2 N K) CHLORIDE (test code = 107 MMOL/L 100-108 N CL) CARBON DIOXIDE (test 24 MMOL/L 22-32 N code = CO2) GLUCOSE (test code = 262 MG/DL 65-99 H CONSIST ENT WITH PT GLU) HXResults of th is assay method ma y be falsely depress ed orelevated if p atient is taking sulfasalazine. BLOOD UREA NITROGEN 16 MG/DL 6-20 N (test code = BUN) GLOMERULAR FILTRATION 103 51-120 N Report ing units: RATE (test code = GFR) mL/mi n/1.73m\S\2 (Modified MDRD Formula) CREATININE (test code 0.61 MG/DL 0.60-1.00 N = CREAT) TOTAL PROTEIN (test 7.4 G/DL 6.4-8.2 N code = PROT) ALBUMIN (test code = 2.9 G/DL 3.4-5.0 L ALB) GLOBULIN (test code = 4.5 G/DL 1.5-3.8 H GLOB) ALBUMIN/GLOBULIN RATIO 0.6 1.1-2.2 L (test code = A/G) CALCIUM (test code = 8.4 MG/DL 8.7-10.5 L CA) BILIRUBIN TOTAL (test 1.1 MG/DL 0.0-1.0 H code = BILT) SGOT/AST (test code = 46 Units/L 15-37 H Result s of this assay AST) method may be f alsely depressed orele vated if patient is t aking sulfasalazine. SGPT/ALT (test code = 68 Units/L 30-65 H Result s of this assay ALT) method may be f alsely depressed orele vated if patient is t aking sulfasalazine. ALKALINE PHOSPHATASE 96 Units/L 50-136 N TOTAL (test code = ALKP) [id number] 07:07:00 Test Item Value Reference Range Interpretation Comments MAGNESIUM (test code = MAG) 2.1 MG/DL 1.8-2.4 N CBC W/AUTO [id number] 06:43:00 Test Item Value Reference Range Interpretation Comments WHITE BLOOD CELL (test code = 5.04 x10 3/uL 4.80-10.80 N WBC) RED BLOOD CELL (test code = 3.92 x10 6/uL 4.2-5.4 L RBC) HEMOGLOBIN (test code = HGB) 11.6 G/DL 12.0-16.0 L HEMATOCRIT (test code = HCT) 34.8 % 37-47 L MEAN CELL VOLUME (test code = 88.8 FL 81-99 N MCV) MEAN CELL HGB (test code = MCH) 29.6 PG 27-31 N MEAN CELL HGB CONCENTRATION 33.3 G/DL 33-37 N (test code = MCHC) RED CELL DISTRIBUTION WIDTH 18.4 % 11.5-14.5 H (test code = RDW) PLATELET COUNT (test code = 43 x10 3/uL 150-450 LL PLT) MEAN PLATELET VOLUME (test code 9.9 FL 7.4-10.4 N = MPV) NEUTROPHIL % (test code = NT%) 87.1 % 42-86 H IMMATURE GRANULOCYTE % (test 0.4 % 0.0-2.0 N code = IG%) LYMPHOCYTE % (test code = LY%) 7.7 % 24-44 L MONOCYTE % (test code = MO%) 4.4 % 0.0-4.0 H EOSINOPHIL % (test code = EO%) 0.2 % 0.0-2.7 N BASOPHIL % (test code = BA%) 0.2 % 0.0-0.5 N NUCLEATED RBC % (test code = 0.0 % 0.0-0.0 N NRBC%) NEUTROPHIL # (test code = NT#) 4.39 x10 3/uL 1.8-7.7 N IMMATURE GRANULOCYTE # (test 0.02 x10 3/uL 0.00-0.03 N code = IG#) LYMPHOCYTE # (test code = LY#) 0.39 x10 3/uL 1.0-4.8 L MONOCYTE # (test code = MO#) 0.22 x10 3/uL 0.0-0.8 N EOSINOPHIL # (test code = EO#) 0.01 x10 3/uL 0.0-0.5 N BASOPHIL # (test code = BA#) 0.01 x10 3/uL 0.0-0.2 N NUCLEATED RBC # (test code = 0.0 X10 3/uL 0.0-0.2 N NRBC#) MANUAL DIFF REQUIRED (test code SCAN PLT_RBC TECH REVIEW = MDIFF) RBC [id number] 06:43:00 Test Item Value Reference Range Interpretation Comments RBC MORPHOLOGY COMMENT (test code = RBCM) PLATELET [id number] 06:43:00 Test Item Value Reference Range Interpretation Comments PLATELET ESTIMATE (test code = PLTEST) ADEQ CV CALL [id number] 06:43:00 Test Item Value Reference Range Interpretation Comments CV CALL HEM (test code Called Resul ts called to and = [facility]) read back by CAREY HERNANDEZ RN;.for analyte(s): [place] [address]/17/18; by Mary Kay OREILLY. CBC W/AUTO [id number] 06:42:00 Test Item Value Reference Range Interpretation Comments WHITE BLOOD CELL (test code = 5.04 x10 3/uL 4.80-10.80 N WBC) RED BLOOD CELL (test code = 3.92 x10 6/uL 4.2-5.4 L RBC) HEMOGLOBIN (test code = HGB) 11.6 G/DL 12.0-16.0 L HEMATOCRIT (test code = HCT) 34.8 % 37-47 L MEAN CELL VOLUME (test code = 88.8 FL 81-99 N MCV) MEAN CELL HGB (test code = MCH) 29.6 PG 27-31 N MEAN CELL HGB CONCENTRATION 33.3 G/DL 33-37 N (test code = MCHC) RED CELL DISTRIBUTION WIDTH 18.4 % 11.5-14.5 H (test code = RDW) PLATELET COUNT (test code = 43 x10 3/uL 150-450 LL PLT) MEAN PLATELET VOLUME (test code 9.9 FL 7.4-10.4 N = MPV) NEUTROPHIL % (test code = NT%) 87.1 % 42-86 H IMMATURE GRANULOCYTE % (test 0.4 % 0.0-2.0 N code = IG%) LYMPHOCYTE % (test code = LY%) 7.7 % 24-44 L MONOCYTE % (test code = MO%) 4.4 % 0.0-4.0 H EOSINOPHIL % (test code = EO%) 0.2 % 0.0-2.7 N BASOPHIL % (test code = BA%) 0.2 % 0.0-0.5 N NUCLEATED RBC % (test code = 0.0 % 0.0-0.0 N NRBC%) NEUTROPHIL # (test code = NT#) 4.39 x10 3/uL 1.8-7.7 N IMMATURE GRANULOCYTE # (test 0.02 x10 3/uL 0.00-0.03 N code = IG#) LYMPHOCYTE # (test code = LY#) 0.39 x10 3/uL 1.0-4.8 L MONOCYTE # (test code = MO#) 0.22 x10 3/uL 0.0-0.8 N EOSINOPHIL # (test code = EO#) 0.01 x10 3/uL 0.0-0.5 N BASOPHIL # (test code = BA#) 0.01 x10 3/uL 0.0-0.2 N NUCLEATED RBC # (test code = 0.0 X10 3/uL 0.0-0.2 N NRBC#) MANUAL DIFF REQUIRED (test code SCAN PLT_RBC TECH REVIEW = MDIFF) RBC [id number] 06:42:00 Test Item Value Reference Range Interpretation Comments RBC MORPHOLOGY COMMENT (test code = RBCM) PLATELET [id number] 06:42:00 Test Item Value Reference Range Interpretation Comments PLATELET ESTIMATE (test code = PLTEST) ADEQ CV CALL [id number] 06:42:00 Test Item Value Reference Range Interpretation Comments CV CALL HEM (test code = CVCH) CBC W/AUTO [id number] 06:42:00 Test Item Value Reference Range Interpretation Comments WHITE BLOOD CELL (test code = 5.04 x10 3/uL 4.80-10.80 N WBC) RED BLOOD CELL (test code = 3.92 x10 6/uL 4.2-5.4 L RBC) HEMOGLOBIN (test code = HGB) 11.6 G/DL 12.0-16.0 L HEMATOCRIT (test code = HCT) 34.8 % 37-47 L MEAN CELL VOLUME (test code = 88.8 FL 81-99 N MCV) MEAN CELL HGB (test code = MCH) 29.6 PG 27-31 N MEAN CELL HGB CONCENTRATION 33.3 G/DL 33-37 N (test code = MCHC) RED CELL DISTRIBUTION WIDTH 18.4 % 11.5-14.5 H (test code = RDW) PLATELET COUNT (test code = 43 x10 3/uL 150-450 LL PLT) MEAN PLATELET VOLUME (test code 9.9 FL 7.4-10.4 N = MPV) NEUTROPHIL % (test code = NT%) 87.1 % 42-86 H IMMATURE GRANULOCYTE % (test 0.4 % 0.0-2.0 N code = IG%) LYMPHOCYTE % (test code = LY%) 7.7 % 24-44 L MONOCYTE % (test code = MO%) 4.4 % 0.0-4.0 H EOSINOPHIL % (test code = EO%) 0.2 % 0.0-2.7 N BASOPHIL % (test code = BA%) 0.2 % 0.0-0.5 N NUCLEATED RBC % (test code = 0.0 % 0.0-0.0 N NRBC%) NEUTROPHIL # (test code = NT#) 4.39 x10 3/uL 1.8-7.7 N IMMATURE GRANULOCYTE # (test 0.02 x10 3/uL 0.00-0.03 N code = IG#) LYMPHOCYTE # (test code = LY#) 0.39 x10 3/uL 1.0-4.8 L MONOCYTE # (test code = MO#) 0.22 x10 3/uL 0.0-0.8 N EOSINOPHIL # (test code = EO#) 0.01 x10 3/uL 0.0-0.5 N BASOPHIL # (test code = BA#) 0.01 x10 3/uL 0.0-0.2 N NUCLEATED RBC # (test code = 0.0 X10 3/uL 0.0-0.2 N NRBC#) MANUAL DIFF REQUIRED (test code SCAN PLT_RBC TECH REVIEW = MDIFF) RBC [id number] 06:42:00 Test Item Value Reference Range Interpretation Comments RBC MORPHOLOGY COMMENT (test code = RBCM) PLATELET [id number] 06:42:00 Test Item Value Reference Range Interpretation Comments PLATELET ESTIMATE (test code = PLTEST) ADEQ CV CALL [id number] 06:42:00 Test Item Value Reference Range Interpretation Comments CV CALL HEM (test code = CVCH) ARTERIAL BLOOD [id number] 04:38:00 Test Item Value Reference Range Interpretation Comments ARTERIAL BLOOD GAS PH (test code 7.41 7.35-7.45 N = PHA) ARTERIAL BLOOD GAS PCO2 (test 37.3 mmHg 35.0-45.0 N code = PCO2A) BICARBONATE TOTAL HCO3 (test code 23.3 mmol/L 20.0-26.0 N = HCO3) BASE EXCESS (test code = MYNOR) -0.9 mmol/L -3.0-3.0 N ABG O2 SATURATION (test code = 96.7 % 95-100 N SATA) ABG TYPE (test code = TYPEA) Arterial FIO2 (test code = FIO2A) 32.0 % MODE (test code = MODE) NC 3L ABG PATIENT RESP RATE (test code 20.0 /MIN = RRPATA) ABG TEMPERATURE (test code = 98.6 F TEMPA) KYUNG TEST (test code = ALN) Yes ABG SITE (test code = SITEA) LR QUES TOTAL HGB (test code = THB) 12.6 G/DL 12.0-16.0 N OXYHEMOGLOBIN (test code = 95.5 % 92.0-98.0 N OOHGBT) CARBOXYHEMOGLOBIN (test code = 0.7 % 0.5-1.5 N HOHGBT) METHEMOGLOBIN (test code = 0.5 % 0.4-1.5 N METHGB) [id number] 23:27:00 Test Item Value Reference Range Interpretation Comments GLUBED (test code = 182 MG/DL 65-99 H Performe d by certified GLUBED) potable water treatment operator at [facility] ARTERIAL BLOOD [id number] 17:13:00 Test Item Value Reference Range Interpretation Comments ARTERIAL BLOOD GAS PH (test code 7.40 7.35-7.45 N = PHA) ARTERIAL BLOOD GAS PCO2 (test 34.7 mmHg 35.0-45.0 L code = PCO2A) ARTERIAL BLOOD GAS PO2 (test code 95.7 mmHg 80.0-100.0 N = PO2A) BICARBONATE TOTAL HCO3 (test code 20.8 mmol/L 20.0-26.0 N = HCO3) BASE EXCESS (test code = MYNOR) -3.4 mmol/L -3.0-3.0 L ABG O2 SATURATION (test code = 96.8 % 95-100 N SATA) ABG TYPE (test code = TYPEA) Arterial MODE (test code = MODE) 3LNC ABG TEMPERATURE (test code = 98.6 F TEMPA) KYUNG TEST (test code = ALN) Yes ABG SITE (test code = SITEA) RR TOTAL HGB (test code = THB) 13.1 G/DL 12.0-16.0 N OXYHEMOGLOBIN (test code = 95.1 % 92.0-98.0 N OOHGBT) CARBOXYHEMOGLOBIN (test code = 1.4 % 0.5-1.5 N HOHGBT) METHEMOGLOBIN (test code = 0.4 % 0.4-1.5 N METHGB) [id number] 16:29:00 Test Item Value Reference Range Interpretation Comments MAGNESIUM (test code = MAG) 1.9 MG/DL 1.8-2.4 N C REACTIVE [id number] 11:56:00 Test Item Value Reference Range Interpretation Comments C REACTIVE PROTEIN (test code = 0.5 MG/DL < 0.9 CRP) COMPREHENSIVE METABOLIC [id number] 11:55:00 Test Item Value Reference Range Interpretation Comments SODIUM (test code = 137 MMOL/L 133-145 NA) POTASSIUM (test code = 4.1 MMOL/L 3.6-5.2 N K) CHLORIDE (test code = 104 MMOL/L 100-108 N CL) CARBON DIOXIDE (test 25 MMOL/L 22-32 N code = CO2) GLUCOSE (test code = 159 MG/DL 65-99 H Results of this GLU) assay method zaria y be falsely depress ed orelevated if patient is taki ng sulfasalazine. BLOOD UREA NITROGEN 15 MG/DL 6-20 N (test code = BUN) GLOMERULAR FILTRATION 97 51-120 N Report ing units: RATE (test code = GFR) mL/mi n/1.73m\S\2 (Modified MDRD Formula) CREATININE (test code 0.64 MG/DL 0.60-1.00 N = CREAT) TOTAL PROTEIN (test 8.0 G/DL 6.4-8.2 N code = PROT) ALBUMIN (test code = 3.3 G/DL 3.4-5.0 L ALB) GLOBULIN (test code = 4.7 G/DL 1.5-3.8 H GLOB) ALBUMIN/GLOBULIN RATIO 0.7 1.1-2.2 L (test code = A/G) CALCIUM (test code = 8.4 MG/DL 8.7-10.5 L CA) BILIRUBIN TOTAL (test 1.7 MG/DL 0.0-1.0 H code = BILT) SGOT/AST (test code = 67 Units/L 15-37 H Result s of this AST) assay method zaria y be falsely depress ed orelevated if patient is taki ng sulfasalazine. SGPT/ALT (test code = 86 Units/L 30-65 H Result s of this ALT) assay method zaria y be falsely depress ed orelevated if patient is taki ng sulfasalazine. ALKALINE PHOSPHATASE 130 Units/L 50-136 N TOTAL (test code = ALKP) [id number] 11:55:00 Test Item Value Reference Range Interpretation Comments PHOSPHOROUS (test code = PHOS) 3.6 MG/DL 2.5-4.9 N NT PRO-BRAIN NATRIURETIC [id number] 11:55:00 Test Item Value Reference Range Interpretation Comments NT PRO-BRAIN 40 PG/ML 0-125 N Results of this assay NATRIURETIC PEPTI (test meth od may be falsely code = PROBNP) depressed ore levated if patient is t aking high doses of B iotin. - XR CHEST 1 [id number] 11:55:00 Patient Name: ABHIJIT PEDROZA Unit No: [id number] EXAMS: CPT CODE: [id number] XR CHEST 1 V [id number] Reason: SOB - XR CHEST 1 V 05/16/2018 11:23 AM Indication: SOB FINDINGS: Comparison is made to the films of 04/27/2018. There has been no significant radiographic change. The heart, lung cuellar and pleura show no change since the prior examination. IMPRESSION: Stable chest. Electronically Signed by Michael Thomas 05/16/2018 at 1155 Reported and signed by: Michael Marroquin MD CC: Daryl Harden DO; Greg Zamora MD; Dana Mcleod DO Technologist: Jimmy Del Angel; Mary Lloyd RT Trscrpt Dt/ ([id number])t.PKE Orig Print D/T: S: 05/16/2018 ([id number]) [facility] NAME: ABHIJIT PEDROZA [address] [facility] PHYS: MERCEDES.1 - Shani,[place] [address] [place] [id number] : 1965 AGE: 52 SEX: F LOC: [facility] PHONE #: [phone] EXAM DATE: 05/16/2018 STATUS: REG ER FAX #: RAD NO: DC Dt: PAGE 1 Signed ReportCBC W/AUTO [id number] 11:54:00 Test Item Value Reference Range Interpretation Comments WHITE BLOOD CELL (test code = 8.50 x10 3/uL 4.80-10.80 N WBC) RED BLOOD CELL (test code = 4.42 x10 6/uL 4.2-5.4 N RBC) HEMOGLOBIN (test code = HGB) 13.0 G/DL 12.0-16.0 N HEMATOCRIT (test code = HCT) 39.0 % 37-47 N MEAN CELL VOLUME (test code = 88.2 FL 81-99 N MCV) MEAN CELL HGB (test code = MCH) 29.4 PG 27-31 N MEAN CELL HGB CONCENTRATION 33.3 G/DL 33-37 N (test code = MCHC) RED CELL DISTRIBUTION WIDTH 18.2 % 11.5-14.5 H (test code = RDW) PLATELET COUNT (test code = 52 x10 3/uL 150-450 L PLT) MEAN PLATELET VOLUME (test code 9.9 FL 7.4-10.4 N = MPV) NEUTROPHIL % (test code = NT%) 79.5 % 42-86 N IMMATURE GRANULOCYTE % (test 0.5 % 0.0-2.0 N code = IG%) LYMPHOCYTE % (test code = LY%) 9.2 % 24-44 L MONOCYTE % (test code = MO%) 7.6 % 0.0-4.0 H EOSINOPHIL % (test code = EO%) 2.7 % 0.0-2.7 N BASOPHIL % (test code = BA%) 0.5 % 0.0-0.5 N NUCLEATED RBC % (test code = 0.0 % 0.0-0.0 N NRBC%) NEUTROPHIL # (test code = NT#) 6.76 x10 3/uL 1.8-7.7 N IMMATURE GRANULOCYTE # (test 0.04 x10 3/uL 0.00-0.03 H code = IG#) LYMPHOCYTE # (test code = LY#) 0.78 x10 3/uL 1.0-4.8 L MONOCYTE # (test code = MO#) 0.65 x10 3/uL 0.0-0.8 N EOSINOPHIL # (test code = EO#) 0.23 x10 3/uL 0.0-0.5 N BASOPHIL # (test code = BA#) 0.04 x10 3/uL 0.0-0.2 N NUCLEATED RBC # (test code = 0.0 X10 3/uL 0.0-0.2 N NRBC#) MANUAL DIFF REQUIRED (test code SCAN PLT_RBC TECH REVIEW = MDIFF) RBC [id number] 11:54:00 Test Item Value Reference Range Interpretation Comments RBC MORPHOLOGY COMMENT (test code = Normal RBCM) PLATELET [id number] 11:54:00 Test Item Value Reference Range Interpretation Comments PLATELET ESTIMATE (test Dec ADEQ A MANU AL PLATELET code = PLTEST) ESTIMATE: 60, 000 PLATELET [id number] 11:54:00 Test Item Value Reference Range Interpretation Comments PLATELET MORPHOLOGY (test code = Normal Normal PLTMORPH) TROPONIN I [id number] 11:53:00 Test Item Value Reference Range Interpretation Comments TROPONIN I RAPID 0.00 NG/ML 0.00-0.08 N Performed b y certified (test code = potable water treatment operator at [facility]) [facility] - The use of serial sampl ing and testing protoco l is a recommended pra ctice.- An elevated tro ponin level alone is often not sufficient for diagnosis of my ocardial infarction. PROTHROMBIN [id number] 11:46:00 Test Item Value Reference Range Interpretation Comments PROTHROMBIN TIME 14.5 SECONDS 9.6-12.3 H PATIENT (test code = PTP) INTERNATIONAL NORMAL 1.29 Recomme nded INR range RATIO (test code = (warfarin therapy): INR) 2.0 - 3.0I NR (International Normalized Rati o) should beused w hen interpreting or al anticoaglulant therapy. For at rial fibrillation an d treatment orprevention of deep vein thrombosis . Patients with Palmaz-Juan José s tent *: 2 .0 - 3.0 Patients wi th mechanical hear t valve *: 2.5 - 3.5 Patients with flex-stent *: 3.0 - 4.0(*) = engineer of system development's suggested range Is patient on anticoagulants? UnknownCBC W/AUTO [id number] 11:35:00 Test Item Value Reference Range Interpretation Comments WHITE BLOOD CELL (test code = 8.50 x10 3/uL 4.80-10.80 N WBC) RED BLOOD CELL (test code = 4.42 x10 6/uL 4.2-5.4 N RBC) HEMOGLOBIN (test code = HGB) 13.0 G/DL 12.0-16.0 N HEMATOCRIT (test code = HCT) 39.0 % 37-47 N MEAN CELL VOLUME (test code = 88.2 FL 81-99 N MCV) MEAN CELL HGB (test code = MCH) 29.4 PG 27-31 N MEAN CELL HGB CONCENTRATION 33.3 G/DL 33-37 N (test code = MCHC) RED CELL DISTRIBUTION WIDTH 18.2 % 11.5-14.5 H (test code = RDW) PLATELET COUNT (test code = x10 3/uL 150-450 L PLT) MEAN PLATELET VOLUME (test code 9.9 FL 7.4-10.4 N = MPV) NEUTROPHIL % (test code = NT%) 79.5 % 42-86 N IMMATURE GRANULOCYTE % (test 0.5 % 0.0-2.0 N code = IG%) LYMPHOCYTE % (test code = LY%) 9.2 % 24-44 L MONOCYTE % (test code = MO%) 7.6 % 0.0-4.0 H EOSINOPHIL % (test code = EO%) 2.7 % 0.0-2.7 N BASOPHIL % (test code = BA%) 0.5 % 0.0-0.5 N NUCLEATED RBC % (test code = 0.0 % 0.0-0.0 N NRBC%) NEUTROPHIL # (test code = NT#) 6.76 x10 3/uL 1.8-7.7 N IMMATURE GRANULOCYTE # (test 0.04 x10 3/uL 0.00-0.03 H code = IG#) LYMPHOCYTE # (test code = LY#) 0.78 x10 3/uL 1.0-4.8 L MONOCYTE # (test code = MO#) 0.65 x10 3/uL 0.0-0.8 N EOSINOPHIL # (test code = EO#) 0.23 x10 3/uL 0.0-0.5 N BASOPHIL # (test code = BA#) 0.04 x10 3/uL 0.0-0.2 N NUCLEATED RBC # (test code = 0.0 X10 3/uL 0.0-0.2 N NRBC#) MANUAL DIFF REQUIRED (test code SCAN PLT_RBC TECH REVIEW = MDIFF) RBC [id number] 11:35:00 Test Item Value Reference Range Interpretation Comments RBC MORPHOLOGY COMMENT (test code = RBCM) PLATELET [id number] 11:35:00 Test Item Value Reference Range Interpretation Comments PLATELET ESTIMATE (test code = PLTEST) ADEQ CBC W/AUTO [id number] 11:35:00 Test Item Value Reference Range Interpretation Comments WHITE BLOOD CELL (test code = 8.50 x10 3/uL 4.80-10.80 N WBC) RED BLOOD CELL (test code = 4.42 x10 6/uL 4.2-5.4 N RBC) HEMOGLOBIN (test code = HGB) 13.0 G/DL 12.0-16.0 N HEMATOCRIT (test code = HCT) 39.0 % 37-47 N MEAN CELL VOLUME (test code = 88.2 FL 81-99 N MCV) MEAN CELL HGB (test code = MCH) 29.4 PG 27-31 N MEAN CELL HGB CONCENTRATION 33.3 G/DL 33-37 N (test code = MCHC) RED CELL DISTRIBUTION WIDTH 18.2 % 11.5-14.5 H (test code = RDW) PLATELET COUNT (test code = x10 3/uL 150-450 L PLT) MEAN PLATELET VOLUME (test code 9.9 FL 7.4-10.4 N = MPV) NEUTROPHIL % (test code = NT%) 79.5 % 42-86 N IMMATURE GRANULOCYTE % (test 0.5 % 0.0-2.0 N code = IG%) LYMPHOCYTE % (test code = LY%) 9.2 % 24-44 L MONOCYTE % (test code = MO%) 7.6 % 0.0-4.0 H EOSINOPHIL % (test code = EO%) 2.7 % 0.0-2.7 N BASOPHIL % (test code = BA%) 0.5 % 0.0-0.5 N NUCLEATED RBC % (test code = 0.0 % 0.0-0.0 N NRBC%) NEUTROPHIL # (test code = NT#) 6.76 x10 3/uL 1.8-7.7 N IMMATURE GRANULOCYTE # (test 0.04 x10 3/uL 0.00-0.03 H code = IG#) LYMPHOCYTE # (test code = LY#) 0.78 x10 3/uL 1.0-4.8 L MONOCYTE # (test code = MO#) 0.65 x10 3/uL 0.0-0.8 N EOSINOPHIL # (test code = EO#) 0.23 x10 3/uL 0.0-0.5 N BASOPHIL # (test code = BA#) 0.04 x10 3/uL 0.0-0.2 N NUCLEATED RBC # (test code = 0.0 X10 3/uL 0.0-0.2 N NRBC#) MANUAL DIFF REQUIRED (test code SCAN PLT_RBC TECH REVIEW = MDIFF) RBC [id number] 11:35:00 Test Item Value Reference Range Interpretation Comments RBC MORPHOLOGY COMMENT (test code = RBCM) PLATELET [id number] 11:35:00 Test Item Value Reference Range Interpretation Comments PLATELET ESTIMATE (test code = PLTEST) ADEQ LACTIC ACID [id number] 11:29:00 Test Item Value Reference Range Interpretation Comments LACTIC ACID POC 0.91 MMOL/L 0.90-1.70 N Performed by certified (test code = LACTP) potable water treatment operator at [facility] [id number] 06:18:00 Test Item Value Reference Range Interpretation Comments GLUBED (test code = 102 MG/DL 65-99 H Performe d by certified GLUBED) potable water treatment operator at [facility] CBC W/AUTO [id number] 05:38:00 Test Item Value Reference Range Interpretation Comments WHITE BLOOD CELL (test code = 3.29 x10 3/uL 4.80-10.80 L WBC) RED BLOOD CELL (test code = 3.96 x10 6/uL 4.2-5.4 L RBC) HEMOGLOBIN (test code = HGB) 11.5 G/DL 12.0-16.0 L HEMATOCRIT (test code = HCT) 34.1 % 37-47 L MEAN CELL VOLUME (test code = 86.1 FL 81-99 N MCV) MEAN CELL HGB (test code = MCH) 29.0 PG 27-31 N MEAN CELL HGB CONCENTRATION 33.7 G/DL 33-37 N (test code = MCHC) RED CELL DISTRIBUTION WIDTH 17.1 % 11.5-14.5 H (test code = RDW) PLATELET COUNT (test code = 50 x10 3/uL 150-450 L PLT) MEAN PLATELET VOLUME (test code 10.0 FL 7.4-10.4 N = MPV) NEUTROPHIL % (test code = NT%) 61.8 % 42-86 N IMMATURE GRANULOCYTE % (test 0.3 % 0.0-2.0 N code = IG%) LYMPHOCYTE % (test code = LY%) 23.4 % 24-44 L MONOCYTE % (test code = MO%) 10.3 % 0.0-4.0 H EOSINOPHIL % (test code = EO%) 3.6 % 0.0-2.7 H BASOPHIL % (test code = BA%) 0.6 % 0.0-0.5 H NUCLEATED RBC % (test code = 0.0 % 0.0-0.0 N NRBC%) NEUTROPHIL # (test code = NT#) 2.03 x10 3/uL 1.8-7.7 N IMMATURE GRANULOCYTE # (test 0.01 x10 3/uL 0.00-0.03 N code = IG#) LYMPHOCYTE # (test code = LY#) 0.77 x10 3/uL 1.0-4.8 L MONOCYTE # (test code = MO#) 0.34 x10 3/uL 0.0-0.8 N EOSINOPHIL # (test code = EO#) 0.12 x10 3/uL 0.0-0.5 N BASOPHIL # (test code = BA#) 0.02 x10 3/uL 0.0-0.2 N NUCLEATED RBC # (test code = 0.0 X10 3/uL 0.0-0.2 N NRBC#) MANUAL DIFF REQUIRED (test code SCAN PLT_RBC TECH REVIEW = MDIFF) RBC [id number] 05:38:00 Test Item Value Reference Range Interpretation Comments POLYCHROMASIA (test code = POLC) 1+ POIKILOCYTOSIS (test code = POIK) 1+ ANISOCYTOSIS (test code = ANISO) 1+ PLATELET [id number] 05:38:00 Test Item Value Reference Range Interpretation Comments PLATELET ESTIMATE (test Dec ADEQ A MANU AL PLATELET code = PLTEST) ESTIMATE: 45, 000 PLATELET [id number] 05:38:00 Test Item Value Reference Range Interpretation Comments PLATELET MORPHOLOGY (test Variable Plt Size Normal A code = PLTMORPH) CBC W/AUTO [id number] 05:37:00 Test Item Value Reference Range Interpretation Comments WHITE BLOOD CELL (test code = 3.29 x10 3/uL 4.80-10.80 L WBC) RED BLOOD CELL (test code = 3.96 x10 6/uL 4.2-5.4 L RBC) HEMOGLOBIN (test code = HGB) 11.5 G/DL 12.0-16.0 L HEMATOCRIT (test code = HCT) 34.1 % 37-47 L MEAN CELL VOLUME (test code = 86.1 FL 81-99 N MCV) MEAN CELL HGB (test code = MCH) 29.0 PG 27-31 N MEAN CELL HGB CONCENTRATION 33.7 G/DL 33-37 N (test code = MCHC) RED CELL DISTRIBUTION WIDTH 17.1 % 11.5-14.5 H (test code = RDW) PLATELET COUNT (test code = 50 x10 3/uL 150-450 L PLT) MEAN PLATELET VOLUME (test code 10.0 FL 7.4-10.4 N = MPV) NEUTROPHIL % (test code = NT%) 61.8 % 42-86 N IMMATURE GRANULOCYTE % (test 0.3 % 0.0-2.0 N code = IG%) LYMPHOCYTE % (test code = LY%) 23.4 % 24-44 L MONOCYTE % (test code = MO%) 10.3 % 0.0-4.0 H EOSINOPHIL % (test code = EO%) 3.6 % 0.0-2.7 H BASOPHIL % (test code = BA%) 0.6 % 0.0-0.5 H NUCLEATED RBC % (test code = 0.0 % 0.0-0.0 N NRBC%) NEUTROPHIL # (test code = NT#) 2.03 x10 3/uL 1.8-7.7 N IMMATURE GRANULOCYTE # (test 0.01 x10 3/uL 0.00-0.03 N code = IG#) LYMPHOCYTE # (test code = LY#) 0.77 x10 3/uL 1.0-4.8 L MONOCYTE # (test code = MO#) 0.34 x10 3/uL 0.0-0.8 N EOSINOPHIL # (test code = EO#) 0.12 x10 3/uL 0.0-0.5 N BASOPHIL # (test code = BA#) 0.02 x10 3/uL 0.0-0.2 N NUCLEATED RBC # (test code = 0.0 X10 3/uL 0.0-0.2 N NRBC#) MANUAL DIFF REQUIRED (test code SCAN PLT_RBC TECH REVIEW = MDIFF) RBC [id number] 05:37:00 Test Item Value Reference Range Interpretation Comments RBC MORPHOLOGY COMMENT (test code = RBCM) PLATELET [id number] 05:37:00 Test Item Value Reference Range Interpretation Comments PLATELET ESTIMATE (test code = PLTEST) ADEQ CBC W/AUTO [id number] 05:37:00 Test Item Value Reference Range Interpretation Comments WHITE BLOOD CELL (test code = 3.29 x10 3/uL 4.80-10.80 L WBC) RED BLOOD CELL (test code = 3.96 x10 6/uL 4.2-5.4 L RBC) HEMOGLOBIN (test code = HGB) 11.5 G/DL 12.0-16.0 L HEMATOCRIT (test code = HCT) 34.1 % 37-47 L MEAN CELL VOLUME (test code = 86.1 FL 81-99 N MCV) MEAN CELL HGB (test code = MCH) 29.0 PG 27-31 N MEAN CELL HGB CONCENTRATION 33.7 G/DL 33-37 N (test code = MCHC) RED CELL DISTRIBUTION WIDTH 17.1 % 11.5-14.5 H (test code = RDW) PLATELET COUNT (test code = 50 x10 3/uL 150-450 L PLT) MEAN PLATELET VOLUME (test code 10.0 FL 7.4-10.4 N = MPV) NEUTROPHIL % (test code = NT%) 61.8 % 42-86 N IMMATURE GRANULOCYTE % (test 0.3 % 0.0-2.0 N code = IG%) LYMPHOCYTE % (test code = LY%) 23.4 % 24-44 L MONOCYTE % (test code = MO%) 10.3 % 0.0-4.0 H EOSINOPHIL % (test code = EO%) 3.6 % 0.0-2.7 H BASOPHIL % (test code = BA%) 0.6 % 0.0-0.5 H NUCLEATED RBC % (test code = 0.0 % 0.0-0.0 N NRBC%) NEUTROPHIL # (test code = NT#) 2.03 x10 3/uL 1.8-7.7 N IMMATURE GRANULOCYTE # (test 0.01 x10 3/uL 0.00-0.03 N code = IG#) LYMPHOCYTE # (test code = LY#) 0.77 x10 3/uL 1.0-4.8 L MONOCYTE # (test code = MO#) 0.34 x10 3/uL 0.0-0.8 N EOSINOPHIL # (test code = EO#) 0.12 x10 3/uL 0.0-0.5 N BASOPHIL # (test code = BA#) 0.02 x10 3/uL 0.0-0.2 N NUCLEATED RBC # (test code = 0.0 X10 3/uL 0.0-0.2 N NRBC#) MANUAL DIFF REQUIRED (test code SCAN PLT_RBC TECH REVIEW = MDIFF) RBC [id number] 05:37:00 Test Item Value Reference Range Interpretation Comments RBC MORPHOLOGY COMMENT (test code = RBCM) PLATELET [id number] 05:37:00 Test Item Value Reference Range Interpretation Comments PLATELET ESTIMATE (test code = PLTEST) ADEQ CBC W/AUTO [id number] 04:57:00 Test Item Value Reference Range Interpretation Comments WHITE BLOOD CELL (test code = 3.29 x10 3/uL 4.80-10.80 L WBC) RED BLOOD CELL (test code = 3.96 x10 6/uL 4.2-5.4 L RBC) HEMOGLOBIN (test code = HGB) 11.5 G/DL 12.0-16.0 L HEMATOCRIT (test code = HCT) 34.1 % 37-47 L MEAN CELL VOLUME (test code = 86.1 FL 81-99 N MCV) MEAN CELL HGB (test code = MCH) 29.0 PG 27-31 N MEAN CELL HGB CONCENTRATION 33.7 G/DL 33-37 N (test code = MCHC) RED CELL DISTRIBUTION WIDTH 17.1 % 11.5-14.5 H (test code = RDW) PLATELET COUNT (test code = 50 x10 3/uL 150-450 L PLT) MEAN PLATELET VOLUME (test code 10.0 FL 7.4-10.4 N = MPV) NEUTROPHIL % (test code = NT%) 61.8 % 42-86 N IMMATURE GRANULOCYTE % (test 0.3 % 0.0-2.0 N code = IG%) LYMPHOCYTE % (test code = LY%) 23.4 % 24-44 L MONOCYTE % (test code = MO%) 10.3 % 0.0-4.0 H EOSINOPHIL % (test code = EO%) 3.6 % 0.0-2.7 H BASOPHIL % (test code = BA%) 0.6 % 0.0-0.5 H NUCLEATED RBC % (test code = 0.0 % 0.0-0.0 N NRBC%) NEUTROPHIL # (test code = NT#) 2.03 x10 3/uL 1.8-7.7 N IMMATURE GRANULOCYTE # (test 0.01 x10 3/uL 0.00-0.03 N code = IG#) LYMPHOCYTE # (test code = LY#) 0.77 x10 3/uL 1.0-4.8 L MONOCYTE # (test code = MO#) 0.34 x10 3/uL 0.0-0.8 N EOSINOPHIL # (test code = EO#) 0.12 x10 3/uL 0.0-0.5 N BASOPHIL # (test code = BA#) 0.02 x10 3/uL 0.0-0.2 N NUCLEATED RBC # (test code = 0.0 X10 3/uL 0.0-0.2 N NRBC#) COMPREHENSIVE METABOLIC [id number] 04:56:00 Test Item Value Reference Range Interpretation Comments SODIUM (test code = 144 MMOL/L 133-145 N NA) POTASSIUM (test code = 3.8 MMOL/L 3.6-5.2 N K) CHLORIDE (test code = 111 MMOL/L 100-108 H CL) CARBON DIOXIDE (test 25 MMOL/L 22-32 N code = CO2) GLUCOSE (test code = 98 MG/DL 65-99 N Results of this GLU) assay method ma y be falsely depress ed orelevated if patient is taki ng sulfasalazine. BLOOD UREA NITROGEN 12 MG/DL 6-20 N (test code = BUN) GLOMERULAR FILTRATION 116 51-120 N Report ing units: RATE (test code = GFR) mL/mi n/1.73m\S\2 (Modified MDRD Formula) CREATININE (test code 0.55 MG/DL 0.60-1.00 L = CREAT) TOTAL PROTEIN (test 6.7 G/DL 6.4-8.2 N code = PROT) ALBUMIN (test code = 2.7 G/DL 3.4-5.0 L ALB) GLOBULIN (test code = 4.0 G/DL 1.5-3.8 H GLOB) ALBUMIN/GLOBULIN RATIO 0.7 1.1-2.2 L (test code = A/G) CALCIUM (test code = 8.0 MG/DL 8.7-10.5 L CA) BILIRUBIN TOTAL (test 1.3 MG/DL 0.0-1.0 H code = BILT) SGOT/AST (test code = 42 Units/L 15-37 H Result s of this AST) assay method zaria y be falsely depress ed orelevated if patient is taki ng sulfasalazine. SGPT/ALT (test code = 53 Units/L 30-65 N Result s of this ALT) assay method zaria y be falsely depress ed orelevated if patient is taki ng sulfasalazine. ALKALINE PHOSPHATASE 100 Units/L 50-136 N TOTAL (test code = ALKP) COMPREHENSIVE METABOLIC [id number] 04:33:00 Test Item Value Reference Range Interpretation Comments SODIUM (test code = MMOL/L 133-145 NA) POTASSIUM (test code = MMOL/L 3.6-5.2 K) CHLORIDE (test code = MMOL/L 100-108 CL) CARBON DIOXIDE (test 25 MMOL/L 22-32 N code = CO2) GLUCOSE (test code = 98 MG/DL 65-99 N Results of this GLU) assay method zaria y be falsely depress ed orelevated if patient is taki ng sulfasalazine. BLOOD UREA NITROGEN 12 MG/DL 6-20 N (test code = BUN) GLOMERULAR FILTRATION 116 51-120 N Report ing units: RATE (test code = GFR) mL/mi n/1.73m\S\2 (Modified MDRD Formula) CREATININE (test code 0.55 MG/DL 0.60-1.00 L = CREAT) TOTAL PROTEIN (test 6.7 G/DL 6.4-8.2 N code = PROT) ALBUMIN (test code = 2.7 G/DL 3.4-5.0 L ALB) GLOBULIN (test code = 4.0 G/DL 1.5-3.8 H GLOB) ALBUMIN/GLOBULIN RATIO 0.7 1.1-2.2 L (test code = A/G) CALCIUM (test code = 8.0 MG/DL 8.7-10.5 L CA) BILIRUBIN TOTAL (test 1.3 MG/DL 0.0-1.0 H code = BILT) SGOT/AST (test code = 42 Units/L 15-37 H Result s of this AST) assay method zaria y be falsely depress ed orelevated if patient is taki ng sulfasalazine. SGPT/ALT (test code = 53 Units/L 30-65 N Result s of this ALT) assay method zaria y be falsely depress ed orelevated if patient is taki ng sulfasalazine. ALKALINE PHOSPHATASE 100 Units/L 50-136 N TOTAL (test code = ALKP) [id number] 21:04:00 Test Item Value Reference Range Interpretation Comments GLUBED (test code = 150 MG/DL 65-99 H Performe d by certified GLUBED) potable water treatment operator at [facility] [id number] 16:59:00 Test Item Value Reference Range Interpretation Comments GLUBED (test code = 127 MG/DL 65-99 H Performe d by certified GLUBED) potable water treatment operator at [facility] [id number] 11:07:00 Test Item Value Reference Range Interpretation Comments GLUBED (test code = 146 MG/DL 65-99 H Performe d by certified GLUBED) potable water treatment operator at [facility] CBC W/AUTO [id number] 08:10:00 Test Item Value Reference Range Interpretation Comments WHITE BLOOD CELL 3.70 x10 3/uL 4.80-10.80 L (test code = WBC) RED BLOOD CELL (test 3.96 x10 6/uL 4.2-5.4 L code = RBC) HEMOGLOBIN (test code 11.6 G/DL 12.0-16.0 L VERIFI ED BY = HGB) RECOLLECTION HEMATOCRIT (test code 33.7 % 37-47 L = HCT) MEAN CELL VOLUME 85.1 FL 81-99 N (test code = MCV) MEAN CELL HGB (test 29.3 PG 27-31 N code = MCH) MEAN CELL HGB 34.4 G/DL 33-37 N CONCENTRATION (test code = MCHC) RED CELL DISTRIBUTION 16.6 % 11.5-14.5 H WIDTH (test code = RDW) PLATELET COUNT (test 39 x10 3/uL 150-450 LL VERIFIE D BY code = PLT) RECOLLECTION MEAN PLATELET VOLUME 9.6 FL 7.4-10.4 N (test code = MPV) NEUTROPHIL % (test 64.8 % 42-86 N code = NT%) IMMATURE GRANULOCYTE 0.3 % 0.0-2.0 N % (test code = IG%) LYMPHOCYTE % (test 21.1 % 24-44 L code = LY%) MONOCYTE % (test code 10.3 % 0.0-4.0 H = MO%) EOSINOPHIL % (test 3.0 % 0.0-2.7 H code = EO%) BASOPHIL % (test code 0.5 % 0.0-0.5 N = BA%) NUCLEATED RBC % (test 0.8 % 0.0-0.0 H code = NRBC%) NEUTROPHIL # (test 2.40 x10 3/uL 1.8-7.7 N code = NT#) IMMATURE GRANULOCYTE 0.01 x10 3/uL 0.00-0.03 N # (test code = IG#) LYMPHOCYTE # (test 0.78 x10 3/uL 1.0-4.8 L code = LY#) MONOCYTE # (test code 0.38 x10 3/uL 0.0-0.8 N = MO#) EOSINOPHIL # (test 0.11 x10 3/uL 0.0-0.5 N code = EO#) BASOPHIL # (test code 0.02 x10 3/uL 0.0-0.2 N = BA#) NUCLEATED RBC # (test 0.0 X10 3/uL 0.0-0.2 N code = NRBC#) MANUAL DIFF REQUIRED SCAN PLT_RBC TECH REVIEW (test code = MDIFF) RBC [id number] 08:10:00 Test Item Value Reference Range Interpretation Comments ANISOCYTOSIS (test code = ANISO) 2+ PLATELET [id number] 08:10:00 Test Item Value Reference Range Interpretation Comments PLATELET ESTIMATE (test Dec ADEQ A MANU AL PLATELET code = PLTEST) ESTIMATE: 45, 000 CV CALL [id number] 08:10:00 Test Item Value Reference Range Interpretation Comments CV CALL HEM (test code Called Resul ts called to and = [facility]) read back by RIAZ VILLAR RN;.for a nalyte(s): HGB, PLT.at 071 5 - 05/01/18; by Mary Kay OREILLY. CBC W/AUTO [id number] 07:15:00 Test Item Value Reference Range Interpretation Comments WHITE BLOOD CELL 3.70 x10 3/uL 4.80-10.80 L (test code = WBC) RED BLOOD CELL (test 3.96 x10 6/uL 4.2-5.4 L code = RBC) HEMOGLOBIN (test code 11.6 G/DL 12.0-16.0 L VERIFI ED BY = HGB) RECOLLECTION HEMATOCRIT (test code 33.7 % 37-47 L = HCT) MEAN CELL VOLUME 85.1 FL 81-99 N (test code = MCV) MEAN CELL HGB (test 29.3 PG 27-31 N code = MCH) MEAN CELL HGB 34.4 G/DL 33-37 N CONCENTRATION (test code = MCHC) RED CELL DISTRIBUTION 16.6 % 11.5-14.5 H WIDTH (test code = RDW) PLATELET COUNT (test 39 x10 3/uL 150-450 LL VERIFIE D BY code = PLT) RECOLLECTION MEAN PLATELET VOLUME 9.6 FL 7.4-10.4 N (test code = MPV) NEUTROPHIL % (test 64.8 % 42-86 N code = NT%) IMMATURE GRANULOCYTE 0.3 % 0.0-2.0 N % (test code = IG%) LYMPHOCYTE % (test 21.1 % 24-44 L code = LY%) MONOCYTE % (test code 10.3 % 0.0-4.0 H = MO%) EOSINOPHIL % (test 3.0 % 0.0-2.7 H code = EO%) BASOPHIL % (test code 0.5 % 0.0-0.5 N = BA%) NUCLEATED RBC % (test 0.8 % 0.0-0.0 H code = NRBC%) NEUTROPHIL # (test 2.40 x10 3/uL 1.8-7.7 N code = NT#) IMMATURE GRANULOCYTE 0.01 x10 3/uL 0.00-0.03 N # (test code = IG#) LYMPHOCYTE # (test 0.78 x10 3/uL 1.0-4.8 L code = LY#) MONOCYTE # (test code 0.38 x10 3/uL 0.0-0.8 N = MO#) EOSINOPHIL # (test 0.11 x10 3/uL 0.0-0.5 N code = EO#) BASOPHIL # (test code 0.02 x10 3/uL 0.0-0.2 N = BA#) NUCLEATED RBC # (test 0.0 X10 3/uL 0.0-0.2 N code = NRBC#) MANUAL DIFF REQUIRED SCAN PLT_RBC TECH REVIEW (test code = MDIFF) RBC [id number] 07:15:00 Test Item Value Reference Range Interpretation Comments RBC MORPHOLOGY COMMENT (test code = RBCM) PLATELET [id number] 07:15:00 Test Item Value Reference Range Interpretation Comments PLATELET ESTIMATE (test code = PLTEST) ADEQ CV CALL [id number] 07:15:00 Test Item Value Reference Range Interpretation Comments CV CALL HEM (test code Called Resul ts called to and = [facility]) read back by RIAZ VILLAR RN;.for a nalyte(s): HGB, PLT.at 071 5 - 05/01/18; by Mary Kay OREILLY. CBC W/AUTO [id number] 07:14:00 Test Item Value Reference Range Interpretation Comments WHITE BLOOD CELL 3.70 x10 3/uL 4.80-10.80 L (test code = WBC) RED BLOOD CELL (test 3.96 x10 6/uL 4.2-5.4 L code = RBC) HEMOGLOBIN (test code 11.6 G/DL 12.0-16.0 L VERIFI ED BY = HGB) RECOLLECTION HEMATOCRIT (test code 33.7 % 37-47 L = HCT) MEAN CELL VOLUME 85.1 FL 81-99 N (test code = MCV) MEAN CELL HGB (test 29.3 PG 27-31 N code = MCH) MEAN CELL HGB 34.4 G/DL 33-37 N CONCENTRATION (test code = MCHC) RED CELL DISTRIBUTION 16.6 % 11.5-14.5 H WIDTH (test code = RDW) PLATELET COUNT (test 39 x10 3/uL 150-450 LL VERIFIE D BY code = PLT) RECOLLECTION MEAN PLATELET VOLUME 9.6 FL 7.4-10.4 N (test code = MPV) NEUTROPHIL % (test 64.8 % 42-86 N code = NT%) IMMATURE GRANULOCYTE 0.3 % 0.0-2.0 N % (test code = IG%) LYMPHOCYTE % (test 21.1 % 24-44 L code = LY%) MONOCYTE % (test code 10.3 % 0.0-4.0 H = MO%) EOSINOPHIL % (test 3.0 % 0.0-2.7 H code = EO%) BASOPHIL % (test code 0.5 % 0.0-0.5 N = BA%) NUCLEATED RBC % (test 0.8 % 0.0-0.0 H code = NRBC%) NEUTROPHIL # (test 2.40 x10 3/uL 1.8-7.7 N code = NT#) IMMATURE GRANULOCYTE 0.01 x10 3/uL 0.00-0.03 N # (test code = IG#) LYMPHOCYTE # (test 0.78 x10 3/uL 1.0-4.8 L code = LY#) MONOCYTE # (test code 0.38 x10 3/uL 0.0-0.8 N = MO#) EOSINOPHIL # (test 0.11 x10 3/uL 0.0-0.5 N code = EO#) BASOPHIL # (test code 0.02 x10 3/uL 0.0-0.2 N = BA#) NUCLEATED RBC # (test 0.0 X10 3/uL 0.0-0.2 N code = NRBC#) MANUAL DIFF REQUIRED SCAN PLT_RBC TECH REVIEW (test code = MDIFF) RBC [id number] 07:14:00 Test Item Value Reference Range Interpretation Comments RBC MORPHOLOGY COMMENT (test code = RBCM) PLATELET [id number] 07:14:00 Test Item Value Reference Range Interpretation Comments PLATELET ESTIMATE (test code = PLTEST) ADEQ CV CALL [id number] 07:14:00 Test Item Value Reference Range Interpretation Comments CV CALL HEM (test code = CVCH) CBC W/AUTO [id number] 07:14:00 Test Item Value Reference Range Interpretation Comments WHITE BLOOD CELL 3.70 x10 3/uL 4.80-10.80 L (test code = WBC) RED BLOOD CELL (test 3.96 x10 6/uL 4.2-5.4 L code = RBC) HEMOGLOBIN (test code 11.6 G/DL 12.0-16.0 L VERIFI ED BY = HGB) RECOLLECTION HEMATOCRIT (test code 33.7 % 37-47 L = HCT) MEAN CELL VOLUME 85.1 FL 81-99 N (test code = MCV) MEAN CELL HGB (test 29.3 PG 27-31 N code = MCH) MEAN CELL HGB 34.4 G/DL 33-37 N CONCENTRATION (test code = MCHC) RED CELL DISTRIBUTION 16.6 % 11.5-14.5 H WIDTH (test code = RDW) PLATELET COUNT (test 39 x10 3/uL 150-450 LL VERIFIE D BY code = PLT) RECOLLECTION MEAN PLATELET VOLUME 9.6 FL 7.4-10.4 N (test code = MPV) NEUTROPHIL % (test 64.8 % 42-86 N code = NT%) IMMATURE GRANULOCYTE 0.3 % 0.0-2.0 N % (test code = IG%) LYMPHOCYTE % (test 21.1 % 24-44 L code = LY%) MONOCYTE % (test code 10.3 % 0.0-4.0 H = MO%) EOSINOPHIL % (test 3.0 % 0.0-2.7 H code = EO%) BASOPHIL % (test code 0.5 % 0.0-0.5 N = BA%) NUCLEATED RBC % (test 0.8 % 0.0-0.0 H code = NRBC%) NEUTROPHIL # (test 2.40 x10 3/uL 1.8-7.7 N code = NT#) IMMATURE GRANULOCYTE 0.01 x10 3/uL 0.00-0.03 N # (test code = IG#) LYMPHOCYTE # (test 0.78 x10 3/uL 1.0-4.8 L code = LY#) MONOCYTE # (test code 0.38 x10 3/uL 0.0-0.8 N = MO#) EOSINOPHIL # (test 0.11 x10 3/uL 0.0-0.5 N code = EO#) BASOPHIL # (test code 0.02 x10 3/uL 0.0-0.2 N = BA#) NUCLEATED RBC # (test 0.0 X10 3/uL 0.0-0.2 N code = NRBC#) MANUAL DIFF REQUIRED SCAN PLT_RBC TECH REVIEW (test code = MDIFF) RBC [id number] 07:14:00 Test Item Value Reference Range Interpretation Comments RBC MORPHOLOGY COMMENT (test code = RBCM) PLATELET [id number] 07:14:00 Test Item Value Reference Range Interpretation Comments PLATELET ESTIMATE (test code = PLTEST) ADEQ CV CALL [id number] 07:14:00 Test Item Value Reference Range Interpretation Comments CV CALL HEM (test code = CVCH) [id number] 06:33:00 Test Item Value Reference Range Interpretation Comments GLUBED (test code = 106 MG/DL 65-99 H Performe d by certified GLUBED) potable water treatment operator at [facility] COMPREHENSIVE METABOLIC [id number] 04:44:00 Test Item Value Reference Range Interpretation Comments SODIUM (test code = 143 MMOL/L 133-145 N NA) POTASSIUM (test code = 3.3 MMOL/L 3.6-5.2 L K) CHLORIDE (test code = 109 MMOL/L 100-108 H CL) CARBON DIOXIDE (test 25 MMOL/L 22-32 N code = CO2) GLUCOSE (test code = 115 MG/DL 65-99 H Results of this GLU) assay method zaria y be falsely depress ed orelevated if patient is taki ng sulfasalazine. BLOOD UREA NITROGEN 13 MG/DL 6-20 N (test code = BUN) GLOMERULAR FILTRATION 123 51-120 H Report ing units: RATE (test code = GFR) mL/mi n/1.73m\S\2 (Modified MDRD Formula) CREATININE (test code 0.52 MG/DL 0.60-1.00 L = CREAT) TOTAL PROTEIN (test 6.7 G/DL 6.4-8.2 N code = PROT) ALBUMIN (test code = 2.7 G/DL 3.4-5.0 L ALB) GLOBULIN (test code = 4.0 G/DL 1.5-3.8 H GLOB) ALBUMIN/GLOBULIN RATIO 0.7 1.1-2.2 L (test code = A/G) CALCIUM (test code = 8.7 MG/DL 8.7-10.5 N CA) BILIRUBIN TOTAL (test 2.2 MG/DL 0.0-1.0 H code = BILT) SGOT/AST (test code = 45 Units/L 15-37 H Result s of this AST) assay method zaria y be falsely depress ed orelevated if patient is taki ng sulfasalazine. SGPT/ALT (test code = 55 Units/L 30-65 N Result s of this ALT) assay method zaria y be falsely depress ed orelevated if patient is taki ng sulfasalazine. ALKALINE PHOSPHATASE 100 Units/L 50-136 N TOTAL (test code = ALKP) [id number] 20:35:00 Test Item Value Reference Range Interpretation Comments GLUBED (test code = 133 MG/DL 65-99 H Performe d by certified GLUBED) potable water treatment operator at [facility] [id number] 15:43:00 Test Item Value Reference Range Interpretation Comments GLUBED (test code = 157 MG/DL 65-99 H Performe d by certified GLUBED) potable water treatment operator at [facility] [id number] 11:57:00 Test Item Value Reference Range Interpretation Comments GLUBED (test code = 171 MG/DL 65-99 H Performe d by certified GLUBED) potable water treatment operator at [facility] [id number] 06:49:00 Test Item Value Reference Range Interpretation Comments GLUBED (test code = 143 MG/DL 65-99 H Performe d by certified GLUBED) potable water treatment operator at [facility] CBC W/AUTO [id number] 04:20:00 Test Item Value Reference Range Interpretation Comments WHITE BLOOD CELL (test code = 7.96 x10 3/uL 4.80-10.80 N WBC) RED BLOOD CELL (test code = 4.62 x10 6/uL 4.2-5.4 N RBC) HEMOGLOBIN (test code = HGB) 13.6 G/DL 12.0-16.0 N HEMATOCRIT (test code = HCT) 38.6 % 37-47 N MEAN CELL VOLUME (test code = 83.5 FL 81-99 N MCV) MEAN CELL HGB (test code = MCH) 29.4 PG 27-31 N MEAN CELL HGB CONCENTRATION 35.2 G/DL 33-37 N (test code = MCHC) RED CELL DISTRIBUTION WIDTH 16.9 % 11.5-14.5 H (test code = RDW) PLATELET COUNT (test code = 62 x10 3/uL 150-450 L PLT) MEAN PLATELET VOLUME (test code 9.9 FL 7.4-10.4 N = MPV) NEUTROPHIL % (test code = NT%) 73.3 % 42-86 N IMMATURE GRANULOCYTE % (test 0.5 % 0.0-2.0 N code = IG%) LYMPHOCYTE % (test code = LY%) 13.6 % 24-44 L MONOCYTE % (test code = MO%) 10.1 % 0.0-4.0 H EOSINOPHIL % (test code = EO%) 2.0 % 0.0-2.7 N BASOPHIL % (test code = BA%) 0.5 % 0.0-0.5 N NUCLEATED RBC % (test code = 0.0 % 0.0-0.0 N NRBC%) NEUTROPHIL # (test code = NT#) 5.84 x10 3/uL 1.8-7.7 N IMMATURE GRANULOCYTE # (test 0.04 x10 3/uL 0.00-0.03 H code = IG#) LYMPHOCYTE # (test code = LY#) 1.08 x10 3/uL 1.0-4.8 N MONOCYTE # (test code = MO#) 0.80 x10 3/uL 0.0-0.8 N EOSINOPHIL # (test code = EO#) 0.16 x10 3/uL 0.0-0.5 N BASOPHIL # (test code = BA#) 0.04 x10 3/uL 0.0-0.2 N NUCLEATED RBC # (test code = 0.0 X10 3/uL 0.0-0.2 N NRBC#) MANUAL DIFF REQUIRED (test code SCAN PLT_RBC TECH REVIEW = MDIFF) RBC [id number] 04:20:00 Test Item Value Reference Range Interpretation Comments POLYCHROMASIA (test code = POLC) Slt HYPOCHROMIA (test code = HYPO) Slt ANISOCYTOSIS (test code = ANISO) Slt PLATELET [id number] 04:20:00 Test Item Value Reference Range Interpretation Comments PLATELET ESTIMATE (test Dec ADEQ A MANU AL PLATELET code = PLTEST) ESTIMATE: 60, 000 COMPREHENSIVE METABOLIC [id number] 04:00:00 Test Item Value Reference Range Interpretation Comments SODIUM (test code = 140 MMOL/L 133-145 N NA) POTASSIUM (test code = 3.7 MMOL/L 3.6-5.2 N K) CHLORIDE (test code = 106 MMOL/L 100-108 N CL) CARBON DIOXIDE (test 25 MMOL/L 22-32 N code = CO2) GLUCOSE (test code = 115 MG/DL 65-99 H Results of this GLU) assay method ma y be falsely depress ed orelevated if patient is taki ng sulfasalazine. BLOOD UREA NITROGEN 11 MG/DL 6-20 N (test code = BUN) GLOMERULAR FILTRATION 103 51-120 N Report ing units: RATE (test code = GFR) mL/mi n/1.73m\S\2 (Modified MDRD Formula) CREATININE (test code 0.61 MG/DL 0.60-1.00 N = CREAT) TOTAL PROTEIN (test 7.6 G/DL 6.4-8.2 N code = PROT) ALBUMIN (test code = 3.1 G/DL 3.4-5.0 L ALB) GLOBULIN (test code = 4.5 G/DL 1.5-3.8 H GLOB) ALBUMIN/GLOBULIN RATIO 0.7 1.1-2.2 L (test code = A/G) CALCIUM (test code = 8.5 MG/DL 8.7-10.5 L CA) BILIRUBIN TOTAL (test 2.3 MG/DL 0.0-1.0 H code = BILT) SGOT/AST (test code = 52 Units/L 15-37 H Result s of this AST) assay method ma y be falsely depress ed orelevated if patient is taki ng sulfasalazine. SGPT/ALT (test code = 64 Units/L 30-65 N Result s of this ALT) assay method ma y be falsely depress ed orelevated if patient is taki ng sulfasalazine. ALKALINE PHOSPHATASE 114 Units/L 50-136 N TOTAL (test code = ALKP) CBC W/AUTO [id number] 03:35:00 Test Item Value Reference Range Interpretation Comments WHITE BLOOD CELL (test code = 7.96 x10 3/uL 4.80-10.80 N WBC) RED BLOOD CELL (test code = 4.62 x10 6/uL 4.2-5.4 N RBC) HEMOGLOBIN (test code = HGB) 13.6 G/DL 12.0-16.0 N HEMATOCRIT (test code = HCT) 38.6 % 37-47 N MEAN CELL VOLUME (test code = 83.5 FL 81-99 N MCV) MEAN CELL HGB (test code = MCH) 29.4 PG 27-31 N MEAN CELL HGB CONCENTRATION 35.2 G/DL 33-37 N (test code = MCHC) RED CELL DISTRIBUTION WIDTH 16.9 % 11.5-14.5 H (test code = RDW) PLATELET COUNT (test code = 62 x10 3/uL 150-450 L PLT) MEAN PLATELET VOLUME (test code 9.9 FL 7.4-10.4 N = MPV) NEUTROPHIL % (test code = NT%) 73.3 % 42-86 N IMMATURE GRANULOCYTE % (test 0.5 % 0.0-2.0 N code = IG%) LYMPHOCYTE % (test code = LY%) 13.6 % 24-44 L MONOCYTE % (test code = MO%) 10.1 % 0.0-4.0 H EOSINOPHIL % (test code = EO%) 2.0 % 0.0-2.7 N BASOPHIL % (test code = BA%) 0.5 % 0.0-0.5 N NUCLEATED RBC % (test code = 0.0 % 0.0-0.0 N NRBC%) NEUTROPHIL # (test code = NT#) 5.84 x10 3/uL 1.8-7.7 N IMMATURE GRANULOCYTE # (test 0.04 x10 3/uL 0.00-0.03 H code = IG#) LYMPHOCYTE # (test code = LY#) 1.08 x10 3/uL 1.0-4.8 N MONOCYTE # (test code = MO#) 0.80 x10 3/uL 0.0-0.8 N EOSINOPHIL # (test code = EO#) 0.16 x10 3/uL 0.0-0.5 N BASOPHIL # (test code = BA#) 0.04 x10 3/uL 0.0-0.2 N NUCLEATED RBC # (test code = 0.0 X10 3/uL 0.0-0.2 N NRBC#) MANUAL DIFF REQUIRED (test code SCAN PLT_RBC TECH REVIEW = MDIFF) RBC [id number] 03:35:00 Test Item Value Reference Range Interpretation Comments RBC MORPHOLOGY COMMENT (test code = RBCM) PLATELET [id number] 03:35:00 Test Item Value Reference Range Interpretation Comments PLATELET ESTIMATE (test code = PLTEST) ADEQ CBC W/AUTO [id number] 03:35:00 Test Item Value Reference Range Interpretation Comments WHITE BLOOD CELL (test code = 7.96 x10 3/uL 4.80-10.80 N WBC) RED BLOOD CELL (test code = 4.62 x10 6/uL 4.2-5.4 N RBC) HEMOGLOBIN (test code = HGB) 13.6 G/DL 12.0-16.0 N HEMATOCRIT (test code = HCT) 38.6 % 37-47 N MEAN CELL VOLUME (test code = 83.5 FL 81-99 N MCV) MEAN CELL HGB (test code = MCH) 29.4 PG 27-31 N MEAN CELL HGB CONCENTRATION 35.2 G/DL 33-37 N (test code = MCHC) RED CELL DISTRIBUTION WIDTH 16.9 % 11.5-14.5 H (test code = RDW) PLATELET COUNT (test code = 62 x10 3/uL 150-450 L PLT) MEAN PLATELET VOLUME (test code 9.9 FL 7.4-10.4 N = MPV) NEUTROPHIL % (test code = NT%) 73.3 % 42-86 N IMMATURE GRANULOCYTE % (test 0.5 % 0.0-2.0 N code = IG%) LYMPHOCYTE % (test code = LY%) 13.6 % 24-44 L MONOCYTE % (test code = MO%) 10.1 % 0.0-4.0 H EOSINOPHIL % (test code = EO%) 2.0 % 0.0-2.7 N BASOPHIL % (test code = BA%) 0.5 % 0.0-0.5 N NUCLEATED RBC % (test code = 0.0 % 0.0-0.0 N NRBC%) NEUTROPHIL # (test code = NT#) 5.84 x10 3/uL 1.8-7.7 N IMMATURE GRANULOCYTE # (test 0.04 x10 3/uL 0.00-0.03 H code = IG#) LYMPHOCYTE # (test code = LY#) 1.08 x10 3/uL 1.0-4.8 N MONOCYTE # (test code = MO#) 0.80 x10 3/uL 0.0-0.8 N EOSINOPHIL # (test code = EO#) 0.16 x10 3/uL 0.0-0.5 N BASOPHIL # (test code = BA#) 0.04 x10 3/uL 0.0-0.2 N NUCLEATED RBC # (test code = 0.0 X10 3/uL 0.0-0.2 N NRBC#) MANUAL DIFF REQUIRED (test code SCAN PLT_RBC TECH REVIEW = MDIFF) RBC [id number] 03:35:00 Test Item Value Reference Range Interpretation Comments RBC MORPHOLOGY COMMENT (test code = RBCM) PLATELET [id number] 03:35:00 Test Item Value Reference Range Interpretation Comments PLATELET ESTIMATE (test code = PLTEST) ADEQ [id number] 21:15:00 Test Item Value Reference Range Interpretation Comments GLUBED (test code = 121 MG/DL 65-99 H Performe d by certified GLUBED) potable water treatment operator at [facility] [id number] 16:47:00 Test Item Value Reference Range Interpretation Comments GLUBED (test code = 118 MG/DL 65-99 H Performe d by certified GLUBED) potable water treatment operator at [facility] [id number] 11:50:00 Test Item Value Reference Range Interpretation Comments GLUBED (test code = 137 MG/DL 65-99 H Performe d by certified GLUBED) potable water treatment operator at [facility] [id number] 06:14:00 Test Item Value Reference Range Interpretation Comments GLUBED (test code = 156 MG/DL 65-99 H Performe d by certified GLUBED) potable water treatment operator at [facility] CBC W/AUTO [id number] 04:39:00 Test Item Value Reference Range Interpretation Comments WHITE BLOOD CELL (test code = 6.75 x10 3/uL 4.80-10.80 N WBC) RED BLOOD CELL (test code = 4.77 x10 6/uL 4.2-5.4 N RBC) HEMOGLOBIN (test code = HGB) 13.7 G/DL 12.0-16.0 N HEMATOCRIT (test code = HCT) 41.4 % 37-47 N MEAN CELL VOLUME (test code = 86.8 FL 81-99 N MCV) MEAN CELL HGB (test code = MCH) 28.7 PG 27-31 N MEAN CELL HGB CONCENTRATION 33.1 G/DL 33-37 N (test code = MCHC) RED CELL DISTRIBUTION WIDTH 17.2 % 11.5-14.5 H (test code = RDW) PLATELET COUNT (test code = 55 x10 3/uL 150-450 L PLT) MEAN PLATELET VOLUME (test code 9.1 FL 7.4-10.4 N = MPV) NEUTROPHIL % (test code = NT%) 81.8 % 42-86 N IMMATURE GRANULOCYTE % (test 0.4 % 0.0-2.0 N code = IG%) LYMPHOCYTE % (test code = LY%) 10.4 % 24-44 L MONOCYTE % (test code = MO%) 5.3 % 0.0-4.0 H EOSINOPHIL % (test code = EO%) 1.5 % 0.0-2.7 N BASOPHIL % (test code = BA%) 0.6 % 0.0-0.5 H NUCLEATED RBC % (test code = 0.0 % 0.0-0.0 N NRBC%) NEUTROPHIL # (test code = NT#) 5.52 x10 3/uL 1.8-7.7 N IMMATURE GRANULOCYTE # (test 0.03 x10 3/uL 0.00-0.03 N code = IG#) LYMPHOCYTE # (test code = LY#) 0.70 x10 3/uL 1.0-4.8 L MONOCYTE # (test code = MO#) 0.36 x10 3/uL 0.0-0.8 N EOSINOPHIL # (test code = EO#) 0.10 x10 3/uL 0.0-0.5 N BASOPHIL # (test code = BA#) 0.04 x10 3/uL 0.0-0.2 N NUCLEATED RBC # (test code = 0.0 X10 3/uL 0.0-0.2 N NRBC#) MANUAL DIFF REQUIRED (test code SCAN PLT_RBC TECH REVIEW = MDIFF) PLATELET [id number] 04:39:00 Test Item Value Reference Range Interpretation Comments PLATELET ESTIMATE (test Dec ADEQ A MANU AL PLATELET code = PLTEST) ESTIMATE: 45, 000 COMPREHENSIVE METABOLIC [id number] 03:48:00 Test Item Value Reference Range Interpretation Comments SODIUM (test code = 141 MMOL/L 133-145 N NA) POTASSIUM (test code = 3.9 MMOL/L 3.6-5.2 N K) CHLORIDE (test code = 107 MMOL/L 100-108 N CL) CARBON DIOXIDE (test 25 MMOL/L 22-32 N code = CO2) GLUCOSE (test code = 152 MG/DL 65-99 H Results of this GLU) assay method ma y be falsely depress ed orelevated if patient is taki ng sulfasalazine. BLOOD UREA NITROGEN 13 MG/DL 6-20 N (test code = BUN) GLOMERULAR FILTRATION 105 51-120 N Report ing units: RATE (test code = GFR) mL/mi n/1.73m\S\2 (Modified MDRD Formula) CREATININE (test code 0.60 MG/DL 0.60-1.00 N = CREAT) TOTAL PROTEIN (test 8.4 G/DL 6.4-8.2 H code = PROT) ALBUMIN (test code = 3.4 G/DL 3.4-5.0 N ALB) GLOBULIN (test code = 5.0 G/DL 1.5-3.8 H GLOB) ALBUMIN/GLOBULIN RATIO 0.7 1.1-2.2 L (test code = A/G) CALCIUM (test code = 8.7 MG/DL 8.7-10.5 N CA) BILIRUBIN TOTAL (test 1.7 MG/DL 0.0-1.0 H code = BILT) SGOT/AST (test code = 65 Units/L 15-37 H Result s of this AST) assay method ma y be falsely depress ed orelevated if patient is taki ng sulfasalazine. SGPT/ALT (test code = 77 Units/L 30-65 H Result s of this ALT) assay method ma y be falsely depress ed orelevated if patient is taki ng sulfasalazine. ALKALINE PHOSPHATASE 130 Units/L 50-136 N TOTAL (test code = ALKP) LIPID PROFILE (CORONARY RISK)2018-04-29 03:48:00 Test Item Value Reference Range Interpretation Comments TRIGLYCERIDES (test 99 MG/DL 30-200 N code = TRIG) CHOLESTEROL (test code 197 MG/DL 122-200 N = CHOL) CHOLESTEROL/HDL RATIO 1.8 1.5-4.5 N 1. I nitial (test code = CHOLHDL) classi fication based on total choles terol: <200 mg/dl Desirable chol esterol 200-239 m g/dl Borderline hi gh risk cholesterol >240 mg/dl H igh risk cholestero l2. Initial classif ication based on LDL cholesterol: <130 mg/dl Desirable LDL cholesterol 130-159 mg/dl Borderline high risk LDL >159 mg/dl High risk LDL cholesterol3. HDL < 35 mg/dl repres ent increased CHD r isk; HDL > 60 mg/dl represent decre ased CHD risk.4. C hol/HDL > 5.0 represent increased CHD risk in men; Chol/H DL > 4.5 represent increased CHD risk in women. HDL CHOLESTEROL (test 110 MG/DL 40-60 H code = HDL) LIPOPROTEIN LDL (test 67 MG/DL 62-130 N code = LDL) LIPOPROTEIN VLDL (test 20 MG/DL 3-60 N code = VLDL) COMPREHENSIVE METABOLIC [id number] 03:40:00 Test Item Value Reference Range Interpretation Comments SODIUM (test code = MMOL/L 133-145 NA) POTASSIUM (test code = MMOL/L 3.6-5.2 N K) CHLORIDE (test code = MMOL/L 100-108 N CL) CARBON DIOXIDE (test 25 MMOL/L 22-32 N code = CO2) GLUCOSE (test code = 152 MG/DL 65-99 H Results of this GLU) assay method zaria y be falsely depress ed orelevated if patient is taki ng sulfasalazine. BLOOD UREA NITROGEN 13 MG/DL 6-20 N (test code = BUN) GLOMERULAR FILTRATION 105 51-120 N Report ing units: RATE (test code = GFR) mL/mi n/1.73m\S\2 (Modified MDRD Formula) CREATININE (test code 0.60 MG/DL 0.60-1.00 N = CREAT) TOTAL PROTEIN (test 8.4 G/DL 6.4-8.2 H code = PROT) ALBUMIN (test code = 3.4 G/DL 3.4-5.0 N ALB) GLOBULIN (test code = 5.0 G/DL 1.5-3.8 H GLOB) ALBUMIN/GLOBULIN RATIO 0.7 1.1-2.2 L (test code = A/G) CALCIUM (test code = 8.7 MG/DL 8.7-10.5 N CA) BILIRUBIN TOTAL (test 1.7 MG/DL 0.0-1.0 H code = BILT) SGOT/AST (test code = 65 Units/L 15-37 H Result s of this AST) assay method zaria y be falsely depress ed orelevated if patient is taki ng sulfasalazine. SGPT/ALT (test code = 77 Units/L 30-65 H Result s of this ALT) assay method zaria y be falsely depress ed orelevated if patient is taki ng sulfasalazine. ALKALINE PHOSPHATASE 130 Units/L 50-136 N TOTAL (test code = ALKP) LIPID PROFILE (CORONARY RISK)2018-04-29 03:40:00 Test Item Value Reference Range Interpretation Comments TRIGLYCERIDES (test 99 MG/DL 30-200 N code = TRIG) CHOLESTEROL (test code 197 MG/DL 122-200 N = CHOL) CHOLESTEROL/HDL RATIO 1.8 1.5-4.5 N 1. I nitial (test code = CHOLHDL) classi fication based on total choles terol: <200 mg/dl Desirable chol esterol 200-239 m g/dl Borderline hi gh risk cholesterol >240 mg/dl H igh risk cholestero l2. Initial classif ication based on LDL cholesterol: <130 mg/dl Desirable LDL cholesterol 130-159 mg/dl Borderline high risk LDL >159 mg/dl High risk LDL cholesterol3. HDL < 35 mg/dl repres ent increased CHD r isk; HDL > 60 mg/dl represent decre ased CHD risk.4. C hol/HDL > 5.0 represent increased CHD risk in men; Chol/H DL > 4.5 represent increased CHD risk in women. HDL CHOLESTEROL (test 110 MG/DL 40-60 H code = HDL) LIPOPROTEIN LDL (test 67 MG/DL 62-130 N code = LDL) LIPOPROTEIN VLDL (test 20 MG/DL 3-60 N code = VLDL) [id number] 03:26:00 Test Item Value Reference Range Interpretation Comments AMMONIA (test code = 57 UMOL/L 11-35 H Results of this assay AMM) method may be f alsely depressed orele vated if patient is taki ng sulfasalazine. CBC W/AUTO [id number] 03:21:00 Test Item Value Reference Range Interpretation Comments WHITE BLOOD CELL (test code = 6.75 x10 3/uL 4.80-10.80 N WBC) RED BLOOD CELL (test code = 4.77 x10 6/uL 4.2-5.4 N RBC) HEMOGLOBIN (test code = HGB) 13.7 G/DL 12.0-16.0 N HEMATOCRIT (test code = HCT) 41.4 % 37-47 N MEAN CELL VOLUME (test code = 86.8 FL 81-99 N MCV) MEAN CELL HGB (test code = MCH) 28.7 PG 27-31 N MEAN CELL HGB CONCENTRATION 33.1 G/DL 33-37 N (test code = MCHC) RED CELL DISTRIBUTION WIDTH 17.2 % 11.5-14.5 H (test code = RDW) PLATELET COUNT (test code = 55 x10 3/uL 150-450 L PLT) MEAN PLATELET VOLUME (test code 9.1 FL 7.4-10.4 N = MPV) NEUTROPHIL % (test code = NT%) 81.8 % 42-86 N IMMATURE GRANULOCYTE % (test 0.4 % 0.0-2.0 N code = IG%) LYMPHOCYTE % (test code = LY%) 10.4 % 24-44 L MONOCYTE % (test code = MO%) 5.3 % 0.0-4.0 H EOSINOPHIL % (test code = EO%) 1.5 % 0.0-2.7 N BASOPHIL % (test code = BA%) 0.6 % 0.0-0.5 H NUCLEATED RBC % (test code = 0.0 % 0.0-0.0 N NRBC%) NEUTROPHIL # (test code = NT#) 5.52 x10 3/uL 1.8-7.7 N IMMATURE GRANULOCYTE # (test 0.03 x10 3/uL 0.00-0.03 N code = IG#) LYMPHOCYTE # (test code = LY#) 0.70 x10 3/uL 1.0-4.8 L MONOCYTE # (test code = MO#) 0.36 x10 3/uL 0.0-0.8 N EOSINOPHIL # (test code = EO#) 0.10 x10 3/uL 0.0-0.5 N BASOPHIL # (test code = BA#) 0.04 x10 3/uL 0.0-0.2 N NUCLEATED RBC # (test code = 0.0 X10 3/uL 0.0-0.2 N NRBC#) MANUAL DIFF REQUIRED (test code SCAN PLT_RBC TECH REVIEW = MDIFF) RBC [id number] 03:21:00 Test Item Value Reference Range Interpretation Comments RBC MORPHOLOGY COMMENT (test code = RBCM) PLATELET [id number] 03:21:00 Test Item Value Reference Range Interpretation Comments PLATELET ESTIMATE (test code = PLTEST) ADEQ CBC W/AUTO [id number] 03:21:00 Test Item Value Reference Range Interpretation Comments WHITE BLOOD CELL (test code = 6.75 x10 3/uL 4.80-10.80 N WBC) RED BLOOD CELL (test code = 4.77 x10 6/uL 4.2-5.4 N RBC) HEMOGLOBIN (test code = HGB) 13.7 G/DL 12.0-16.0 N HEMATOCRIT (test code = HCT) 41.4 % 37-47 N MEAN CELL VOLUME (test code = 86.8 FL 81-99 N MCV) MEAN CELL HGB (test code = MCH) 28.7 PG 27-31 N MEAN CELL HGB CONCENTRATION 33.1 G/DL 33-37 N (test code = MCHC) RED CELL DISTRIBUTION WIDTH 17.2 % 11.5-14.5 H (test code = RDW) PLATELET COUNT (test code = 55 x10 3/uL 150-450 L PLT) MEAN PLATELET VOLUME (test code 9.1 FL 7.4-10.4 N = MPV) NEUTROPHIL % (test code = NT%) 81.8 % 42-86 N IMMATURE GRANULOCYTE % (test 0.4 % 0.0-2.0 N code = IG%) LYMPHOCYTE % (test code = LY%) 10.4 % 24-44 L MONOCYTE % (test code = MO%) 5.3 % 0.0-4.0 H EOSINOPHIL % (test code = EO%) 1.5 % 0.0-2.7 N BASOPHIL % (test code = BA%) 0.6 % 0.0-0.5 H NUCLEATED RBC % (test code = 0.0 % 0.0-0.0 N NRBC%) NEUTROPHIL # (test code = NT#) 5.52 x10 3/uL 1.8-7.7 N IMMATURE GRANULOCYTE # (test 0.03 x10 3/uL 0.00-0.03 N code = IG#) LYMPHOCYTE # (test code = LY#) 0.70 x10 3/uL 1.0-4.8 L MONOCYTE # (test code = MO#) 0.36 x10 3/uL 0.0-0.8 N EOSINOPHIL # (test code = EO#) 0.10 x10 3/uL 0.0-0.5 N BASOPHIL # (test code = BA#) 0.04 x10 3/uL 0.0-0.2 N NUCLEATED RBC # (test code = 0.0 X10 3/uL 0.0-0.2 N NRBC#) MANUAL DIFF REQUIRED (test code SCAN PLT_RBC TECH REVIEW = MDIFF) RBC [id number] 03:21:00 Test Item Value Reference Range Interpretation Comments RBC MORPHOLOGY COMMENT (test code = RBCM) PLATELET [id number] 03:21:00 Test Item Value Reference Range Interpretation Comments PLATELET ESTIMATE (test code = PLTEST) ADEQ [id number] 20:24:00 Test Item Value Reference Range Interpretation Comments GLUBED (test code = 93 MG/DL 65-99 N Performe d by certified GLUBED) potable water treatment operator at [facility] [id number] 16:41:00 Test Item Value Reference Range Interpretation Comments GLUBED (test code = 116 MG/DL 65-99 H Performe d by certified GLUBED) potable water treatment operator at [facility] - XR SHOULDER 2+V [id number] 16:13:00 Patient Name: ABHIJIT PEDROAZ Unit No: [id number] EXAMS: CPT CODE: [id number] XR SHOULDER 2+[place] 26585 Reason: C/O LT SHOULDER PAIN History: TIA and left tomeka ulder pain. Left shoulder, 2 views. FINDINGS: There is joint space loss and osteoarthritis with spurring at the left AC joint. Glenohumeral joint and proximal left humerus are normal. No abnormal soft tissue calcifications are seen. IMPRESSION: 1. Osteoarthritis of the left AC joint. 2. Remaining left shoulder is normal. at 1613 Reported and signed by: Gerardo Handley MD CC: Sanjay Strong MD; Noah Hector MD Technologist: Christine HOWE RT Trscrpt Dt/ (1613)t.CECELIAG Orig Print D/T: S: 04/28/2018 (1616) [facility] NAME: ABHIJIT PEDROZA [address] [facility] PHYS: Noah Burnett [facility] [place] [address] : 1965 AGE: 52 SEX: F LOC: D.D305 1 PHONE #: [phone] EXAM DATE: 04/28/2018 STATUS: ADM IN FAX #: RAD NO: DC Dt: PAGE 1 Signed [id number] 11:31:00 Test Item Value Reference Range Interpretation Comments GLUBED (test code = 109 MG/DL 65-99 H Performe d by certified GLUBED) potable water treatment operator at [facility] - MRI BRAIN W/O [id number] 10:33:00 Patient Name: ABHIJIT PEDROZA Unit No: [id number] EXAMS: CPT CODE: [id number] MRI BRAIN W/O CONTRAST 48375 Reason: cva History: CVA. COMPARISON: Head CT from 04/27/2018. MRI OF THE BRAIN WITHOUT CONTRAST: TECHNIQUE: Multiplanar images are obtained using 8 varying pulse sequences without the use ofintravenous contrast. FINDINGS: The fourth, third, and lateral ventricles are normal for age in size, shape, and position. No mass, midline shift, or extra-axial fluid collection is noted. There is no abnormal area of increased or decreased signal to suggest white matter disease or other intracranial pathology. Visualized portions of the paranasal sinuses arenotable for mild mucosal thickening of the lower left maxillary sinus and increasing soft tissue density consistent with retained mucus retention cyst in the lower right maxillary sinus showing diameters of 15 at 16 mm. On diffusion imaging, there is no abnormal signal to suggest an acute infarct. IMPRESSION: 1. No acute intracranial abnormality or convincing evidence for infarct with diffusion weighted imaging. 2. Mild age-related atrophy and periventricular ischemic white matter change is seen. 3. Remaining exam is within normal limits. at 1033 Reported and signed by: Gerardo Handley MD CC: Sanjay Strong MD Technologist: Keely Santiago Trscrpt Dt/ (1033)t.ELG Orig Print D/T: S: 04/28/2018 (1037) [facility] NAME: ABHIJIT PEDROZA [address] [facility] PHYS: Kong [place] [address] : 1965 AGE: 52 SEX: F LOC: D.D305 1PHONE #: [phone] EXAM DATE: 04/28/2018 STATUS: ADM IN FAX #: RAD NO: DC Dt: PAGE 1 Signed Report- DUP EXTRACRANIAL ERIC 2018-04-28 08:41:00 Patient Name: ABHIJIT PEDROZA Unit No: [id number] EXAMS: CPT CODE: [id number] DUP EXTRACRANIAL ERIC [id number] History: CVA. Carotid Doppler Ultrasound TECHNIQUE: Mandel scale color Doppler and spectral Doppler imaging of the bilateral carotid and vertebral arteries is performed. FINDINGS: Right: No grayscale plaque is noted. Peak systolic flow velocity of the CCA is 0.80 m/s, carotid bulb is 0.47 m/s, ICA is 0.51 m/s and ECA are 0.55 m/s. ICA/CCA velocity ratio is 0.64. Antegrade blood flow is seen in the right vertebral region. Left: No grayscale plaque is noted. Peaksystolic flow velocity of the CCA is 1.1 m/s, carotid bulb is 0.48 m/s, ICA is 0.63 m/s and ECA are 0.7 by m/s. ICA/CCA velocity ratio is 0.57. Antegrade blood flow is seen in the left vertebral region. IMPRESSION: No hemodynamically significant stenosis of the carotid or vertebral arteries. Less than 50% stenosis is noted in the carotid arteries. Antegrade blood flow is seen within the vertebral arteries. at 0841 Reported and signed by: Gerardo Handley MD CC: Sanjay Strong MD Technologist: Dawna ROSALES Trnscrbd D/ (0841) DenisG Orig Print D/T: S: 04/28/2018 (0845) Probe: [facility] NAME: ABHIJIT PEDROZA [address] PHYS: Kong Miranda MD [facility] [place] [address] : 1965 AGE: 52 SEX: F LOC: D.D305 1 PHONE #: [phone] EXAM DATE: 04/28/2018 STATUS: ADM IN FAX #: RAD NO: Page 1 Signed [id number] 06:16:00 Test Item Value Reference Range Interpretation Comments GLUBED (test code = 110 MG/DL 65-99 H Performe d by certified GLUBED) potable water treatment operator at [facility] ARTERIAL BLOOD [id number] 21:28:00 Test Item Value Reference Range Interpretation Comments ARTERIAL BLOOD GAS PH (test code 7.43 7.35-7.45 N = PHA) ARTERIAL BLOOD GAS PCO2 (test 37.5 mmHg 35.0-45.0 N code = PCO2A) ARTERIAL BLOOD GAS PO2 (test code 75.0 mmHg 80.0-100.0 L = PO2A) BICARBONATE TOTAL HCO3 (test code 24.7 mmol/L 20.0-26.0 N = HCO3) BASE EXCESS (test code = MYNOR) 0.0 mmol/L -3.0-3.0 N ABG O2 SATURATION (test code = 95 % 95-100 N SATA) FIO2 (test code = FIO2A) 21.0 % ABG L/M (test code = L/M) 0 L/MIN ABG DELIVERY (test code = ABDIEL) RA ABG PATIENT RESP RATE (test code 20 /MIN = RRPATA) KYUNG TEST (test code = ALN) PASS ABG SITE (test code = SITEA) LR - CT HEAD/BRAIN W/O [id number] 21:23:00 Patient Name: ABHIJIT PEDROZA Unit No: [id number] EXAMS: CPT CODE: [id number] CT HEAD/BRAIN W/O CONT 94353 Reason: altered mental status EXAM: - CT HEAD/BRAIN W/O CONT REASON FOREXAM: altered mental status COMPARISON: CT head study 12/20/2016. Techniques: 5 mm axial images of CT PET study performed without contrast. FINDINGS: There is mild prominence of ventricles and cortical sulci. There is no abnormal intra-axial attenuation. There is no mass lesion or midline shift. No extra-axial fluid collectionor hematoma seen. Mucosal thickening of ethmoid air cells and sphenoid sinuses seen. The rest of the orbits, paranasal sinuses, mastoid air cells and the skull are normal. Vascular calcifications of carotid arteries identified. IMPRESSION: No intracranial pathology. Chronic paranasal sinusitis seen. No interval change. at 2123 Reported and signed by: Ness Newby MD CC: Dave Moya DO; Sanjay Strong MD Technologist: Dre Monroe RT/CT Trscrpt Dt/ (2122)Brooke.NH41 Orig Print D/T: S: 04/27/2018 (2125) CTDI: DLP: [place] NAME: ABHIJIT PEDROZA [facility] [address] PHYS: DAWN Rivas NitaDave Astorga [address] : 1965 AGE: 52 SEX: F [place] [address] LOC: D.PER PHONE #: [phone] EXAM DATE: 04/27/2018 STATUS: REG ERFAX #: RAD NO: DC Dt: PAGE 1 Signed Report- XR CHEST 1 [id number] 20:59:00 Patient Name: ABHIJIT PEDROZA Unit No: [id number] EXAMS: CPT CODE: [id number] XR CHEST 1 V 96706 Reason: altered mental status EXAM: - XR CHEST 1 V REASON FOR EXAM: altered mental status COMPARISON: Chest x-ray study 03/06/2017. FINDINGS: AP upright portable chest x-ray at 19:53 demonstrates mild cardiomegaly. Mild prominence of aortic arch with calcified plaque seen. Small amount of subsegmental atelectasis of lung bases seen. Pulmonary vasculature is top normal. Bones show no acute pathology. IMPRESSION: Cardiomegaly with top normal pulmonary vasculature. Subsegmental atelectasis of lung bases seen. No other change. at 2058 Reported and signed by: Ness Newby MD CC: Dave Moya DO; Sanjay Strong MD Technologist: Yue PATTON Trscrpt Dt/ (2058)Brooke.NH41 Orig Print D/T:S: 04/27/2018 (2101) [place] [facility] [address] PHYS: DAWN Rivas Dave Moya [address] : 1965 AGE: 52 SEX: F [place], [place] [address] LOC: D.PER PHONE #: [phone] EXAM DATE: 04/27/2018 STATUS: REG ER FAX #: RAD NO: DC Dt: PAGE 1 Signed ReportLACTIC ACID [id number] 20:24:00 Test Item Value Reference Range Interpretation Comments LACTIC ACID POC 0.67 MMOL/L 0.90-1.70 L Performed by certified (test code = LACTP) potable water treatment operator at [facility] BASIC METABOLIC [id number] 20:24:00 Test Item Value Reference Range Interpretation Comments SODIUM (test code = 143 MMOL/L 133-145 N NA) POTASSIUM (test code = 4.0 MMOL/L 3.6-5.2 N K) CHLORIDE (test code = 109 MMOL/L 100-108 H CL) CARBON DIOXIDE (test 26 MMOL/L 22-32 N code = CO2) GLUCOSE (test code = 185 MG/DL 65-99 H Results of this assay GLU) method may be f alsely depressed orele vated if patient is t aking sulfasalazine. BLOOD UREA NITROGEN 19 MG/DL 6-20 N (test code = BUN) GLOMERULAR FILTRATION 74 51-120 N Report ing units: RATE (test code = GFR) mL/mi n/1.73m\S\2 (Modified MDRD Formula) CREATININE (test code 0.81 MG/DL 0.60-1.00 N = CREAT) CALCIUM (test code = 8.1 MG/DL 8.7-10.5 L CA) HEPATIC FUNCTION [id number] 20:24:00 Test Item Value Reference Range Interpretation Comments TOTAL PROTEIN (test 7.3 G/DL 6.4-8.2 N code = PROT) ALBUMIN (test code = 3.0 G/DL 3.4-5.0 L ALB) GLOBULIN (test code = 4.3 G/DL 1.5-3.8 H GLOB) ALBUMIN/GLOBULIN RATIO 0.7 1.1-2.2 L (test code = A/G) BILIRUBIN TOTAL (test 0.9 MG/DL 0.0-1.0 N code = BILT) BILIRUBIN DIRECT (test 0.3 MG/DL 0.0-0.3 N code = BILD) BILIRUBIN INDIRECT 0.6 MG/DL 0.0-0.7 N (test code = BILIND) SGOT/AST (test code = 55 Units/L 15-37 H Result s of this AST) assay method ma y be falsely depress ed orelevated if patient is taki ng sulfasalazine. SGPT/ALT (test code = 68 Units/L 30-65 H Result s of this ALT) assay method ma y be falsely depress ed orelevated if patient is taki ng sulfasalazine. ALKALINE PHOSPHATASE 147 Units/L 50-136 H TOTAL (test code = ALKP) [id number] 20:24:00 Test Item Value Reference Range Interpretation Comments LIPASE (test code = LIP) 192 Units/L 73-393 N THYROID STIMULATING [id number] 20:24:00 Test Item Value Reference Range Interpretation Comments THYROID STIMULATING 2.29 0.42-5.47 N Micro-In ternational HORMONE (test code = TSH) Un its/L [id number] 20:24:00 Test Item Value Reference Range Interpretation Comments CK (test code = CKT) 69 Units/L 26-192 N [id number] 20:24:00 Test Item Value Reference Range Interpretation Comments TROPONIN-I (test < 0.04 NG/ML 0.00-0.06 N - The use of serial code = TROPI) sampling and t esting protocol is a recommended pra ctice.- An elevated tro ponin level alone is often not sufficient fo r diagnosis of my ocardial infarction.Resu lts of this assay meth od may be falsely depress ed orelevated if p atient is taking high dos es of Biotin. [id number] 20:24:00 Test Item Value Reference Range Interpretation Comments ACETAMINOPHEN (test < 1 MCG/ML 10-30 L Acetamin ophen is code = ACET) possibly toxic at levels of: 1. m ore than 150 MCG/ML 4 hours post bennett stion. 2. more than 5 0 MCG/ML 12 hours post ingestion. [id number] 20:24:00 Test Item Value Reference Range Interpretation Comments SALICYLATE (test code = < 3 MG/DL 0-20 N Refe rence Range: LUIS ANGEL) Analgesic...... ...... ...... < 10 mg /dl Therapeutic.... ...... ...... 15-20 mg /dl Mild Toxicity....... ...... . > 30 mg/dl Severe Toxicity....... ..... > 60 mg/dl [id number] 20:24:00 Test Item Value Reference Range Interpretation Comments ALCOHOL (test code = 3 MG/DL 0-10 N 0 - 10: Should be ALC) interpreted as NEGATIVE. 11 - 50: None to mild euphoria. 51 - 100: Mild influence on vi basil and dark adaptation . > 80: Legal into xication; Depression of C NS; Increasing degree of poisoning. > 400: Fatalities repo rted. Results are for medical purposes only a nd not forlegal or emp loyment evaluative purp oses. [id number] 20:23:00 Test Item Value Reference Range Interpretation Comments GLUBED (test code = 156 MG/DL 65-99 H Performe d by certified GLUBED) potable water treatment operator at [facility] PROTHROMBIN [id number] 20:19:00 Test Item Value Reference Range Interpretation Comments PROTHROMBIN TIME 11.6 SECONDS 9.3-12.4 N Referen ce Range PATIENT (test code = revised from 9.3-12.4 PTP) as of 01/30/18. INTERNATIONAL NORMAL 1.15 Recomme nded INR range RATIO (test code = (warfarin therapy): INR) 2.0 - 3.0I NR (International Normalized Rati o) should beused w hen interpreting or al anticoaglulant therapy. For at rial fibrillation an d treatment orprevention of deep vein thrombosis . Patients with Palmaz-Juan José s tent *: 2 .0 - 3.0 Patients wi th mechanical hear t valve *: 2.5 - 3.5 Patients with flex-stent *: 3.0 - 4.0(*) = engineer of system development's suggested range Is patient on anticoagulants? UnknownTHROMBOPLASTIN TIME [id number] 20:19:00 Test Item Value Reference Range Interpretation Comments THROMBOPLASTIN TIME 25.1 SECONDS 21.8-35.9 N *Therap eutic level PARTIAL (test code = for hep natalia: 1.5 - PTT) 2.5 times the average patient value of 30.0 seconds. The a PTT should not be u sed to evaluate LMW heparin anticoagulant therapy. Reference Range revised from 21.8-35.9 as of 01/30/2018 Is patient on anticoagulants? UnknownCBC W/AUTO [id number] 20:18:00 Test Item Value Reference Range Interpretation Comments WHITE BLOOD CELL (test code = 4.41 x10 3/uL 4.80-10.80 L WBC) RED BLOOD CELL (test code = 4.08 x10 6/uL 4.2-5.4 L RBC) HEMOGLOBIN (test code = HGB) 12.2 G/DL 12.0-16.0 N HEMATOCRIT (test code = HCT) 36.5 % 37-47 L MEAN CELL VOLUME (test code = 89.5 FL 81-99 N MCV) MEAN CELL HGB (test code = MCH) 29.9 PG 27-31 N MEAN CELL HGB CONCENTRATION 33.4 G/DL 33-37 N (test code = MCHC) RED CELL DISTRIBUTION WIDTH 17.5 % 11.5-14.5 H (test code = RDW) PLATELET COUNT (test code = 50 x10 3/uL 150-450 L PLT) MEAN PLATELET VOLUME (test code 9.5 FL 7.4-10.4 N = MPV) NEUTROPHIL % (test code = NT%) 75.3 % 42-86 N LYMPHOCYTE % (test code = LY%) 13.8 % 24-44 L MONOCYTE % (test code = MO%) 8.2 % 0.0-4.0 H EOSINOPHIL % (test code = EO%) 2.5 % 0.0-2.7 N BASOPHIL % (test code = BA%) 0.2 % 0.0-0.5 N NEUTROPHIL # (test code = NT#) 3.32 x10 3/uL 1.8-7.7 N LYMPHOCYTE # (test code = LY#) 0.61 x10 3/uL 1.0-4.8 L MONOCYTE # (test code = MO#) 0.36 x10 3/uL 0.0-0.8 N EOSINOPHIL # (test code = EO#) 0.11 x10 3/uL 0.0-0.5 N BASOPHIL # (test code = BA#) 0.01 x10 3/uL 0.0-0.2 N MANUAL DIFF REQUIRED (test code SCAN PLT_RBC TECH REVIEW = MDIFF) RBC [id number] 20:18:00 Test Item Value Reference Range Interpretation Comments RBC MORPHOLOGY COMMENT (test code = Normal RBCM) PLATELET [id number] 20:18:00 Test Item Value Reference Range Interpretation Comments PLATELET ESTIMATE (test code Dec JAMILAQ A PLT ESTIMATE-60,000 = PLTEST) CBC W/AUTO [id number] 20:17:00 Test Item Value Reference Range Interpretation Comments WHITE BLOOD CELL (test code = 4.41 x10 3/uL 4.80-10.80 L WBC) RED BLOOD CELL (test code = 4.08 x10 6/uL 4.2-5.4 L RBC) HEMOGLOBIN (test code = HGB) 12.2 G/DL 12.0-16.0 N HEMATOCRIT (test code = HCT) 36.5 % 37-47 L MEAN CELL VOLUME (test code = 89.5 FL 81-99 N MCV) MEAN CELL HGB (test code = MCH) 29.9 PG 27-31 N MEAN CELL HGB CONCENTRATION 33.4 G/DL 33-37 N (test code = MCHC) RED CELL DISTRIBUTION WIDTH 17.5 % 11.5-14.5 H (test code = RDW) PLATELET COUNT (test code = 50 x10 3/uL 150-450 L PLT) MEAN PLATELET VOLUME (test code 9.5 FL 7.4-10.4 N = MPV) NEUTROPHIL % (test code = NT%) 75.3 % 42-86 N LYMPHOCYTE % (test code = LY%) 13.8 % 24-44 L MONOCYTE % (test code = MO%) 8.2 % 0.0-4.0 H EOSINOPHIL % (test code = EO%) 2.5 % 0.0-2.7 N BASOPHIL % (test code = BA%) 0.2 % 0.0-0.5 N NEUTROPHIL # (test code = NT#) 3.32 x10 3/uL 1.8-7.7 N LYMPHOCYTE # (test code = LY#) 0.61 x10 3/uL 1.0-4.8 L MONOCYTE # (test code = MO#) 0.36 x10 3/uL 0.0-0.8 N EOSINOPHIL # (test code = EO#) 0.11 x10 3/uL 0.0-0.5 N BASOPHIL # (test code = BA#) 0.01 x10 3/uL 0.0-0.2 N MANUAL DIFF REQUIRED (test code SCAN PLT_RBC TECH REVIEW = MDIFF) RBC [id number] 20:17:00 Test Item Value Reference Range Interpretation Comments RBC MORPHOLOGY COMMENT (test code = RBCM) PLATELET [id number] 20:17:00 Test Item Value Reference Range Interpretation Comments PLATELET ESTIMATE (test code = PLTEST) ADEQ CBC W/AUTO [id number] 20:17:00 Test Item Value Reference Range Interpretation Comments WHITE BLOOD CELL (test code = 4.41 x10 3/uL 4.80-10.80 L WBC) RED BLOOD CELL (test code = 4.08 x10 6/uL 4.2-5.4 L RBC) HEMOGLOBIN (test code = HGB) 12.2 G/DL 12.0-16.0 N HEMATOCRIT (test code = HCT) 36.5 % 37-47 L MEAN CELL VOLUME (test code = 89.5 FL 81-99 N MCV) MEAN CELL HGB (test code = MCH) 29.9 PG 27-31 N MEAN CELL HGB CONCENTRATION 33.4 G/DL 33-37 N (test code = MCHC) RED CELL DISTRIBUTION WIDTH 17.5 % 11.5-14.5 H (test code = RDW) PLATELET COUNT (test code = 50 x10 3/uL 150-450 L PLT) MEAN PLATELET VOLUME (test code 9.5 FL 7.4-10.4 N = MPV) NEUTROPHIL % (test code = NT%) 75.3 % 42-86 N LYMPHOCYTE % (test code = LY%) 13.8 % 24-44 L MONOCYTE % (test code = MO%) 8.2 % 0.0-4.0 H EOSINOPHIL % (test code = EO%) 2.5 % 0.0-2.7 N BASOPHIL % (test code = BA%) 0.2 % 0.0-0.5 N NEUTROPHIL # (test code = NT#) 3.32 x10 3/uL 1.8-7.7 N LYMPHOCYTE # (test code = LY#) 0.61 x10 3/uL 1.0-4.8 L MONOCYTE # (test code = MO#) 0.36 x10 3/uL 0.0-0.8 N EOSINOPHIL # (test code = EO#) 0.11 x10 3/uL 0.0-0.5 N BASOPHIL # (test code = BA#) 0.01 x10 3/uL 0.0-0.2 N MANUAL DIFF REQUIRED (test code SCAN PLT_RBC TECH REVIEW = PETER) RBC [id number] 20:17:00 Test Item Value Reference Range Interpretation Comments RBC MORPHOLOGY COMMENT (test code = RBCM) PLATELET [id number] 20:17:00 Test Item Value Reference Range Interpretation Comments PLATELET ESTIMATE (test code = PLTEST) ADEQ BASIC METABOLIC [id number] 20:12:00 Test Item Value Reference Range Interpretation Comments SODIUM (test code = 143 MMOL/L 133-145 N NA) POTASSIUM (test code = 4.0 MMOL/L 3.6-5.2 N K) CHLORIDE (test code = 109 MMOL/L 100-108 H CL) CARBON DIOXIDE (test 26 MMOL/L 22-32 N code = CO2) GLUCOSE (test code = 185 MG/DL 65-99 H Results of this assay GLU) method may be f alsely depressed orele vated if patient is t aking sulfasalazine. BLOOD UREA NITROGEN 19 MG/DL 6-20 N (test code = BUN) GLOMERULAR FILTRATION 74 51-120 N Report ing units: RATE (test code = GFR) mL/mi n/1.73m\S\2 (Modified MDRD Formula) CREATININE (test code 0.81 MG/DL 0.60-1.00 N = CREAT) CALCIUM (test code = 8.1 MG/DL 8.7-10.5 L CA) HEPATIC FUNCTION [id number] 20:12:00 Test Item Value Reference Range Interpretation Comments TOTAL PROTEIN (test code = PROT) G/DL 6.4-8.2 ALBUMIN (test code = ALB) G/DL 3.4-5.0 GLOBULIN (test code = GLOB) G/DL 1.5-3.8 ALBUMIN/GLOBULIN RATIO (test code = 1.1-2.2 A/G) BILIRUBIN TOTAL (test code = BILT) MG/DL 0.0-1.0 BILIRUBIN DIRECT (test code = BILD) MG/DL 0.0-0.3 SGOT/AST (test code = AST) Units/L 15-37 SGPT/ALT (test code = ALT) Units/L 30-65 ALKALINE PHOSPHATASE TOTAL (test Units/L 50-136 code = ALKP) [id number] 20:12:00 Test Item Value Reference Range Interpretation Comments LIPASE (test code = LIP) Units/L 73-393 THYROID STIMULATING [id number] 20:12:00 Test Item Value Reference Range Interpretation Comments THYROID STIMULATING HORMONE (test code 0.42-5.47 = TSH) [id number] 20:12:00 Test Item Value Reference Range Interpretation Comments CK (test code = CKT) Units/L 26-192 [id number] 20:12:00 Test Item Value Reference Range Interpretation Comments TROPONIN-I (test code = TROPI) NG/ML 0.00-0.06 [id number] 20:12:00 Test Item Value Reference Range Interpretation Comments ACETAMINOPHEN (test code = ACET) MCG/ML 10-30 [id number] 20:12:00 Test Item Value Reference Range Interpretation Comments SALICYLATE (test code = LUIS ANGEL) MG/DL 0-20 [id number] 20:12:00 Test Item Value Reference Range Interpretation Comments ALCOHOL (test code = ALC) MG/DL 0-10 [id number] 20:10:00 Test Item Value Reference Range Interpretation Comments AMMONIA (test code = 90 UMOL/L 11-35 H Results of this assay AMM) method may be f alsely depressed orele vated if patient is taki ng sulfasalazine.
[2019-12-26 20:41] LABS: Absolute Lymphocytes (CBC) 0.6 K/uL (0.7-4.9)
[2019-12-26 20:45] LABS: Basophils % 0.5 % (0-1.3); Hematocrit 35.3 % (36.0-45.0); Lymphocytes % 19.8 % (15.3-44.8); MPV 7.9 fL (7.6-11.3); Protime INR 1.13; RBC Red Blood Cell Count 4.08 M/uL (3.86-4.86)
[2019-12-26 21:02] LABS: Blood Morphology Comment NOT SEEN (NOT SEEN); Platelet Estimate DECR; White Blood Cell Scan OK (OK)
[2019-12-26] MEDS ORDERED: INSULIN -REGULAR HUMAN 50 UNIT/0.5 ML ML ONE (21:31)
[2019-12-26] MEDS ORDERED: NA CHLORIDE 0.9% 500 ML ONE (21:32)
[2019-12-26] MEDS ORDERED: FENTANYL CITR 100 MCG/2 ML ONE ×2 (22:23→23:28)
[2019-12-26 22:26] LABS: Urine Blood 1+ (NEG); Urine Glucose 3+ (NEG); Urine Protein NEGATIVE (NEG)
[2019-12-26 22:47] LABS: Urine Bacteria <20 /HPF (<20); Urine Culture Reflex Order NOT NEEDED
--- NOTE | 2019-12-27 00:02 | ER ---
Nurse's Notes [facility] Name: Michell Monroe Age: 53 yrs Sex: Female : 1965 Arrival Date: 12/26/2019 Time: 20:05 Bed 18 Private MD: Diagnosis: Chest contusion;Hyperglycemia, unspecified Presentation: 12/25 20:00 Chief complaint: EMS states: Patient had fall down one step off of porch; No head, lp1 neck, back pain; reports pain to right side of chest, states pain when taking a breath; reports pain to right knee; Per EMS, blood glucose reading of HIGH. 20:00 Coronavirus screen: Client denies travel out of the [place] in the last 14 days. At this lp1 time, the client does not indicate any symptoms associated with coronavirus-19. Ebola Screen: No symptoms or risks identified at this time. Initial Sepsis Screen: Does the patient meet any 2 criteria? No. Patient's initial sepsis screen is negative. Does the patient have a suspected source of infection? No. Patient's initial sepsis screen is negative. Risk Assessment: Do you want to hurt yourself or someone else? Patient reports no desire to harm self or others. Onset of symptoms was December 26, 2019 at 19:00. 20:00 Method Of Arrival: EMS: [facility] lp1 20:00 Acuity: NATHAN 3 lp1 20:00 Care prior to arrival: IV initiated. 20 GA, in the left antecubital area. 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 lp1 Historical: - Allergies: 20:29 Glipizide; lp1 20:29 metformin; lp1 20:29 Tylenol-Codeine #3; lp1 - Home Meds: 20:29 Novolog 100 unit/mL Sub-Q soln [Active]; Toujeo SoloStar 300 unit/mL (1.5 mL) lp1 subcutaneous inpn [Active]; 23:27 Methocarbamol Oral [Active]; Furosemide Oral [Active]; Spironolactone Oral [Active]; lp1 Potassium Chloride Oral [Active]; ropinirole oral oral [Active]; Hydroxyzine Oral [Active]; [place] Carbonate Oral [Active]; Trazodone Oral [Active]; - PMHx: 20:29 COPD; Cirrhosis; Diabetes - IDDM; Hepatitis; Hypertension; lp1 23:27 Bipolar disorder; Schizophrenia; lp1 - PSHx: 20:29 Cholecystectomy; lp1 - Immunization history:: Adult Immunizations up to date. - Family history:: not pertinent. - Social history:: Smoking status: Patient reports the use of cigarette tobacco products, denies chronic smoking, but will smoke occasionally. - Hospitalizations: : No recent hospitalization is reported. Screenin:30 Abuse screen: Denies threats or abuse. Denies injuries from another. Nutritional lp1 screening: No deficits noted. Tuberculosis screening: No symptoms or risk factors identified. Fall Risk None identified. Assessment: 20:10 Reassessment: Assisted patient to bathroom via WC, patient able to transfer to lp independently. 20:15 General: Appears in no apparent distress. Behavior is appropriate for age. Pain: lp1 Complains of pain in right lateral posterior chest and right lateral anterior chest, right knee Pain currently is 10 out of 10 on a pain scale. Aggravated by repositioning, deep breathing. Neuro: Level of Consciousness is awake, alert, obeys commands, Oriented to person, place, situation. Cardiovascular: Patient's skin is warm and dry. Respiratory: Airway is patent Respiratory effort is even, Breath sounds are clear bilaterally. GI: Abdomen is non-distended. : No signs and/or symptoms were reported regarding the genitourinary system. EENT: No signs and/or symptoms were reported regarding the EENT system. Derm: Skin is intact, Skin is dry, Skin is normal. Musculoskeletal: No deficits noted. 21:50 Reassessment: Assisted patient to bathroom via WC, guarding right lateral chest, lp1 crying, complaint of pain to area; provider notified. 22:15 Reassessment: Patient resting, eyes closed, respirations even. lp1 23:20 Reassessment: Patient crying, restless in bed, reports cramping to hands and feet, lp1 states "My whole body is cramping, especially my hands and feet"; Provider notified. 23:56 Reassessment: Dr. Boston at bedside to discuss results with patient. lp1 12/26 00:20 Reassessment: Assisted patient with getting clothes on at this time for discharge; on lp1 movement, patient began moaning, holding right breast, "I'm not going to be able to tolerate this pain, I'll have to come right back"; Provider notified of patient discomfort. Vital Signs: 12/25 20:00 BP 112 / 70; Pulse 83; Resp 18; Temp 98.3(O); Pulse Ox 99% on R/A; Weight 83.91 kg; lp1 Height 5 ft. 2 in. (157.48 cm); Pain 10/; 21:00 BP 112 / 78; Pulse 81; Resp 16; Pulse Ox 98% on R/A; lp1 22:00 BP 98 / 70; Pulse 78; Resp 16; Pulse Ox 98% on R/A; lp1 23:30 BP 115 / 89; Pulse 91; Resp 18; Pulse Ox 97% on R/A; lp1 20:00 Body Mass Index 33.84 (83.91 kg, 157.48 cm) lp1 ED Course: 20:00 Arm band placed on left wrist. lp1 20:05 Patient arrived in ED. rn 20:05 Bob Boston MD is Attending Physician. rn 20:15 Patient has correct armband on for positive identification. Placed in gown. Bed in low lp1 position. Call light in reach. Side rails up X2. Pulse ox on. NIBP on. 20:24 Hanna Tavares, DEBORAH is Primary Nurse. lp1 20:28 Triage completed. lp1 20:56 Notified ED physician of a critical lab result(s). glucose of 708. sg 21:41 CT Head Brain wo Cont In Process Unspecified. EDMS 21:41 CT Chest, Abdomen, Pelvis - W/Contrast In Process Unspecified. EDMS 23:00 No provider procedures requiring assistance completed. lp1 12/26 00:20 IV discontinued, No redness/swelling at site. Pressure dressing applied. lp1 Administered Medications: 12/25 21:45 Drug: Insulin Regular Human 10 units {Co-Signature: tiffanie (Eliud Conrad RN).} Route: IVP; lp1 Site: left antecubital; 23:25 Follow up: Response: Blood sugar is lowered lp1 21:45 Drug: Insulin Regular Human 10 units {Co-Signature: tiffanie (Eliud Conrad RN).} Route: Sub-Q; lp1 Site: left lower abdomen; 23:25 Follow up: Response: Blood sugar is lowered lp1 21:45 Drug: NS 0.9% 500 ml Route: IV; Rate: bolus; Site: left antecubital; lp1 22:30 Follow up: IV Status: Completed infusion; IV Intake: 500ml lp1 22:10 Drug: fentaNYL (PF) 25 mcg Route: IVP; Site: left antecubital; lp1 22:50 Follow up: Response: No adverse reaction lp1 23:25 Drug: fentaNYL (PF) 25 mcg Route: IVP; Site: left antecubital; lp1 23:45 Follow up: Response: No adverse reaction lp1 12/26 00:10 Drug: Macrobid 100 mg Route: PO; lp1 00:36 Follow up: Response: Medication administered at discharge. lp1 00:30 Drug: traMADol 50 mg Route: PO; lp1 00:36 Follow up: Response: Medication administered at discharge. lp1 Intake: 12/25 22:30 IV: 500ml; Total: 500ml. lp1 Outcome: 12/26 00:01 Discharge ordered by . rn 00:37 Discharged to home via wheelchair, with family. lp1 00:37 Condition: good 00:37 Discharge instructions given to patient, Instructed on discharge instructions, follow up and referral plans. medication usage, Demonstrated understanding of instructions, follow-up care, medications, Prescriptions given X 2. 00:37 Patient left the ED. lp1 Signatures: Dispatcher [employer] EDEliud Gabriel RN RN sg Bob Boston MD MD rn Pena, Laura, RN RN lp1 Eliud moreno Corrections: (The following items were deleted from the chart) 12/25 20:33 20:00 Chief complaint: EMS states: Patient had fall down one step off of porch; No lp1 head, neck, back pain; reports pain to right side of chest, states pain when taking a breath; reports pain to right knee lp1 2330 23:20 Reassessment: Patient crying, restless in bed, reports cramping to hands and lp1 feet, states "My whole body is cramping"; Provider notified lp1
--- NOTE | 2019-12-27 00:02 | EDPHYS ---
Physician Documentation [facility] Name: Michell Monroe Age: 53 yrs Sex: Female : 1965 Arrival Date: 12/26/2019 Time: 20:05 Bed 18 Private MD: ED Physician Bob Boston HPI: 12/25 20:08 This 53 yrs old Female presents to ER via Unassigned with complaints of fall, rn right sided pain. 20:08 The patient or guardian reports chest pain that is located primarily in the right rn lateral posterior chest and right lateral anterior chest. Onset: The symptoms/episode began/occurred just prior to arrival. The pain does not radiate. Associated signs and symptoms: Pertinent negatives: shortness of breath, syncope. The chest pain is described as sharp, stabbing. Duration: The patient or guardian reports multiple episodes, that are intermittent. Modifying factors: The symptoms are alleviated by nothing. the symptoms are aggravated by deep breath, movement, palpation of area, twisting torso. Severity of pain: At its worst the pain was moderate in the emergency department the pain is unchanged. The patient has not experienced similar symptoms in the past. Reports fall from standing, has neuropathy and trouble feeling legs, stepped wrong, fell onto right side, does not think she passed out but doesn't recall how she got up or to another room after fall. Reports right sided chest and flank pain. Denies blood thinners. Reports not taking correct doses of insulin for last 5 days and glucose has been reading "high". Reports burning with urination. . 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 lp1 Historical: - Allergies: 20:29 Glipizide; lp1 20:29 metformin; lp1 20:29 Tylenol-Codeine #3; lp1 - Home Meds: 20:29 Novolog 100 unit/mL Sub-Q soln [Active]; Toujeo SoloStar 300 unit/mL (1.5 mL) lp1 subcutaneous inpn [Active]; 23:27 Methocarbamol Oral [Active]; Furosemide Oral [Active]; Spironolactone Oral [Active]; lp1 Potassium Chloride Oral [Active]; ropinirole oral oral [Active]; Hydroxyzine Oral [Active]; [place] Carbonate Oral [Active]; Trazodone Oral [Active]; - PMHx: 20:29 COPD; Cirrhosis; Diabetes - IDDM; Hepatitis; Hypertension; lp1 23:27 Bipolar disorder; Schizophrenia; lp1 - PSHx: 20:29 Cholecystectomy; lp1 - Immunization history:: Adult Immunizations up to date. - Family history:: not pertinent. - Social history:: Smoking status: Patient reports the use of cigarette tobacco products, denies chronic smoking, but will smoke occasionally. - Hospitalizations: : No recent hospitalization is reported. ROS: 20:08 Constitutional: Negative for fever, chills, and weight loss, Eyes: Negative for injury, rn pain, redness, and discharge, Neck: Negative for injury, pain, and swelling, Cardiovascular: + right sided chest pain Respiratory: Negative for shortness of breath, cough, wheezing Abdomen/GI: Negative for abdominal pain, nausea, vomiting, diarrhea, and constipation, Back: + right flank pain after fall : + burning on urination with increased frequency. MS/Extremity: Negative for injury and deformity, Skin: Negative for injury, rash, and discoloration, Neuro: Negative for headache, numbness, tingling, and seizure. Exam: 20:08 Constitutional: This is a well developed, well nourished patient who is awake, alert, rn and in no acute distress. Head/Face: Normocephalic, atraumatic. Neck: NO cervical tenderness Chest/axilla: NO crepitus, + tender right inferior-anterior ribs margin and lateral chest Cardiovascular: Regular rate and rhythm. No pulse deficits. Respiratory: Splinting with deep breath right side, speaking full sentence.s Abdomen/GI: soft, non-tender MS/ Extremity: Pulses equal, no cyanosis. Neurovascular intact. Full, normal range of motion. Equal circumference. Neuro: Awake and alert, GCS 15, oriented to person, place, time, and situation. Cranial nerves II-XII grossly intact. Motor strength 5/5 in all extremities. Sensory grossly intact. Vital Signs: 20:00 BP 112 / 70; Pulse 83; Resp 18; Temp 98.3(O); Pulse Ox 99% on R/A; Weight 83.91 kg; lp1 Height 5 ft. 2 in. (157.48 cm); Pain 10/10; 21:00 BP 112 / 78; Pulse 81; Resp 16; Pulse Ox 98% on R/A; lp1 22:00 BP 98 / 70; Pulse 78; Resp 16; Pulse Ox 98% on R/A; lp1 23:30 BP 115 / 89; Pulse 91; Resp 18; Pulse Ox 97% on R/A; lp1 20:00 Body Mass Index 33.84 (83.91 kg, 157.48 cm) lp1 MDM: 20:05 Patient medically screened. rn 23:59 Differential diagnosis: Blunt Chest Trauma Chest Wall Contusion Chest Wall Injury rn Pulmonary Contusion Rib Fracture. Data reviewed: vital signs, nurses notes, lab test result(s), radiologic studies, CT scan, and as a result, I will discharge patient. Counseling: I had a detailed discussion with the patient and/or guardian regarding: the historical points, exam findings, and any diagnostic results supporting the discharge/admit diagnosis, lab results, radiology results, the need for outpatient follow up, to return to the emergency department if symptoms worsen or persist or if there are any questions or concerns that arise at home. Response to treatment: the patient's symptoms have markedly improved after treatment, and as a result, I will discharge patient. Special discussion: I discussed with the patient/guardian in detail that at this point there is no indication for admission to the hospital. It is understood, however, that if the symptoms persist or worsen the patient needs to return immediately for re-evaluation. ED course: No acute findings on CT chest/abdomen/pelvis. + hyperglycemia without acidosis or AG. Improved with pain medication. Will dc home. Glucose down to 330s, patient amazed and states "never below 400". Recommend f/u with her pcp for further diabetes management. . 12/25 20: Order name: CBC with Diff; Complete Time: 21:25 rn 12/25 20: Order name: Basic Metabolic Panel; Complete Time: : rn 12/25 20:07 Order name: Protime (+inr); Complete Time: 21:25 rn 12/25 20: Order name: Ptt, Activated; Complete Time: :25 rn 12/25 20: Order name: Urine Microscopic Only; Complete Time: 23:48 rn 12/25 20:54 Order name: CBC Smear Scan; Complete Time: 21:25 EDMS 12/25 20:06 Order name: CT Head Brain wo Cont rn 12/25 20:06 Order name: CT Chest, Abdomen, Pelvis - W/Contrast rn 12/25 22:18 Order name: Urine Dipstick--Ancillary (enter results); Complete Time: 23:48 tt3 12/25 23:31 Order name: Glucose, Ancillary Testing; Complete Time: 23:48 EDMS 12/25 20:07 Order name: IV Start; Complete Time: 20:32 rn 12/25 20:07 Order name: Urine Dipstick-Ancillary (obtain specimen); Complete Time: 22:08 rn 12/25 20:07 Order name: Glucose Level; Complete Time: 20:32 rn Administered Medications: 21:45 Drug: Insulin Regular Human 10 units {Co-Signature: tiffanie (Eliud Conrad RN).} Route: IVP; 1 Site: left antecubital; 23:25 Follow up: Response: Blood sugar is lowered [facility] 21:45 Drug: Insulin Regular Human 10 units {Co-Signature: tiffanie (Eliud Conrad RN).} Route: Sub-Q; 1 Site: left lower abdomen; 23:25 Follow up: Response: Blood sugar is lowered 1 21:45 Drug: NS 0.9% 500 ml Route: IV; Rate: bolus; Site: left antecubital; lp1 22:30 Follow up: IV Status: Completed infusion; IV Intake: 500ml 1 22:10 Drug: fentaNYL (PF) 25 mcg Route: IVP; Site: left antecubital; 1 22:50 Follow up: Response: No adverse reaction 1 23:25 Drug: fentaNYL (PF) 25 mcg Route: IVP; Site: left antecubital; lp1 23:45 Follow up: Response: No adverse reaction [facility] 12/26 00:10 Drug: Macrobid 100 mg Route: PO; lp1 00:36 Follow up: Response: Medication administered at discharge. lp1 00:30 Drug: traMADol 50 mg Route: PO; lp1 00:36 Follow up: Response: Medication administered at discharge. 1 Disposition: 12/27/19 00:01 Discharged to Home. Impression: Chest contusion, Hyperglycemia, unspecified. - Condition is Stable. - Discharge Instructions: Chest Contusion, Adult, Hyperglycemia, Urinary Tract Infection, Adult, Blood Glucose Monitoring, Adult. - Prescriptions for Macrobid 100 mg Oral Capsule - take 1 capsule by ORAL route every 12 hours for 7 days; 14 capsule. Tramadol 50 mg Oral Tablet - take 1 tablet by ORAL route every 8 hours as needed; 12 tablet. - Medication Reconciliation Form, Thank You Letter, Antibiotic Education, Prescription Opioid Use form. - Follow up: Private Physician; When: As needed; Reason: Recheck today's complaints, Re-evaluation by your physician. - Problem is new. - Symptoms have improved. Signatures: Dispatcher [employer] EDEliud Gabriel RN RN sg Bob Boston MD MD rn Pena, Laura, RN RN lp1 Eliud Conrad RN sg Corrections: (The following items were deleted from the chart) 00:37 00:01 12/27/2019 00:01 Discharged to Home. Impression: Chest contusion; Hyperglycemia, lp1 unspecified. Condition is Stable. Forms are Medication Reconciliation Form, Thank You Letter, Antibiotic Education, Prescription Opioid Use. Follow up: Private Physician; When: As needed; Reason: Recheck today's complaints, Re-evaluation by your physician. Problem is new. Symptoms have improved. rn
[2019-12-27] MEDS ORDERED: NITROFURAN MACRO 100 MG CAP PO ONE (00:22)
[2019-12-27] MEDS ORDERED: TRAMADOL HCL 50 MG TAB ONE (00:41)
[2019-12-27 01:52] VITALS: TEMP 98.3
[2019-12-27 02:02] VITALS: BP 115/89; O2SAT 97
--- NOTE | 2019-12-27 19:58 | RAD REPORT ---
EXAM DESCRIPTION: CT - Chest Abdomen Pelvis W Cont - 12/27/2019 6:48 am CLINICAL HISTORY: BLUNT CHEST TRAUMA COMPARISON: None. TECHNIQUE: CT CHEST ABDOMEN PELVIS WITH IV CONTRAST on 12/26/2019 8:06 PM CDT. MIPS reconstructions were generated. This exam was performed according to our departmental dose-optimization program, which includes autom ated exposure control, adjustment of the mA and/or kV according to patient size and/or use of iterati ve reconstruction technique. FINDINGS: Vascular: Thoracic aorta is normal in course and caliber without aneurysm or dissection. P ulmonary arteries are adequately opacified without acute or chronic filling defects. Abdominal aorta is normal in course and caliber without aneurysm. Pelvic arteries are patent without aneurysm or occl usion. Chest: The heart is normal in size. There is no pericardial effusion. Intrathoracic lymph nodes are n ot enlarged. There is no pleural effusion, pleural thickening or pneumothorax. Central airways are patent. Lungs a re clear with no consolidation, mass or interstitial lung disease. Abdomen: Liver is cirrhotic in morphology. There is no biliary dilatation. Cholecystectomy was perfor med. Spleen is enlarged measuring 20.7 cm in craniocaudal dimension. 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 There are extensive collaterals in the perirectal fat. The adrenal glands and kidneys are unremarkable. There is no free air. There is no retroperitoneal adenopathy. Pelvis: There is no bowel obstruction. Urinary bladder is unremarkable. There is no free fluid. Uteru s is normal in size. Appendix is normal. Skeleton: There are no acute osseous findings. No suspicious bony lesions. IMPRESSION: No definite posttraumatic findings. Hepatic cirrhosis with extensive portal hypertension. Electronically signed by: Edgar Mann MD 12/26/2019 10:12 PM CDT Due to temporary technical issues with the PACS/Fluency reporting system, reports are being signed by the in house radiologists without review as a courtesy to insure prompt reporting. The interpreting radiologist is fully responsible for the content of the report.
--- NOTE | 2019-12-27 20:01 | RAD REPORT ---
EXAM DESCRIPTION: CT - Head Brain Wo Cont - 12/27/2019 6:48 am CLINICAL HISTORY: TRAUMA COMPARISON: None. TECHNIQUE: CT HEAD WITHOUT IV CONTRAST on 12/26/2019 8:06 PM CDT This exam was performed according to our departmental dose-optimization program, which includes autom ated exposure control, adjustment of the mA and/or kV according to patient size and/or use of iterati ve reconstruction technique. FINDINGS: There is no acute hemorrhage, mass effect or midline shift. Mandel-white differentiation is preserved. There is no hydrocephalus. There is no significant volume loss for age. The calvarium is intact. Orbits and globes are unremarkable. There is a mucous retention cyst in the right maxillary sinus. Mastoid air cells are clear. IMPRESSION: No acute intracranial findings. Electronically signed by: Edgar Mann MD 12/26/2019 10:01 PM CDT Due to temporary technical issues with the PACS/Fluency reporting system, reports are being signed by the in house radiologists without review as a courtesy to insure prompt reporting. The interpreting radiologist is fully responsible for the content of the report.
== END 2019-12-27 00:37 | disposition home or self-care (01) ==
LOC: ER 19:57
DX: S20.219A Contusion of unspecified front wall of thorax, initial encounter (principal); E11.65 Type 2 diabetes mellitus with hyperglycemia; E11.40 Type 2 diabetes mellitus with diabetic neuropathy, unspecified; W19.XXXA Unspecified fall, initial encounter; Y93.9 Activity, unspecified; Y92.9 Unspecified place or not applicable; I10 Essential (primary) hypertension; F31.9 Bipolar disorder, unspecified; F17.210 Nicotine dependence, cigarettes, uncomplicated; Z88.5 Allergy status to narcotic agent; Z88.6 Allergy status to analgesic agent; Z88.8 Allergy status to other drugs, medicaments and biological substances
CPT/HCPCS: 96361; 85025; 80048; 36415; 85610; 82947; 85730; 70450; 71260; 74177; 96375; 96372; 96374; 99284; J3010 ×2; J7040; 81003; 81015

== ENCOUNTER 2020-01-02 21:11 | Emergency (ER) | payer OTHER ==
--- OUTSIDE RECORDS SUMMARY | 2020-01-02 21:22 | XMS REPORT | Continuity of Care Document ---
:1965 Author Organization [facility] t Address [address] [place] [address] Care Team Providers Name Role Phone Unavailable Unavailable Unavailable Payers Payer Name Policy Type Policy Number Effective Date Expiration Date S ource Problems This patient has no known problems. Allergies, Adverse Reactions, Alerts Allergy Allergy Status Severity Reaction(s) Onset Inactive Treating Comm ents Source Name Type Date Date Clinician glipizid DA Active [facility]: [address] metformi DA Active [facility] 2019-[facility] 00:00: [address] glipizid DA Active [place] 2018-0 [facility] 00:00: [address] metformi DA Active [facility] 2018-0 [facility]us 00:00: [address] glipizid DA Active [place] 2018-[facility] Corpus 00:00: [address] metformi DA Active [facility] 2018-0 [facility] - [facility] 00:00: [address] glipizid DA Active [place] 2018-0 [facility] 05-16 Corpus 00:00: Ellen[address] metformi DA Active [facility] 2018-0 [facility] - [facility] 00:00: [address] metformi DA Active [facility] 2017-0 [facility] 03[facility]22 Corpus 00:00: [address] Medications This patient has no known medications. Procedures This patient has no known procedures. Results Test Description Test Time Test Comments Results Result [facility] e Comments - CT ABD PELVIS 2019-10-28 Patient Name: W/O CONT 13:37:00 ABHIJIT PEDROZA Unit No: [id number] EXAMS: CPT CODE: [id number] CT ABD PELVIS W/O CONT 43736 Reason: abdl pain ruq, hematuria Indication: Abdominal [...] Print D/T: S: 10/28/2019 (1340) CTDI: DLP: [facility] NAME: ABHIJIT PEDROZA [id number] Located Within [facility] PHYS: PEPDA. - [place] [address] : 1965 AGE: 53 SEX: F LOC: KATHRIN PHONE #: [phone] EXAM DATE: 10/28/2019 STATUS: REG ER FAX #: RAD NO: DC Dt: PAGE 1 Signed Report GLUBED 2019-10-28 11:31:00 Test Item Value Reference Range Interpretation Comme nts GLUBED (test code = GLUBED) 380 MG/DL 65-99 H Performed by certified cutter operator at [facility] CBC W/AUTO [id number] 10:25:00 Test Item Value Reference Range Interpretation [...] SCAN PLT_RBC TECH REVIEW = MDIFF) RBC [id number] 10:25:00 Test Item Value Reference Range Interpretation Comments RBC MORPHOLOGY COMMENT (test code = Normal RBCM) PLATELET [id number] 10:25:00 Test Item Value Reference Range Interpretation Comments PLATELET ESTIMATE (test code Dec ADEQ A OIL IMMERSION 43607 = PLTEST) PLATELET [id number] 10:25:00 Test Item Value Reference Range Interpretation Comments PLATELET MORPHOLOGY (test code = Normal Normal PLTMORPH) CBC W/AUTO [id number] 10:24:00 Test Item Value Reference Range Interpretation [...] SCAN PLT_RBC TECH REVIEW = PETER) RBC [id number] 10:24:00 Test Item Value Reference Range Interpretation Comments RBC MORPHOLOGY COMMENT (test code = RBCM) PLATELET [id number] 10:24:00 Test Item Value Reference Range Interpretation Comments PLATELET ESTIMATE (test code = PLTEST) ADEQ CBC W/AUTO [id number] 10:24:00 Test Item Value Reference Range Interpretation [...] SCAN PLT_RBC TECH REVIEW = MDIFF) RBC [id number] 10:24:00 Test Item Value Reference Range Interpretation Comments RBC MORPHOLOGY COMMENT (test code = RBCM) PLATELET [id number] 10:24:00 Test Item Value Reference Range Interpretation Comments PLATELET ESTIMATE (test code = PLTEST) ADEQ CBC W/AUTO [id number] 10:20:00 Test Item Value Reference Range Interpretation [...] 0.02 x10 3/uL 0.0-0.2 N UA RFLX [id number] 10:18:00 Test Item Value Reference Range Interpretation [...] Clean Catch (test code = UASPEC) UA [id number] 10:18:00 Test Item Value Reference Range Interpretation [...] not met code = UACULT) COMPREHENSIVE METABOLIC [id number] 10:12:00 Test Item Value Reference Range Interpretation [...] 50-136 H TOTAL (test code = ALKP) [id number] 10:12:00 Test Item Value Reference Range Interpretation Comments LIPASE (test code = LIP) 111 Units/L 73-393 N CV CALL [id number] 10:12:00 Test Item Value Reference Range Interpretation Comments CV CALL CHEM (test code = CVC) COMPREHENSIVE METABOLIC [id number] 10:12:00 Test Item Value Reference Range Interpretation [...] 50-136 H TOTAL (test code = ALKP) [id number] 10:12:00 Test Item Value Reference Range Interpretation Comments LIPASE (test code = LIP) 111 Units/L 73-393 N CV CALL [id number] 10:12:00 Test Item Value Reference Range Interpretation Comments CV CALL CHEM (test Called Results c alled to and code = CVC) read back by GILBERTO BRYANT RN NWED;.for darren te(s): GLU .at 1012 - 09/0 03/17; by [email or web address]. DRUG OF ABUSE SCREEN [id number] 10:11:00 Test Item Value Reference Interpretation Comments [...] by tre quezada methods (i.e., GC/MS) at [facility]. Results of scre en may not be usedin crimi nal justice, job performance or professionalcre dential review, or infa nt custody issues. Negativ e [place] Level ng/ml ------- ----- Cocaine 300 Methamp hetamine (Ecstacy) 500 Cannabinoids (THC) 50 Amphetamine 1000 Barbiturate s 200 Benzodia zepines 200 Opiat es 300 Ph encyclidine (PCP) 25 UA RFLX [id number] 09:54:00 Test Item Value Reference Range Interpretation [...] Clean Catch (test code = UASPEC) UA [id number] 09:54:00 Test Item Value Reference Range Interpretation Comments UA WBC (test code = WBCU) #/hpf <10 UA RBC (test code = RBCU) #/hpf NONE SEEN UA SQUAMOUS CELLS (test code = SQU) #/lpf <100 UA CULTURE NEEDED? (test code = UACULT) UA RFLX [id number] 09:54:00 Test Item Value Reference Range Interpretation [...] Clean Catch (test code = UASPEC) UA [id number] 09:54:00 Test Item Value Reference Range Interpretation Comments UA WBC (test code = WBCU) #/hpf <10 UA RBC (test code = RBCU) #/hpf NONE SEEN UA SQUAMOUS CELLS (test code = SQU) #/lpf <100 UA CULTURE NEEDED? (test code = UACULT) [id number] 06:01:00 Test Item Value Reference Range Interpretation Comments GLUBED (test code = 287 MG/DL 65-99 H Performe d by certified GLUBED) cutter operator at [facility] [id number] 03:04:00 Test Item Value Reference Range Interpretation Comments GLUBED (test code = 352 MG/DL 65-99 H Performe d by certified GLUBED) cutter operator at [facility] [id number] 03:04:00 Test Item Value Reference Range Interpretation Comments GLUBED (test code = 548 MG/DL 65-99 HH Performe d by certified GLUBED) cutter operator at [facility] - XR ANKLE 3+V [id number] 02:54:00 Patient Name: ABHIJIT PEDROZA Unit No: [id number] EXAMS: CPT CODE: [id number] XR ANKLE 3+V RT [id number] Reason: RIGHT ANKLE PAIN PROCEDURE INFORMATION: Exam: [...] up as clinically warranted for persistent symptoms. [facility] NAME: ABHIJIT PEDROZA [id number] Located Within [facility] PHYS: [place] [address] : 1965 AGE: 53 SEX: F LOC: DCastroNER PHONE #: [phone] EXAM DATE: 09/16/2019 STATUS: REG ER FAX #: RAD NO: DC Dt: PAGE 1 Signed Report (CONTINUED) Patient Name: ABHIJIT PEDROZA Unit No: [id number] EXAMS: CPT CODE: [id number] XR ANKLE 3+V RT [id number] <Continued> Reason: RIGHT ANKLE PAIN at 0254 Reported and signed by: TONYA HIGGINS MD VRJEFFERY CC: Tien Bear DO Technologist: Aura PATTON Trscrpt Dt/ (253)VRAD.VR Orig Print D/T: S: 09/16/2019 (253) [facility] NAME: ABHIJIT PEDROZA [id number] Located Within [facility] PHYS: [place] [address] : 1965 AGE: 53 SEX: F LOC: D.NER PHONE #: [phone] EXAM DATE: 09/16/2019 STATUS: REG ER FAX #: RAD NO: DCDt: PAGE 2 Signed ReportC REACTIVE [id number] 00:41:00 Test Item Value Reference Range Interpretation Comments C REACTIVE PROTEIN (test < 0.2 MG/DL < 0.9 RPT ED;CONFIRMED code = CRP) COMPREHENSIVE METABOLIC [id number] 00:25:00 Test Item Value Reference Range Interpretation [...] TOTAL (test code = ALKP) CV CALL [id number] 00:25:00 Test Item Value Reference Range Interpretation Comments CV CALL CHEM (test Called Results c alled to and code = CVC) read back by MARK ROSS RN;.for an alyte(s): GLU .at 00209/16/19; by DCastroLAB.AMQ. COMPREHENSIVE METABOLIC [id number] 00:24:00 Test Item Value Reference Range Interpretation Comments SODIUM (test code = 127 MMOL/L 133-145 L NA) POTASSIUM (test code = 3.9 MMOL/L 3.6-5.2 N K) CHLORIDE (test code = 94 MMOL/L 100-108 L CL) CARBON DIOXIDE (test 26 MMOL/L 22-32 N code = CO2) GLUCOSE (test code = 699 MG/DL 65-99 HH Results of this GLU) assay method ma [...] TOTAL (test code = ALKP) CV CALL [id number] 00:24:00 Test Item Value Reference Range Interpretation Comments CV CALL CHEM (test code = CVC) CBC W/AUTO [id number] 00:21:00 Test Item Value Reference Range Interpretation [...] TECH REVIEW (test code = MDIFF) RBC [id number] 00:21:00 Test Item Value Reference Range Interpretation Comments RBC MORPHOLOGY COMMENT (test code See Comment = RBCM) HYPOCHROMIA (test code = HYPO) 1+ POIKILOCYTOSIS (test code = POIK) 1+ ANISOCYTOSIS (test code = ANISO) 2+ MICROCYTOSIS (test code = MICR) 1+ MACROCYTOSIS (test code = MACR) 1+ PLATELET [id number] 00:21:00 Test Item Value Reference Range Interpretation Comments PLATELET ESTIMATE (test code = PLTEST) Dec ADEQ A PLATELET [id number] 00:21:00 Test Item Value Reference Range Interpretation Comments PLATELET MORPHOLOGY (test Variable Plt Size Normal A code = PLTMORPH) CBC W/AUTO [id number] 00:01:00 Test Item Value Reference Range Interpretation [...] TECH REVIEW (test code = MDIFF) RBC [id number] 00:01:00 Test Item Value Reference Range Interpretation Comments RBC MORPHOLOGY COMMENT (test code = RBCM) PLATELET [id number] 00:01:00 Test Item Value Reference Range Interpretation Comments PLATELET ESTIMATE (test code = PLTEST) ADEQ CBC W/AUTO [id number] 00:01:00 Test Item Value Reference Range Interpretation [...] TECH REVIEW (test code = MDIFF) RBC [id number] 00:01:00 Test Item Value Reference Range Interpretation Comments RBC MORPHOLOGY COMMENT (test code = RBCM) PLATELET [id number] 00:01:00 Test Item Value Reference Range Interpretation Comments PLATELET ESTIMATE (test code = PLTEST) ADEQ LACTIC [id number] 21:20:00 Test Item Value Reference Range Interpretation Comments LACTIC ACID (test code = LACT) 1.7 MMOL/L 0.5-2.2 N [id number] 21:05:00 Test Item Value Reference Range Interpretation Comments GLUBED (test code = 296 MG/DL 65-99 H Performe d by certified GLUBED) cutter operator at [facility] Coronavirus 2019 nCoV [id number] 20:41:00 Test Item Value Reference Range Interpretation Comments Coronavirus 2019 nCoV Negative Negative ID NOW COVID-19 assay Bedside (test code = perform ed on the ID NOW [id number]) Instrument travon rapid molecular in vi tro diagnostic test utilizing aniso thermal nucleic acid amplification t echnology intendedfor the qualitative det ection of nucleic acid fr om jkwPMZP-ZhT-7 v iral RNA in direct nasal , [...] and epidemiological informati on. CONFIRMED ADMISSION WITH DEEPIKA VIRK [id number] 19:16:00 Test Item Value Reference Range Interpretation Comments LACTIC ACID (test code = LACT) 2.3 MMOL/L 0.5-2.2 H [id number] 18:45:00 Test Item Value Reference Range Interpretation Comments GLUBED (test code = 389 MG/DL 65-99 H Performe d by certified GLUBED) cutter operator at [facility] LACTIC [id number] 18:35:00 Test Item Value Reference Range Interpretation Comments LACTIC ACID (test code = LACT) 2.3 MMOL/L 0.5-2.2 H - CT ABD PELVIS [id number] 17:44:00 Patient Name: ABHIJIT PEDROZA Unit No: [id number] EXAMS: CPT CODE: [id number] CT ABD PELVIS W/CONT 68332 Reason: abd pain History: abd pain TECHNIQUE: [...] in both lower lung. Consider nonemergent [facility] NAME: ABHIJIT PEDROZA [address] [place] [address] PHYS: PEPDA. - Dru Milton MD [address] : 1965 AGE: 53 SEX: F [place], [place] [address] LOC: D.PER PHONE #: [phone] EXAM DATE: 09/08/2019 STATUS: REG ER FAX #: RAD NO: DC Dt: PAGE 1 Signed Report (CONTINUED) Patient Name: ABHIJIT PEDROZA Unit No: [id number] EXAMS: CPT CODE: [id number] ABD PELVIS W/CONT 72533 <Continued> Reason: abd pain chest evaluation. 2. 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 3. Splenomegaly. at 1744 Reported and signed by: Prabhjot Foley MD CC: Gauri Lanier MD.; Ju Neville; Dru Milton MD Technologist: Yue PATTON Trscrpt Dt/ (174)[email or web address] Orig Print D/T: S: 09/08/2019 (174) CTDI: DLP: [facility] NAME: ABHIJIT PEDROZA [address] [place] [address] PHYS: PEPDA. - Dru Milton MD [address] : 1965 AGE: 53 SEX: F [place], [place] [address] LOC: D.PER PHONE #: [phone] EXAM DATE: 09/08/2019 STATUS: REG ER FAX #: RAD NO: DC Dt: PAGE 2 Signed ReportBETA [id number] 17:41:00 Test Item Value Reference Range Interpretation Comments BETA HYDROXYBUTYRATE (test code = 0.89 mmol/L 0.02-0.27 H BETHYD) UA RFLX [id number] 17:11:00 Test Item Value Reference Range Interpretation [...] Clean Catch (test code = UASPEC) UA [id number] 17:11:00 Test Item Value Reference Range Interpretation Comments UA WBC (test code = WBCU) < 10 #/hpf <10 UA RBC (test code = RBCU) 5-10 #/hpf NONE SEEN A UA BACTERIA (test code = 1+ #/hpf NONE SEEN BACU) UA SQUAMOUS CELLS (test code 20 - 40 #/lpf <100 = SQU) UA CULTURE NEEDED? (test Criteria not met code = UACULT) UA RFLX [id number] 17:09:00 Test Item Value Reference Range Interpretation [...] Clean Catch (test code = UASPEC) UA [id number] 17:09:00 Test Item Value Reference Range Interpretation Comments UA WBC (test code = WBCU) #/hpf <10 UA RBC (test code = RBCU) #/hpf NONE SEEN UA SQUAMOUS CELLS (test code = SQU) #/lpf <100 UA CULTURE NEEDED? (test code = UACULT) UA RFLX [id number] 17:09:00 Test Item Value Reference Range Interpretation [...] Clean Catch (test code = UASPEC) UA [id number] 17:09:00 Test Item Value Reference Range Interpretation Comments UA WBC (test code = WBCU) #/hpf <10 UA RBC (test code = RBCU) #/hpf NONE SEEN UA SQUAMOUS CELLS (test code = SQU) #/lpf <100 UA CULTURE NEEDED? (test code = UACULT) COMPREHENSIVE METABOLIC [id number] 16:55:00 Test Item Value Reference Range Interpretation [...] 50-136 H TOTAL (test code = ALKP) [id number] 16:55:00 Test Item Value Reference Range Interpretation Comments LIPASE (test code = LIP) 185 Units/L 73-393 N [id number] 16:55:00 Test Item Value Reference Range Interpretation [...] high dos es of Biotin. CV CALL [id number] 16:55:00 Test Item Value Reference Range Interpretation Comments CV CALL CHEM (test Called Results c alled to and code = CVC) read back by MCKENZIE PATRICK RN;.for analyte (s): GLU .at 1655 - 08/26 05/15; by D.LAB.MCM. COMPREHENSIVE METABOLIC [id number] 16:54:00 Test Item Value Reference Range Interpretation [...] 50-136 H TOTAL (test code = ALKP) [id number] 16:54:00 Test Item Value Reference Range Interpretation Comments LIPASE (test code = LIP) 185 Units/L 73-393 N [id number] 16:54:00 Test Item Value Reference Range Interpretation [...] high dos es of Biotin. CV CALL [id number] 16:54:00 Test Item Value Reference Range Interpretation Comments CV CALL CHEM (test code = CVC) - XR ANKLE 2 VIEWS [id number] 16:53:00 Patient Name: ABHIJIT PEDROZA Unit No: [id number] EXAMS: CPT CODE: [id number] X[place]KLE [address] [place] [address] Reason: ankle pain, swelling History: ankle pain, [...] Ju Neville; Dru Milton MD Technologist: Yue Paz CT Trscrpt Dt/ (1652)[email or web address] Orig Print D/T: S: 09/08/2019 (1656) [facility] NAME: ABHIJIT PEDROZA [address] [place] [address] PHYS: [email or web address] - Dru Milton MD [address] : 1965 AGE: 53 SEX: F [place], [place] [address] LOC: HALIMA PHONE #: [phone] EXAM DATE: 09/08/2019 STATUS: REG ER FAX #: RAD NO: DC Dt: PAGE 1 Signed ReportCBC W/AUTO [id number] 16:15:00 Test Item Value Reference Range Interpretation [...] 0.02 x10 3/uL 0.0-0.2 N COMPREHENSIVE METABOLIC [id number] 20:46:00 Test Item Value Reference Range Interpretation [...] 50-136 N TOTAL (test code = ALKP) [id number] 20:46:00 Test Item Value Reference Range Interpretation Comments LIPASE (test code = LIP) 83 Units/L 73-393 N PROTHROMBIN [id number] 20:45:00 Test Item Value Reference Range Interpretation [...] with flex-stent *: 3.0 - 4.0(*) = healthcare analyst's suggested range Is patient on anticoagulants? No [...] Is patient on anticoagulants? No AnticoagulantsCBC W/AUTO [id number] 20:44:00 Test Item Value Reference Range Interpretation [...] SCAN PLT_RBC TECH REVIEW = MDIFF) RBC [id number] 20:44:00 Test Item Value Reference Range Interpretation Comments RBC MORPHOLOGY COMMENT (test code = Normal RBCM) PLATELET [id number] 20:44:00 Test Item Value Reference Range Interpretation Comments PLATELET ESTIMATE (test Dec ADEQ A PLAT ELET ESTIMATE: code = PLTEST) 75,000/ MM Cu bed. CBC W/AUTO [id number] 20:44:00 Test Item Value Reference Range Interpretation [...] SCAN PLT_RBC TECH REVIEW = MDIFF) RBC [id number] 20:44:00 Test Item Value Reference Range Interpretation Comments RBC MORPHOLOGY COMMENT (test code = Normal RBCM) PLATELET [id number] 20:44:00 Test Item Value Reference Range Interpretation Comments PLATELET ESTIMATE (test Dec ADEQ A PLAT ELET ESTIMATE: code = PLTEST) 75,000/ MM Cu bed. PLATELET [id number] 20:44:00 Test Item Value Reference Range Interpretation Comments PLATELET MORPHOLOGY (test code = Normal Normal PLTMORPH) COMPREHENSIVE METABOLIC [id number] 20:44:00 Test Item Value Reference Range Interpretation [...] Units/L 50-136 TOTAL (test code = ALKP) [id number] 20:44:00 Test Item Value Reference Range Interpretation Comments LIPASE (test code = LIP) Units/L 73-393 CBC W/AUTO [id number] 20:43:00 Test Item Value Reference Range Interpretation [...] SCAN PLT_RBC TECH REVIEW = MDIFF) RBC [id number] 20:43:00 Test Item Value Reference Range Interpretation Comments RBC MORPHOLOGY COMMENT (test code = RBCM) PLATELET [id number] 20:43:00 Test Item Value Reference Range Interpretation Comments PLATELET ESTIMATE (test code = PLTEST) ADEQ CBC W/AUTO [id number] 20:43:00 Test Item Value Reference Range Interpretation [...] SCAN PLT_RBC TECH REVIEW = MDIFF) RBC [id number] 20:43:00 Test Item Value Reference Range Interpretation Comments RBC MORPHOLOGY COMMENT (test code = RBCM) PLATELET [id number] 20:43:00 Test Item Value Reference Range Interpretation Comments PLATELET ESTIMATE (test code = PLTEST) ADEQ CBC W/AUTO [id number] 20:35:00 Test Item Value Reference Range Interpretation [...] 0.02 x10 3/uL 0.0-0.2 N CBC W/AUTO [id number] 19:18:00 Test Item Value Reference Range Interpretation [...] SCAN PLT_RBC TECH REVIEW = MDIFF) RBC [id number] 19:18:00 Test Item Value Reference Range Interpretation Comments RBC MORPHOLOGY COMMENT (test code = Normal RBCM) PLATELET [id number] 19:18:00 Test Item Value Reference Range Interpretation Comments PLATELET ESTIMATE (test Dec ADEQ A PLAT ELET ESTIMATE: code = PLTEST) 60,000 PLATELET [id number] 19:18:00 Test Item Value Reference Range Interpretation Comments PLATELET MORPHOLOGY (test code = Normal Normal PLTMORPH) CV CALL [id number] 19:18:00 Test Item Value Reference Range Interpretation Comments CV CALL HEM (test code Called Resul ts called to and = CVCH) read back by SANTHOSH MOSQUEDA RN;.for analyte(s): PLT .at 1906 - 08/21/18; by D. LAB.MCM. CBC W/AUTO [id number] 19:07:00 Test Item Value Reference Range Interpretation [...] SCAN PLT_RBC TECH REVIEW = MDIFF) RBC [id number] 19:07:00 Test Item Value Reference Range Interpretation Comments RBC MORPHOLOGY COMMENT (test code = RBCM) PLATELET [id number] 19:07:00 Test Item Value Reference Range Interpretation Comments PLATELET ESTIMATE (test code = PLTEST) ADEQ CV CALL [id number] 19:07:00 Test Item Value Reference Range Interpretation Comments CV CALL HEM (test code Called Resul ts called to and = CVCH) read back by SANTHOSH MOSQUEDA RN;.for analyte(s): PLT .at 1906 - 08/21/18; by D. LAB.MCM. BASIC METABOLIC [id number] 19:07:00 Test Item Value Reference Range Interpretation [...] code = 8.1 MG/DL 8.7-10.5 L CA) [id number] 19:07:00 Test Item Value Reference Range Interpretation Comments MAGNESIUM (test code = MAG) 1.6 MG/DL 1.8-2.4 L CBC W/AUTO [id number] 19:05:00 Test Item Value Reference Range Interpretation [...] SCAN PLT_RBC TECH REVIEW = MDIFF) RBC [id number] 19:05:00 Test Item Value Reference Range Interpretation Comments RBC MORPHOLOGY COMMENT (test code = RBCM) PLATELET [id number] 19:05:00 Test Item Value Reference Range Interpretation Comments PLATELET ESTIMATE (test code = PLTEST) ADEQ CV CALL [id number] 19:05:00 Test Item Value Reference Range Interpretation Comments CV CALL HEM (test code = CVCH) CBC W/AUTO [id number] 19:05:00 Test Item Value Reference Range Interpretation [...] SCAN PLT_RBC TECH REVIEW = MDIFF) RBC [id number] 19:05:00 Test Item Value Reference Range Interpretation Comments RBC MORPHOLOGY COMMENT (test code = RBCM) PLATELET [id number] 19:05:00 Test Item Value Reference Range Interpretation Comments PLATELET ESTIMATE (test code = PLTEST) ADEQ CV CALL [id number] 19:05:00 Test Item Value Reference Range Interpretation Comments CV CALL HEM (test code = CVCH) CBC W/AUTO [id number] 19:19:00 Test Item Value Reference Range Interpretation [...] SCAN PLT_RBC TECH REVIEW = MDIFF) RBC [id number] 19:19:00 Test Item Value Reference Range Interpretation Comments RBC MORPHOLOGY COMMENT (test code = Normal RBCM) PLATELET [id number] 19:19:00 Test Item Value Reference Range Interpretation Comments PLATELET ESTIMATE (test Dec ADEQ A PLAT ELET ESTIMATE: code = PLTEST) 75,000/ mm CU BED. PLATELET [id number] 19:19:00 Test Item Value Reference Range Interpretation Comments PLATELET MORPHOLOGY (test code = Normal Normal PLTMORPH) CV CALL [id number] 19:19:00 Test Item Value Reference Range Interpretation Comments CV CALL HEM (test code Called Resul ts called to and = CVCH) read back by DR Castro ROBERTSON;.for a nalyte(s): PLT.at 1918 - 0 08/07/18; by DCastroLABIDANIA. UA RFLX MICROSCOPIC [id number] 19:01:00 Test Item Value Reference Range Interpretation [...] Criteria not met code = UACULT) UA [id number] 19:01:00 Test Item Value Reference Range Interpretation Comments UA RBC (test code = RBCU) 0-2 #/hpf NONE SEEN A UA BACTERIA (test code = BACU) RARE #/hpf NONE SEEN BASIC METABOLIC [id number] 18:54:00 Test Item Value Reference Range Interpretation [...] 8.2 MG/DL 8.7-10.5 L CA) HEPATIC FUNCTION [id number] 18:54:00 Test Item Value Reference Range Interpretation [...] 50-136 N TOTAL (test code = ALKP) [id number] 18:54:00 Test Item Value Reference Range Interpretation Comments LIPASE (test code = LIP) 216 Units/L 73-393 N [id number] 18:54:00 Test Item Value Reference Range Interpretation Comments MAGNESIUM (test code = MAG) 1.5 MG/DL 1.8-2.4 L NT PRO-BRAIN NATRIURETIC [id number] 18:54:00 Test Item Value Reference Range Interpretation Comments NT PRO-BRAIN 24 PG/ML 0-125 N Results of this assay NATRIURETIC PEPTI (test meth od may be falsely code = PROBNP) depressed ore levated if patient is t aking high doses of B iotin. CPK-MB [id number] 18:54:00 Test Item Value Reference Range Interpretation Comments CK (test code = 65 Units/L 26-192 N CKT) CKMB (test code = 0.6 NG/ML 0.0-3.6 N CKMB sugge stive of CKMBT) non-AMI; MB Ind ex is not reported. CBC W/AUTO [id number] 18:50:00 Test Item Value Reference Range Interpretation [...] SCAN PLT_RBC TECH REVIEW = MDIFF) RBC [id number] 18:50:00 Test Item Value Reference Range Interpretation Comments RBC MORPHOLOGY COMMENT (test code = Normal RBCM) PLATELET [id number] 18:50:00 Test Item Value Reference Range Interpretation Comments PLATELET ESTIMATE (test Dec ADEQ A PLAT ELET ESTIMATE: code = PLTEST) 75,000/ mm CU BED. CV CALL [id number] 18:50:00 Test Item Value Reference Range Interpretation Comments CV CALL HEM (test code = CVCH) CBC W/AUTO [id number] 18:50:00 Test Item Value Reference Range Interpretation [...] SCAN PLT_RBC TECH REVIEW = MDIFF) RBC [id number] 18:50:00 Test Item Value Reference Range Interpretation Comments RBC MORPHOLOGY COMMENT (test code = Normal RBCM) PLATELET [id number] 18:50:00 Test Item Value Reference Range Interpretation Comments PLATELET ESTIMATE (test Dec ADEQ A PLAT ELET ESTIMATE: code = PLTEST) 75,000/ mm CU BED. PLATELET [id number] 18:50:00 Test Item Value Reference Range Interpretation Comments PLATELET MORPHOLOGY (test code = Normal Normal PLTMORPH) CV CALL [id number] 18:50:00 Test Item Value Reference Range Interpretation Comments CV CALL HEM (test code = CVCH) PROTHROMBIN [id number] 18:48:00 Test Item Value Reference Range Interpretation [...] with flex-stent *: 3.0 - 4.0(*) = healthcare analyst's suggested range Is patient on anticoagulants? UnknownTHROMBOPLASTIN TIME [id number] 18:48:00 Test Item Value Reference Range Interpretation [...] Is patient on anticoagulants? UnknownUA RFLX MICROSCOPIC [id number] 18:46:00 Test Item Value Reference Range Interpretation [...] CULTURE NEEDED? (test code = UACULT) UA [id number] 18:46:00 Test Item Value Reference Range Interpretation Comments UA RBC (test code = RBCU) #/hpf NONE SEEN UA RFLX MICROSCOPIC [id number] 18:46:00 Test Item Value Reference Range Interpretation [...] CULTURE NEEDED? (test code = UACULT) UA [id number] 18:46:00 Test Item Value Reference Range Interpretation Comments UA RBC (test code = RBCU) #/hpf NONE SEEN CBC W/AUTO [id number] 18:20:00 Test Item Value Reference Range Interpretation [...] SCAN PLT_RBC TECH REVIEW = MDIFF) RBC [id number] 18:20:00 Test Item Value Reference Range Interpretation Comments RBC MORPHOLOGY COMMENT (test code = RBCM) PLATELET [id number] 18:20:00 Test Item Value Reference Range Interpretation Comments PLATELET ESTIMATE (test code = PLTEST) ADEQ CV CALL [id number] 18:20:00 Test Item Value Reference Range Interpretation Comments CV CALL HEM (test code = CVCH) CBC W/AUTO [id number] 18:19:00 Test Item Value Reference Range Interpretation [...] SCAN PLT_RBC TECH REVIEW = MDIFF) RBC [id number] 18:19:00 Test Item Value Reference Range Interpretation Comments RBC MORPHOLOGY COMMENT (test code = RBCM) PLATELET [id number] 18:19:00 Test Item Value Reference Range Interpretation Comments PLATELET ESTIMATE (test code = PLTEST) ADEQ CV CALL [id number] 18:19:00 Test Item Value Reference Range Interpretation Comments CV CALL HEM (test code = CVCH) - XR CHEST 1 [id number] 18:06:00 Patient Name: ABHIJIT PEDROZA Unit No: [id number] EXAMS: CPT CODE: [id number] XR CHEST 1 V 67213 Reason: Abdominal pain - XR CHEST 1 [...] Alcantara NP Technologist: Yue PATTON Trscrpt Dt/ (180)JonesKC41 Orig Print D/T: S: 08/07/2018 (1809) [place] NAME: ABHIJIT PEDROZA [address] [place] [address] PHYS: ELIZABETH RobertsonLatoya DO [address] : 1965 AGE: 52 SEX: F [place], [place] [address] : D.PER PHONE #: [phone] EXAM DATE: 08/07/2018 STATUS: REG ER FAX #: RAD NO: DC Dt: PAGE 1 Signed ReportTROPONIN I [id number] 18:00:00 Test Item Value Reference Range Interpretation Comments TROPONIN I RAPID 0.00 NG/ML 0.00-0.08 N Performed b y certified (test code = cutter operator at [facility]) EC - The use o f serial sampling and te sting protocol is a recommended pra ctice.- An elevated tro ponin level alone is often not sufficient for diagnosis of my ocardial infarction. [id number] 16:21:00 Test Item Value Reference Range Interpretation Comments GLUBED (test code = 83 MG/DL 65-99 N Performe d by certified GLUBED) cutter operator at [facility] UA RFLX MICROSCOPIC [id number] 15:25:00 Test Item Value Reference Range Interpretation [...] Criteria not met code = UACULT) UA [id number] 15:25:00 Test Item Value Reference Range Interpretation Comments UA RBC (test code = RBCU) 0-2 #/hpf NONE SEEN A UA BACTERIA (test code = BACU) FEW #/hpf NONE SEEN A UA RFLX MICROSCOPIC [id number] 15:19:00 Test Item Value Reference Range Interpretation [...] CULTURE NEEDED? (test code = UACULT) UA [id number] 15:19:00 Test Item Value Reference Range Interpretation Comments UA RBC (test code = RBCU) #/hpf NONE SEEN UA RFLX MICROSCOPIC [id number] 15:19:00 Test Item Value Reference Range Interpretation [...] CULTURE NEEDED? (test code = UACULT) UA [id number] 15:19:00 Test Item Value Reference Range Interpretation Comments UA RBC (test code = RBCU) #/hpf NONE SEEN [id number] 15:17:00 Test Item Value Reference Range Interpretation Comments GLUBED (test code = 232 MG/DL 65-99 H Performe d by certified GLUBED) cutter operator at [facility] CBC W/AUTO [id number] 15:16:00 Test Item Value Reference Range Interpretation [...] SCAN PLT_RBC TECH REVIEW = MDIFF) RBC [id number] 15:16:00 Test Item Value Reference Range Interpretation Comments RBC MORPHOLOGY COMMENT (test code = RBCM) ANISOCYTOSIS (test code = ANISO) 1+ PLATELET [id number] 15:16:00 Test Item Value Reference Range Interpretation Comments PLATELET ESTIMATE (test Dec ADEQ A MANU AL PLT ESTIMATE code = PLTEST) 77776 CV CALL [id number] 15:16:00 Test Item Value Reference Range Interpretation Comments CV CALL HEM (test Called Results ca lled to and read code = CVCH) back by JEANETTE IN DEBORAH SANCHEZ;.for analyte (s): PLT.at 1430 - 06/12/18 ; by D.LAB.RAPHAEL. CBC W/AUTO [id number] 15:16:00 Test Item Value Reference Range Interpretation [...] SCAN PLT_RBC TECH REVIEW = MDIFF) RBC [id number] 15:16:00 Test Item Value Reference Range Interpretation Comments ANISOCYTOSIS (test code = ANISO) 1+ PLATELET [id number] 15:16:00 Test Item Value Reference Range Interpretation Comments PLATELET ESTIMATE (test Dec ADEQ A MANU AL PLT ESTIMATE code = PLTEST) 01009 CV CALL [id number] 15:16:00 Test Item Value Reference Range Interpretation Comments CV CALL HEM (test Called Results ca lled to and read code = CVCH) back by JEANETTE SANCHEZ RN;.for analyte (s): PLT.at 1430 - 06/12/18 ; by D.LAB.RAPHAEL. BASIC METABOLIC [id number] 15:06:00 Test Item Value Reference Range Interpretation [...] 9.4 MG/DL 8.7-10.5 N CA) HEPATIC FUNCTION [id number] 15:06:00 Test Item Value Reference Range Interpretation [...] 50-136 H TOTAL (test code = ALKP) [id number] 15:06:00 Test Item Value Reference Range Interpretation Comments LIPASE (test code = LIP) 208 Units/L 73-393 N BETA [id number] 15:06:00 Test Item Value Reference Range Interpretation Comments BETA HYDROXYBUTYRATE (test code = 0.17 0.02-0.27 N BETHYD) CV CALL [id number] 15:06:00 Test Item Value Reference Range Interpretation Comments CV CALL CHEM (test Called Results c alled to and code = CVC) read back by PHILLIP POOLE RN;.fo r analyte(s): GLU COSE .at 1456 - 06/12/18 ; by D.LAB.BM1. BASIC METABOLIC [id number] 14:56:00 Test Item Value Reference Range Interpretation [...] 9.4 MG/DL 8.7-10.5 N CA) HEPATIC FUNCTION [id number] 14:56:00 Test Item Value Reference Range Interpretation [...] 50-136 H TOTAL (test code = ALKP) [id number] 14:56:00 Test Item Value Reference Range Interpretation Comments LIPASE (test code = LIP) 208 Units/L 73-393 N BETA [id number] 14:56:00 Test Item Value Reference Range Interpretation Comments BETA HYDROXYBUTYRATE (test code = 0.02-0.27 BETHYD) CV CALL [id number] 14:56:00 Test Item Value Reference Range Interpretation Comments CV CALL CHEM (test Called Results c alled to and code = CVC) read back by SC ELLIOTT POOLE RN;.fo r analyte(s): GLU COSE .at 1456 - 06/12/18 ; by JUAQUIN.BM1. BASIC METABOLIC [id number] 14:54:00 Test Item Value Reference Range Interpretation [...] 9.4 MG/DL 8.7-10.5 N CA) HEPATIC FUNCTION [id number] 14:54:00 Test Item Value Reference Range Interpretation [...] 50-136 H TOTAL (test code = ALKP) [id number] 14:54:00 Test Item Value Reference Range Interpretation Comments LIPASE (test code = LIP) 208 Units/L 73-393 N BETA [id number] 14:54:00 Test Item Value Reference Range Interpretation Comments BETA HYDROXYBUTYRATE (test code = 0.02-0.27 BETHYD) CV CALL [id number] 14:54:00 Test Item Value Reference Range Interpretation Comments CV CALL CHEM (test code = CVC) - XR CHEST 1 [id number] 14:50:00 Patient Name: ABHIJIT PEDROZA Unit No: [id number] EXAMS: CPT CODE: [id number] XR CHEST 1 V 83307 Reason: altered mental status - XR CHEST [...] Tran Students; Mary Lloyd RT Trscrpt Dt/ (5810)t.PKE Orig Print D/T: S: 06/12/2018 (5932) [facility] NAME: ABHIJIT PEDROZA [address] [facility] PHYS: ANA - rBice Linn [place] [facility] [place] [address] : 1965 AGE: 52 SEX: F LOC: GauriCastroMIC PHONE #: [phone] EXAM DATE: 06/12/2018 STATUS: REG ER FAX #: RAD NO: DC Dt: PAGE 1 Signed Report [id number] 14:31:00 Test Item Value Reference Range Interpretation Comments GLUBED (test code = 437 MG/DL 65-99 HH Performe d by certified GLUBED) cutter operator at [facility] CBC W/AUTO [id number] 14:30:00 Test Item Value Reference Range Interpretation [...] SCAN PLT_RBC TECH REVIEW = MDIFF) RBC [id number] 14:30:00 Test Item Value Reference Range Interpretation Comments RBC MORPHOLOGY COMMENT (test code = RBCM) PLATELET [id number] 14:30:00 Test Item Value Reference Range Interpretation Comments PLATELET ESTIMATE (test code = PLTEST) ADEQ CV CALL [id number] 14:30:00 Test Item Value Reference Range Interpretation Comments CV CALL HEM (test code = CVCH) CBC W/AUTO [id number] 14:30:00 Test Item Value Reference Range Interpretation [...] SCAN PLT_RBC TECH REVIEW = MDIFF) RBC [id number] 14:30:00 Test Item Value Reference Range Interpretation Comments RBC MORPHOLOGY COMMENT (test code = RBCM) PLATELET [id number] 14:30:00 Test Item Value Reference Range Interpretation Comments PLATELET ESTIMATE (test code = PLTEST) ADEQ CV CALL [id number] 14:30:00 Test Item Value Reference Range Interpretation Comments CV CALL HEM (test Called Results ca lled to and read code = CVCH) back by JEANETTE SANCHEZ RN;.for analyte (s): PLT.at 1430 - 06/12/18 ; by D.LAB.RAPHAEL. CBC W/AUTO [id number] 14:30:00 Test Item Value Reference Range Interpretation [...] SCAN PLT_RBC TECH REVIEW = MDIFF) RBC [id number] 14:30:00 Test Item Value Reference Range Interpretation Comments RBC MORPHOLOGY COMMENT (test code = RBCM) PLATELET [id number] 14:30:00 Test Item Value Reference Range Interpretation Comments PLATELET ESTIMATE (test code = PLTEST) ADEQ CV CALL [id number] 14:30:00 Test Item Value Reference Range Interpretation Comments CV CALL HEM (test code = CVCH) IMMUNOGLOBULIN [id number] 12:07:00 Test Item Value Reference Range Interpretation Comments IMMUNOGLOBULIN E (test 20 IU/mL 6-495 code = IGE) Please note reference inter uma changePerform ed At: [facility] [address] [id number] ra Abad MENDOZA Ph:[phone] [id number] 11:19:00 Test Item Value Reference Range Interpretation Comments GLUBED (test code = 199 MG/DL 65-99 H Performe d by certified GLUBED) cutter operator at [facility] CBC W/AUTO [id number] 08:31:00 Test Item Value Reference Range Interpretation [...] SCAN PLT_RBC TECH REVIEW = MDIFF) PLATELET [id number] 08:31:00 Test Item Value Reference Range Interpretation Comments PLATELET ESTIMATE (test Dec ADEQ A MANU AL PLATELET code = PLTEST) ESTIMATE: 45, 000 CV CALL [id number] 08:31:00 Test Item Value Reference Range Interpretation Comments CV CALL HEM Not Called This is not the first (test code = occurrence of t his result CVCH) flaggedcritical for this analyte. Crite daily to call not met.79905/23/18; by DCastroLAB.DAY. CBC W/AUTO [id number] 08:30:00 Test Item Value Reference Range Interpretation [...] SCAN PLT_RBC TECH REVIEW = MDIFF) RBC [id number] 08:30:00 Test Item Value Reference Range Interpretation Comments RBC MORPHOLOGY COMMENT (test code = RBCM) PLATELET [id number] 08:30:00 Test Item Value Reference Range Interpretation Comments PLATELET ESTIMATE (test code = PLTEST) ADEQ CV CALL [id number] 08:30:00 Test Item Value Reference Range Interpretation Comments CV CALL HEM Not Called This is not the first (test code = occurrence of t his result CVCH) flaggedcritical for this analyte. Chapin daily to call not met.79905/23/18; by YONATAN. CBC W/AUTO [id number] 08:30:00 Test Item Value Reference Range Interpretation [...] SCAN PLT_RBC TECH REVIEW = MDIFF) RBC [id number] 08:30:00 Test Item Value Reference Range Interpretation Comments RBC MORPHOLOGY COMMENT (test code = RBCM) PLATELET [id number] 08:30:00 Test Item Value Reference Range Interpretation Comments PLATELET ESTIMATE (test code = PLTEST) ADEQ CV CALL [id number] 08:30:00 Test Item Value Reference Range Interpretation Comments CV CALL HEM Not Called This is not the first (test code = occurrence of t his result CVCH) flaggedcritical for this analyte. Crite daily to call not met.79905/23/18; by Mary KayLAB.DAY. COMPREHENSIVE METABOLIC [id number] 08:18:00 Test Item Value Reference Range Interpretation [...] 50-136 N TOTAL (test code = ALKP) [id number] 08:18:00 Test Item Value Reference Range Interpretation Comments MAGNESIUM (test code = MAG) 2.0 MG/DL 1.8-2.4 N CBC W/AUTO [id number] 08:00:00 Test Item Value Reference Range Interpretation [...] X10 3/uL 0.0-0.2 N NRBC#) CV CALL [id number] 08:00:00 Test Item Value Reference Range Interpretation Comments CV CALL HEM (test code = CVCH) CBC W/AUTO [id number] 08:00:00 Test Item Value Reference Range Interpretation [...] X10 3/uL 0.0-0.2 N NRBC#) CV CALL [id number] 08:00:00 Test Item Value Reference Range Interpretation Comments CV CALL HEM Not Called This is not the first (test code = occurrence of t his result CVCH) flaggedcritical for this analyte. Chapin ambrosio to call not met.79905/23/18; by Mary KayLAB.DAY. [id number] 06:35:00 Test Item Value Reference Range Interpretation Comments GLUBED (test code = 128 MG/DL 65-99 H Performe d by certified GLUBED) cutter operator at [facility] [id number] 20:50:00 Test Item Value Reference Range Interpretation Comments GLUBED (test code = 130 MG/DL 65-99 H Performe d by certified GLUBED) cutter operator at [facility] [id number] 16:48:00 Test Item Value Reference Range Interpretation Comments GLUBED (test code = 205 MG/DL 65-99 H Performe d by certified GLUBED) cutter operator at [facility] [id number] 11:33:00 Test Item Value Reference Range Interpretation Comments GLUBED (test code = 218 MG/DL 65-99 H Performe d by certified GLUBED) cutter operator at [facility] [id number] 06:34:00 Test Item Value Reference Range Interpretation Comments GLUBED (test code = 106 MG/DL 65-99 H Performe d by certified GLUBED) cutter operator at [facility] CBC W/AUTO [id number] 05:39:00 Test Item Value Reference Range Interpretation [...] SCAN PLT_RBC TECH REVIEW = MDIFF) RBC [id number] 05:39:00 Test Item Value Reference Range Interpretation Comments RBC MORPHOLOGY COMMENT (test code = Normal RBCM) PLATELET [id number] 05:39:00 Test Item Value Reference Range Interpretation Comments PLATELET ESTIMATE (test Dec ADEQ A MANU AL PLATELET code = PLTEST) ESTIMATE: 45 PLATELET [id number] 05:39:00 Test Item Value Reference Range Interpretation Comments PLATELET MORPHOLOGY (test code = Normal Normal PLTMORPH) CV CALL [id number] 05:39:00 Test Item Value Reference Range Interpretation Comments CV CALL HEM Not Called This is not the first (test code = occurrence of t his result CVCH) flaggedcritical for this analyte. Crite daily to call not met.0504 - 05/22/18; by ANA1. CBC W/AUTO [id number] 05:04:00 Test Item Value Reference Range Interpretation [...] SCAN PLT_RBC TECH REVIEW = MDIFF) RBC [id number] 05:04:00 Test Item Value Reference Range Interpretation Comments RBC MORPHOLOGY COMMENT (test code = RBCM) PLATELET [id number] 05:04:00 Test Item Value Reference Range Interpretation Comments PLATELET ESTIMATE (test code = PLTEST) ADEQ CV CALL [id number] 05:04:00 Test Item Value Reference Range Interpretation Comments CV CALL HEM (test code = CVCH) CBC W/AUTO [id number] 05:04:00 Test Item Value Reference Range Interpretation [...] SCAN PLT_RBC TECH REVIEW = MDIFF) RBC [id number] 05:04:00 Test Item Value Reference Range Interpretation Comments RBC MORPHOLOGY COMMENT (test code = RBCM) PLATELET [id number] 05:04:00 Test Item Value Reference Range Interpretation Comments PLATELET ESTIMATE (test code = PLTEST) ADEQ CV CALL [id number] 05:04:00 Test Item Value Reference Range Interpretation Comments CV CALL HEM Not Called This is not the first (test code = occurrence of t his result CVCH) flaggedcritical for this analyte. Crite daily to call not met.05005/22/18; by Mary KayLAB.JP1. CBC W/AUTO [id number] 05:04:00 Test Item Value Reference Range Interpretation [...] SCAN PLT_RBC TECH REVIEW = MDIFF) RBC [id number] 05:04:00 Test Item Value Reference Range Interpretation Comments RBC MORPHOLOGY COMMENT (test code = RBCM) PLATELET [id number] 05:04:00 Test Item Value Reference Range Interpretation Comments PLATELET ESTIMATE (test code = PLTEST) ADEQ CV CALL [id number] 05:04:00 Test Item Value Reference Range Interpretation Comments CV CALL HEM (test code = CVCH) BASIC METABOLIC [id number] 04:48:00 Test Item Value Reference Range Interpretation [...] code = 8.7 MG/DL 8.7-10.5 N CA) [id number] 04:48:00 Test Item Value Reference Range Interpretation Comments MAGNESIUM (test code = MAG) 2.0 MG/DL 1.8-2.4 N [id number] 20:17:00 Test Item Value Reference Range Interpretation Comments GLUBED (test code = 135 MG/DL 65-99 H Performe d by certified GLUBED) cutter operator at [facility] [id number] 17:32:00 Test Item Value Reference Range Interpretation Comments GLUBED (test code = 176 MG/DL 65-99 H Performe d by certified GLUBED) cutter operator at [facility] - CT CHEST W/O [id number] 16:04:00 Patient Name: ABHIJIT PEDROZA Unit No: [id number] EXAMS: CPT CODE: [id number] CT CHEST W/O CONTRAST 36868 Reason: SOB, wheezing - CT CHEST W/O [...] Juan Technologist: Liliam Arenas CT Trscrpt Dt/ (1604)Charu Orig Print D/T: S: 05/21/2018 (2737) CTDI: DLP: [facility] Cnt NAME: ABHIJIT PEDROZA [address] PHYS: [id number] [place] [address] : 1965 AGE: 52 SEX: F LOC: D.D287 1 PHONE #: [phone] EXAM DATE: 05/21/2018 STATUS: ADM IN FAX #: RAD NO: DC Dt: PAGE 1 Signed [id number] 11:50:00 Test Item Value Reference Range Interpretation Comments GLUBED (test code = 141 MG/DL 65-99 H Performe d by certified GLUBED) cutter operator at [facility] [id number] 06:52:00 Test Item Value Reference Range Interpretation Comments GLUBED (test code = 147 MG/DL 65-99 H Performe d by certified GLUBED) cutter operator at [facility] BASIC METABOLIC [id number] 06:27:00 Test Item Value Reference Range Interpretation [...] code = 9.1 MG/DL 8.7-10.5 N CA) [id number] 06:27:00 Test Item Value Reference Range Interpretation Comments MAGNESIUM (test code = MAG) 2.2 MG/DL 1.8-2.4 N CBC W/AUTO [id number] 06:27:00 Test Item Value Reference Range Interpretation [...] SCAN PLT_RBC TECH REVIEW = MDIFF) RBC [id number] 06:27:00 Test Item Value Reference Range Interpretation Comments RBC MORPHOLOGY COMMENT (test code = Normal RBCM) PLATELET [id number] 06:27:00 Test Item Value Reference Range Interpretation Comments PLATELET ESTIMATE (test Dec JAMILAQ Dino HUFFMAN AL PLATELET code = PLTEST) ESTIMATE: 45 PLATELET [id number] 06:27:00 Test Item Value Reference Range Interpretation Comments PLATELET MORPHOLOGY (test code = Normal Normal PLTMORPH) CV CALL [id number] 06:27:00 Test Item Value Reference Range Interpretation Comments CV CALL HEM (test code Called Resul ts called to and = CVCH) read back by MCKENZIE BOWLES;.for analyte(s): PLT .at 60005/21/18; by Mary Kay DOWNING1. CBC W/AUTO [id number] 06:01:00 Test Item Value Reference Range Interpretation [...] X10 3/uL 0.0-0.2 N NRBC#) CV CALL [id number] 06:01:00 Test Item Value Reference Range Interpretation Comments CV CALL HEM (test code = CVCH) CBC W/AUTO [id number] 06:01:00 Test Item Value Reference Range Interpretation [...] SCAN PLT_RBC TECH REVIEW = MDIFF) RBC [id number] 06:01:00 Test Item Value Reference Range Interpretation Comments RBC MORPHOLOGY COMMENT (test code = RBCM) PLATELET [id number] 06:01:00 Test Item Value Reference Range Interpretation Comments PLATELET ESTIMATE (test code = PLTEST) ADEQ CV CALL [id number] 06:01:00 Test Item Value Reference Range Interpretation Comments CV CALL HEM (test code = CVCH) CBC W/AUTO [id number] 06:01:00 Test Item Value Reference Range Interpretation [...] SCAN PLT_RBC TECH REVIEW = MDIFF) RBC [id number] 06:01:00 Test Item Value Reference Range Interpretation Comments RBC MORPHOLOGY COMMENT (test code = RBCM) PLATELET [id number] 06:01:00 Test Item Value Reference Range Interpretation Comments PLATELET ESTIMATE (test code = PLTEST) ADEQ CV CALL [id number] 06:01:00 Test Item Value Reference Range Interpretation Comments CV CALL HEM (test code Called Resul ts called to and = CVCH) read back by MCKENZIE BOWLES;.for analyte(s): PLT .at 60005/21/18; by DCastro LAB.AIDEN1. CBC W/AUTO [id number] 06:01:00 Test Item Value Reference Range Interpretation [...] SCAN PLT_RBC TECH REVIEW = MDIFF) RBC [id number] 06:01:00 Test Item Value Reference Range Interpretation Comments RBC MORPHOLOGY COMMENT (test code = RBCM) PLATELET [id number] 06:01:00 Test Item Value Reference Range Interpretation Comments PLATELET ESTIMATE (test code = PLTEST) ADEQ CV CALL [id number] 06:01:00 Test Item Value Reference Range Interpretation Comments CV CALL HEM (test code = CVCH) [id number] 20:43:00 Test Item Value Reference Range Interpretation Comments GLUBED (test code = 77 MG/DL 65-99 N Performe d by certified GLUBED) cutter operator at [facility] [id number] 16:57:00 Test Item Value Reference Range Interpretation Comments GLUBED (test code = 169 MG/DL 65-99 H Performe d by certified GLUBED) cutter operator at [facility] [id number] 12:44:00 Test Item Value Reference Range Interpretation Comments GLUBED (test code = 145 MG/DL 65-99 H Performe d by certified GLUBED) cutter operator at [facility] [id number] 06:56:00 Test Item Value Reference Range Interpretation Comments GLUBED (test code = 93 MG/DL 65-99 N Performe d by certified GLUBED) cutter operator at [facility] CBC W/AUTO [id number] 06:47:00 Test Item Value Reference Range Interpretation [...] SCAN PLT_RBC TECH REVIEW = IFF) RBC [id number] 06:47:00 Test Item Value Reference Range Interpretation Comments RBC MORPHOLOGY COMMENT (test code = Normal RBCM) PLATELET [id number] 06:47:00 Test Item Value Reference Range Interpretation Comments PLATELET ESTIMATE (test Dec ADEQ A MANU AL PLATELET code = PLTEST) ESTIMATE: 50, 000 BASIC METABOLIC [id number] 05:42:00 Test Item Value Reference Range Interpretation [...] code = 8.5 MG/DL 8.7-10.5 L CA) [id number] 05:42:00 Test Item Value Reference Range Interpretation Comments MAGNESIUM (test code = MAG) 2.1 MG/DL 1.8-2.4 N CBC W/AUTO [id number] 05:21:00 Test Item Value Reference Range Interpretation [...] SCAN PLT_RBC TECH REVIEW = MDIFF) RBC [id number] 05:21:00 Test Item Value Reference Range Interpretation Comments RBC MORPHOLOGY COMMENT (test code = RBCM) PLATELET [id number] 05:21:00 Test Item Value Reference Range Interpretation Comments PLATELET ESTIMATE (test code = PLTEST) ADEQ CBC W/AUTO [id number] 05:21:00 Test Item Value Reference Range Interpretation [...] SCAN PLT_RBC TECH REVIEW = PETER) RBC [id number] 05:21:00 Test Item Value Reference Range Interpretation Comments RBC MORPHOLOGY COMMENT (test code = RBCM) PLATELET [id number] 05:21:00 Test Item Value Reference Range Interpretation Comments PLATELET ESTIMATE (test code = PLTEST) ADEQ [id number] 20:11:00 Test Item Value Reference Range Interpretation Comments GLUBED (test code = 149 MG/DL 65-99 H Performe d by certified GLUBED) cutter operator at [facility] [id number] 17:04:00 Test Item Value Reference Range Interpretation Comments GLUBED (test code = 106 MG/DL 65-99 H Performe d by certified GLUBED) cutter operator at [facility] CBC W/AUTO [id number] 13:06:00 Test Item Value Reference Range Interpretation [...] SCAN PLT_RBC TECH REVIEW = MDIFF) RBC [id number] 13:06:00 Test Item Value Reference Range Interpretation Comments RBC MORPHOLOGY COMMENT (test code = RBCM) PLATELET [id number] 13:06:00 Test Item Value Reference Range Interpretation Comments PLATELET ESTIMATE (test code = PLTEST) ADEQ CBC W/AUTO [id number] 13:06:00 Test Item Value Reference Range Interpretation [...] SCAN PLT_RBC TECH REVIEW = MDIFF) RBC [id number] 13:06:00 Test Item Value Reference Range Interpretation Comments RBC MORPHOLOGY COMMENT (test code = Normal RBCM) PLATELET [id number] 13:06:00 Test Item Value Reference Range Interpretation Comments PLATELET ESTIMATE (test Dec ADEQ A MANU AL PLATELET code = PLTEST) ESTIMATE: 60, 000 PLATELET [id number] 13:06:00 Test Item Value Reference Range Interpretation Comments PLATELET MORPHOLOGY (test code = Normal Normal PLTMORPH) CBC W/AUTO [id number] 13:06:00 Test Item Value Reference Range Interpretation [...] SCAN PLT_RBC TECH REVIEW = MDIFF) RBC [id number] 13:06:00 Test Item Value Reference Range Interpretation Comments RBC MORPHOLOGY COMMENT (test code = RBCM) PLATELET [id number] 13:06:00 Test Item Value Reference Range Interpretation Comments PLATELET ESTIMATE (test code = PLTEST) ADEQ [id number] 11:47:00 Test Item Value Reference Range Interpretation Comments GLUBED (test code = 168 MG/DL 65-99 H Performe d by certified GLUBED) cutter operator at [facility] COMPREHENSIVE METABOLIC [id number] 08:28:00 Test Item Value Reference Range Interpretation [...] 50-136 N TOTAL (test code = ALKP) [id number] 08:28:00 Test Item Value Reference Range Interpretation Comments MAGNESIUM (test code = MAG) 1.9 MG/DL 1.8-2.4 N CBC W/AUTO [id number] 08:14:00 Test Item Value Reference Range Interpretation [...] = 0.0 X10 3/uL 0.0-0.2 N NRBC#) [id number] 06:39:00 Test Item Value Reference Range Interpretation Comments GLUBED (test code = 87 MG/DL 65-99 N Performe d by certified GLUBED) cutter operator at [facility] [id number] 20:18:00 Test Item Value Reference Range Interpretation Comments GLUBED (test code = 116 MG/DL 65-99 H Performe d by certified GLUBED) cutter operator at [facility] [id number] 16:51:00 Test Item Value Reference Range Interpretation Comments GLUBED (test code = 206 MG/DL 65-99 H Performe d by certified GLUBED) cutter operator at [facility] PROCALCITONIN (PCT)2018-05-18 14:20:00 Test Item Value Reference Range Interpretation Comments PROCALCITONIN (PCT) (test code = < 0.05 ng/mL 0.00-0.50 N PROCAL) [id number] 12:30:00 Test Item Value Reference Range Interpretation Comments GLUBED (test code = 178 MG/DL 65-99 H Performe d by certified GLUBED) cutter operator at [facility] CBC W/AUTO [id number] 07:57:00 Test Item Value Reference Range Interpretation [...] SCAN PLT_RBC TECH REVIEW = MDIFF) RBC [id number] 07:57:00 Test Item Value Reference Range Interpretation Comments ANISOCYTOSIS (test code = ANISO) Slt PLATELET [id number] 07:57:00 Test Item Value Reference Range Interpretation Comments PLATELET ESTIMATE (test Dec ADEQ A MANU AL PLATELET code = PLTEST) ESTIMATE: 60, 000 PLATELET [id number] 07:57:00 Test Item Value Reference Range Interpretation Comments PLATELET MORPHOLOGY Variable Plt Size Normal A (test code = PLTMORPH) PLATELET MORPHOLOGY No PLT Clumping Seen Normal (test code = XHAOBLEQ75) CBC W/AUTO [id number] 07:53:00 Test Item Value Reference Range Interpretation [...] SCAN PLT_RBC TECH REVIEW = MDIFF) RBC [id number] 07:53:00 Test Item Value Reference Range Interpretation Comments RBC MORPHOLOGY COMMENT (test code = RBCM) PLATELET [id number] 07:53:00 Test Item Value Reference Range Interpretation Comments PLATELET ESTIMATE (test code = PLTEST) ADEQ CBC W/AUTO [id number] 07:53:00 Test Item Value Reference Range Interpretation [...] SCAN PLT_RBC TECH REVIEW = MDIFF) RBC [id number] 07:53:00 Test Item Value Reference Range Interpretation Comments RBC MORPHOLOGY COMMENT (test code = RBCM) PLATELET [id number] 07:53:00 Test Item Value Reference Range Interpretation Comments PLATELET ESTIMATE (test code = PLTEST) ADEQ CBC W/AUTO [id number] 07:53:00 Test Item Value Reference Range Interpretation [...] SCAN PLT_RBC TECH REVIEW = MDIFF) RBC [id number] 07:53:00 Test Item Value Reference Range Interpretation Comments RBC MORPHOLOGY COMMENT (test code = RBCM) PLATELET [id number] 07:53:00 Test Item Value Reference Range Interpretation Comments PLATELET ESTIMATE (test code = PLTEST) ADEQ [id number] 06:55:00 Test Item Value Reference Range Interpretation Comments GLUBED (test code = 253 MG/DL 65-99 H Performe d by certified GLUBED) cutter operator at [facility] CBC W/AUTO [id number] 06:43:00 Test Item Value Reference Range Interpretation [...] X10 3/uL 0.0-0.2 N NRBC#) COMPREHENSIVE METABOLIC [id number] 06:20:00 Test Item Value Reference Range Interpretation [...] 50-136 N TOTAL (test code = ALKP) [id number] 06:20:00 Test Item Value Reference Range Interpretation Comments MAGNESIUM (test code = MAG) 2.2 MG/DL 1.8-2.4 N [id number] 20:46:00 Test Item Value Reference Range Interpretation Comments GLUBED (test code = 263 MG/DL 65-99 H Performe d by certified GLUBED) cutter operator at [facility] DRUG OF ABUSE SCREEN [id number] 19:59:00 Test Item Value Reference Interpretation Comments [...] by tre quezada methods (i.e., GC/MS) at [facility]. Results of scre en may not be usedin crimi nal justice, job performance or professionalcre dential review, or infa nt custody issues. Negativ e [place] Level ng/ml ------- ----- Cocaine 300 Methamp hetamine (Ecstacy) 500 Cannabinoids (THC) 50 Amphetamine 1000 Barbiturate s 200 Benzodia zepines 200 Opiat es 300 Ph encyclidine (PCP) 25 [id number] 17:03:00 Test Item Value Reference Range Interpretation Comments GLUBED (test code = 190 MG/DL 65-99 H Performe d by certified GLUBED) cutter operator at [facility] [id number] 12:41:00 Test Item Value Reference Range Interpretation Comments GLUBED (test code = 152 MG/DL 65-99 H Performe d by certified GLUBED) cutter operator at [facility] - CT ABD PELVIS [id number] 11:22:00 Patient Name: ABHIJIT PEDROZA Unit No: [id number] EXAMS: CPT CODE: [id number] CT ABD PELVIS W/CONT 22174 Reason: right upper quadrant tenderness COMPARISON: Previous [...] Print D/T: S: 05/17/2018 (1126) CTDI: DLP: [facility] NAME: ABHIJIT PEDROZA S [address] PHYS: [place] [address] : 1965 AGE: 52 SEX: F LOC: D.D287 1 PHONE #: [phone] DATE: 05/17/2018 STATUS: ADM IN FAX #: RAD NO: DC Dt: PAGE 1 Signed Report- XR CHEST 1 [id number] 08:09:00 Patient Name: ABHIJIT PEDROZA Unit No: [id number] EXAMS: CPT CODE: [id number] XR CHEST 1 V 85355 Reason: COPD COMPARISON: Previous chest May 26, [...] ([email or web address].[email or web address] Orig Print D/T: S: 05/17/2018 (811) [facility] Cnt NAME: ABHIJIT PERDOZA [address] PHYS: LINDSEY [place],[facility] [place] [address] : 1965 AGE: 52 SEX: F LOC: D.D287 1 PHONE #: [phone] EXAM DATE: 05/17/2018 STATUS: ADM IN FAX #: RAD NO: DC Dt: PAGE 1 Signed [id number] 08:08:00 Test Item Value Reference Range Interpretation Comments GLUBED (test code = 194 MG/DL 65-99 H Performe d by certified GLUBED) cutter operator at [facility] CBC W/AUTO [id number] 07:53:00 Test Item Value Reference Range Interpretation [...] SCAN PLT_RBC TECH REVIEW = MDIFF) RBC [id number] 07:53:00 Test Item Value Reference Range Interpretation Comments POLYCHROMASIA (test code = POLC) Slt BASOPHILIC STIPPLING (test code = STP) Occ ANISOCYTOSIS (test code = ANISO) 2+ PLATELET [id number] 07:53:00 Test Item Value Reference Range Interpretation Comments PLATELET ESTIMATE (test Dec ADEQ A NATHANAEL AL PLATELET code = PLTEST) ESTIMATE: 45, 000 CV CALL [id number] 07:53:00 Test Item Value Reference Range Interpretation Comments CV CALL HEM (test code Called Resul ts called to and = CVCH) read back by CAREY HERNANDEZ RN;.for analyte(s): PLT .at 0643 - 05/17/18; by Mary Kay OREILLY. PROCALCITONIN (PCT)2018-05-17 07:30:00 Test Item Value Reference Range Interpretation Comments PROCALCITONIN (PCT) (test code = < 0.05 ng/mL 0.00-0.50 N PROCAL) C REACTIVE [id number] 07:11:00 Test Item Value Reference Range Interpretation Comments C REACTIVE PROTEIN (test code = 0.6 MG/DL < 0.9 CRP) COMPREHENSIVE METABOLIC [id number] 07:07:00 Test Item Value Reference Range Interpretation [...] 50-136 N TOTAL (test code = ALKP) [id number] 07:07:00 Test Item Value Reference Range Interpretation Comments MAGNESIUM (test code = MAG) 2.1 MG/DL 1.8-2.4 N CBC W/AUTO [id number] 06:43:00 Test Item Value Reference Range Interpretation [...] SCAN PLT_RBC TECH REVIEW = PETER) RBC [id number] 06:43:00 Test Item Value Reference Range Interpretation Comments RBC MORPHOLOGY COMMENT (test code = RBCM) PLATELET [id number] 06:43:00 Test Item Value Reference Range Interpretation Comments PLATELET ESTIMATE (test code = PLTEST) ADEQ CV CALL [id number] 06:43:00 Test Item Value Reference Range Interpretation Comments CV CALL HEM (test code Called Resul ts called to and = CVCH) read back by CAREY HERNANDEZ RN;.for analyte(s): PLT .at 0643 - 05/17/18; by Mary Kay OREILLY. CBC W/AUTO [id number] 06:42:00 Test Item Value Reference Range Interpretation [...] SCAN PLT_RBC TECH REVIEW = MDIFF) RBC [id number] 06:42:00 Test Item Value Reference Range Interpretation Comments RBC MORPHOLOGY COMMENT (test code = RBCM) PLATELET [id number] 06:42:00 Test Item Value Reference Range Interpretation Comments PLATELET ESTIMATE (test code = PLTEST) ADEQ CV CALL [id number] 06:42:00 Test Item Value Reference Range Interpretation Comments CV CALL HEM (test code = CVCH) CBC W/AUTO [id number] 06:42:00 Test Item Value Reference Range Interpretation [...] SCAN PLT_RBC TECH REVIEW = MDIFF) RBC [id number] 06:42:00 Test Item Value Reference Range Interpretation Comments RBC MORPHOLOGY COMMENT (test code = RBCM) PLATELET [id number] 06:42:00 Test Item Value Reference Range Interpretation Comments PLATELET ESTIMATE (test code = PLTEST) ADEQ CV CALL [id number] 06:42:00 Test Item Value Reference Range Interpretation Comments CV CALL HEM (test code = CVCH) ARTERIAL BLOOD [id number] 04:38:00 Test Item Value Reference Range Interpretation [...] code = 0.5 % 0.4-1.5 N METHGB) [id number] 23:27:00 Test Item Value Reference Range Interpretation Comments GLUBED (test code = 182 MG/DL 65-99 H Performe d by certified GLUBED) cutter operator at [facility] ARTERIAL BLOOD [id number] 17:13:00 Test Item Value Reference Range Interpretation [...] code = 0.4 % 0.4-1.5 N METHGB) [id number] 16:29:00 Test Item Value Reference Range Interpretation Comments MAGNESIUM (test code = MAG) 1.9 MG/DL 1.8-2.4 N C REACTIVE [id number] 11:56:00 Test Item Value Reference Range Interpretation Comments C REACTIVE PROTEIN (test code = 0.5 MG/DL < 0.9 CRP) COMPREHENSIVE METABOLIC [id number] 11:55:00 Test Item Value Reference Range Interpretation [...] 50-136 N TOTAL (test code = ALKP) [id number] 11:55:00 Test Item Value Reference Range Interpretation Comments PHOSPHOROUS (test code = PHOS) 3.6 MG/DL 2.5-4.9 N NT PRO-BRAIN NATRIURETIC [id number] 11:55:00 Test Item Value Reference Range Interpretation Comments NT PRO-BRAIN 40 PG/ML 0-125 N Results of this assay NATRIURETIC PEPTI (test meth od may be falsely code = PROBNP) depressed ore levated if patient is t aking high doses of B iotin. - XR CHEST 1 [id number] 11:55:00 Patient Name: ABHIJIT PEDROZA Unit No: [id number] EXAMS: CPT CODE: [id number] XR CHEST 1 V 37335 Reason: SOB - XR CHEST 1 V [...] Del Angel; Mary Lloyd RT Trscrpt Dt/ (1343)t.PKE Orig Print D/T: S: 05/16/2018 (8761) [facility] NAME: ABHIJIT PEDROZA [address] [facility] PHYS: MER[address] - [place] [address] : 1965 AGE: 52 SEX: F LOC: RACHEL PHONE #: [phone] EXAM DATE: 05/16/2018 STATUS: REG ER FAX #: RAD NO: DC Dt: PAGE 1 Signed ReportCBC W/AUTO [id number] 11:54:00 Test Item Value Reference Range Interpretation [...] SCAN PLT_RBC TECH REVIEW = MDIFF) RBC [id number] 11:54:00 Test Item Value Reference Range Interpretation Comments RBC MORPHOLOGY COMMENT (test code = Normal RBCM) PLATELET [id number] 11:54:00 Test Item Value Reference Range Interpretation Comments PLATELET ESTIMATE (test Dec ADEQ A MANU AL PLATELET code = PLTEST) ESTIMATE: 60, 000 PLATELET [id number] 11:54:00 Test Item Value Reference Range Interpretation Comments PLATELET MORPHOLOGY (test code = Normal Normal PLTMORPH) TROPONIN I [id number] 11:53:00 Test Item Value Reference Range Interpretation Comments TROPONIN I RAPID 0.00 NG/ML 0.00-0.08 N Performed b y certified (test code = cutter operator at [facility]) [facility] - The use of serial sampl ing and testing protoco l is a recommended pra ctice.- An elevated tro ponin level alone is often not sufficient for diagnosis of my ocardial infarction. PROTHROMBIN [id number] 11:46:00 Test Item Value Reference Range Interpretation [...] with flex-stent *: 3.0 - 4.0(*) = healthcare analyst's suggested range Is patient on anticoagulants? UnknownCBC W/AUTO [id number] 11:35:00 Test Item Value Reference Range Interpretation [...] SCAN PLT_RBC TECH REVIEW = MDIFF) RBC [id number] 11:35:00 Test Item Value Reference Range Interpretation Comments RBC MORPHOLOGY COMMENT (test code = RBCM) PLATELET [id number] 11:35:00 Test Item Value Reference Range Interpretation Comments PLATELET ESTIMATE (test code = PLTEST) ADEQ CBC W/AUTO [id number] 11:35:00 Test Item Value Reference Range Interpretation [...] SCAN PLT_RBC TECH REVIEW = MDIFF) RBC [id number] 11:35:00 Test Item Value Reference Range Interpretation Comments RBC MORPHOLOGY COMMENT (test code = RBCM) PLATELET [id number] 11:35:00 Test Item Value Reference Range Interpretation Comments PLATELET ESTIMATE (test code = PLTEST) ADEQ LACTIC ACID [id number] 11:29:00 Test Item Value Reference Range Interpretation Comments LACTIC ACID POC 0.91 MMOL/L 0.90-1.70 N Performed by certified (test code = LACTP) cutter operator at [facility] [id number] 06:18:00 Test Item Value Reference Range Interpretation Comments GLUBED (test code = 102 MG/DL 65-99 H Performe d by certified GLUBED) cutter operator at [facility] CBC W/AUTO [id number] 05:38:00 Test Item Value Reference Range Interpretation [...] SCAN PLT_RBC TECH REVIEW = MDIFF) RBC [id number] 05:38:00 Test Item Value Reference Range Interpretation Comments POLYCHROMASIA (test code = POLC) 1+ POIKILOCYTOSIS (test code = POIK) 1+ ANISOCYTOSIS (test code = ANISO) 1+ PLATELET [id number] 05:38:00 Test Item Value Reference Range Interpretation Comments PLATELET ESTIMATE (test Dec ADEQ A MANU AL PLATELET code = PLTEST) ESTIMATE: 45, 000 PLATELET [id number] 05:38:00 Test Item Value Reference Range Interpretation Comments PLATELET MORPHOLOGY (test Variable Plt Size Normal A code = PLTMORPH) CBC W/AUTO [id number] 05:37:00 Test Item Value Reference Range Interpretation [...] SCAN PLT_RBC TECH REVIEW = MDIFF) RBC [id number] 05:37:00 Test Item Value Reference Range Interpretation Comments RBC MORPHOLOGY COMMENT (test code = RBCM) PLATELET [id number] 05:37:00 Test Item Value Reference Range Interpretation Comments PLATELET ESTIMATE (test code = PLTEST) ADEQ CBC W/AUTO [id number] 05:37:00 Test Item Value Reference Range Interpretation [...] SCAN PLT_RBC TECH REVIEW = PETER) RBC [id number] 05:37:00 Test Item Value Reference Range Interpretation Comments RBC MORPHOLOGY COMMENT (test code = RBCM) PLATELET [id number] 05:37:00 Test Item Value Reference Range Interpretation Comments PLATELET ESTIMATE (test code = PLTEST) ADEQ CBC W/AUTO [id number] 04:57:00 Test Item Value Reference Range Interpretation [...] X10 3/uL 0.0-0.2 N NRBC#) COMPREHENSIVE METABOLIC [id number] 04:56:00 Test Item Value Reference Range Interpretation [...] TOTAL (test code = ALKP) COMPREHENSIVE METABOLIC [id number] 04:33:00 Test Item Value Reference Range Interpretation [...] 50-136 N TOTAL (test code = ALKP) [id number] 21:04:00 Test Item Value Reference Range Interpretation Comments GLUBED (test code = 150 MG/DL 65-99 H Performe d by certified GLUBED) cutter operator at [facility] [id number] 16:59:00 Test Item Value Reference Range Interpretation Comments GLUBED (test code = 127 MG/DL 65-99 H Performe d by certified GLUBED) cutter operator at [facility] [id number] 11:07:00 Test Item Value Reference Range Interpretation Comments GLUBED (test code = 146 MG/DL 65-99 H Performe d by certified GLUBED) cutter operator at [facility] CBC W/AUTO [id number] 08:10:00 Test Item Value Reference Range Interpretation [...] TECH REVIEW (test code = MDIFF) RBC [id number] 08:10:00 Test Item Value Reference Range Interpretation Comments ANISOCYTOSIS (test code = ANISO) 2+ PLATELET [id number] 08:10:00 Test Item Value Reference Range Interpretation Comments PLATELET ESTIMATE (test Dec ADEQ A MANU AL PLATELET code = PLTEST) ESTIMATE: 45, 000 CV CALL [id number] 08:10:00 Test Item Value Reference Range Interpretation Comments CV CALL HEM (test code Called Resul ts called to and = CVCH) read back by RIAZ VILLAR RN;.for a nalyte(s): HGB, PLT.at 071 5 - 05/01/18; by Mary Kay OREILLY. CBC W/AUTO [id number] 07:15:00 Test Item Value Reference Range Interpretation [...] COUNT (test 39 x10 3/uL 150-450 LL [facility] D BY code = PLT) RECOLLECTION MEAN [...] TECH REVIEW (test code = MDIFF) RBC [id number] 07:15:00 Test Item Value Reference Range Interpretation Comments RBC MORPHOLOGY COMMENT (test code = RBCM) PLATELET [id number] 07:15:00 Test Item Value Reference Range Interpretation Comments PLATELET ESTIMATE (test code = PLTEST) ADEQ CV CALL [id number] 07:15:00 Test Item Value Reference Range Interpretation Comments CV CALL HEM (test code Called Resul ts called to and = CVCH) read back by RIAZ VILLAR RN;.for a nalyte(s): HGB, PLT.at 071 5 - 05/01/18; by Mary Kay OREILLY. CBC W/AUTO [id number] 07:14:00 Test Item Value Reference Range Interpretation Comments WHITE BLOOD CELL 3.70 x10 3/uL 4.80-10.80 L (test code = WBC) RED BLOOD CELL (test 3.96 x10 6/uL 4.2-5.4 L code = RBC) HEMOGLOBIN (test code 11.6 G/DL 12.0-16.0 L VERIF ED BY = HGB) RECOLLECTION HEMATOCRIT (test [...] COUNT (test 39 x10 3/uL 150-450 LL VERIF D BY code = PLT) RECOLLECTION MEAN [...] TECH REVIEW (test code = MDIFF) RBC [id number] 07:14:00 Test Item Value Reference Range Interpretation Comments RBC MORPHOLOGY COMMENT (test code = RBCM) PLATELET [id number] 07:14:00 Test Item Value Reference Range Interpretation Comments PLATELET ESTIMATE (test code = PLTEST) ADEQ CV CALL [id number] 07:14:00 Test Item Value Reference Range Interpretation Comments CV CALL HEM (test code = CVCH) CBC W/AUTO [id number] 07:14:00 Test Item Value Reference Range Interpretation [...] TECH REVIEW (test code = MDIFF) RBC [id number] 07:14:00 Test Item Value Reference Range Interpretation Comments RBC MORPHOLOGY COMMENT (test code = RBCM) PLATELET [id number] 07:14:00 Test Item Value Reference Range Interpretation Comments PLATELET ESTIMATE (test code = PLTEST) ADEQ CV CALL [id number] 07:14:00 Test Item Value Reference Range Interpretation Comments CV CALL HEM (test code = CVCH) [id number] 06:33:00 Test Item Value Reference Range Interpretation Comments GLUBED (test code = 106 MG/DL 65-99 H Performe d by certified GLUBED) cutter operator at [facility] COMPREHENSIVE METABOLIC [id number] 04:44:00 Test Item Value Reference Range Interpretation [...] 50-136 N TOTAL (test code = ALKP) [id number] 20:35:00 Test Item Value Reference Range Interpretation Comments GLUBED (test code = 133 MG/DL 65-99 H Performe d by certified GLUBED) cutter operator at [facility] [id number] 15:43:00 Test Item Value Reference Range Interpretation Comments GLUBED (test code = 157 MG/DL 65-99 H Performe d by certified GLUBED) cutter operator at [facility] [id number] 11:57:00 Test Item Value Reference Range Interpretation Comments GLUBED (test code = 171 MG/DL 65-99 H Performe d by certified GLUBED) cutter operator at [facility] [id number] 06:49:00 Test Item Value Reference Range Interpretation Comments GLUBED (test code = 143 MG/DL 65-99 H Performe d by certified GLUBED) cutter operator at [facility] CBC W/AUTO [id number] 04:20:00 Test Item Value Reference Range Interpretation [...] SCAN PLT_RBC TECH REVIEW = MDIFF) RBC [id number] 04:20:00 Test Item Value Reference Range Interpretation Comments POLYCHROMASIA (test code = POLC) Slt HYPOCHROMIA (test code = HYPO) Slt ANISOCYTOSIS (test code = ANISO) Slt PLATELET [id number] 04:20:00 Test Item Value Reference Range Interpretation Comments PLATELET ESTIMATE (test Dec ADEQ A MANU AL PLATELET code = PLTEST) ESTIMATE: 60, 000 COMPREHENSIVE METABOLIC [id number] 04:00:00 Test Item Value Reference Range Interpretation [...] TOTAL (test code = ALKP) CBC W/AUTO [id number] 03:35:00 Test Item Value Reference Range Interpretation [...] SCAN PLT_RBC TECH REVIEW = MDIFF) RBC [id number] 03:35:00 Test Item Value Reference Range Interpretation Comments RBC MORPHOLOGY COMMENT (test code = RBCM) PLATELET [id number] 03:35:00 Test Item Value Reference Range Interpretation Comments PLATELET ESTIMATE (test code = PLTEST) ADEQ CBC W/AUTO [id number] 03:35:00 Test Item Value Reference Range Interpretation [...] SCAN PLT_RBC TECH REVIEW = MDIFF) RBC [id number] 03:35:00 Test Item Value Reference Range Interpretation Comments RBC MORPHOLOGY COMMENT (test code = RBCM) PLATELET [id number] 03:35:00 Test Item Value Reference Range Interpretation Comments PLATELET ESTIMATE (test code = PLTEST) ADEQ [id number] 21:15:00 Test Item Value Reference Range Interpretation Comments GLUBED (test code = 121 MG/DL 65-99 H Performe d by certified GLUBED) cutter operator at [facility] [id number] 16:47:00 Test Item Value Reference Range Interpretation Comments GLUBED (test code = 118 MG/DL 65-99 H Performe d by certified GLUBED) cutter operator at [facility] [id number] 11:50:00 Test Item Value Reference Range Interpretation Comments GLUBED (test code = 137 MG/DL 65-99 H Performe d by certified GLUBED) cutter operator at [facility] [id number] 06:14:00 Test Item Value Reference Range Interpretation Comments GLUBED (test code = 156 MG/DL 65-99 H Performe d by certified GLUBED) cutter operator at [facility] CBC W/AUTO [id number] 04:39:00 Test Item Value Reference Range Interpretation [...] SCAN PLT_RBC TECH REVIEW = MDIFF) PLATELET [id number] 04:39:00 Test Item Value Reference Range Interpretation Comments PLATELET ESTIMATE (test Dec ADEQ A MANU AL PLATELET code = PLTEST) ESTIMATE: 45, 000 COMPREHENSIVE METABOLIC [id number] 03:48:00 Test Item Value Reference Range Interpretation [...] 3-60 N code = VLDL) COMPREHENSIVE METABOLIC [id number] 03:40:00 Test Item Value Reference Range Interpretation [...] 20 MG/DL 3-60 N code = VLDL) [id number] 03:26:00 Test Item Value Reference Range Interpretation Comments AMMONIA (test code = 57 UMOL/L 11-35 H Results of this assay AMM) method may be f alsely depressed orele vated if patient is taki ng sulfasalazine. CBC W/AUTO [id number] 03:21:00 Test Item Value Reference Range Interpretation [...] SCAN PLT_RBC TECH REVIEW = MDIFF) RBC [id number] 03:21:00 Test Item Value Reference Range Interpretation Comments RBC MORPHOLOGY COMMENT (test code = RBCM) PLATELET [id number] 03:21:00 Test Item Value Reference Range Interpretation Comments PLATELET ESTIMATE (test code = PLTEST) ADEQ CBC W/AUTO [id number] 03:21:00 Test Item Value Reference Range Interpretation [...] SCAN PLT_RBC TECH REVIEW = MDIFF) RBC [id number] 03:21:00 Test Item Value Reference Range Interpretation Comments RBC MORPHOLOGY COMMENT (test code = RBCM) PLATELET [id number] 03:21:00 Test Item Value Reference Range Interpretation Comments PLATELET ESTIMATE (test code = PLTEST) ADEQ [id number] 20:24:00 Test Item Value Reference Range Interpretation Comments GLUBED (test code = 93 MG/DL 65-99 N Performe d by certified GLUBED) cutter operator at [facility] [id number] 16:41:00 Test Item Value Reference Range Interpretation Comments GLUBED (test code = 116 MG/DL 65-99 H Performe d by certified GLUBED) cutter operator at [facility] - XR SHOULDER 2+V [id number] 16:13:00 Patient Name: ABHIJIT PEDROZA Unit No: [id number] EXAMS: CPT CODE: [id number] XR SHOULDER 2+V LT 11716 Reason: C/O LT SHOULDER PAIN History: TIA [...] MD Technologist: Christine HOWE RT Trscrpt Dt/ ([id number])[id number].ONELIAR.ELG Orig Print D/T: S: 04/28/2018 (1616) [facility]nt NAME: ABHIJIT PEDROZA [address] PHYS: [place] [address] : 1965 AGE: 52 SEX: F LOC: D.D305 1 PHONE #: [phone] EXAM DATE: 04/28/2018 STATUS: ADM IN FAX #: RAD NO: DC Dt: PAGE 1 Signed [id number] 11:31:00 Test Item Value Reference Range Interpretation Comments GLUBED (test code = 109 MG/DL 65-99 H Performe d by certified GLUBED) cutter operator at [facility] - MRI BRAIN W/O [id number] 10:33:00 Patient Name: ABHIJIT PEDROZA Unit No: [id number] EXAMS: CPT CODE: [id number] MRI BRAIN W/O CONTRAST [id number] Reason: cva History: CVA. COMPARISON: Head CT [...] (1033)t.ELG Orig Print D/T: S: 04/28/2018 (1037) [facility] NAME: ABHIJIT PEDROZA [address] [facility] PHYS: Kong Miranda [place] [address] : 1965 AGE: 52 SEX: F LOC: D.D305 1PHONE #: [phone] EXAM DATE: 04/28/2018 STATUS: ADM IN FAX #: RAD NO: DC Dt: PAGE 1 Signed Report- DUP EXTRACRANIAL ERIC 2018-04-28 08:41:00 Patient Name: ABHIJIT PEDROZA Unit No: [id number] EXAMS: CPT CODE: [id number] DUP EXTRACRANIAL ERIC [id number] History: CVA. Carotid Doppler Ultrasound TECHNIQUE: Mandel [...] MD CC: Sanjay Strong MD Technologist: Dawna West Trnscrbd D/ (0841) t.LATOYA Orig Print D/T: S: 04/28/2018 (0845) Probe: [facility] NAME: ABHIJIT PEDROZA [address] PHYS: Kong Miranda MD [facility] [place] [address] : 1965 AGE: 52 SEX: F LOC: D.D305 1 PHONE #: [phone] EXAM DATE: 04/28/2018 STATUS: ADM IN FAX #: RAD NO: Page 1 Signed [id number] 06:16:00 Test Item Value Reference Range Interpretation Comments GLUBED (test code = 110 MG/DL 65-99 H Performe d by certified GLUBED) cutter operator at [facility] ARTERIAL BLOOD [id number] 21:28:00 Test Item Value Reference Range Interpretation [...] = SITEA) LR - CT HEAD/BRAIN W/O [id number] 21:23:00 Patient Name: ABHIJIT PEDROZA Unit No: [id number] EXAMS: CPT CODE: [id number] CT HEAD/BRAIN W/O CONT 47577 Reason: altered mental status EXAM: - CT [...] MD Technologist: Dre Monroe RT/CT Trscrpt Dt/ (2122)tMATEOR.NH41 Orig Print D/T: S: 04/27/2018 (2125) CTDI: DLP: [place] NAME: ABHIJIT PEDROZA [address] [place] [address] PHYS: Dave Feng [address]auri [address] : 1965 AGE: 52 SEX: F [place] [address] LOC: D.PER PHONE #: [phone] EXAM DATE: 04/27/2018 STATUS: REG ERFAX #: RAD NO: DC Dt: PAGE 1 Signed Report- XR CHEST 1 [id number] 20:59:00 Patient Name: ABHIJIT PEDROZA Unit No: [id number] EXAMS: CPT CODE: [id number] XR CHEST 1 V 56448 Reason: altered mental status EXAM: - XR [...] Dt/ (2058)Brooke.NH41 Orig Print D/T:S: 04/27/2018 (2101) [facility] NAME: ABHIJIT PEDROZA [address] [place] [address] PHYS: Pham Fengradha [address]org[address] : 1965 AGE: 52 SEX: F [place], [place] [address] LOC: D.PER PHONE #: [phone] EXAM DATE: 04/27/2018 STATUS: REG ER FAX #: RAD NO: DC Dt: PAGE 1 Signed ReportLACTIC ACID [id number] 20:24:00 Test Item Value Reference Range Interpretation Comments LACTIC ACID POC 0.67 MMOL/L 0.90-1.70 L Performed by certified (test code = LACTP) cutter operator at [facility] BASIC METABOLIC [id number] 20:24:00 Test Item Value Reference Range Interpretation [...] 8.1 MG/DL 8.7-10.5 L CA) HEPATIC FUNCTION [id number] 20:24:00 Test Item Value Reference Range Interpretation [...] 50-136 H TOTAL (test code = ALKP) [id number] 20:24:00 Test Item Value Reference Range Interpretation Comments LIPASE (test code = LIP) 192 Units/L 73-393 N THYROID STIMULATING [id number] 20:24:00 Test Item Value Reference Range Interpretation Comments THYROID STIMULATING 2.29 0.42-5.47 N Micro-In ternational HORMONE (test code = TSH) Un its/L [id number] 20:24:00 Test Item Value Reference Range Interpretation Comments CK (test code = CKT) 69 Units/L 26-192 N [id number] 20:24:00 Test Item Value Reference Range Interpretation [...] is taking high dos es of Biotin. [id number] 20:24:00 Test Item Value Reference Range Interpretation Comments ACETAMINOPHEN (test < 1 MCG/ML 10-30 L Acetamin ophen is code = ACET) possibly toxic at levels of: 1. m ore than 150 MCG/ML 4 hours post bennett stion. 2. more than 5 0 MCG/ML 12 hours post ingestion. [id number] 20:24:00 Test Item Value Reference Range Interpretation Comments SALICYLATE (test code = < 3 MG/DL 0-20 N Refe rence Range: LUIS ANGEL) Analgesic...... ...... ...... < 10 mg /dl Therapeutic.... ...... ...... 15-20 mg /dl Mild Toxicity....... ...... . > 30 mg/dl Severe Toxicity....... ..... > 60 mg/dl [id number] 20:24:00 Test Item Value Reference Range Interpretation [...] forlegal or emp loyment evaluative purp oses. [id number] 20:23:00 Test Item Value Reference Range Interpretation Comments GLUBED (test code = 156 MG/DL 65-99 H Performe d by certified GLUBED) cutter operator at [facility] PROTHROMBIN [id number] 20:19:00 Test Item Value Reference Range Interpretation [...] with flex-stent *: 3.0 - 4.0(*) = healthcare analyst's suggested range Is patient on anticoagulants? UnknownTHROMBOPLASTIN TIME [id number] 20:19:00 Test Item Value Reference Range Interpretation [...] 01/30/2018 Is patient on anticoagulants? UnknownCBC W/AUTO [id number] 20:18:00 Test Item Value Reference Range Interpretation [...] SCAN PLT_RBC TECH REVIEW = MDIFF) RBC [id number] 20:18:00 Test Item Value Reference Range Interpretation Comments RBC MORPHOLOGY COMMENT (test code = Normal RBCM) PLATELET [id number] 20:18:00 Test Item Value Reference Range Interpretation Comments PLATELET ESTIMATE (test code Dec TAL A PLT ESTIMATE-60,000 = PLTEST) CBC W/AUTO [id number] 20:17:00 Test Item Value Reference Range Interpretation [...] SCAN PLT_RBC TECH REVIEW = MDIFF) RBC [id number] 20:17:00 Test Item Value Reference Range Interpretation Comments RBC MORPHOLOGY COMMENT (test code = RBCM) PLATELET [id number] 20:17:00 Test Item Value Reference Range Interpretation Comments PLATELET ESTIMATE (test code = PLTEST) ADEQ CBC W/AUTO [id number] 20:17:00 Test Item Value Reference Range Interpretation [...] SCAN PLT_RBC TECH REVIEW = PETER) RBC [id number] 20:17:00 Test Item Value Reference Range Interpretation Comments RBC MORPHOLOGY COMMENT (test code = RBCM) PLATELET [id number] 20:17:00 Test Item Value Reference Range Interpretation Comments PLATELET ESTIMATE (test code = PLTEST) ADEQ BASIC METABOLIC [id number] 20:12:00 Test Item Value Reference Range Interpretation [...] 8.1 MG/DL 8.7-10.5 L CA) HEPATIC FUNCTION [id number] 20:12:00 Test Item Value Reference Range Interpretation [...] TOTAL (test Units/L 50-136 code = ALKP) [id number] 20:12:00 Test Item Value Reference Range Interpretation Comments LIPASE (test code = LIP) Units/L 73-393 THYROID STIMULATING [id number] 20:12:00 Test Item Value Reference Range Interpretation Comments THYROID STIMULATING HORMONE (test code 0.42-5.47 = TSH) [id number] 20:12:00 Test Item Value Reference Range Interpretation Comments CK (test code = CKT) Units/L 26-192 [id number] 20:12:00 Test Item Value Reference Range Interpretation Comments TROPONIN-I (test code = TROPI) NG/ML 0.00-0.06 [id number] 20:12:00 Test Item Value Reference Range Interpretation Comments ACETAMINOPHEN (test code = ACET) MCG/ML 10-30 [id number] 20:12:00 Test Item Value Reference Range Interpretation Comments SALICYLATE (test code = LUIS ANGEL) MG/DL 0-20 [id number] 20:12:00 Test Item Value Reference Range Interpretation Comments ALCOHOL (test code = ALC) MG/DL 0-10 [id number] 20:10:00 Test Item Value Reference Range Interpretation Comments AMMONIA (test code = 90 UMOL/L 11-35 H Results of this assay AMM) method may be f alsely depressed orele vated if patient is taki ng sulfasalazine.
[2020-01-02] MEDS ORDERED: methocarbamoL 500 MG TAB ONE (22:06)
[2020-01-02] MEDS ORDERED: KETOROLAC 30 MG/ML INJ ONE (22:06)
[2020-01-02 22:12] LABS: Absolute Lymphocytes (CBC) 0.7 K/uL (0.7-4.9); Basophils % 0.8 % (0-1.3); Hematocrit 37.9 % (36.0-45.0); Lymphocytes % 17.1 % (15.3-44.8); MPV 8.5 fL (7.6-11.3); RBC Red Blood Cell Count 4.46 M/uL (3.86-4.86)
[2020-01-02 22:34] LABS: Albumin 3.3 g/dL (3.4-5.0); Bilirubin Direct 0.6 mg/dL (0-0.2); Bilirubin Total 1.8 mg/dL (0.2-1.0); Magnesium 2.1 mg/dL (1.8-2.4); Potassium 3.6 mmol/L (3.5-5.1); Protein, Total 7.8 g/dL (6.4-8.2)
[2020-01-02] MEDS ORDERED: NA CHLORIDE 0.9% 1,000 ML ONE (22:59)
--- NOTE | 2020-01-02 23:28 | EDPHYS ---
Physician Documentation [facility] Name: Michell Monroe Age: 54 yrs Sex: Female : 1965 Arrival Date: 01/02/2020 Time: 21:18 Bed 5 Private MD: ED Physician Kike Taylor HPI: 01/01 22:12 This 54 yrs old Female presents to ER via EMS with complaints of muscle cramps.tw4 22:12 pt states that she began having muscle cramps today. Onset: The symptoms/episode tw4 began/occurred today. Severity of symptoms: At their worst the symptoms were moderate in the emergency department the symptoms are unchanged. The patient has not experienced similar symptoms in the past. [employer]: 23:00 lmp unknown mg2 Historical: - Allergies: 21:22 Glipizide; mg2 21:22 metformin; mg2 21:22 Tylenol-Codeine #3; mg2 - PMHx: 21:22 Bipolar disorder; Cirrhosis; COPD; Diabetes - IDDM; Hepatitis; Hypertension; mg2 Schizophrenia; - PSHx: 21:22 Cholecystectomy; mg2 - Immunization history:: Flu vaccine status is unknown. - Social history:: Smoking status: Patient denies any tobacco usage or history of. Patient/guardian denies using alcohol, street drugs, IV drugs. ROS: 22:12 Constitutional: Negative for fever, chills, and weight loss, Eyes: Negative for injury, tw4 pain, redness, and discharge, Cardiovascular: Negative for chest pain, palpitations, and edema, Respiratory: Negative for shortness of breath, cough, wheezing, and pleuritic chest pain, Abdomen/GI: Negative for abdominal pain, nausea, vomiting, diarrhea, and constipation, Back: Negative for injury and pain. 22:12 Skin: Negative for injury, rash, and discoloration, Neuro: Negative for headache, weakness, numbness, tingling, and seizure. 22:12 MS/extremity: Positive for pain, of the right arm, left arm, right leg and left leg. Exam: 22:12 Constitutional: This is a well developed, well nourished patient who is awake, alert, tw4 and in no acute distress. Head/Face: Normocephalic, atraumatic. Chest/axilla: Normal chest wall appearance and motion. Nontender with no deformity. No lesions are appreciated. Cardiovascular: Regular rate and rhythm with a normal S1 and S2. No gallops, murmurs, or rubs. Normal PMI, no JVD. No pulse deficits. Respiratory: Lungs have equal breath sounds bilaterally, clear to auscultation and percussion. No rales, rhonchi or wheezes noted. No increased work of breathing, no retractions or nasal flaring. Abdomen/GI: Soft, non-tender, with normal bowel sounds. No distension or tympany. No guarding or rebound. No evidence of tenderness throughout. Back: No spinal tenderness. No costovertebral tenderness. Full range of motion. MS/ Extremity: Pulses equal, no cyanosis. Neurovascular intact. Full, normal range of motion. Neuro: Awake and alert, GCS 15, oriented to person, place, time, and situation. Cranial nerves II-XII grossly intact. Motor strength 5/5 in all extremities. Sensory grossly intact. Cerebellar exam normal. Normal gait. Vital Signs: 21:18 BP 134 / 99; Pulse 85; Resp 18; Temp 98.2; Pulse Ox 96% on R/A; Height 5 ft. 1 in. mg2 (154.94 cm); 22:36 BP 116 / 63; Pulse 80; Resp 18; Pulse Ox 95% on R/A; mg2 23:27 BP 102 / 59; Pulse 81; Resp 18; Pulse Ox 96% on R/A; ea MDM: 21:23 Patient medically screened. tw4 22:45 Data reviewed: vital signs, nurses notes. Data interpreted: Pulse oximetry: tw4 Interpretation: normal. Counseling: I had a detailed discussion with the patient and/or guardian regarding: the historical points, exam findings, and any diagnostic results supporting the discharge/admit diagnosis. Special discussion: I discussed with the patient/guardian in detail that at this point there is no indication for admission to the hospital. It is understood, however, that if the symptoms persist or worsen the patient needs to return immediately for re-evaluation. 01/01 21:35 Order name: Glucose, Ancillary Testing; Complete Time: 22:44 EDMS 01/01 21:47 Order name: Basic Metabolic Panel; Complete Time: 22:44 tw4 01/01 22:45 Interpretation: Normal except: GLUC 358; GFR 66. tw4 01/01 21:47 Order name: CBC with Diff; Complete Time: 22:44 tw4 01/01 22:45 Interpretation: Normal except: WBC 4.2; PLT 85; EOSINOPHIL % 5.8; RDW 15.9. tw4 01/01 21:47 Order name: Hepatic Function; Complete Time: 22:44 tw4 01/01 22:44 Interpretation: Normal except: A/G 0.7; ALB 3.3; GLOB 4.5; BILID 0.6; BILIT 1.8; ALK tw4 167. 01/01 21:47 Order name: Lipase; Complete Time: 22:44 tw4 01/01 21:47 Order name: Magnesium; Complete Time: 22:44 tw4 01/01 21:47 Order name: IV Saline Lock; Complete Time: 21:52 tw4 01/01 21:47 Order name: Labs collected and sent; Complete Time: 21:52 tw4 Administered Medications: 21:56 Drug: TORadol 30 mg Route: IVP; Site: right antecubital; ea 23:42 Follow up: Response: No adverse reaction mg2 21:56 Drug: Robaxin 500 mg Route: PO; ea 23:42 Follow up: Response: No adverse reaction mg2 22:47 Drug: NS 0.9% 1000 ml Route: IV; Rate: 1 bolus; Site: right antecubital; mg2 23:42 Follow up: Response: No adverse reaction; IV Status: Completed infusion; IV Intake: mg2 1000ml Disposition: 01/02/20 23:28 Discharged to Home. Impression: Arthralgias. - Condition is Stable. - Discharge Instructions: Muscle Pain, Adult. - Prescriptions for Ibuprofen 600 mg Oral Tablet - take 1 tablet by ORAL route every 6 hours As needed take with food; 30 tablet. Cyclobenzaprine 5 mg Oral Tablet - take 1 tablet by ORAL route 3 times per day As needed; 5 tablet. - Medication Reconciliation Form, Thank You Letter, Antibiotic Education, Prescription Opioid Use form. - Follow up: Private Physician; When: Upon discharge from the Emergency Department; Reason: Recheck today's complaints, Continuance of care, Re-evaluation by your physician. - Problem is new. - Symptoms have improved. Signatures: Dispatcher [employer] EDMS Gudelia Martinez RN RN ea Wadley, Terrence, MD MD tw4 Gardose, Mauro, RN RN mg2 Corrections: (The following items were deleted from the chart) 23:43 23:28 01/02/2020 23:28 Discharged to Home. Impression: Arthralgias. Condition is mg2 Stable. Forms are Medication Reconciliation Form, Thank You Letter, Antibiotic Education, Prescription Opioid Use. Follow up: Private Physician; When: Upon discharge from the Emergency Department; Reason: Recheck today's complaints, Continuance of care, Re-evaluation by your physician. Problem is new. Symptoms have improved. tw4
--- NOTE | 2020-01-02 23:28 | ER ---
Nurse's Notes [facility] Name: Michell Monroe Age: 54 yrs Sex: Female : 1965 Arrival Date: 01/02/2020 Time: 21:18 Bed 5 Private MD: Diagnosis: Arthralgias Presentation: 01/01 21:18 Chief complaint: EMS states: she is having cramping all over her body and nausea today. mg2 she usually takes robaxin but she run out of it. her BGL at home was high. en route her BGL was 375 mg/dl. she had novalog 25 units \T\ 1930 tonight. Coronavirus screen: At this time, the client does not indicate any symptoms associated with coronavirus-19. Ebola Screen: No symptoms or risks identified at this time. Initial Sepsis Screen: Does the patient meet any 2 criteria? No. Patient's initial sepsis screen is negative. Does the patient have a suspected source of infection? No. Patient's initial sepsis screen is negative. Risk Assessment: Do you want to hurt yourself or someone else? Patient reports no desire to harm self or others. Onset of symptoms was January 02, 2020. 21:18 Method Of Arrival: EMS: [facility] 21:18 Acuity: NATHAN 3 mg2 Triage Assessment: 21:32 General: Appears uncomfortable, Behavior is crying. Pain: Complains of pain in whole mg2 body. EENT: No signs and/or symptoms were reported regarding the EENT system. Neuro: Level of Consciousness is awake, alert, obeys commands, Oriented to person, place, time, situation. Cardiovascular: Capillary refill < 3 seconds Patient's skin is warm and dry. Respiratory: Airway is patent Respiratory effort is even, unlabored, Respiratory pattern is regular, symmetrical. GI: Reports nausea. : No signs and/or symptoms were reported regarding the genitourinary system. Derm: Skin is intact, is healthy with good turgor, Skin is pink, warm \T\ dry. normal. Musculoskeletal: Circulation, motion, and sensation intact. Capillary refill < 3 seconds. ANALYSIS INTERN: 23:00 lmp unknown mg2 Historical: - Allergies: 21:22 Glipizide; mg2 21:22 metformin; mg2 21:22 Tylenol-Codeine #3; mg2 - PMHx: 21:22 Bipolar disorder; Cirrhosis; COPD; Diabetes - IDDM; Hepatitis; Hypertension; mg2 Schizophrenia; - PSHx: 21:22 Cholecystectomy; mg2 - Immunization history:: Flu vaccine status is unknown. - Social history:: Smoking status: Patient denies any tobacco usage or history of. Patient/guardian denies using alcohol, street drugs, IV drugs. Screenin:33 Abuse screen: Denies threats or abuse. Denies injuries from another. Nutritional mg2 screening: No deficits noted. Tuberculosis screening: No symptoms or risk factors identified. Fall Risk None identified. IV access (20 points). Assessment: 21:33 Reassessment: see triage assessment. mg2 22:36 Reassessment: Patient appears in no apparent distress at this time. Patient and/or mg2 family updated on plan of care and expected duration. Pain level reassessed. Patient is alert, oriented x 3, equal unlabored respirations, skin warm/dry/pink. 22:48 Reassessment: patient is crying of pain. provider informed and orders made. mg2 23:42 Reassessment: Patient states feeling better. Patient states symptoms have improved. mg2 Vital Signs: 21:18 BP 134 / 99; Pulse 85; Resp 18; Temp 98.2; Pulse Ox 96% on R/A; Height 5 ft. 1 in. mg2 (154.94 cm); 22:36 BP 116 / 63; Pulse 80; Resp 18; Pulse Ox 95% on R/A; mg2 23:27 BP 102 / 59; Pulse 81; Resp 18; Pulse Ox 96% on R/A; ea ED Course: 21:18 Patient arrived in ED. mg2 21:20 Kike Taylor MD is Attending Physician. tw4 21:21 Triage completed. mg2 21:21 Arm band placed on. mg2 21:25 Inserted saline lock: 20 gauge in right antecubital area, using aseptic technique. dh4 Blood collected. 21:32 Mauro Castellanos, DEBORAH is Primary Nurse. mg2 21:33 Patient has correct armband on for positive identification. mg2 22:48 No provider procedures requiring assistance completed. mg2 23:42 IV discontinued, intact, bleeding controlled, No redness/swelling at site. Pressure mg2 dressing applied. Administered Medications: 21:56 Drug: TORadol 30 mg Route: IVP; Site: right antecubital; ea 23:42 Follow up: Response: No adverse reaction mg2 21:56 Drug: Robaxin 500 mg Route: PO; ea 23:42 Follow up: Response: No adverse reaction mg2 22:47 Drug: NS 0.9% 1000 ml Route: IV; Rate: 1 bolus; Site: right antecubital; mg2 23:42 Follow up: Response: No adverse reaction; IV Status: Completed infusion; IV Intake: mg2 1000ml Intake: 23:42 IV: 1000ml; Total: 1000ml. mg2 Outcome: 23:28 Discharge ordered by MD. pepper 23:42 Discharged to home ambulatory. mg2 23:42 Condition: stable 23:42 Discharge instructions given to patient, Instructed on discharge instructions, follow up and referral plans. medication usage, Demonstrated understanding of instructions, follow-up care, medications, Prescriptions given X 2. 23:43 Patient left the ED. mg2 Signatures: Gudelia Martinez RN Kike Sanchez ea, MD MD tw4 Mauro Castellanos RN RN [facility] Romel Hutton 4
[2020-01-03 01:08] VITALS: TEMP 98.2
[2020-01-03 01:11] VITALS: BP 102/59; O2SAT 96
== END 2020-01-02 23:43 | disposition home or self-care (01) ==
LOC: ER 21:11
DX: M25.59 Pain in other specified joint (principal); M79.662 Pain in left lower leg; M79.661 Pain in right lower leg; M79.602 Pain in left arm; M79.601 Pain in right arm; I10 Essential (primary) hypertension; Z88.5 Allergy status to narcotic agent; Z88.8 Allergy status to other drugs, medicaments and biological substances
CPT/HCPCS: 96361; 85025; 80048; 36415; 83735; 82947; 80076; 83690; 96374; 99284; J7030